=== PATIENT | female | born 1955 | race Hispanic/Latino ===

== ENCOUNTER 2017-01-22 15:49 | Observation (INO) | payer MEDICAID ==
[2017-01-22 17:43] LABS: BASO # 0.1 K/uL (0.0-0.2); BASO % 1.3 % (0.0-2.0); EOS # 0.1 K/uL (0.0-0.7); EOS % 1.3 % (0.0-4.0); HEMATOCRIT 35.2 % (34.0-47.0); MEAN CORPUSCULAR HEMOGLOBIN 28.7 pg (27.0-31.0); MEAN CORPUSCULAR HGB CONC 32.7 g/dL (33.0-37.0); MEAN PLATELET VOLUME 9.3 fL (7.2-11.7); MONO # 0.5 K/uL (0.0-0.8); MONO % 8.8 % (0.0-10.0); RED CELL DISTRIBUTION WIDTH 16.3 % (11.5-14.5)
[2017-01-22 17:44] LABS: WHITE BLOOD COUNT 5.2 K/uL (4.8-10.8)
[2017-01-22 17:46] LABS: CHLORIDE 97 mmol/L (98-107)
[2017-01-22 17:47] LABS: SODIUM 136 mmol/L (132-148)
[2017-01-22 17:48] LABS: POTASSIUM 4.7 mmol/L (3.6-5.2)
[2017-01-22 17:50] LABS: ALKALINE PHOSPHATASE 71 U/L (38-126); ALT/SGPT 22 U/L (9-52); AST/SGOT 33 U/L (14-36); BLOOD UREA NITROGEN 20 mg/dL (7-17); CALCIUM 8.9 mg/dl (8.6-10.4); CARBON DIOXIDE 24 mmol/L (22-30); GFR AFRICAN-AMERICAN > 60; GLUCOSE,RANDOM 85 mg/dL (65-105); TOTAL PROTEIN 8.1 g/dL (6.3-8.3)
[2017-01-22 17:51] LABS: ALB/GLOB RATIO 0.8 (1.0-2.1); INR 1.2
--- NOTE | 2017-01-22 18:39 | C.PDOC ---
History Of Present Illness 61-year-old female, PMHx includes Ascites receiving paracentesis once a month, presents to the emergency department with complaints of pain to left inguinal region and umbilical hernia pain for the past few days. Patient denies nausea/ vomiting, shortness of breath or any other associated symptoms. No other complaints at this time. Time Seen by Provider: 01/22/17 16:55 Chief Complaint (Nursing): Abdominal Pain History Per: Patient History/Exam Limitations: no limitations Onset/Duration Of Symptoms: Days Past Medical History Reviewed: Historical Data, Nursing Documentation, Vital Signs Vital Signs: Last Vital Signs Temp 97.6 F 01/22/17 16:16 Pulse 79 01/22/17 16:16 Resp 16 01/22/17 16:16 BP 148/80 01/22/17 16:16 Pulse Ox 99 01/22/17 18:39 - Medical History PMH: Anxiety, Asthma, Bronchitis, COPD, HTN Denies: Chronic Kidney Disease - [facility] Procedures DRAINAGE OF PERITONEAL CAVITY, PERCUTANEOUS APPROACH (11/28/16) INDIVIDUAL PSYCHOTHERAPY, COGNITIVE-BEHAVIORAL (11/28/16) INDIVIDUAL PSYCHOTHERAPY, SUPPORTIVE (11/28/16) Family History: States: Unknown Family Hx - Social History Hx Tobacco Use: No Hx Alcohol Use: Yes Hx Substance Use: Yes (marijuana) - Immunization History Hx Tetanus Toxoid Vaccination: No Hx Influenza Vaccination: No Hx Pneumococcal Vaccination: No Review Of Systems Except As Marked, All Systems Reviewed And Found Negative. Constitutional: Negative for: Fever, Chills Cardiovascular: Negative for: Chest Pain, Palpitations Respiratory: Negative for: Shortness of Breath Gastrointestinal: Positive for: Abdominal Pain. Negative for: Vomiting Musculoskeletal: Negative for: Back Pain Physical Exam - Physical Exam Appears: Non-toxic, No Acute Distress Skin: Warm, Dry, No Rash Head: Atraumatic, Normacephalic Eye(s): bilateral: Normal Inspection, PERRL Nose: Normal Oral Mucosa: Moist Lips: Normal Appearing Neck: Normal ROM Chest: Symmetrical Respiratory: No Accessory Muscle Use Gastrointestinal/Abdominal: Tenderness (diffusely), Hernia (umbilical) Extremity: Normal ROM Neurological/Psych: Oriented x3, Normal Speech ED Course And Treatment - Laboratory Results Result Diagrams: 01/22/17 17:32 01/22/17 17:32 O2 Sat by Pulse Oximetry: 99 Progress Note: Patient will be admitted to Dr Vitor Suazo Statement The provider has reviewed the documentation as recorded by the Gabriele Owens All medical record entries made by the Gabriele were at my direction and personally dictated by me. I have reviewed the chart and agree that the record accurately reflects my personal performance of the history, physical exam, medical decision making, and the department course for this patient. I have also personally directed, reviewed, and agree with the discharge instructions and disposition.
[2017-01-22] MEDS ORDERED: Morphine 4 MG/ML VIAL ONE (18:55)
[2017-01-22] MEDS ORDERED: Albuterol-Ipratrop 3 mg / 0.5 (3 ml) UD ONE (19:03)
[2017-01-22 19:15] VITALS: RESP 20
[2017-01-22] MEDS: oxyCODONE 10 mg Immediate Release Tab PO PRN (21:44)
[2017-01-22] MEDS ORDERED: Enoxaparin 40 mg Syringe SC SCH ×2 (22:00)
[2017-01-23] MEDS: Albuterol-Ipratrop 3 mg / 0.5 (3 ml) UD INH SCH ×4 (01:03→19:41)
[2017-01-23] MEDS: oxyCODONE 10 mg Immediate Release Tab PO PRN ×4 (05:15→23:43)
[2017-01-23] MEDS: Fluticasone-Salmeterol 100-50mcg Diskus INH SCH ×2 (07:50→19:44)
--- NOTE | 2017-01-23 08:14 | CP.PCM.PN ---
Objective - Vital Signs/Intake and Output Vital Signs (last 24 hours): Temp Pulse Resp BP Pulse Ox 98 F 80 20 111/60 97 01/23/17 00:00 01/23/17 01:20 01/23/17 00:00 01/23/17 00:00 01/23/17 00:00 Intake and Output: 01/23/17 01/23/17 06:59 18:59 Intake Total 700 Balance 700 - Medications Medications: Current Medications Albuterol/Ipratropium (Duoneb 3 Mg/0.5 Mg (3 Ml) Ud) 3 ml INH RQ6 [facility] Last Admin: 01/23/17 07:50 Dose: Not Given Alprazolam (Xanax) 0.5 mg PO TID PRN PRN Reason: Anxiety Last Admin: 01/23/17 05:15 Dose: 0.5 mg Enoxaparin Sodium (Lovenox) 40 mg SC DAILY [facility] Last Admin: 01/22/17 21:44 Dose: 40 mg Furosemide (Lasix) 40 mg IVP DAILY [facility] Last Admin: 01/22/17 22:41 Dose: Not Given Montelukast Sodium (Singulair) 10 mg PO HS [facility] Last Admin: 01/22/17 21:45 Dose: 10 mg Oxycodone HCl (Oxycodone Immediate Release Tab) 10 mg PO Q6 PRN PRN Reason: Pain, moderate (4-7) Last Admin: 01/23/17 05:15 Dose: 10 mg Pantoprazole Sodium (Protonix Inj) 40 mg IVP DAILY [facility] Last Admin: 01/23/17 00:08 Dose: 40 mg Fluticasone/Salmeterol (Advair Diskus 100/50) 1 puff INH RQ12 [facility] Last Admin: 01/23/17 07:50 Dose: Not Given Spironolactone (Aldactone) 200 mg PO DAILY [facility] Thiamine HCl (Vitamin B1 Tab) 100 mg PO DAILY [facility] - Labs Labs: PT 13.3 SECONDS (9.7-12.2) H 01/22/17 17:32 INR 1.2 01/22/17 17:32 APTT 45 SECONDS (21-34) H 01/22/17 17:32
--- NOTE | 2017-01-23 09:11 | CP.PCM.CON ---
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 Last discharged 12/2016 with large volume paracentesis and most recent follow up with established [facility]ing Box Tender, Dr. Mcdaniels in [place] on Friday for lab work and continued prescription of Lasix 80mg and Spironolactone 200mg Po daily. She notes compliance to diuretics except for when the prescription runs out with denial of noncompliance since discharge in the last three weeks. She does admit to taking all other home medications on as needed basis about two to three times a week so the prescription "can stretch" since she has not been able to get refills. She admits to shortness of breath with limited deep inspiration due to abdominal swelling, leg swelling, and umbilical hernia and left groin pain due to distension. Denies confusion, hematemesis, nausea, vomiting, diarrhea, constipation, melena, hematochezia, or weight loss. No prior EGD or colonoscopy. Family-Father- colon cancer in his 50s, [place], Mother-Diabetes Social-quit alcohol 06/2016, previous 4-5 glasses of wine daily for five years tobacco - previous 1/2 ppd x10 years, 4-5 cigarettes daily, previous marijuana use Surgery- none Review of Systems - Review of Systems Review of Systems: A 12-point review of systems negative except for as above Past Patient History - Infectious Disease Hx of Infectious Diseases: None - Past Medical History & Family History Past Medical History?: Yes - Past Social History Smoking Status: Light Smoker < 10 Cigarettes Daily - CARDIAC Hx Hypertension: Yes - PULMONARY Hx Asthma: Yes Hx Bronchitis: Yes Hx Chronic Obstructive Pulmonary Disease (COPD): Yes - NEUROLOGICAL Hx Neurological Disorder: No - HEENT Hx HEENT Problems: No - RENAL Hx Chronic Kidney Disease: No - ENDOCRINE/METABOLIC Hx Endocrine Disorders: No - HEMATOLOGICAL/ONCOLOGICAL Hx Blood Disorders: Yes Hx Hepatitis B: Yes Hx Hepatitis C: Yes - INTEGUMENTARY Hx Dermatological Problems: No - MUSCULOSKELETAL/RHEUMATOLOGICAL Hx Musculoskeletal Disorders: Yes Hx Falls: Yes (2 weeks ago due to leg pain) - GASTROINTESTINAL Hx Gastrointestinal Disorders: Yes Hx Liver Failure: Yes Other/Comment: Ascites,umbilical hernia - GENITOURINARY/GYNECOLOGICAL Hx Genitourinary Disorders: No - PSYCHIATRIC Hx Anxiety: Yes Hx Substance Use: Yes (marijuana) - SURGICAL HISTORY Hx Surgeries: No - ANESTHESIA Hx Anesthesia: No Hx Anesthesia Reactions: No Hx Malignant Hyperthermia: No Meds Allergies/Adverse Reactions: Allergies Allergy/AdvReac Type Severity Reaction Status Date / Time No Known Allergies Allergy Verified 01/01/17 13:51 - Medications Medications: Current Medications Albuterol/Ipratropium (Duoneb 3 Mg/0.5 Mg (3 Ml) Ud) 3 ml INH RQ6 [facility] Last Admin: 01/23/17 07:50 Dose: Not Given Alprazolam (Xanax) 0.5 mg PO TID PRN PRN Reason: Anxiety Last Admin: 01/23/17 05:15 Dose: 0.5 mg Enoxaparin Sodium (Lovenox) 40 mg SC DAILY [facility] Last Admin: 01/22/17 21:44 Dose: 40 mg Furosemide (Lasix) 40 mg IVP DAILY [facility] Last Admin: 01/22/17 22:41 Dose: Not Given Montelukast Sodium (Singulair) 10 mg PO HS [facility] Last Admin: 01/22/17 21:45 Dose: 10 mg Oxycodone HCl (Oxycodone Immediate Release Tab) 10 mg PO Q6 PRN PRN Reason: Pain, moderate (4-7) Last Admin: 01/23/17 05:15 Dose: 10 mg Pantoprazole Sodium (Protonix Inj) 40 mg IVP DAILY [facility] Last Admin: 01/23/17 00:08 Dose: 40 mg Fluticasone/Salmeterol (Advair Diskus 100/50) 1 puff INH RQ12 [facility] Last Admin: 01/23/17 07:50 Dose: Not Given Spironolactone (Aldactone) 200 mg PO DAILY [facility] Thiamine HCl (Vitamin B1 Tab) 100 mg PO DAILY [facility] Physical Exam - Constitutional Appears: Non-toxic, No Acute Distress - Head Exam Head Exam: ATRAUMATIC, NORMOCEPHALIC - Eye Exam Eye Exam: EOMI, PERRL Pupil Exam: PERRL. absent: Miosis, Mydriatic - ENT Exam ENT Exam: Mucous Membranes Moist, Normal Oropharynx - Neck Exam Neck exam: Positive for: Full Rom, Normal Inspection - Respiratory Exam Respiratory Exam: Clear to Auscultation Bilateral. absent: Rales, Rhonchi, Wheezes - Cardiovascular Exam Cardiovascular Exam: RRR, +S1, +S2. absent: Gallop, Rubs - GI/Abdominal Exam GI & Abdominal Exam: Distended, Firm, Hernia, Normal Bowel Sounds, Organomegaly , Tenderness. absent: Guarding, Mass, Rebound, Rigid Additional comments: hepatosplenomegaly, reducible umbilical hernia, left inguinal hernia - Extremities Exam Extremities exam: Positive for: full ROM Additional comments: 1-2+ B/L LE pitting edema - Neurological Exam Neurological exam: Alert, Oriented x3 - Psychiatric Exam Psychiatric exam: Normal Affect, Normal Mood - Skin Skin Exam: Dry, Intact, Normal Color, Warm Results - Vital Signs Recent Vital Signs: Last Vital Signs Temp 97.6 F 01/23/17 08:17 Pulse 76 01/23/17 08:17 Resp 20 01/23/17 08:17 BP 126/70 01/23/17 08:17 Pulse Ox 98 01/23/17 08:17 - Labs Result Diagrams: 01/22/17 17:32 01/22/17 17:32 Assessment & Plan - Assessment and Plan (Free Text) Assessment: 61 year old female with history of COPD, Hypertension, 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 Last discharged 12/2016 with large volume paracentesis. Most recent follow up with established [facility] Tender, Dr. Mcdaniels in [place] on Friday for lab work and continued prescription of Lasix 80mg and Spironolactone 200mg PO daily. No prior EGD or colonoscopy. Ascites Decompensated Alcohol/HCV cirrhosis Plan: >MELD 8 on admission, today pending >ordered diagnostic and therapeutic paracentesis with fluid analysis >will likely require albumin replacement for large volume paracentesis >Albumin 6-8g/dL per Liter removed >counselled on medication compliance >low salt diet >daily PT/INR, LFts >strict I&Os >counselled on liver transplant evaluation, patient refuses referral to tertiary care at this point >counselled on continued alcohol abstinence >counselled on need for elective EGD for variceal screening >counselled on need for colonoscopy for CRC screening with family history of colon cancer <Alejo Jones - Last Filed: 01/23/17 14:05> Meds - Medications Medications: Current Medications Albuterol/Ipratropium (Duoneb 3 Mg/0.5 Mg (3 Ml) Ud) 3 ml INH RQ6 [facility] Last Admin: 01/23/17 07:50 Dose: Not Given Alprazolam (Xanax) 0.5 mg PO TID PRN PRN Reason: Anxiety Last Admin: 01/23/17 11:09 Dose: 0.5 mg Enoxaparin Sodium (Lovenox) 40 mg SC DAILY [facility] Last Admin: 01/22/17 21:44 Dose: 40 mg Furosemide (Lasix) 40 mg IVP DAILY [facility] Last Admin: 01/23/17 11:14 Dose: Not Given Montelukast Sodium (Singulair) 10 mg PO HS [facility] Last Admin: 01/22/17 21:45 Dose: 10 mg Oxycodone HCl (Oxycodone Immediate Release Tab) 10 mg PO Q6 PRN PRN Reason: Pain, moderate (4-7) Last Admin: 01/23/17 11:08 Dose: 10 mg Pantoprazole Sodium (Protonix Inj) 40 mg IVP DAILY [facility] Last Admin: 01/23/17 11:12 Dose: 40 mg Fluticasone/Salmeterol (Advair Diskus 100/50) 1 puff INH RQ12 [facility] Last Admin: 01/23/17 07:50 Dose: Not Given Spironolactone (Aldactone) 200 mg PO DAILY [facility] Last Admin: 01/23/17 11:03 Dose: Not Given Thiamine HCl (Vitamin B1 Tab) 100 mg PO DAILY [facility] Last Admin: 01/23/17 11:09 Dose: 100 mg Results - Vital Signs Recent Vital Signs: Last Vital Signs Temp 97.6 F 01/23/17 08:17 Pulse 76 01/23/17 08:17 Resp 20 01/23/17 08:17 BP 126/70 01/23/17 08:17 Pulse Ox 98 01/23/17 08:17 - Labs Result Diagrams: 01/22/17 17:32 01/22/17 17:32 Labs: Laboratory Results - last 24 hr 01/23/17 13:32 Fluid Source Peritoneal/ascites Attending/Attestation - Attestation I have personally seen and examined this patient.: Yes I have fully participated in the care of the patient.: Yes I have reviewed all pertinent clinical information: Yes Notes (Text): 01/23/17 13:58 I have seen and examined patient with GI fellow. Agree with above documentation with the following additions. In brief, this is a 61 year old female with history of decompensated ETOH/HCV cirrhosis, depression/anxiety, HTN , COPD, who presents to hospital with complaint of increased abdominal girth. She follows up with Dr. Toure (hepatology) as outpatient and claims to be compliant with diuretic regimen and dietary intake. She last had large volume paracentesis performed at [facility] last month. She complains of groin pain and dyspnea on exertion but otherwise denies nausea, vomiting, fever/chills , weight loss, rectal bleeding, or change in bowel habits. She claims to have quit ETOH consumption in June 2016. No prior endoscopic evaluation. HCV/ETOH decompensated cirrhosis - awaiting INR to calculate admission MELD Ascites Abdominal US reviewed by me, showing large ascites, no presence of hepatic lesion - Continue with diuretic therapy, monitor electrolytes - Plan for therapeutic paracentesis today. Depending on volume removed, she will require albumin replacement therapy. - Low sodium diet as tolerated - Awaiting INR - Patient would benefit from tertiary care referral for transplant evaluation, particularly given long period of sobriety - Recommend age appropriate colon cancer screening as well as EGD for variceal screening which can be done electively with primary GI physician (Dr. Toure) as outpatient
--- NOTE | 2017-01-23 13:12 | US ---
HISTORY: Ascites, cirrhosis, evaluate portal system COMPARISON: Abdominal ultrasound performed 01/02/17 TECHNIQUE: Sonographic evaluation of the abdomen. FINDINGS: Examination limited by habitus. LIVER: Measures 13.8 cm in sagittal dimension. Heterogeneous and echogenic liver may be seen in setting of hepatic parenchymal disease or fatty infiltration. Nodular hepatic contour. No focal hepatic mass identified. The main portal vein appears patent with normal directional flow. No intrahepatic bile duct dilatation. Perihepatic ascites. GALLBLADDER: No gallstones. Gallbladder wall thickening measuring approximately 6 mm. Negative sonographic Szymanski's sign as assessed by the service delivery director. COMMON BILE DUCT: Measures 4 mm. PANCREAS: Not well visualized. RIGHT KIDNEY: Measures 11.4 x 4.3 x 5.0cm. Cortical thinning. No obstructing calculus or hydronephrosis identified. LEFT KIDNEY: Measures 10.4 x 3.7 x 3.7cm. Cortical thinning. No obstructing calculus or hydronephrosis identified. SPLEEN: Measures approximately 20.2 cm. AORTA: Limited visualization appears grossly unremarkable. IVC: Limited visualization appears grossly unremarkable. OTHER FINDINGS: None. IMPRESSION: Limited study. Abdominal ascites. Nodular hepatic contour consistent with cirrhosis. Heterogeneous and echogenic liver may be seen in setting of hepatic parenchymal disease or fatty infiltration. Splenomegaly. Bilateral renal cortical thinning.
[2017-01-23 13:34] LABS: BODY FLUID TYPE PERITONEAL/ASCITES
--- NOTE | 2017-01-23 14:38 | US ---
Date of Procedure: 01/23/2017 PROCEDURE: Ultrasound-guided paracentesis, CPT 39442 Medications: 1% Lidocaine HISTORY: Ascites, abdominal pain, cirrhosis TECHNIQUE: Following informed consent , the patient was placed supine on the stretcher and the site was marked. A limited abdominal ultrasound was performed that showed a large amount of intra-abdominal fluid. Procedural time out was called and the Pt's abdomen was marked and prepped and draped in the usual sterile fashion. Ultrasound-guided large volume paracentesis performed. A total of 8 liters of straw colored fluid was removed without complication. IMPRESSION: Ultrasound-guided large volume paracentesis.
--- NOTE | 2017-01-23 14:39 | PCM.SURG1 ---
Surgeon's Initial Post Op Note - Surgeon's Notes Surgeon: Michael Saavedra MD Blurb Writer: None Type of Anesthesia: Local Pre-Operative Diagnosis: Ascites, cirrhosis Operative Findings: US showed a large amount of ascites Post-Operative Diagnosis: Ascites, cirrhosis Operation Performed: US guided paracentesis. Specimen/Specimens Removed: 8 L of straw colored fluid Estimated Blood Loss: EBL {In ML}: 0 Blood Products Given: N/A Drains Used: No Drains Post-Op Condition: Fair Date of Surgery/Procedure: 01/23/17 Time of Surgery/Procedure: 12:55
[2017-01-23 14:42] LABS: BF GROSS APPEARANCE CLEAR (CLEAR)
[2017-01-23 14:43] LABS: BODY FLUID TOTAL COUNT 100 (0-0)
--- NOTE | 2017-01-23 15:51 | CP.PCM.CON ---
History of Present Illness - History of Present Illness History of Present Illness: PGY-1 consult note for General Surgery, Dr. Oivedo Reason for consult: Umbilical hernia CC: Painful umbilical hernia aggravated by ascites HPI: Patient is 61 year old female with PMHx of COPD, HTN, and recurrent ascites secondary to Hepatitis C/Alcoholic Cirrhosis, and no PSHx, who surgery is consulted to evaluate umbilical hernias. She reports first noticing the hernia "one year ago" when the ascites first began. She states the pain in the hernia is worsened as the ascites builds in her abdomen. She describes the pain as intermittent, "stabbing" and "12/10." She admits worsened pain with cough or straining to void. Patient reports on prior admission that she has been told she cannot have the hernia removed under anesthesia or "her liver will fail." She denies any warmth, redness, or drainage of blood or fluid from the hernia. She denies fever, chills, nausea, or vomiting at this time. PMHx: COPD, HTN, Alcoholic/Hepatitis C cirrhosis PSHx: denies major surgeries, but admits paracentesis every 4 weeks to drain ascites Allergies: NDKA Social: quit alcohol 06/2016, previous 4-5 glasses of wine daily for five years tobacco - previous 1/2 ppd x10 years, 4-5 cigarettes daily, previous marijuana use Review of Systems - Constitutional Constitutional: absent: Chills, Fever - EENT Eyes: absent: Change in Vision Ears: absent: Decreased Hearing - Cardiovascular Cardiovascular: Edema. absent: Chest Pain, Chest Pain with Activity - Respiratory Respiratory: Dyspnea (SOB with inspiration when abdomen swollen) Past Patient History - Infectious Disease Hx of Infectious Diseases: None - Past Medical History & Family History Past Medical History?: Yes - Past Social History Smoking Status: Light Smoker < 10 Cigarettes Daily - CARDIAC Hx Hypertension: Yes - PULMONARY Hx Asthma: Yes Hx Bronchitis: Yes Hx Chronic Obstructive Pulmonary Disease (COPD): Yes - NEUROLOGICAL Hx Neurological Disorder: No - HEENT Hx HEENT Problems: No - RENAL Hx Chronic Kidney Disease: No - ENDOCRINE/METABOLIC Hx Endocrine Disorders: No - HEMATOLOGICAL/ONCOLOGICAL Hx Blood Disorders: Yes Hx Hepatitis B: Yes Hx Hepatitis C: Yes - INTEGUMENTARY Hx Dermatological Problems: No - MUSCULOSKELETAL/RHEUMATOLOGICAL Hx Musculoskeletal Disorders: Yes Hx Falls: Yes (2 weeks ago due to leg pain) - GASTROINTESTINAL Hx Gastrointestinal Disorders: Yes Hx Liver Failure: Yes Other/Comment: Ascites,umbilical hernia - GENITOURINARY/GYNECOLOGICAL Hx Genitourinary Disorders: No - PSYCHIATRIC Hx Anxiety: Yes Hx Substance Use: Yes (marijuana) - SURGICAL HISTORY Hx Surgeries: No - ANESTHESIA Hx Anesthesia: No Hx Anesthesia Reactions: No Hx Malignant Hyperthermia: No Meds Allergies/Adverse Reactions: Allergies Allergy/AdvReac Type Severity Reaction Status Date / Time No Known Allergies Allergy Verified 01/01/17 13:51 - Medications Medications: Current Medications Albuterol/Ipratropium (Duoneb 3 Mg/0.5 Mg (3 Ml) Ud) 3 ml INH RQ6 [facility] Last Admin: 01/23/17 14:01 Dose: Not Given Alprazolam (Xanax) 0.5 mg PO QID PRN PRN Reason: Anxiety Enoxaparin Sodium (Lovenox) 40 mg SC DAILY [facility] Last Admin: 01/22/17 21:44 Dose: 40 mg Furosemide (Lasix) 40 mg IVP DAILY [facility] Last Admin: 01/23/17 11:14 Dose: Not Given Montelukast Sodium (Singulair) 10 mg PO HS [facility] Last Admin: 01/22/17 21:45 Dose: 10 mg Oxycodone HCl (Oxycodone Immediate Release Tab) 10 mg PO Q6 PRN PRN Reason: Pain, moderate (4-7) Last Admin: 01/23/17 11:08 Dose: 10 mg Pantoprazole Sodium (Protonix Inj) 40 mg IVP DAILY [facility] Last Admin: 01/23/17 11:12 Dose: 40 mg Fluticasone/Salmeterol (Advair Diskus 100/50) 1 puff INH RQ12 [facility] Last Admin: 01/23/17 07:50 Dose: Not Given Spironolactone (Aldactone) 200 mg PO DAILY [facility] Last Admin: 01/23/17 11:03 Dose: Not Given Thiamine HCl (Vitamin B1 Tab) 100 mg PO DAILY [facility] Last Admin: 01/23/17 11:09 Dose: 100 mg Physical Exam - Constitutional Appears: Non-toxic, No Acute Distress - Head Exam Head Exam: ATRAUMATIC, NORMOCEPHALIC - Eye Exam Eye Exam: EOMI Pupil Exam: PERRL - ENT Exam ENT Exam: Mucous Membranes Moist - Neck Exam Neck exam: Negative for: Tenderness - Respiratory Exam Respiratory Exam: Clear to Auscultation Bilateral, NORMAL BREATHING PATTERN - Cardiovascular Exam Cardiovascular Exam: REGULAR RHYTHM, +S1, +S2 - GI/Abdominal Exam GI & Abdominal Exam: Distended, Firm, Normal Bowel Sounds, Tenderness (diffuse, but worst in LLQ by site of inguinal hernia) Additional comments: reducible umbilical hernia, left inguinal hernia hepatosplenomegaly - Extremities Exam Additional comments: 1+ pitting edema b/l - Neurological Exam Neurological exam: Alert, Oriented x3 - Psychiatric Exam Psychiatric exam: Normal Affect - Skin Skin Exam: Normal Color, Warm Results - Vital Signs Recent Vital Signs: Last Vital Signs Temp 97.6 F 01/23/17 08:17 Pulse 76 01/23/17 14:26 Resp 20 01/23/17 08:17 BP 126/70 01/23/17 08:17 Pulse Ox 98 01/23/17 08:17 - Labs Result Diagrams: 01/23/17 17:16 01/23/17 17:16 Labs: Laboratory Results - last 24 hr 01/23/17 13:32 Fluid Source Peritoneal/ascites Fluid Appearance Clear Fluid WBC 233.0 Fluid RBC 936.0 H Fluid Tot Cell Count 100 H Fluid Neutrophils 10.0 H Fluid Lymphocytes 79.0 H Fld Monocyte/Macrophag 11 H Fluid Comment Assessment & Plan - Assessment and Plan (Free Text) Assessment: 61 yo F with umbilical and inguinal hernia Plan: No signs of strangulation or incarceration Pt is not candidate for surgical intervention d/w Dr Oviedo
--- NOTE | 2017-01-23 16:21 | CP.PCM.CON ---
Past Patient History - Infectious Disease Hx of Infectious Diseases: None - Past Medical History & Family History Past Medical History?: Yes - Past Social History Smoking Status: Light Smoker < 10 Cigarettes Daily - CARDIAC Hx Hypertension: Yes - PULMONARY Hx Asthma: Yes Hx Bronchitis: Yes Hx Chronic Obstructive Pulmonary Disease (COPD): Yes - NEUROLOGICAL Hx Neurological Disorder: No - HEENT Hx HEENT Problems: No - RENAL Hx Chronic Kidney Disease: No - ENDOCRINE/METABOLIC Hx Endocrine Disorders: No - HEMATOLOGICAL/ONCOLOGICAL Hx Blood Disorders: Yes Hx Hepatitis B: Yes Hx Hepatitis C: Yes - INTEGUMENTARY Hx Dermatological Problems: No - MUSCULOSKELETAL/RHEUMATOLOGICAL Hx Musculoskeletal Disorders: Yes Hx Falls: Yes (2 weeks ago due to leg pain) - GASTROINTESTINAL Hx Gastrointestinal Disorders: Yes Hx Liver Failure: Yes Other/Comment: Ascites,umbilical hernia - GENITOURINARY/GYNECOLOGICAL Hx Genitourinary Disorders: No - PSYCHIATRIC Hx Anxiety: Yes Hx Substance Use: Yes (marijuana) - SURGICAL HISTORY Hx Surgeries: No - ANESTHESIA Hx Anesthesia: No Hx Anesthesia Reactions: No Hx Malignant Hyperthermia: No Meds Allergies/Adverse Reactions: Allergies Allergy/AdvReac Type Severity Reaction Status Date / Time No Known Allergies Allergy Verified 01/01/17 13:51 - Medications Medications: Current Medications Albuterol/Ipratropium (Duoneb 3 Mg/0.5 Mg (3 Ml) Ud) 3 ml INH RQ6 [facility] Last Admin: 01/23/17 14:01 Dose: Not Given Alprazolam (Xanax) 0.5 mg PO QID PRN PRN Reason: Anxiety Enoxaparin Sodium (Lovenox) 40 mg SC DAILY [facility] Last Admin: 01/22/17 21:44 Dose: 40 mg Furosemide (Lasix) 40 mg IVP DAILY [facility] Last Admin: 01/23/17 11:14 Dose: Not Given Montelukast Sodium (Singulair) 10 mg PO HS [facility] Last Admin: 01/22/17 21:45 Dose: 10 mg Oxycodone HCl (Oxycodone Immediate Release Tab) 10 mg PO Q6 PRN PRN Reason: Pain, moderate (4-7) Last Admin: 01/23/17 11:08 Dose: 10 mg Pantoprazole Sodium (Protonix Inj) 40 mg IVP DAILY [facility] Last Admin: 01/23/17 11:12 Dose: 40 mg Fluticasone/Salmeterol (Advair Diskus 100/50) 1 puff INH RQ12 [facility] Last Admin: 01/23/17 07:50 Dose: Not Given Spironolactone (Aldactone) 200 mg PO DAILY [facility] Last Admin: 01/23/17 11:03 Dose: Not Given Thiamine HCl (Vitamin B1 Tab) 100 mg PO DAILY [facility] Last Admin: 01/23/17 11:09 Dose: 100 mg Physical Exam - Constitutional Appears: Well - Head Exam Head Exam: ATRAUMATIC, NORMAL INSPECTION, NORMOCEPHALIC - Eye Exam Eye Exam: EOMI, Normal appearance, PERRL Pupil Exam: NORMAL ACCOMODATION, PERRL - ENT Exam ENT Exam: Mucous Membranes Moist, Normal Exam - Neck Exam Neck exam: Positive for: Normal Inspection - Respiratory Exam Respiratory Exam: Decreased Breath Sounds - Cardiovascular Exam Cardiovascular Exam: REGULAR RHYTHM, +S1, +S2 - GI/Abdominal Exam GI & Abdominal Exam: Diminished Bowel Sounds, Soft - Rectal Exam Rectal Exam: Deferred Results - Vital Signs Recent Vital Signs: Last Vital Signs Temp 97.4 F L 01/23/17 15:59 Pulse 72 01/23/17 15:59 Resp 20 01/23/17 15:59 BP 114/58 L 01/23/17 15:59 Pulse Ox 98 01/23/17 15:59 - Labs Result Diagrams: 01/22/17 17:32 01/22/17 17:32 Labs: Laboratory Results - last 24 hr 01/23/17 13:32 Fluid Source Peritoneal/ascites Fluid Appearance Clear Fluid WBC 233.0 Fluid RBC 936.0 H Fluid Tot Cell Count 100 H Fluid Neutrophils 10.0 H Fluid Lymphocytes 79.0 H Fld Monocyte/Macrophag 11 H Fluid Comment
[2017-01-23 17:22] LABS: BASO # 0.1 K/uL (0.0-0.2); BASO % 1.8 % (0.0-2.0); EOS # 0.1 K/uL (0.0-0.7); EOS % 2.1 % (0.0-4.0); HEMATOCRIT 29.9 % (34.0-47.0); LYMPH # 0.7 K/uL (1.0-4.3); LYMPH % 19.8 % (20.0-40.0); MEAN CELL VOLUME 88.1 fL (81.0-99.0); MEAN CORPUSCULAR HGB CONC 32.9 g/dL (33.0-37.0); MEAN PLATELET VOLUME 9.6 fL (7.2-11.7); MONO # 0.5 K/uL (0.0-0.8); MONO % 14.9 % (0.0-10.0); RED CELL DISTRIBUTION WIDTH 15.6 % (11.5-14.5); WHITE BLOOD COUNT 3.6 K/uL (4.8-10.8)
[2017-01-23 17:27] LABS: INR 1.2
[2017-01-23 17:28] LABS: CHLORIDE 98 mmol/L (98-107)
[2017-01-23 17:29] LABS: POTASSIUM 4.3 mmol/L (3.6-5.2); SODIUM 136 mmol/L (132-148)
[2017-01-23 17:31] LABS: BILIRUBIN,TOTAL 0.7 mg/dL (0.2-1.3); CARBON DIOXIDE 26 mmol/L (22-30); GFR AFRICAN-AMERICAN > 60
[2017-01-23 17:32] LABS: ALB/GLOB RATIO 0.9 (1.0-2.1); ALKALINE PHOSPHATASE 50 U/L (38-126); ALT/SGPT 20 U/L (9-52); AST/SGOT 26 U/L (14-36); BLOOD UREA NITROGEN 18 mg/dL (7-17); CALCIUM 8.5 mg/dl (8.6-10.4); GLUCOSE,RANDOM 80 mg/dL (65-105); TOTAL PROTEIN 6.9 g/dL (6.3-8.3)
[2017-01-23] MEDS: Sucralfate 1 gm/10 ml Oral Susp UD PO SCH (19:52)
--- NOTE | 2017-01-23 20:18 | CP.PCM.PN ---
Subjective - Date & Time of Evaluation Date of Evaluation: 01/23/17 Time of Evaluation: 11:00 - Subjective Subjective: Dr. Marcano service: Patient evaluated in room. She is very uncomfortable and irritated at being asked questoins. She says she has come here every month for 7 months to get a paracenteisis. She sees a Hepatogist as an outpatient. She was diagnosed with liver failure about 7 months secondary to hepatits C. She is also complaining of a hernia is asking for surgery. She is also saying her pain is such that it is causing her to be bed bound unless she is taking oxycodne. Objective - Vital Signs/Intake and Output Vital Signs (last 24 hours): Temp Pulse Resp BP Pulse Ox 97.4 F L 72 20 114/58 L 98 01/23/17 15:59 01/23/17 15:59 01/23/17 15:59 01/23/17 15:59 01/23/17 15:59 Intake and Output: 01/23/17 01/24/17 18:59 06:59 Intake Total 500 Balance 500 - Medications Medications: Current Medications Albumin Human (Albumin Human 25% (12.5 Gm/50 Ml)) 12.5 gm IV Q30M [facility] Stop: 01/23/17 21:31 Albuterol/Ipratropium (Duoneb 3 Mg/0.5 Mg (3 Ml) Ud) 3 ml INH RQ6 [facility] Last Admin: 01/23/17 19:41 Dose: 3 ml Alprazolam (Xanax) 0.5 mg PO QID PRN PRN Reason: Anxiety Last Admin: 01/23/17 17:43 Dose: 0.5 mg Enoxaparin Sodium (Lovenox) 40 mg SC DAILY [facility] Last Admin: 01/22/17 21:44 Dose: 40 mg Furosemide (Lasix) 40 mg IVP DAILY [facility] Last Admin: 01/23/17 11:14 Dose: Not Given Montelukast Sodium (Singulair) 10 mg PO HS [facility] Last Admin: 01/22/17 21:45 Dose: 10 mg Oxycodone HCl (Oxycodone Immediate Release Tab) 10 mg PO Q6 PRN PRN Reason: Pain, moderate (4-7) Last Admin: 01/23/17 17:42 Dose: 10 mg Pantoprazole Sodium (Protonix Inj) 40 mg IVP DAILY [facility] Last Admin: 01/23/17 11:12 Dose: 40 mg Fluticasone/Salmeterol (Advair Diskus 100/50) 1 puff INH RQ12 [facility] Last Admin: 01/23/17 19:44 Dose: Not Given Spironolactone (Aldactone) 200 mg PO DAILY [facility] Last Admin: 01/23/17 11:03 Dose: Not Given Sucralfate (Carafate Oral Susp) 1 gm PO ACBD [facility] Last Admin: 01/23/17 19:52 Dose: 1 gm Thiamine HCl (Vitamin B1 Tab) 100 mg PO DAILY [facility] Last Admin: 01/23/17 11:09 Dose: 100 mg - Labs Labs: 01/23/17 17:16 01/23/17 17:16 PT 14.0 SECONDS (9.7-12.2) H 01/23/17 17:16 INR 1.2 01/23/17 17:16 APTT 45 SECONDS (21-34) H 01/22/17 17:32 - Constitutional Appears: Non-toxic, No Acute Distress - Head Exam Head Exam: NORMAL INSPECTION - Eye Exam Eye Exam: Normal appearance, PERRL Pupil Exam: NORMAL ACCOMODATION - Respiratory Exam Respiratory Exam: Clear to Ausculation Bilateral. absent: Rhonchi, Wheezes - Cardiovascular Exam Cardiovascular Exam: REGULAR RHYTHM, RRR, +S1, +S2. absent: Gallop, Rubs - GI/Abdominal Exam GI & Abdominal Exam: Distended, Guarding, Soft, Tenderness - Extremities Exam Extremities Exam: absent: Pedal Edema Assessment and Plan (1) Ascites Assessment & Plan: Patient had a pericenties performed today, removed 8 liters of fluid Aldactone 200mg daily and Lasix 40mg IVP. Vitamin B1 Status: Acute (2) Hernia of abdominal cavity Assessment & Plan: Dr. Sood consulted, help appreciated. Status: Acute (3) Liver failure Assessment & Plan: Dr. Jones consulted. Follow up Hepatits C antibody and viral load Status: Acute (4) COPD (chronic obstructive pulmonary disease) Assessment & Plan: continue singular and Advair Status: Chronic (5) Prophylactic measure Assessment & Plan: Patient on Protonix 40mg daily hold anticoagulation due to drop in Hbg and thrombocytopenia Patient Xanax and oxycodone prn for pain and anxiety carafate also given for GI distress Status: Acute
[2017-01-23] MEDS: Albumin Human 25% (12.5 gm/50 ml) IV SCH ×4 (21:15→22:55)
--- NOTE | 2017-01-23 21:29 | CP.PCM.CON ---
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 Last discharged 12/2016 with large volume paracentesis and most recent follow up with established Reduction Furnace Operator Helper, Dr. Mcdaniels in [place] on Friday for lab work and continued prescription of Lasix 80mg and Spironolactone 200mg Po daily. She notes compliance to diuretics except for when the prescription runs out with denial of noncompliance since discharge in the last three weeks. She does admit to taking all other home medications on as needed basis about two to three times a week so the prescription "can stretch" since she has not been able to get refills. She admits to shortness of breath with limited deep inspiration due to abdominal swelling, leg swelling, and umbilical hernia and left groin pain due to distension. Denies confusion, hematemesis, nausea, vomiting, diarrhea, constipation, melena, hematochezia, or weight loss. No prior EGD or colonoscopy. Family-Father- colon cancer in his 50s, [place], Mother-Diabetes Social-quit alcohol 06/2016, previous 4-5 glasses of wine daily for five years tobacco - previous 1/2 ppd x10 years, 4-5 cigarettes daily, previous marijuana use Surgery- none Review of Systems - Review of Systems Review of Systems: A 12-point review of systems negative except for as above Physical Exam - Constitutional Appears: Non-toxic, No Acute Distress - Head Exam Head Exam: ATRAUMATIC, NORMOCEPHALIC - Eye Exam Eye Exam: EOMI, PERRL Pupil Exam: PERRL. absent: Miosis, Mydriatic - ENT Exam ENT Exam: Mucous Membranes Moist, Normal Oropharynx - Neck Exam Neck exam: Positive for: Full Rom, Normal Inspection - Respiratory Exam Respiratory Exam: Clear to Auscultation Bilateral. absent: Rales, Rhonchi, Wheezes - Cardiovascular Exam Cardiovascular Exam: RRR, +S1, +S2. absent: Gallop, Rubs - GI/Abdominal Exam GI & Abdominal Exam: Distended, Firm, Hernia, Normal Bowel Sounds, Organomegaly , Tenderness. absent: Guarding, Mass, Rebound, Rigid Additional comments: hepatosplenomegaly, reducible umbilical hernia, left inguinal hernia - Extremities Exam Extremities exam: Positive for: full ROM Additional comments: 1-2+ B/L LE pitting edema - Neurological Exam Neurological exam: Alert, Oriented x3 - Psychiatric Exam Psychiatric exam: Normal Affect, Normal Mood - Skin Skin Exam: Dry, Intact, Normal Color, Warm Past Patient History - Infectious Disease Hx of Infectious Diseases: None - Past Medical History & Family History Past Medical History?: Yes - Past Social History Smoking Status: Light Smoker < 10 Cigarettes Daily - CARDIAC Hx Hypertension: Yes - PULMONARY Hx Asthma: Yes Hx Bronchitis: Yes Hx Chronic Obstructive Pulmonary Disease (COPD): Yes - NEUROLOGICAL Hx Neurological Disorder: No - HEENT Hx HEENT Problems: No - RENAL Hx Chronic Kidney Disease: No - ENDOCRINE/METABOLIC Hx Endocrine Disorders: No - HEMATOLOGICAL/ONCOLOGICAL Hx Blood Disorders: Yes Hx Hepatitis B: Yes Hx Hepatitis C: Yes - INTEGUMENTARY Hx Dermatological Problems: No - MUSCULOSKELETAL/RHEUMATOLOGICAL Hx Musculoskeletal Disorders: Yes Hx Falls: Yes (2 weeks ago due to leg pain) - GASTROINTESTINAL Hx Gastrointestinal Disorders: Yes Hx Liver Failure: Yes Other/Comment: Ascites,umbilical hernia - GENITOURINARY/GYNECOLOGICAL Hx Genitourinary Disorders: No - PSYCHIATRIC Hx Anxiety: Yes Hx Substance Use: Yes (marijuana) - SURGICAL HISTORY Hx Surgeries: No - ANESTHESIA Hx Anesthesia: No Hx Anesthesia Reactions: No Hx Malignant Hyperthermia: No Meds Allergies/Adverse Reactions: Allergies Allergy/AdvReac Type Severity Reaction Status Date / Time No Known Allergies Allergy Verified 01/01/17 13:51 - Medications Medications: Current Medications Albumin Human (Albumin Human 25% (12.5 Gm/50 Ml)) 12.5 gm IV Q30M [facility] Stop: 01/23/17 21:31 Last Admin: 01/23/17 21:15 Dose: 12.5 gm Albuterol/Ipratropium (Duoneb 3 Mg/0.5 Mg (3 Ml) Ud) 3 ml INH RQ6 [facility] Last Admin: 01/23/17 19:41 Dose: 3 ml Alprazolam (Xanax) 0.5 mg PO QID PRN PRN Reason: Anxiety Last Admin: 01/23/17 17:43 Dose: 0.5 mg Enoxaparin Sodium (Lovenox) 40 mg SC DAILY [facility] Last Admin: 01/22/17 21:44 Dose: 40 mg Furosemide (Lasix) 40 mg IVP DAILY [facility] Last Admin: 01/23/17 11:14 Dose: Not Given Montelukast Sodium (Singulair) 10 mg PO HS [facility] Last Admin: 01/22/17 21:45 Dose: 10 mg Oxycodone HCl (Oxycodone Immediate Release Tab) 10 mg PO Q6 PRN PRN Reason: Pain, moderate (4-7) Last Admin: 01/23/17 17:42 Dose: 10 mg Pantoprazole Sodium (Protonix Inj) 40 mg IVP DAILY [facility] Last Admin: 01/23/17 11:12 Dose: 40 mg Fluticasone/Salmeterol (Advair Diskus 100/50) 1 puff INH RQ12 [facility] Last Admin: 01/23/17 19:44 Dose: Not Given Spironolactone (Aldactone) 200 mg PO DAILY [facility] Last Admin: 01/23/17 11:03 Dose: Not Given Sucralfate (Carafate Oral Susp) 1 gm PO ACBD [facility] Last Admin: 01/23/17 19:52 Dose: 1 gm Thiamine HCl (Vitamin B1 Tab) 100 mg PO DAILY [facility] Last Admin: 01/23/17 11:09 Dose: 100 mg Results - Vital Signs Recent Vital Signs: Last Vital Signs Temp 97.4 F L 01/23/17 15:59 Pulse 72 01/23/17 15:59 Resp 20 01/23/17 15:59 BP 114/58 L 01/23/17 15:59 Pulse Ox 98 01/23/17 15:59 - Labs Result Diagrams: 01/23/17 17:16 01/23/17 17:16 Labs: Laboratory Results - last 24 hr 01/23/17 01/23/17 13:32 17:16 WBC 3.6 L RBC 3.40 L Hgb 9.8 L Hct 29.9 L MCV 88.1 MCH 29.0 MCHC 32.9 L RDW 15.6 H Plt Count 40 L MPV 9.6 Neut % (Auto) 61.4 Lymph % (Auto) 19.8 L Saline % (Auto) 14.9 H Eos % (Auto) 2.1 Baso % (Auto) 1.8 Neut # 2.2 Lymph # 0.7 L Saline # 0.5 Eos # 0.1 Baso # 0.1 PT 14.0 H INR 1.2 Sodium 136 Potassium 4.3 Chloride 98 Carbon Dioxide 26 Anion Gap 16 BUN 18 H Creatinine 0.9 Est GFR ( Amer) > 60 Est GFR (Non-Af Amer) > 60 Random Glucose 80 Calcium 8.5 L Total Bilirubin 0.7 AST 26 ALT 20 Alkaline Phosphatase 50 Total Protein 6.9 Albumin 3.2 L Globulin 3.7 Albumin/Globulin Ratio 0.9 L Fluid Source Peritoneal/ascites Fluid Appearance Clear Fluid WBC 233.0 Fluid RBC 936.0 H Fluid Tot Cell Count 100 H Fluid Neutrophils 10.0 H Fluid Lymphocytes 79.0 H Fld Monocyte/Macrophag 11 H Fluid Comment Assessment & Plan - Assessment and Plan (Free Text) Assessment: Assessment and Plan (1) Ascites Assessment & Plan: Patient had a pericenties performed today, removed 8 liters of fluid Aldactone 200mg daily and Lasix 40mg IVP. Vitamin B1 Status: Acute (2) Hernia of abdominal cavity Assessment & Plan: Dr. Sood consulted, help appreciated. Status: Acute (3) Liver failure Assessment & Plan: Dr. Jones consulted. Follow up Hepatits C antibody and viral load Status: Acute (4) COPD (chronic obstructive pulmonary disease) Assessment & Plan: continue singular and Advair Status: Chronic (5) Prophylactic measure Assessment & Plan: Patient on Protonix 40mg daily hold anticoagulation due to drop in Hbg and thrombocytopenia Patient Xanax and oxycodone prn for pain and anxiety carafate also given for GI distress Status: Acute
[2017-01-24] MEDS: Albuterol-Ipratrop 3 mg / 0.5 (3 ml) UD INH SCH ×3 (01:02→13:21)
[2017-01-24] MEDS: oxyCODONE 10 mg Immediate Release Tab PO PRN ×2 (05:43→12:34)
[2017-01-24] MEDS: Sucralfate 1 gm/10 ml Oral Susp UD PO SCH (07:18)
[2017-01-24] MEDS: Fluticasone-Salmeterol 100-50mcg Diskus INH SCH (07:45)
[2017-01-24 08:16] VITALS: BP 106/53; PULSE 75; TEMP 97.4; O2SAT 100
[2017-01-24 08:42] LABS: BASO % 0.9 % (0.0-2.0); EOS # 0.1 K/uL (0.0-0.7); EOS % 1.5 % (0.0-4.0); LYMPH # 0.7 K/uL (1.0-4.3); LYMPH % 20.4 % (20.0-40.0); MEAN CELL VOLUME 87.5 fL (81.0-99.0); MEAN CORPUSCULAR HEMOGLOBIN 28.6 pg (27.0-31.0); MEAN CORPUSCULAR HGB CONC 32.6 g/dL (33.0-37.0); MEAN PLATELET VOLUME 9.2 fL (7.2-11.7); MONO # 0.4 K/uL (0.0-0.8); MONO % 11.3 % (0.0-10.0); RED CELL DISTRIBUTION WIDTH 16.1 % (11.5-14.5); WHITE BLOOD COUNT 3.7 K/uL (4.8-10.8)
[2017-01-24 08:54] LABS: CHLORIDE 97 mmol/L (98-107); SODIUM 136 mmol/L (132-148)
[2017-01-24 08:57] LABS: ALKALINE PHOSPHATASE 54 U/L (38-126); ALT/SGPT 30 U/L (9-52); AST/SGOT 27 U/L (14-36); BILIRUBIN,TOTAL 0.7 mg/dL (0.2-1.3); BLOOD UREA NITROGEN 18 mg/dL (7-17); CARBON DIOXIDE 25 mmol/L (22-30); GFR AFRICAN-AMERICAN > 60; GLUCOSE,RANDOM 107 mg/dL (65-105); TOTAL PROTEIN 7.8 g/dL (6.3-8.3)
[2017-01-24 08:58] LABS: CALCIUM 8.8 mg/dl (8.6-10.4); MAGNESIUM 1.9 mg/dL (1.6-2.3)
--- NOTE | 2017-01-24 09:53 | CP.PCM.PN ---
<EliseoMarilynn - Last Filed: 01/24/17 09:50> Subjective - Date & Time of Evaluation Date of Evaluation: 01/24/17 Time of Evaluation: 09:50 - Subjective Subjective: Gastroenterology Fellow/PGY4 Progress Note Patient notes abdominal pain and umbilical hernia pain are improved this morning after paracentesis yesterday. Tolerating diet. Admits to adding salt to her meals at home as seen preparing to add salt to breakfast tray. Admits to no bowel movement in five days. A 12-point review negative except for as above. Objective - Vital Signs/Intake and Output Vital Signs (last 24 hours): Temp Pulse Resp BP Pulse Ox 97.4 F L 75 20 106/53 L 100 01/24/17 08:14 01/24/17 08:58 01/24/17 08:14 01/24/17 09:42 01/24/17 08:14 Intake and Output: 01/24/17 01/24/17 06:59 18:59 Intake Total 250 700 Balance 250 700 - Medications Medications: Current Medications Albuterol/Ipratropium (Duoneb 3 Mg/0.5 Mg (3 Ml) Ud) 3 ml INH RQ6 [facility] Last Admin: 01/24/17 07:45 Dose: 3 ml Alprazolam (Xanax) 0.5 mg PO QID PRN PRN Reason: Anxiety Last Admin: 01/24/17 05:44 Dose: 0.5 mg Enoxaparin Sodium (Lovenox) 40 mg SC DAILY [facility] Last Admin: 01/22/17 21:44 Dose: 40 mg Furosemide (Lasix) 40 mg IVP DAILY [facility] Last Admin: 01/24/17 09:42 Dose: 40 mg Montelukast Sodium (Singulair) 10 mg PO HS [facility] Last Admin: 01/23/17 22:04 Dose: 10 mg Oxycodone HCl (Oxycodone Immediate Release Tab) 10 mg PO Q6 PRN PRN Reason: Pain, moderate (4-7) Last Admin: 01/24/17 05:43 Dose: 10 mg Pantoprazole Sodium (Protonix Inj) 40 mg IVP DAILY [facility] Last Admin: 01/24/17 09:42 Dose: 40 mg Fluticasone/Salmeterol (Advair Diskus 100/50) 1 puff INH RQ12 [facility] Last Admin: 01/24/17 07:45 Dose: Not Given Spironolactone (Aldactone) 200 mg PO DAILY [facility] Last Admin: 01/24/17 09:43 Dose: 200 mg Sucralfate (Carafate Oral Susp) 1 gm PO ACBD [facility] Last Admin: 01/24/17 07:18 Dose: 1 gm Thiamine HCl (Vitamin B1 Tab) 100 mg PO DAILY [facility] Last Admin: 01/24/17 09:43 Dose: 100 mg - Labs Labs: 01/24/17 08:35 01/24/17 08:35 PT 14.0 SECONDS (9.7-12.2) H 01/23/17 17:16 INR 1.2 01/23/17 17:16 APTT 45 SECONDS (21-34) H 01/22/17 17:32 - Constitutional Appears: Non-toxic, No Acute Distress - Head Exam Head Exam: ATRAUMATIC, NORMOCEPHALIC - Eye Exam Eye Exam: EOMI, PERRL Pupil Exam: PERRL. absent: Miosis, Mydriatic - ENT Exam ENT Exam: Mucous Membranes Moist, Normal Oropharynx - Neck Exam Neck Exam: Full ROM, Normal Inspection - Respiratory Exam Respiratory Exam: Clear to Ausculation Bilateral. absent: Rales, Rhonchi, Wheezes - Cardiovascular Exam Cardiovascular Exam: RRR, +S1, +S2. absent: Gallop, Rubs - GI/Abdominal Exam GI & Abdominal Exam: Distended, Soft, Hernia, Normal Bowel Sounds. 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 Last discharged 12/2016 with large volume paracentesis. Most recent follow up with established Morgue Librarian, Dr. Toure in [place] on Friday. No prior EGD or colonoscopy. Ascites Decompensated Alcohol/HCV cirrhosis Plan: >MELD 8 on admission, 01/23- 8 >01/23 paracentesis with fluid analysis- no SBP, pending TP, albumin >received albumin 50g replacement for large volume paracentesis >counselled on medication compliance >low salt diet >daily PT/INR, LFts >strict I&Os >recommend transplant evaluation with endorsed alcohol abstinence >counselled elective EGD for variceal screening and colonoscopy for CRC screening <Rommel Alcaraz - Last Filed: 01/24/17 10:50> Objective - Vital Signs/Intake and Output Vital Signs (last 24 hours): Temp Pulse Resp BP Pulse Ox 97.4 F L 75 20 106/53 L 100 01/24/17 08:14 01/24/17 08:58 01/24/17 08:14 01/24/17 09:42 01/24/17 08:14 Intake and Output: 01/24/17 01/24/17 06:59 18:59 Intake Total 250 700 Balance 250 700 - Medications Medications: Current Medications Albuterol/Ipratropium (Duoneb 3 Mg/0.5 Mg (3 Ml) Ud) 3 ml INH RQ6 [facility] Last Admin: 01/24/17 07:45 Dose: 3 ml Alprazolam (Xanax) 0.5 mg PO QID PRN PRN Reason: Anxiety Last Admin: 01/24/17 05:44 Dose: 0.5 mg Enoxaparin Sodium (Lovenox) 40 mg SC DAILY [facility] Last Admin: 01/22/17 21:44 Dose: 40 mg Furosemide (Lasix) 40 mg IVP DAILY [facility] Last Admin: 01/24/17 09:42 Dose: 40 mg Montelukast Sodium (Singulair) 10 mg PO HS [facility] Last Admin: 01/23/17 22:04 Dose: 10 mg Oxycodone HCl (Oxycodone Immediate Release Tab) 10 mg PO Q6 PRN PRN Reason: Pain, moderate (4-7) Last Admin: 01/24/17 05:43 Dose: 10 mg Pantoprazole Sodium (Protonix Inj) 40 mg IVP DAILY [facility] Last Admin: 01/24/17 09:42 Dose: 40 mg Fluticasone/Salmeterol (Advair Diskus 100/50) 1 puff INH RQ12 [facility] Last Admin: 01/24/17 07:45 Dose: Not Given Spironolactone (Aldactone) 200 mg PO DAILY [facility] Last Admin: 01/24/17 09:43 Dose: 200 mg Sucralfate (Carafate Oral Susp) 1 gm PO ACBD [facility] Last Admin: 01/24/17 07:18 Dose: 1 gm Thiamine HCl (Vitamin B1 Tab) 100 mg PO DAILY [facility] Last Admin: 01/24/17 09:43 Dose: 100 mg - Labs Labs: 01/24/17 08:35 01/24/17 08:35 PT 14.0 SECONDS (9.7-12.2) H 01/23/17 17:16 INR 1.2 01/23/17 17:16 APTT 45 SECONDS (21-34) H 01/22/17 17:32 Attending/Attestation - Attestation I have personally seen and examined this patient.: Yes I have fully participated in the care of the patient.: Yes I have reviewed all pertinent clinical information, including history, physical exam and plan: Yes Notes (Text): Patient seen and examined with GI fellow. Agree with her note as documented above with the following additions/exceptions. This is a 61 year old female with history of ETOH/HCV cirrhosis, depression/anxiety, HTN, COPD, who presents to hospital with complaint of increased abdominal girth/ascites. She is s/p LVP with albumin replacement. She has no evidence of SBP. Her abdominal discomfort is overall improved. No nausea or vomiting. She is tolerating diet without incident. Recommend continued diuretics, monitor electrolytes. A lengthy discussion was had re: importance of adhering to low salt diet. Current MELD=8. Monitor LFTs, INR. She should ultimately follow up with her primary pantograph ii engraver upon discharge for EGD for variceal screening and screening colonoscopy. Please call with any further questions or concerns. 01/24/17 10:47
--- NOTE | 2017-01-24 14:58 | CP.PCM.PN ---
Subjective - Date & Time of Evaluation Date of Evaluation: 01/24/17 Time of Evaluation: 11:00 - Subjective Subjective: Patient seen and examined in room. Patient had no family members present. She is complaining of abdominal pain and distention. She denies shortness of breath , palpitations, dizziness, nausea, vomiting, or diarrhea. Objective - Vital Signs/Intake and Output Vital Signs (last 24 hours): Temp Pulse Resp BP Pulse Ox 97.4 F L 75 20 106/53 L 100 01/24/17 08:14 01/24/17 08:58 01/24/17 08:14 01/24/17 09:42 01/24/17 08:14 Intake and Output: 01/24/17 01/24/17 06:59 18:59 Intake Total 250 700 Balance 250 700 - Medications Medications: Current Medications Albuterol/Ipratropium (Duoneb 3 Mg/0.5 Mg (3 Ml) Ud) 3 ml INH RQ6 [facility] Last Admin: 01/24/17 13:21 Dose: Not Given Alprazolam (Xanax) 0.5 mg PO QID PRN PRN Reason: Anxiety Last Admin: 01/24/17 12:34 Dose: 0.5 mg Enoxaparin Sodium (Lovenox) 40 mg SC DAILY [facility] Last Admin: 01/22/17 21:44 Dose: 40 mg Furosemide (Lasix) 40 mg IVP DAILY [facility] Last Admin: 01/24/17 09:42 Dose: 40 mg Montelukast Sodium (Singulair) 10 mg PO HS [facility] Last Admin: 01/23/17 22:04 Dose: 10 mg Oxycodone HCl (Oxycodone Immediate Release Tab) 10 mg PO Q6 PRN PRN Reason: Pain, moderate (4-7) Last Admin: 01/24/17 12:34 Dose: 10 mg Pantoprazole Sodium (Protonix Inj) 40 mg IVP DAILY [facility] Last Admin: 01/24/17 09:42 Dose: 40 mg Fluticasone/Salmeterol (Advair Diskus 100/50) 1 puff INH RQ12 [facility] Last Admin: 01/24/17 07:45 Dose: Not Given Spironolactone (Aldactone) 200 mg PO DAILY [facility] Last Admin: 01/24/17 09:43 Dose: 200 mg Sucralfate (Carafate Oral Susp) 1 gm PO ACBD [facility] Last Admin: 01/24/17 07:18 Dose: 1 gm Thiamine HCl (Vitamin B1 Tab) 100 mg PO DAILY [facility] Last Admin: 01/24/17 09:43 Dose: 100 mg - Labs Labs: 01/24/17 08:35 01/24/17 08:35 PT 14.0 SECONDS (9.7-12.2) H 01/23/17 17:16 INR 1.2 01/23/17 17:16 APTT 45 SECONDS (21-34) H 01/22/17 17:32 - Constitutional Appears: Non-toxic, No Acute Distress - Respiratory Exam Respiratory Exam: Clear to Ausculation Bilateral. absent: Rhonchi, Wheezes - Cardiovascular Exam Cardiovascular Exam: REGULAR RHYTHM, RRR, +S1, +S2. absent: Gallop, Rubs - GI/Abdominal Exam GI & Abdominal Exam: Distended, Firm, Tenderness. absent: Soft - Psychiatric Exam Psychiatric exam: Anxious - Skin Skin Exam: Normal Color, Warm Assessment and Plan - Assessment and Plan (Free Text) Assessment: Assessment and Plan (1) Ascites Assessment & Plan: 01/24: Patient was discharged today with a script for Aldactone, lasix, 8 pills of Oxycodone 10mg, and Xanax 8 pills. She is to follow up with her PMD and her GI physician. Patient had a pericenties performed today, removed 8 liters of fluid Aldactone 200mg daily and Lasix 40mg IVP. Vitamin B1 Status: Acute (2) Hernia of abdominal cavity Assessment & Plan: Dr. Sood consulted, help appreciated. Status: Acute (3) Liver failure Assessment & Plan: Dr. Jones consulted. Follow up Hepatits C antibody and viral load Status: Acute (4) COPD (chronic obstructive pulmonary disease) Assessment & Plan: continue singular and Advair Status: Chronic (5) Prophylactic measure Assessment & Plan: Patient on Protonix 40mg daily hold anticoagulation due to drop in Hbg and thrombocytopenia Patient Xanax and oxycodone prn for pain and anxiety carafate also given for GI distress Status: Acute
[2017-01-25] MEDS ORDERED: Pantoprazole 40 mg EC Tab PO SCH (10:00)
[2017-01-26 01:02] LABS: TOTAL PROTEIN PERITONEAL FLUID <3.0 g/dL (())
[2017-01-27 16:41] LABS: HEPATITIS C VIRAL RNA QUAL Not detected (())
== END 2017-01-24 16:44 | disposition home or self-care (01) ==
LOC: C.ER 15:49 → C.9E 18:34 → C.3T 19:03
PROVIDERS: ADMIT Internal Medicine Nephrology; ATTEND Internal Medicine Nephrology
DX: R18.8 Other ascites (principal); I10 Essential (primary) hypertension; J44.9 Chronic obstructive pulmonary disease, unspecified; B19.20 Unspecified viral hepatitis C without hepatic coma; J45.909 Unspecified asthma, uncomplicated; Z74.01 Bed confinement status; Z87.891 Personal history of nicotine dependence; F41.9 Anxiety disorder, unspecified

== ENCOUNTER 2017-02-08 14:07 | Inpatient (IN) | payer MEDICAID ==
[2017-02-08 14:14] VITALS: BMI 24.7
[2017-02-08] MEDS ORDERED: Morphine 4 MG/ML VIAL ONE (14:43)
[2017-02-08 14:48] LABS: BASO % 0.4 % (0.0-2.0); EOS % 0.3 % (0.0-4.0); HEMATOCRIT 35.7 % (34.0-47.0); LYMPH # 0.7 K/uL (1.0-4.3); LYMPH % 13.8 % (20.0-40.0); MEAN CELL VOLUME 86.6 fL (81.0-99.0); MEAN CORPUSCULAR HEMOGLOBIN 28.3 pg (27.0-31.0); MEAN CORPUSCULAR HGB CONC 32.6 g/dL (33.0-37.0); MEAN PLATELET VOLUME 9.5 fL (7.2-11.7); MONO # 0.5 K/uL (0.0-0.8); MONO % 9.7 % (0.0-10.0); NRBC % 0.1 % (0.0-2.0); RED CELL DISTRIBUTION WIDTH 14.7 % (11.5-14.5); WHITE BLOOD COUNT 5.2 K/uL (4.8-10.8)
[2017-02-08 14:53] LABS: CHLORIDE 99 mmol/L (98-107)
[2017-02-08 14:54] LABS: POTASSIUM 3.9 mmol/L (3.6-5.2); SODIUM 136 mmol/L (132-148)
[2017-02-08] MEDS ORDERED: Iohexol 240 (50 ml) PO STA (14:55)
[2017-02-08 14:56] LABS: AST/SGOT 35 U/L (14-36); BILIRUBIN,TOTAL 1.5 mg/dL (0.2-1.3); CARBON DIOXIDE 23 mmol/L (22-30); GFR AFRICAN-AMERICAN > 60; TOTAL PROTEIN 8.7 g/dL (6.3-8.3)
[2017-02-08 14:57] LABS: ALKALINE PHOSPHATASE 64 U/L (38-126); ALT/SGPT 28 U/L (9-52); BLOOD UREA NITROGEN 25 mg/dL (7-17); CALCIUM 9.5 mg/dl (8.6-10.4); GLUCOSE,RANDOM 150 mg/dL (65-105)
[2017-02-08 15:03] LABS: ALB/GLOB RATIO 0.9 (1.0-2.1)
[2017-02-08] MEDS ORDERED: Sodium Chloride 0.9% 500 ML IV ONE (15:04)
[2017-02-08] MEDS ORDERED: Iohexol 240 (50 ml) ONE (15:06)
[2017-02-08 16:44] LABS: INR 1.3
[2017-02-08] MEDS ORDERED: Iodixanol 320 MG/ML 100 ML BOTTLE IV ONE (16:46)
[2017-02-08 17:46] LABS: RBC URINE < 1 /hpf (0-3); URINE BACTERIA OCC (<OCC); URINE BILIRUBIN NEGATIVE (NEGATIVE); URINE BLOOD NEGATIVE (NEGATIVE); URINE COLOR Yellow (YELLOW); URINE GLUCOSE (UA) NORMAL (Normal); URINE KETONE NEGATIVE (NEGATIVE); URINE LEUKOCYTE ESTERASE NEG Leu/uL (Negative); URINE PROTEIN NEGATIVE (NEGATIVE); URINE UROBILINOGEN NORMAL mg/dL (0.2-1.0); WBC URINE 1 /hpf (0-5)
--- NOTE | 2017-02-08 17:48 | CT ---
PROCEDURE: CT Abdomen and Pelvis with contrast HISTORY: abd pain, umbilical hernia COMPARISON: Comparison is made to the previous study dated 06/30/2016 TECHNIQUE: Axial and reformatted coronal and sagittal CT images of the abdomen and pelvis were obtained after IV and oral contrast administration. This CT exam was performed using one or more of the following dose reduction techniques: Automated exposure control, adjustment of the mA and/or kv according to patient size, and/or use of iterative reconstruction technique. Contrast dose: 100 mL Visipaque 320. Radiation dose: Total exam DLP = 417.29 mGy-cm. FINDINGS: LOWER THORAX: Unremarkable. LIVER: Advanced cirrhotic changes are again seen. The portal vein is patent. GALLBLADDER AND BILE DUCTS: Distended gallbladder is noted. Mild diffuse gallbladder wall thickening is also seen. PANCREAS: No evidence of acute pathology in the pancreas P SPLEEN: Sxrp-ku-uzyahuqr splenomegaly is noted likely due to portal hypertension. ADRENALS: Unremarkable. No mass. KIDNEYS AND URETERS: Unremarkable. No hydronephrosis. No solid mass. VASCULATURE: Unremarkable. No aortic aneurysm. BOWEL: The stomach is mildly to moderately distended. The proximal small bowel loops are slightly distended demonstrate diffuse mild wall thickening. There is umbilical hernia contains fluid and small bowel loops. There are mildly 2 moderately dilated small bowel loops at the mid and right upper abdomen. The distal large bowel is collapsed. Findings suspicious for low grade small bowel obstruction likely at the umbilical hernia. APPENDIX: No definite evidence of appendicitis. PERITONEUM: Small ascites in the abdomen and pelvis is seen. No evidence of free air. LYMPH NODES: Unremarkable. No enlarged lymph nodes. BLADDER: Then bladder is displaced inferiorly suggestive of vtwr-ru-hyaqhpbd cystocele. REPRODUCTIVE: The uterus is mildly to moderately enlarged contains low-attenuation lesions suggestive of tumor could be benign such as fibroids. BONES: No acute fracture. OTHER FINDINGS: Large collateral vessels seen at the upper abdomen consistent with portal systemic shunt due to portal hypertension. IMPRESSION: Umbilical hernia contains fluid and small bowel loop. Qjvtpg-fl-argmdmvuwo dilated small bowel loops at the mid and upper abdomen. The possibility of low-grade bowel obstruction should be considered. Re- demonstration of advanced cirrhosis and findings consistent with portal hypertension including splenomegaly ascites and collateral vessels/varices in the upper abdomen. Ckqovo-rp-gqbwambnxy enlarged uterus contains multiple lesions may represent fibroid. Cvdg-av-hzekbqai cystocele. If clinically warranted delayed images of the abdomen and pelvis male obtained to assess the herniated small bowel loop and to exclude high-grade bowel obstruction.
--- NOTE | 2017-02-08 18:09 | C.PDOC ---
Time Seen by Provider: 02/08/17 14:14 Chief Complaint (Nursing): Abdominal Pain History Per: Patient, Family Onset/Duration Of Symptoms: Hrs (today) Current Symptoms Are (Timing): Still Present Severity: Moderate Location Of Pain/Discomfort: RUQ, Epigastric, LUQ, Periumbilical Radiation Of Pain To:: None Quality Of Discomfort: "Pain" Associated Symptoms: Nausea, Constipation Alleviating Factors: None Additional History Per: Prior Records Past Medical History Reviewed: Historical Data, Nursing Documentation, Vital Signs Vital Signs: Last Vital Signs Temp 97.9 F 02/08/17 14:13 Pulse 92 H 02/08/17 14:13 Resp 20 02/08/17 14:13 BP 125/54 L 02/08/17 15:15 Pulse Ox 100 02/08/17 14:13 - Medical History PMH: Anxiety, Asthma, Bronchitis, COPD, HTN Other PMH: Liver cirrhosis. Hernia. Surgical History: No Surg Hx - [facility] Procedures DRAINAGE OF PERITONEAL CAVITY, PERCUTANEOUS APPROACH (11/28/16) INDIVIDUAL PSYCHOTHERAPY, COGNITIVE-BEHAVIORAL (11/28/16) INDIVIDUAL PSYCHOTHERAPY, SUPPORTIVE (11/28/16) Family History: States: Unknown Family Hx - Social History Hx Tobacco Use: No Hx Alcohol Use: Yes Hx Substance Use: Yes (marijuana) - Immunization History Hx Tetanus Toxoid Vaccination: No Hx Influenza Vaccination: No Hx Pneumococcal Vaccination: No Review Of Systems Except As Marked, All Systems Reviewed And Found Negative. Constitutional: Negative for: Fever Cardiovascular: Negative for: Chest Pain Respiratory: Negative for: Shortness of Breath Gastrointestinal: Positive for: Abdominal Pain. Negative for: Vomiting Genitourinary: Negative for: Dysuria Musculoskeletal: Negative for: Neck Pain, Back Pain Neurological: Negative for: Weakness, Numbness, Seizures, Altered Mental Status Physical Exam - Physical Exam Appears: Chronically Ill, Other (Uncomfortable) Skin: Warm, Dry Head: Atraumatic Eye(s): bilateral: PERRL, EOMI Neck: Normal ROM, Supple Cardiovascular: Rhythm Regular Respiratory: Normal Breath Sounds, No Accessory Muscle Use Gastrointestinal/Abdominal: Tenderness (upper abdomen.), No Guarding, No Rebound , Hernia (Umbilical. Tender. Unable to reduce. ), Ascites Back: No CVA Tenderness Extremity: Normal ROM Neurological/Psych: Oriented x3, Normal Motor, Normal Sensation ED Course And Treatment - Laboratory Results Result Diagrams: 02/08/17 14:41 02/08/17 14:41 Lab Interpretation: Abnormal Interpretation Of Abnormal: Thrombocytopenia. O2 Sat by Pulse Oximetry: 100 Pulse Ox Interpretation: Normal - CT Scan/US CT abdomen/pelvis Other Rad Studies (CT/US): Read By Radiologist, Radiology Report Reviewed CT/US Interpretation: IMPRESSION: Umbilical hernia contains fluid and small bowel loop. Eujvik-om-irtsfkbshb dilated small bowel loops at the mid and upper abdomen. The possibility of low-grade bowel obstruction should be considered. Re- demonstration of advanced cirrhosis and findings consistent with portal hypertension including splenomegaly ascites and collateral vessels/ varices in the upper abdomen. Aumlhs-uv-emdiqcqhcd enlarged uterus contains multiple lesions may represent fibroid. Otsd-vd-eeshidec cystocele. If clinically warranted delayed images of the abdomen and pelvis male obtained to assess the herniated small bowel loop and to exclude high-grade bowel obstruction. - Physician Consult Information Physician Contacted: Laura Jones (Surgery) Outcome Of Conversation: She will consult. Pt also d/w vice president of instruction Dr. Cody. Progress - Interventions Interventions:: Observation, Intravenous fluid - Medications Administered Intravenous: Antiemetic, Opiate - Data Reviewed Data Reviewed: Lab, Diagnostic imaging, Old records - Patient Status Patient status: Partially improved - Continuity of Care Discussed patient case with:: Patient, Family-HIPPA compliant, ED Nurse, Covering for PMD Discussed pt. case with merchandising consultant/specialty: General Surgery - Patient Plan Patient Plan: Admission Disposition Discussed With : Kayli Marcano Comment: He accepted pt on his service. Doctor Will See Patient In The: Hospital Counseled Patient/Family Regarding: Studies Performed, Diagnosis - Disposition Disposition: HOSPITALIZED Disposition Time: 18:16 Condition: SERIOUS - Clinical Impression Clinical Impression: Incarcerated umbilical hernia, Thrombocytopenia
--- NOTE | 2017-02-08 19:16 | CP.PCM.CON ---
History of Present Illness - History of Present Illness History of Present Illness: General Surgery, Dr. Jones 61F w/ PMHx of HTN,COPD and recurrent ascites 2/2 Hepatitis C, presented to the ED w/ complaints of abdominal pain 2/2 to umbilical & inguinal hernias. Pt reports abdominal pain began early this morning. She mentioned that the pain in the hernia is worsened by increase in ascites. Patient had a paracentesis on and 8L of straw colored fluid were drained. She describes the pain as stabbing/sharp pain. She admits worsened pain with cough . Complains of chronic constipation. She denies any seepage of fluid from the umbilical hernia site. She denies fever, chills, nausea, or vomiting, diarrhea at this time. Review of vitals is normal. PMHx: as stated above PSHx: denies Allergies: NKDA Social:tobacco - previous 1/2 ppd x20 years,6 cigarettes daily Review of Systems - Review of Systems Review of Systems: 12pt ROS carried out, unremarkable, except as stated in HPI Past Patient History - Infectious Disease Hx of Infectious Diseases: None - Past Medical History & Family History Past Medical History?: Yes - Past Social History Smoking Status: Former Smoker - CARDIAC Hx Hypertension: Yes - PULMONARY Hx Asthma: Yes Hx Bronchitis: Yes Hx Chronic Obstructive Pulmonary Disease (COPD): Yes - NEUROLOGICAL Hx Neurological Disorder: No - HEENT Hx HEENT Problems: No - RENAL Hx Chronic Kidney Disease: No - ENDOCRINE/METABOLIC Hx Endocrine Disorders: No - HEMATOLOGICAL/ONCOLOGICAL Hx Blood Disorders: Yes Hx Hepatitis B: Yes Hx Hepatitis C: Yes - INTEGUMENTARY Hx Dermatological Problems: No - MUSCULOSKELETAL/RHEUMATOLOGICAL Hx Musculoskeletal Disorders: Yes Hx Falls: Yes (2 weeks ago due to leg pain) - GASTROINTESTINAL Hx Gastrointestinal Disorders: Yes Hx Liver Failure: Yes Other/Comment: Ascites,umbilical hernia - GENITOURINARY/GYNECOLOGICAL Hx Genitourinary Disorders: No - PSYCHIATRIC Hx Anxiety: Yes Hx Substance Use: Yes (marijuana) - SURGICAL HISTORY Hx Surgeries: No - ANESTHESIA Hx Anesthesia: No Hx Anesthesia Reactions: No Hx Malignant Hyperthermia: No Meds Allergies/Adverse Reactions: Allergies Allergy/AdvReac Type Severity Reaction Status Date / Time No Known Allergies Allergy Verified 02/08/17 14:09 Physical Exam - Constitutional Appears: Non-toxic, No Acute Distress - Head Exam Head Exam: NORMOCEPHALIC - Eye Exam Eye Exam: EOMI - ENT Exam ENT Exam: Mucous Membranes Moist - Respiratory Exam Respiratory Exam: NORMAL BREATHING PATTERN - Cardiovascular Exam Cardiovascular Exam: +S1, +S2 - GI/Abdominal Exam GI & Abdominal Exam: Distended, Hernia, Tenderness. absent: Guarding Additional comments: umbilical hernia w/ blue discoloration of skin L inguinal hernia - Neurological Exam Neurological exam: Alert, Oriented x3 - Psychiatric Exam Psychiatric exam: Normal Mood - Skin Skin Exam: Dry, Intact Results - Vital Signs Recent Vital Signs: Last Vital Signs Temp 97.9 F 02/08/17 14:13 Pulse 92 H 02/08/17 14:13 Resp 20 02/08/17 14:13 BP 125/54 L 02/08/17 15:15 Pulse Ox 100 02/08/17 18:17 - Labs Result Diagrams: 02/08/17 14:41 02/08/17 14:41 Assessment & Plan - Assessment and Plan (Free Text) Assessment: 61F with umbilical (incarcerated hernia) and inguinal hernia, ascites, & thrombocytopenia -No acute surgical intervention at this present time -NPO past MN -IVF -Anti-emetics/Analgesic -Pt is poor surgical candidate -DVT/GI ppx -MELD score: 11 -Child Mcneill A d/w Dr Jones
[2017-02-08] MEDS ORDERED: Albuterol HFA 90 mcg/actuation (8 g) IH PRN (20:20)
[2017-02-08] MEDS: Dextrose 5%/0.45% NS 1,000 ML IV SCH (20:46)
[2017-02-08] MEDS: oxyCODONE 10 mg Immediate Release Tab PO SCH (20:49)
[2017-02-08] MEDS: HYDROmorphone 1 mg/ml ISec IVP PRN (21:57)
--- NOTE | 2017-02-08 22:16 | CP.PCM.HP ---
History of Present Illness - History of Present Illness History of Present Illness: 61F pmh og htn oa knee cirrhosis hepc an dcopd and sascites s/p parcentesis came wtih umbilical hernia which is been there for many years but was told that it was risky surg so pt didnot pursue now that hernia has become strangulated for which pt is een by dr. bar pt refusing to do surg an awre oc consequences pt has nausea no vomitting nofever pt cliams she si passing gas pt has mild cough pt is on multiple diff pain med pt refusing surg adn awre of consequecnes surg note appreciated Present on Admission - Present on Admission Any Indicators Present on Admission: No Review of Systems - Constitutional Constitutional: As Per HPI - EENT Eyes: As Per HPI Nose/Mouth/Throat: As Per HPI - Breasts Breasts: As Per HPI - Cardiovascular Cardiovascular: As Per HPI Past Patient History - Infectious Disease Hx of Infectious Diseases: None - Past Medical History & Family History Past Medical History?: Yes - Past Social History Smoking Status: Former Smoker - CARDIAC Hx Hypertension: Yes - PULMONARY Hx Asthma: Yes Hx Bronchitis: Yes Hx Chronic Obstructive Pulmonary Disease (COPD): Yes - NEUROLOGICAL Hx Neurological Disorder: No - HEENT Hx HEENT Problems: No - RENAL Hx Chronic Kidney Disease: No - ENDOCRINE/METABOLIC Hx Endocrine Disorders: No - HEMATOLOGICAL/ONCOLOGICAL Hx Blood Disorders: Yes Hx Hepatitis B: Yes Hx Hepatitis C: Yes - INTEGUMENTARY Hx Dermatological Problems: No - MUSCULOSKELETAL/RHEUMATOLOGICAL Hx Musculoskeletal Disorders: Yes Hx Falls: Yes (2 weeks ago due to leg pain) - GASTROINTESTINAL Hx Gastrointestinal Disorders: Yes Hx Liver Failure: Yes Other/Comment: Ascites,umbilical hernia - GENITOURINARY/GYNECOLOGICAL Hx Genitourinary Disorders: No - PSYCHIATRIC Hx Anxiety: Yes Hx Substance Use: Yes (marijuana) - SURGICAL HISTORY Hx Surgeries: No - ANESTHESIA Hx Anesthesia: No Hx Anesthesia Reactions: No Hx Malignant Hyperthermia: No Meds Allergies/Adverse Reactions: Allergies Allergy/AdvReac Type Severity Reaction Status Date / Time No Known Allergies Allergy Verified 02/08/17 14:09 Physical Exam - Eye Exam Eye Exam: EOMI, Normal appearance, PERRL Pupil Exam: NORMAL ACCOMODATION, PERRL - ENT Exam ENT Exam: Mucous Membranes Moist, Normal Exam - Neck Exam Neck exam: Positive for: Normal Inspection - Respiratory Exam Respiratory Exam: Decreased Breath Sounds, Clear to Auscultation Bilateral - Cardiovascular Exam Cardiovascular Exam: +S1, +S2 - GI/Abdominal Exam GI & Abdominal Exam: Diminished Bowel Sounds, Distended, Hypoactive Bowel Sounds , Tenderness - Rectal Exam Rectal Exam: Deferred - Neurological Exam Neurological exam: Oriented x3 Results - Vital Signs Recent Vital Signs: Last Vital Signs Temp 97.6 F 02/08/17 20:50 Pulse 81 02/08/17 20:50 Resp 20 02/08/17 20:50 BP 147/72 02/08/17 20:50 Pulse Ox 100 02/08/17 20:50 - Labs Result Diagrams: 02/12/17 07:08 02/12/17 07:08 Assessment & Plan (1) Small bowel obstruction Status: Acute - Assessment and Plan (Free Text) Plan: protonix dr. nilda fuchsdnet saw pt no surg intervention being pt is poor candidate on rocephin will hold lovenox aspt may need to go for surg if dr. bar wants to [place] as ordered ivf npo
[2017-02-08] MEDS: Albuterol HFA 90 mcg/actuation (8 g) IH PRN (22:31)
[2017-02-09] MEDS: HYDROmorphone 1 mg/ml ISec IVP PRN ×5 (02:06→20:17)
[2017-02-09] MEDS: oxyCODONE 10 mg Immediate Release Tab PO SCH ×4 (02:30→20:23)
[2017-02-09] MEDS: Albuterol HFA 90 mcg/actuation (8 g) IH PRN (07:52)
[2017-02-09] MEDS: Fluticasone-Salmeterol 100-50mcg Diskus IH SCH ×2 (07:52→20:07)
[2017-02-09] MEDS ORDERED: cefTRIAXone IV 1 gm in Dextros 1 GM in Dextrose 5% In Water 50 ML IVPB SCH (10:00)
[2017-02-09] MEDS: Dextrose 5%/0.45% NS 1,000 ML IV SCH ×2 (10:06→23:53)
[2017-02-09] MEDS: cefTRIAXone IV 1 gm in Dextros 50 ML IVPB SCH (10:18)
--- NOTE | 2017-02-09 12:03 | CP.PCM.PN ---
Subjective - Date & Time of Evaluation Date of Evaluation: 02/09/17 Time of Evaluation: 07:00 - Subjective Subjective: General Surgery Pt S&E, C/O pain throughout the night. wanted food. Dr. Jones discussed possible surgery tomorrow. Pt wants to discuss in with her liver doctor first. Objective - Vital Signs/Intake and Output Vital Signs (last 24 hours): Temp Pulse Resp BP Pulse Ox 98.5 F 76 20 112/67 97 02/09/17 07:28 02/09/17 08:50 02/09/17 07:28 02/09/17 07:28 02/09/17 07:28 Intake and Output: 02/09/17 02/09/17 06:59 18:59 Intake Total 600 Balance 600 - Medications Medications: Current Medications Albuterol (Ventolin Hfa 90 Mcg/Actuation (8 G)) 1 puff IH TID PRN PRN Reason: Shortness of Breath Last Admin: 02/09/17 07:52 Dose: 1 puff Alprazolam (Xanax) 0.5 mg PO TID PRN PRN Reason: Anxiety Last Admin: 02/09/17 08:40 Dose: 0.5 mg Hydromorphone HCl (Dilaudid) 1 mg IVP Q4H PRN PRN Reason: Pain, moderate (4-7) Last Admin: 02/09/17 10:04 Dose: 1 mg Dextrose/Sodium Chloride (Dextrose 5%/0.45% Ns 1000 Ml) 1,000 mls @ 75 mls/hr IV .[id number] [facility] Last Admin: 02/09/17 10:06 Dose: 75 mls/hr Ceftriaxone Sodium (Rocephin Iv 1 Gm Duplex) 50 mls @ 50 mls/30 min IVPB DAILY [facility] Last Admin: 02/09/17 10:18 Dose: 50 mls/30 min Montelukast Sodium (Singulair) 10 mg PO HS [facility] Oxycodone HCl (Oxycodone Immediate Release Tab) 10 mg PO Q6H [facility] Last Admin: 02/09/17 08:40 Dose: 10 mg Pantoprazole Sodium (Protonix Inj) 40 mg IVP DAILY [facility] Last Admin: 02/09/17 10:04 Dose: 40 mg Pneumococcal Polyvalent Vaccine (Pneumovax 23 Vaccine) 0.5 ml IM .ONCE ONE Stop: 02/11/17 10:01 Fluticasone/Salmeterol (Advair Diskus 100/50) 1 puff IH RQ12 [facility] Last Admin: 02/09/17 07:52 Dose: 1 puff - Labs Labs: PT 14.1 SECONDS (9.7-12.2) H 02/08/17 16:32 INR 1.3 02/08/17 16:32 APTT 23 SECONDS (21-34) 02/08/17 16:32 - Constitutional Appears: Non-toxic, Cachectic, Chronically Ill - Head Exam Head Exam: ATRAUMATIC, NORMOCEPHALIC - Respiratory Exam Respiratory Exam: NORMAL BREATHING PATTERN. absent: Respiratory Distress - GI/Abdominal Exam GI & Abdominal Exam: Distended, Guarding, Tenderness (diffuse, more over hernia) , Hernia (umbilical hernia w/ purple discoloration of skin, hard, TTP). absent : Rigid - Neurological Exam Neurological Exam: Alert, Awake - Skin Skin Exam: Dry, Warm Assessment and Plan - Assessment and Plan (Free Text) Assessment: 61F with umbilical (incarcerated hernia) and inguinal hernia, ascites, & thrombocytopenia Plan: Planning for OR tomorrow for Umbilical and L inguinal hernia repairs. Platelets in AM prior to surgery. NPO D/W Dr. Robert Cuenca PGY3
[2017-02-09] MEDS ORDERED: HYDROmorphone 0.5 mg/0.5 ml ISec IVP PRN (15:49)
[2017-02-09] MEDS ORDERED: Propofol 10 mg/ml Inj (20 ML) ONE (16:17)
--- NOTE | 2017-02-09 16:17 | CP.PCM.PN ---
Subjective - Date & Time of Evaluation Date of Evaluation: 02/09/17 Time of Evaluation: 13:00 - Subjective Subjective: pt clinically same s/p Dr Robert taveras Objective - Vital Signs/Intake and Output Vital Signs (last 24 hours): Temp Pulse Resp BP Pulse Ox 98.4 F 96 H 20 129/65 96 02/09/17 15:35 02/09/17 15:35 02/09/17 15:35 02/09/17 15:35 02/09/17 15:35 Intake and Output: 02/09/17 02/09/17 06:59 18:59 Intake Total 600 Balance 600 - Medications Medications: Current Medications Albuterol (Ventolin Hfa 90 Mcg/Actuation (8 G)) 1 puff IH TID PRN PRN Reason: Shortness of Breath Last Admin: 02/09/17 07:52 Dose: 1 puff Alprazolam (Xanax) 0.5 mg PO TID PRN PRN Reason: Anxiety Last Admin: 02/09/17 08:40 Dose: 0.5 mg Hydromorphone HCl (Dilaudid) 2 mg IVP Q4H PRN PRN Reason: Pain, moderate (4-7) Last Admin: 02/09/17 14:10 Dose: 2 mg Hydromorphone HCl (Dilaudid) 0.5 mg IVP Q15M PRN PRN Reason: Pain, severe (8-10) Stop: 02/09/17 17:49 Dextrose/Sodium Chloride (Dextrose 5%/0.45% Ns 1000 Ml) 1,000 mls @ 75 mls/hr IV .[id number] [facility] Last Admin: 02/09/17 10:06 Dose: 75 mls/hr Ceftriaxone Sodium (Rocephin Iv 1 Gm Duplex) 50 mls @ 50 mls/30 min IVPB DAILY [facility] Last Admin: 02/09/17 10:18 Dose: 50 mls/30 min Montelukast Sodium (Singulair) 10 mg PO HS [facility] Oxycodone HCl (Oxycodone Immediate Release Tab) 10 mg PO Q6H [facility] Last Admin: 02/09/17 14:05 Dose: Not Given Pantoprazole Sodium (Protonix Inj) 40 mg IVP DAILY [facility] Last Admin: 02/09/17 10:04 Dose: 40 mg Pneumococcal Polyvalent Vaccine (Pneumovax 23 Vaccine) 0.5 ml IM .ONCE ONE Stop: 02/11/17 10:01 Fluticasone/Salmeterol (Advair Diskus 100/50) 1 puff IH RQ12 [facility] Last Admin: 02/09/17 07:52 Dose: 1 puff - Labs Labs: PT 14.1 SECONDS (9.7-12.2) H 02/08/17 16:32 INR 1.3 02/08/17 16:32 APTT 23 SECONDS (21-34) 02/08/17 16:32 - Constitutional Appears: No Acute Distress - Head Exam Head Exam: ATRAUMATIC, NORMAL INSPECTION, NORMOCEPHALIC - Eye Exam Eye Exam: EOMI, Normal appearance, PERRL Pupil Exam: NORMAL ACCOMODATION, PERRL - ENT Exam ENT Exam: Mucous Membranes Moist - Neck Exam Neck Exam: Full ROM - Respiratory Exam Respiratory Exam: Decreased Breath Sounds - Cardiovascular Exam Cardiovascular Exam: REGULAR RHYTHM, +S1, +S2 - GI/Abdominal Exam GI & Abdominal Exam: Soft, Diminished Bowel Sounds - Rectal Exam Rectal Exam: Deferred - Neurological Exam Neurological Exam: Alert, Awake Assessment and Plan (1) Abdominal pain Status: Acute (2) Abdominal wall pain Status: Acute (3) Alcohol abuse Status: Acute (4) Anxiety Status: Acute (5) Ascites Status: Acute (6) Asthma Status: Acute (7) Cirrhosis Status: Acute (8) Dyspnea Status: Acute (9) HTN (hypertension) Status: Acute (10) Hernia of abdominal cavity Status: Acute (11) Hypokalemia Status: Acute (12) Incarcerated umbilical hernia Status: Acute (13) Increased ammonia level Status: Acute (14) Leg edema Status: Acute (15) Liver failure Status: Acute (16) Prophylactic measure Status: Acute (17) Small bowel obstruction Status: Acute (18) Thrombocytopenia Status: Acute (19) Umbilical hernia Status: Acute (20) COPD (chronic obstructive pulmonary disease) Status: Chronic - Assessment and Plan (Free Text) Plan: Dr Robert Ziegler on board possible OR tomorrow dilaudid diet as ordered [place] as ordered f/u labs
[2017-02-09] MEDS ORDERED: metroNIDAZOLE IV 500 mg/100 ml 100 ML ONE (16:49)
[2017-02-09] MEDS: HYDROmorphone 0.5 mg/0.5 ml ISec IVP PRN ×3 (18:40→19:10)
--- NOTE | 2017-02-09 20:27 | PCM.SURG1 ---
Surgeon's Initial Post Op Note - Surgeon's Notes Surgeon: Ana Jones Federal Mediation Commissioner: Evelyn Cuenca Type of Anesthesia: General Endo Anesthesia Administered By: Lanie Pre-Operative Diagnosis: Incarcerated umbilical hernia, left inguinal hernia, ascites Operative Findings: Strangulated small bowel in umbilical hernia Post-Operative Diagnosis: Strangulated umbilical hernia, left inguinal hernia Operation Performed: Small bowel resection, umbilical hernia repair with mesh, L inguinal hernia repair with mesh Specimen/Specimens Removed: 8" small bowel segment, umbilical hernia sac, round ligament Estimated Blood Loss: EBL {In ML}: 50 Blood Products Given: N/A Drains Used: Jose Post-Op Condition: Fair Date of Surgery/Procedure: 02/09/17 Time of Surgery/Procedure: 20:28
--- NOTE | 2017-02-09 21:52 | OP ---
PROCEDURE DATE: 02/09/2017 SURGEON: Dr. Jones. SHUTTLECOCK ASSEMBLER: Dr. Cuenca. ANESTHESIA: General, Dr. Dela Cruz. PREOPERATIVE DIAGNOSES: Incarcerated umbilical hernia, left inguinal hernia and ascites. POSTOPERATIVE DIAGNOSES: Strangulated umbilical hernia and left inguinal hernia. PROCEDURE: Small bowel resection, umbilical hernia repair with mesh and left inguinal hernia repair with mesh. DESCRIPTION OF OPERATION: With the patient in the supine position under adequate general anesthesia, the abdomen was prepped and draped in the usual sterile manner. A large firm umbilical hernia was e vident with some discoloration of the overlying skin and a longitudinal incision was made in the midl ine extending down toward the left side of the hernial mass and continuing in the midline slightly ab ove and below the hernia. The umbilical skin was freed from a well-developed hernia sac and the nahun ia sac was then opened revealing dark red loops. The defect itself was approximately [address] The defect was enlarged slightly superiorly and inferiorly in the midline to allow the bowel lo op to be reduced into the peritoneal cavity. A Charlie clamp was placed on an adjacent normal segmen t of small bowel and the incarcerated bowel was examined after several minutes after the hernia sac h ad been completely freed from the skin and surrounding subcutaneous tissue and cleared down to the fa scial defect. After serial examinations of the incarcerated loops, there appeared to be some normali zation of the color in areas; however, it could not be determined whether there were any gangrenous p atches and the decision was made to resect approximately 8 inches of small bowel. The small bowel wa s divided proximal and distal to the discolored areas using a SKY stapler. The mesentery was then st erilely clamped, divided, and ligated with 2-0 Vicryl ties and the incarcerated segment was removed. A [id number] anastomosis was then performed with a SKY stapler with the opening being closed with 3-0 Vicryl sutures. The mesenteric defect was also closed with Vicryl sutures. The small bowel was then returned to the peritoneal cavity and an additional quantity of acidic fluid was suctioned and t he defect was narrowed slightly with 2 interrupted [id number] sutures of 0 Novafil. A size larg e PHS hernia patch was then positioned within the defect with the round inner leaf being fully deploy ed circumferentially and the stalk of the mesh was then sutured circumferentially to the fascial edge with interrupted sutures of 0 Novafil. The outer leaf was trimmed to lay flat within the subcutaneo us tissue over the fascial defect. When this had been completed, the base of the umbilicus was sutur ed down to the area of repair with a single Vicryl suture. A 15-Tunisian Jose drain was placed in the subcutaneous layer and brought out through a stab incision and attached to a suction bulb and closur e was performed with arabella. Attention was then turned to the left groin where a transverse incisio n was made in the left upper groin crease, taken down through the subcutaneous tissue. The external oblique layer was identified and incised from the internal inguinal ring toward the pubic tubercle an d the round ligament was identified passing over the pubic tubercle. It was dissected and elevated o ff the inguinal floor. The round ligament was noted to be markedly dilated with a fat containing her jennifer sac being dissected back to the area of the internal inguinal ring. The round ligament was clamp ed, divided and suture ligated at the pubic tubercle and the residual portion was then clamped, divid ed and ligated at the internal inguinal ring. Because the preoperative CT scan had indicated possibl e bladder herniation, the hernia sac was inverted back into the peritoneal cavity and there was noted to be a well-formed defect at the internal inguinal ring. A size medium ProLoop plug was positioned beneath the transversalis fascia within the defect and sutured inferiorly to the shelving edge of th e inguinal ligament and superiorly to the transversalis fascia. The flat portion of the hernia syste m was then trimmed to cover the inguinal floor and it was also sutured medially to the area of the pu bic tubercle and continuing laterally it was sutured inferiorly to the inguinal ligament and superior ly to the transversalis fascia to reinforce the repair. The external oblique was then reapproximated over the mesh using running suture of 3-0 Vicryl. Subcutaneous tissues were approximated also with 3-0 Vicryl and the skin was closed with arabella. A dry sterile dressing was applied. The patient to lerated the procedure well and was transferred to the recovery room in stable condition. Estimated b lood loss for the procedure was 50 mL. Laura Jones MD cc: 58 TT: 02/09/2017 21:51:54 dn
[2017-02-10] MEDS: oxyCODONE 10 mg Immediate Release Tab PO SCH ×4 (02:30→21:10)
[2017-02-10 06:21] LABS: BASO # 0.1 K/uL (0.0-0.2); BASO % 0.5 % (0.0-2.0); EOS % 0.1 % (0.0-4.0); HEMATOCRIT 32.2 % (34.0-47.0); LYMPH # 0.8 K/uL (1.0-4.3); LYMPH % 5.3 % (20.0-40.0); MEAN CELL VOLUME 86.6 fL (81.0-99.0); MEAN CORPUSCULAR HEMOGLOBIN 28.5 pg (27.0-31.0); MEAN CORPUSCULAR HGB CONC 32.9 g/dL (33.0-37.0); MEAN PLATELET VOLUME 10.4 fL (7.2-11.7); MONO # 1.4 K/uL (0.0-0.8); MONO % 9.3 % (0.0-10.0); PLATELET COUNT 49 K/uL (130-400); RED CELL DISTRIBUTION WIDTH 14.8 % (11.5-14.5); WHITE BLOOD COUNT 14.7 K/uL (4.8-10.8)
[2017-02-10 07:18] LABS: POTASSIUM 4.9 mmol/L (3.6-5.2)
[2017-02-10 07:20] LABS: BILIRUBIN,TOTAL 1.4 mg/dL (0.2-1.3)
[2017-02-10 07:21] LABS: ALB/GLOB RATIO 0.9 (1.0-2.1); TOTAL PROTEIN 7.1 g/dL (6.3-8.3)
[2017-02-10 07:22] LABS: CALCIUM 8.7 mg/dl (8.6-10.4)
[2017-02-10] MEDS: Fluticasone-Salmeterol 100-50mcg Diskus IH SCH ×3 (08:02→19:46)
[2017-02-10] MEDS: Dextrose 5%/0.45% NS 1,000 ML IV SCH ×3 (08:38→22:00)
[2017-02-10] MEDS: Albuterol HFA 90 mcg/actuation (8 g) IH PRN (09:00)
--- NOTE | 2017-02-10 09:02 | CP.PCM.PN ---
Subjective - Date & Time of Evaluation Date of Evaluation: 02/10/17 Time of Evaluation: 06:45 - Subjective Subjective: General Surgery Dr. Jones Pt S&E @bedside. NAEO. c/o abd pain though improving. states that she's not urinating b/c she hasnt received her "water pill" since admission. pt very concerned about restarting her home medications. 100cc UOP overnight 300cc serous output via Meeta Objective - Vital Signs/Intake and Output Vital Signs (last 24 hours): Temp Pulse Resp BP Pulse Ox 98.4 F 110 H 18 109/57 L 94 L 02/10/17 07:30 02/10/17 07:30 02/10/17 07:30 02/10/17 07:30 02/10/17 07:30 Intake and Output: 02/10/17 02/10/17 06:59 18:59 Intake Total 825 Output Total 360 Balance 465 - Medications Medications: Current Medications Albuterol (Ventolin Hfa 90 Mcg/Actuation (8 G)) 1 puff IH TID PRN PRN Reason: Shortness of Breath Last Admin: 02/09/17 07:52 Dose: 1 puff Alprazolam (Xanax) 0.5 mg PO TID PRN PRN Reason: Anxiety Last Admin: 02/09/17 08:40 Dose: 0.5 mg Hydromorphone HCl (Dilaudid) 2 mg IVP Q3H PRN PRN Reason: Pain, moderate (4-7) Last Admin: 02/10/17 08:31 Dose: 2 mg Dextrose/Sodium Chloride (Dextrose 5%/0.45% Ns 1000 Ml) 1,000 mls @ 75 mls/hr IV .[id number] [facility] Last Admin: 02/10/17 08:38 Dose: 75 mls/hr Ceftriaxone Sodium (Rocephin Iv 1 Gm Duplex) 50 mls @ 50 mls/30 min IVPB DAILY [facility] Last Admin: 02/09/17 10:18 Dose: 50 mls/30 min Montelukast Sodium (Singulair) 10 mg PO HS [facility] Last Admin: 02/09/17 22:06 Dose: Not Given Ondansetron HCl (Zofran Inj) 4 mg IVP Q4 PRN PRN Reason: Nausea/Vomiting Oxycodone HCl (Oxycodone Immediate Release Tab) 10 mg PO Q6H [facility] Last Admin: 02/10/17 02:30 Dose: Not Given Pantoprazole Sodium (Protonix Inj) 40 mg IVP DAILY [facility] Last Admin: 02/09/17 10:04 Dose: 40 mg Pneumococcal Polyvalent Vaccine (Pneumovax 23 Vaccine) 0.5 ml IM .ONCE ONE Stop: 02/11/17 10:01 Fluticasone/Salmeterol (Advair Diskus 100/50) 1 puff IH RQ12 [facility] Last Admin: 02/09/17 20:07 Dose: Not Given - Labs Labs: 02/10/17 05:58 02/10/17 05:58 PT 14.1 SECONDS (9.7-12.2) H 02/08/17 16:32 INR 1.3 02/08/17 16:32 APTT 23 SECONDS (21-34) 02/08/17 16:32 - Constitutional Appears: Non-toxic, No Acute Distress - Head Exam Head Exam: NORMAL INSPECTION - Eye Exam Eye Exam: Normal appearance - ENT Exam ENT Exam: Mucous Membranes Moist - Respiratory Exam Respiratory Exam: NORMAL BREATHING PATTERN. absent: Accessory Muscle Use, Respiratory Distress - GI/Abdominal Exam GI & Abdominal Exam: Soft, Tenderness (dalia-incisional TTP). absent: Distended , Guarding, Hernia, Rebound Additional comments: dressings c/d/i meeta in place Assessment and Plan - Assessment and Plan (Free Text) Assessment: 61 y/o F POD #1 s/p umbilical hernia repair w/ mesh and small bowel resection and LIH repair w/ mesh - advance to CLD - hold Lasix till tomorrow - cont IVF, Abx - pain management - restart home meds per Primary - encourage OOB to chair/Amb/ IS use Pt discussed w/ Dr. Robert Gagnon DO PGY1
[2017-02-10 09:03] LABS: NEUTROPHIL 92 % (50-75); TOTAL CELLS COUNTED 100
[2017-02-10] MEDS: cefTRIAXone IV 1 gm in Dextros 50 ML IVPB SCH (09:21)
--- NOTE | 2017-02-10 10:09 | CP.PCM.PN ---
<DianeKinza H - Last Filed: 02/10/17 10:06> Subjective - Date & Time of Evaluation Date of Evaluation: 02/10/17 Time of Evaluation: 07:15 - Subjective Subjective: PGY2 Medicine Note - Dr. Ulysses Marcano's service: Patient seen and examined at bedside this AM. Patient reports abdominal pain. Patient is POD #1 s/p umbilical and inguinal hernia repair and small bowel resection. Patient has not had a bowel movement since 4 days before surgery. Patient has not eaten for the past 3 days. Patient denies fever, chills, chest pain, SOB, nausea, vomiting. Objective - Vital Signs/Intake and Output Vital Signs (last 24 hours): Temp Pulse Resp BP Pulse Ox 98.4 F 110 H 18 109/57 L 94 L 02/10/17 07:30 02/10/17 07:30 02/10/17 07:30 02/10/17 07:30 02/10/17 07:30 Intake and Output: 02/10/17 02/10/17 06:59 18:59 Intake Total 825 Output Total 360 Balance 465 - Medications Medications: Current Medications Albuterol (Ventolin Hfa 90 Mcg/Actuation (8 G)) 1 puff IH TID PRN PRN Reason: Shortness of Breath Last Admin: 02/10/17 09:00 Dose: 1 puff Alprazolam (Xanax) 0.5 mg PO TID PRN PRN Reason: Anxiety Last Admin: 02/10/17 09:21 Dose: 0.5 mg Hydromorphone HCl (Dilaudid) 2 mg IVP Q3H PRN PRN Reason: Pain, moderate (4-7) Last Admin: 02/10/17 08:31 Dose: 2 mg Dextrose/Sodium Chloride (Dextrose 5%/0.45% Ns 1000 Ml) 1,000 mls @ 75 mls/hr IV .[id number] [facility] Last Admin: 02/10/17 08:38 Dose: 75 mls/hr Ceftriaxone Sodium (Rocephin Iv 1 Gm Duplex) 50 mls @ 50 mls/30 min IVPB DAILY [facility] Last Admin: 02/10/17 09:21 Dose: 50 mls/30 min Montelukast Sodium (Singulair) 10 mg PO HS [facility] Last Admin: 02/09/17 22:06 Dose: Not Given Ondansetron HCl (Zofran Inj) 4 mg IVP Q4 PRN PRN Reason: Nausea/Vomiting Oxycodone HCl (Oxycodone Immediate Release Tab) 10 mg PO Q6H [facility] [place] Last Admin: 02/10/17 09:19 Dose: 10 mg Pantoprazole Sodium (Protonix Inj) 40 mg IVP DAILY [facility] Last Admin: 02/10/17 09:20 Dose: 40 mg Pneumococcal Polyvalent Vaccine (Pneumovax 23 Vaccine) 0.5 ml IM .ONCE ONE Stop: 02/11/17 10:01 Fluticasone/Salmeterol (Advair Diskus 100/50) 1 puff IH RQ12 [facility] [place] Last Admin: 02/10/17 09:00 Dose: 1 puff Thiamine HCl (Vitamin B1 Tab) 100 mg PO DAILY [facility] - Labs Labs: 02/10/17 05:58 02/10/17 05:58 PT 14.1 SECONDS (9.7-12.2) H 02/08/17 16:32 INR 1.3 02/08/17 16:32 APTT 23 SECONDS (21-34) 02/08/17 16:32 - Constitutional Appears: Non-toxic, No Acute Distress - Head Exam Head Exam: NORMAL INSPECTION - Eye Exam Eye Exam: EOMI - ENT Exam ENT Exam: Mucous Membranes Moist - Respiratory Exam Respiratory Exam: Clear to Ausculation Bilateral, NORMAL BREATHING PATTERN. absent: Rales, Rhonchi, Wheezes - Cardiovascular Exam Cardiovascular Exam: REGULAR RHYTHM, +S1, +S2. absent: Gallop, Rubs, Murmur - GI/Abdominal Exam GI & Abdominal Exam: Soft, Tenderness, Normal Bowel Sounds Additional comments: drain in place and draining serosanguinous fluid. dressing slightly pinkish - Extremities Exam Extremities Exam: Normal Capillary Refill. absent: Pedal Edema - Neurological Exam Neurological Exam: Alert, Oriented x3 - Psychiatric Exam Psychiatric exam: Normal Affect, Normal Mood - Skin Skin Exam: Normal Color, Warm Assessment and Plan - Assessment and Plan (Free Text) Assessment: Strangulated umbilical hernia Surgery consult - Dr. Jones - help appreciated POD #1 s/p umbilical hernia repair w/ mesh and small bowel resection and LIH repair w/ mesh CLD Will start lasix tomorrow D5-1/2NS @75cc/hr Rocephin 1gm IVPB daily Dilaudid 2mg IVP Q3H Oxycodone 10mg PO Q6 COPD Ventolin Hfa 1 puff TID PRN Singulair 10mg PO HS Advair 1 puff INH Q12 Anxiety Xanax 0.5mg PO TID PRN anxiety HTN controlled without medication Monitor Liver cirrhosis Will restart lasix tomorrow Prophylaxis SCDs Protonix 40mg PO daily <Kayli Marcano S - Last Filed: 02/10/17 23:49> Objective - Vital Signs/Intake and Output Vital Signs (last 24 hours): Temp Pulse Resp BP Pulse Ox 98.2 F 96 H 20 113/61 96 02/10/17 16:27 02/10/17 16:27 02/10/17 16:27 02/10/17 16:27 02/10/17 16:27 Intake and Output: 02/10/17 02/11/17 18:59 06:59 Intake Total 1400 Output Total 1225 Balance 175 - Medications Medications: Current Medications Albuterol (Ventolin Hfa 90 Mcg/Actuation (8 G)) 1 puff IH TID PRN PRN Reason: Shortness of Breath Last Admin: 02/10/17 09:00 Dose: 1 puff Alprazolam (Xanax) 0.5 mg PO TID PRN PRN Reason: Anxiety Last Admin: 02/10/17 21:11 Dose: 0.5 mg Hydromorphone HCl (Dilaudid) 2 mg IVP Q3H PRN PRN Reason: Pain, moderate (4-7) Last Admin: 02/10/17 16:16 Dose: 2 mg Dextrose/Sodium Chloride (Dextrose 5%/0.45% Ns 1000 Ml) 1,000 mls @ 75 mls/hr IV .[id number] [facility] [place] Last Admin: 02/10/17 22:00 Dose: 75 mls/hr Ceftriaxone Sodium (Rocephin Iv 1 Gm Duplex) 50 mls @ 50 mls/30 min IVPB DAILY [facility] [place] Last Admin: 02/10/17 09:21 Dose: 50 mls/30 min Montelukast Sodium (Singulair) 10 mg PO HS [facility] [place] Last Admin: 02/10/17 21:11 Dose: 10 mg Ondansetron HCl (Zofran Inj) 4 mg IVP Q4 PRN PRN Reason: Nausea/Vomiting Oxycodone HCl (Oxycodone Immediate Release Tab) 10 mg PO Q6H [facility] Last Admin: 02/10/17 21:10 Dose: 10 mg Pantoprazole Sodium (Protonix Inj) 40 mg IVP DAILY [facility] Last Admin: 02/10/17 09:20 Dose: 40 mg Pneumococcal Polyvalent Vaccine (Pneumovax 23 Vaccine) 0.5 ml IM .ONCE ONE Stop: 02/11/17 10:01 Fluticasone/Salmeterol (Advair Diskus 100/50) 1 puff IH RQ12 [facility] [place] Last Admin: 02/10/17 19:46 Dose: Not Given Thiamine HCl (Vitamin B1 Tab) 100 mg PO DAILY [facility] Last Admin: 02/10/17 11:00 Dose: 100 mg - Labs Labs: 02/10/17 05:58 02/10/17 05:58 PT 14.1 SECONDS (9.7-12.2) H 02/08/17 16:32 INR 1.3 02/08/17 16:32 APTT 23 SECONDS (21-34) 02/08/17 16:32 Attending/Attestation - Attestation I have personally seen and examined this patient.: Yes I have fully participated in the care of the patient.: Yes I have reviewed all pertinent clinical information, including history, physical exam and plan: Yes Notes (Text): 02/10/17 23:48 case seen and discussed with staff and resident management as agreed family bedside
--- NOTE | 2017-02-10 18:19 | CP.PCM.PN ---
Subjective - Date & Time of Evaluation Date of Evaluation: 02/10/17 Time of Evaluation: 12:00 - Subjective Subjective: clinically same pt s/p urgent OR yesterday with Dr Jones on iv abx Objective - Vital Signs/Intake and Output Vital Signs (last 24 hours): Temp Pulse Resp BP Pulse Ox 98.2 F 96 H 20 113/61 96 02/10/17 16:27 02/10/17 16:27 02/10/17 16:27 02/10/17 16:27 02/10/17 16:27 Intake and Output: 02/10/17 02/10/17 06:59 18:59 Intake Total 825 1400 Output Total 360 1225 Balance 465 175 - Medications Medications: Current Medications Albuterol (Ventolin Hfa 90 Mcg/Actuation (8 G)) 1 puff IH TID PRN PRN Reason: Shortness of Breath Last Admin: 02/10/17 09:00 Dose: 1 puff Alprazolam (Xanax) 0.5 mg PO TID PRN PRN Reason: Anxiety Last Admin: 02/10/17 17:05 Dose: 0.5 mg Hydromorphone HCl (Dilaudid) 2 mg IVP Q3H PRN PRN Reason: Pain, moderate (4-7) Last Admin: 02/10/17 16:16 Dose: 2 mg Dextrose/Sodium Chloride (Dextrose 5%/0.45% Ns 1000 Ml) 1,000 mls @ 75 mls/hr IV .[id number] [facility] Last Admin: 02/10/17 13:03 Dose: Not Given Ceftriaxone Sodium (Rocephin Iv 1 Gm Duplex) 50 mls @ 50 mls/30 min IVPB DAILY [facility] Last Admin: 02/10/17 09:21 Dose: 50 mls/30 min Montelukast Sodium (Singulair) 10 mg PO HS [facility] Last Admin: 02/09/17 22:06 Dose: Not Given Ondansetron HCl (Zofran Inj) 4 mg IVP Q4 PRN PRN Reason: Nausea/Vomiting Oxycodone HCl (Oxycodone Immediate Release Tab) 10 mg PO Q6H [facility] Last Admin: 02/10/17 15:36 Dose: 10 mg Pantoprazole Sodium (Protonix Inj) 40 mg IVP DAILY [facility] Last Admin: 02/10/17 09:20 Dose: 40 mg Pneumococcal Polyvalent Vaccine (Pneumovax 23 Vaccine) 0.5 ml IM .ONCE ONE Stop: 02/11/17 10:01 Fluticasone/Salmeterol (Advair Diskus 100/50) 1 puff IH RQ12 [facility] Last Admin: 02/10/17 09:00 Dose: 1 puff Thiamine HCl (Vitamin B1 Tab) 100 mg PO DAILY [facility] Last Admin: 02/10/17 11:00 Dose: 100 mg - Labs Labs: 02/10/17 05:58 02/10/17 05:58 PT 14.1 SECONDS (9.7-12.2) H 02/08/17 16:32 INR 1.3 02/08/17 16:32 APTT 23 SECONDS (21-34) 02/08/17 16:32 - Constitutional Appears: No Acute Distress - Head Exam Head Exam: ATRAUMATIC, NORMAL INSPECTION, NORMOCEPHALIC - Eye Exam Eye Exam: EOMI, Normal appearance, PERRL Pupil Exam: NORMAL ACCOMODATION, PERRL - ENT Exam ENT Exam: Mucous Membranes Moist - Neck Exam Neck Exam: Full ROM - Respiratory Exam Respiratory Exam: Decreased Breath Sounds - Cardiovascular Exam Cardiovascular Exam: REGULAR RHYTHM, +S1, +S2 - GI/Abdominal Exam GI & Abdominal Exam: Soft, Diminished Bowel Sounds - Rectal Exam Rectal Exam: Deferred - Neurological Exam Neurological Exam: Alert, Awake, Oriented x3 Assessment and Plan (1) Abdominal pain Status: Acute (2) Abdominal wall pain Status: Acute (3) Alcohol abuse Status: Acute (4) Anxiety Status: Acute (5) Ascites Status: Acute (6) Asthma Status: Acute (7) Cirrhosis Status: Acute (8) Dyspnea Status: Acute (9) HTN (hypertension) Status: Acute (10) Hernia of abdominal cavity Status: Acute (11) Hypokalemia Status: Acute (12) Incarcerated umbilical hernia Status: Acute (13) Increased ammonia level Status: Acute (14) Leg edema Status: Acute (15) Liver failure Status: Acute (16) Prophylactic measure Status: Acute (17) Small bowel obstruction Status: Acute (18) Thrombocytopenia Status: Acute (19) Umbilical hernia Status: Acute (20) COPD (chronic obstructive pulmonary disease) Status: Chronic - Assessment and Plan (Free Text) Plan: s/p OR yesterday with Dr Robert Ziegler umbilical and inguinal hernia repair and small bowel resection [place] iv abx dilaudid [place] other meds as ordered f/u labs case discussed with Dr Jones
[2017-02-11] MEDS: Dextrose 5%/0.45% NS 1,000 ML IV SCH (01:50)
[2017-02-11] MEDS: oxyCODONE 10 mg Immediate Release Tab PO SCH ×4 (03:13→21:12)
[2017-02-11 06:15] LABS: BASO # 0.1 K/uL (0.0-0.2); EOS # 0.2 K/uL (0.0-0.7); EOS % 2.1 % (0.0-4.0); HEMATOCRIT 28.2 % (34.0-47.0); LYMPH # 1.1 K/uL (1.0-4.3); MEAN CELL VOLUME 87.5 fL (81.0-99.0); MEAN CORPUSCULAR HEMOGLOBIN 28.9 pg (27.0-31.0); MEAN CORPUSCULAR HGB CONC 33.1 g/dL (33.0-37.0); MEAN PLATELET VOLUME 10.8 fL (7.2-11.7); MONO # 1.2 K/uL (0.0-0.8); MONO % 12.5 % (0.0-10.0); NRBC % 0.1 % (0.0-2.0); RED CELL DISTRIBUTION WIDTH 14.5 % (11.5-14.5); WHITE BLOOD COUNT 9.8 K/uL (4.8-10.8)
[2017-02-11 06:37] LABS: CHLORIDE 93 mmol/L (98-107); POTASSIUM 4.5 mmol/L (3.6-5.2); SODIUM 131 mmol/L (132-148)
[2017-02-11 06:39] LABS: ALB/GLOB RATIO 0.9 (1.0-2.1); AST/SGOT 38 U/L (14-36); BILIRUBIN,TOTAL 1.2 mg/dL (0.2-1.3); CARBON DIOXIDE 26 mmol/L (22-30); GFR AFRICAN-AMERICAN > 60; TOTAL PROTEIN 6.4 g/dL (6.3-8.3)
[2017-02-11 06:40] LABS: ALKALINE PHOSPHATASE 50 U/L (38-126); ALT/SGPT 24 U/L (9-52); BLOOD UREA NITROGEN 31 mg/dL (7-17); GLUCOSE,RANDOM 105 mg/dL (65-105); MAGNESIUM 1.6 mg/dL (1.6-2.3); PHOSPHOROUS 3.1 mg/dL (2.5-4.5)
--- NOTE | 2017-02-11 08:13 | CP.PCM.PN ---
Subjective - Date & Time of Evaluation Date of Evaluation: 02/11/17 Time of Evaluation: 08:07 - Subjective Subjective: PGY-1 note for General Surgery, Dr Jones Pt S&E. POD#2 s/p umbilical and inguinal hernia repair and small bowel resection. Pt complaining of abdominal pain which is improved since admission. Pt reports passing gas, but denies bowel movement. Meeta drain full with serous drainage. Dressings changed this AM. She denies f/c/n/v/d/c. Objective - Vital Signs/Intake and Output Vital Signs (last 24 hours): Temp Pulse Resp BP Pulse Ox 98.7 F 89 18 99/50 L 98 02/11/17 00:45 02/11/17 06:55 02/11/17 00:45 02/11/17 06:55 02/11/17 00:45 Intake and Output: 02/11/17 02/11/17 06:59 18:59 Intake Total 1900 Output Total 480 Balance 1420 - Medications Medications: Current Medications Albuterol (Ventolin Hfa 90 Mcg/Actuation (8 G)) 1 puff IH TID PRN PRN Reason: Shortness of Breath Last Admin: 02/10/17 09:00 Dose: 1 puff Alprazolam (Xanax) 0.5 mg PO TID PRN PRN Reason: Anxiety Last Admin: 02/10/17 21:11 Dose: 0.5 mg Hydromorphone HCl (Dilaudid) 2 mg IVP Q3H PRN PRN Reason: Pain, moderate (4-7) Last Admin: 02/11/17 05:46 Dose: 2 mg Dextrose/Sodium Chloride (Dextrose 5%/0.45% Ns 1000 Ml) 1,000 mls @ 75 mls/hr IV .[id number] [facility] Last Admin: 02/11/17 01:50 Dose: Not Given Ceftriaxone Sodium (Rocephin Iv 1 Gm Duplex) 50 mls @ 50 mls/30 min IVPB DAILY [facility] Last Admin: 02/10/17 09:21 Dose: 50 mls/30 min Montelukast Sodium (Singulair) 10 mg PO HS [facility] Last Admin: 02/10/17 21:11 Dose: 10 mg Ondansetron HCl (Zofran Inj) 4 mg IVP Q4 PRN PRN Reason: Nausea/Vomiting Oxycodone HCl (Oxycodone Immediate Release Tab) 10 mg PO Q6H [facility] Last Admin: 02/11/17 03:13 Dose: 10 mg Pantoprazole Sodium (Protonix Inj) 40 mg IVP DAILY [facility] Last Admin: 02/10/17 09:20 Dose: 40 mg Pneumococcal Polyvalent Vaccine (Pneumovax 23 Vaccine) 0.5 ml IM .ONCE ONE Stop: 02/11/17 10:01 Fluticasone/Salmeterol (Advair Diskus 100/50) 1 puff IH RQ12 [facility] Last Admin: 02/10/17 19:46 Dose: Not Given Thiamine HCl (Vitamin B1 Tab) 100 mg PO DAILY [facility] Last Admin: 02/10/17 11:00 Dose: 100 mg - Labs Labs: 02/11/17 06:04 02/11/17 06:04 PT 14.1 SECONDS (9.7-12.2) H 02/08/17 16:32 INR 1.3 02/08/17 16:32 APTT 23 SECONDS (21-34) 02/08/17 16:32 - Constitutional Appears: Non-toxic, No Acute Distress - Head Exam Head Exam: NORMAL INSPECTION - ENT Exam ENT Exam: Mucous Membranes Moist - Respiratory Exam Respiratory Exam: NORMAL BREATHING PATTERN - GI/Abdominal Exam GI & Abdominal Exam: Soft, Tenderness, Normal Bowel Sounds Additional comments: meeta drain with serosanguinous fluid. dressings changed. - Extremities Exam Extremities Exam: Normal Inspection - Neurological Exam Neurological Exam: Alert, Awake, Oriented x3 - Psychiatric Exam Psychiatric exam: Normal Affect, Normal Mood - Skin Skin Exam: Normal Color, Warm Assessment and Plan - Assessment and Plan (Free Text) Assessment: 61 y/o F POD #1 s/p umbilical hernia repair w/ mesh and small bowel resection and LIH repair w/ mesh Plan: Advance to thick liquids OK to restart home Lasix if vitals stable cont IVF, Abx Patient encourage OOB to chair and IS use PT ordered to ensure OOB Surgical team discussed w/ Dr. Robert Rincon PGY1
[2017-02-11] MEDS: Fluticasone-Salmeterol 100-50mcg Diskus IH SCH ×2 (08:24→19:52)
[2017-02-11] MEDS: cefTRIAXone IV 1 gm in Dextros 50 ML IVPB SCH (09:51)
[2017-02-11] MEDS ORDERED: Pneumococcal 23-Valent Vaccine IM ONE (10:00)
--- NOTE | 2017-02-11 11:36 | CP.PCM.PN ---
<Elsa Hernandez - Last Filed: 02/11/17 13:48> Subjective - Date & Time of Evaluation Date of Evaluation: 02/11/17 Time of Evaluation: 11:32 - Subjective Subjective: Medicine Note - Dr. Ulysses Marcano's service Patient seen and examined. Patient is POD #2 s/p umbilical and inguinal hernia repair and small bowel resection. Patient's dressing was changed this morning. Jose drain with serosangenous drainage. She has been advanced to full liquid diet per surgeon recommendation, however she states that she has not eaten yet because she does not have an appetite. Patient has flatus but has not had bowel movement. She states that she is in severe pain despite appearing comfortable and receiving all of her pain medications this morning. Objective - Vital Signs/Intake and Output Vital Signs (last 24 hours): Temp Pulse Resp BP Pulse Ox 98.2 F 88 20 114/66 98 02/11/17 07:40 02/11/17 07:40 02/11/17 07:40 02/11/17 09:51 02/11/17 07:40 Intake and Output: 02/11/17 02/11/17 06:59 18:59 Intake Total 1900 Output Total 480 Balance 1420 - Medications Medications: Current Medications Albuterol (Ventolin Hfa 90 Mcg/Actuation (8 G)) 1 puff IH TID PRN PRN Reason: Shortness of Breath Last Admin: 02/10/17 09:00 Dose: 1 puff Alprazolam (Xanax) 0.5 mg PO TID PRN PRN Reason: Anxiety Last Admin: 02/11/17 10:28 Dose: 0.5 mg Furosemide (Lasix) 40 mg PO DAILY [facility] Last Admin: 02/11/17 09:51 Dose: 40 mg Hydromorphone HCl (Dilaudid) 2 mg IVP Q3H PRN PRN Reason: Pain, moderate (4-7) Last Admin: 02/11/17 10:29 Dose: 2 mg Ceftriaxone Sodium (Rocephin Iv 1 Gm Duplex) 50 mls @ 50 mls/30 min IVPB DAILY [facility] Last Admin: 02/11/17 09:51 Dose: 50 mls/30 min Montelukast Sodium (Singulair) 10 mg PO HS [facility] Last Admin: 02/10/17 21:11 Dose: 10 mg Ondansetron HCl (Zofran Inj) 4 mg IVP Q4 PRN PRN Reason: Nausea/Vomiting Oxycodone HCl (Oxycodone Immediate Release Tab) 10 mg PO Q6H [facility] Last Admin: 02/11/17 08:16 Dose: 10 mg Pantoprazole Sodium (Protonix Inj) 40 mg IVP DAILY [facility] Last Admin: 02/11/17 09:51 Dose: 40 mg Fluticasone/Salmeterol (Advair Diskus 100/50) 1 puff IH RQ12 [facility] Last Admin: 02/11/17 08:24 Dose: 1 puff Thiamine HCl (Vitamin B1 Tab) 100 mg PO DAILY [facility] Last Admin: 02/11/17 10:27 Dose: 100 mg - Labs Labs: 02/11/17 06:04 02/11/17 06:04 PT 14.1 SECONDS (9.7-12.2) H 02/08/17 16:32 INR 1.3 02/08/17 16:32 APTT 23 SECONDS (21-34) 02/08/17 16:32 - Constitutional Appears: Non-toxic, No Acute Distress - Head Exam Head Exam: ATRAUMATIC, NORMOCEPHALIC - Eye Exam Eye Exam: EOMI, Normal appearance - ENT Exam ENT Exam: Mucous Membranes Moist - Respiratory Exam Respiratory Exam: Clear to Ausculation Bilateral, NORMAL BREATHING PATTERN. absent: Rhonchi, Wheezes, Respiratory Distress - Cardiovascular Exam Cardiovascular Exam: REGULAR RHYTHM, +S1, +S2 - GI/Abdominal Exam GI & Abdominal Exam: Soft, Tenderness, Normal Bowel Sounds - Extremities Exam Extremities Exam: Full ROM, Normal Inspection - Neurological Exam Neurological Exam: Alert, Awake, Oriented x3 - Psychiatric Exam Psychiatric exam: Agitated - Skin Skin Exam: Dry, Intact, Normal Color, Warm Assessment and Plan - Assessment and Plan (Free Text) Assessment: Strangulated umbilical hernia Surgery consult - Dr. Jones - help appreciated POD #2 s/p umbilical hernia repair w/ mesh and small bowel resection and LIH repair w/ mesh Rocephin 1gm IVPB daily Dilaudid 2mg IVP Q3H Oxycodone 10mg PO Q6 COPD Ventolin Hfa 1 puff TID PRN Singulair 10mg PO HS Advair 1 puff INH Q12 Anxiety Xanax 0.5mg PO TID PRN anxiety HTN Controlled without medication Monitor Liver cirrhosis Restart Lasix 40mg PO daily Prophylaxis SCDs Protonix 40mg PO daily All management and orders per Dr Vitor Marcano. Will discuss with attending. <Kayli Marcano - Last Filed: 02/11/17 19:10> Objective - Vital Signs/Intake and Output Vital Signs (last 24 hours): Temp Pulse Resp BP Pulse Ox 98 F 83 22 94/56 L 95 02/11/17 15:46 02/11/17 15:46 02/11/17 15:46 02/11/17 15:46 02/11/17 15:46 Intake and Output: 02/11/17 02/12/17 18:59 06:59 Intake Total 890 Output Total 440 Balance 450 - Medications Medications: Current Medications Albuterol (Ventolin Hfa 90 Mcg/Actuation (8 G)) 1 puff IH TID PRN PRN Reason: Shortness of Breath Last Admin: 02/10/17 09:00 Dose: 1 puff Alprazolam (Xanax) 0.5 mg PO TID PRN PRN Reason: Anxiety Last Admin: 02/11/17 18:52 Dose: 0.5 mg Furosemide (Lasix) 40 mg PO DAILY [facility] Last Admin: 02/11/17 09:51 Dose: 40 mg Hydromorphone HCl (Dilaudid) 2 mg IVP Q3H PRN PRN Reason: Pain, moderate (4-7) Last Admin: 02/11/17 18:52 Dose: 2 mg Ceftriaxone Sodium (Rocephin Iv 1 Gm Duplex) 50 mls @ 50 mls/30 min IVPB DAILY [facility] Last Admin: 02/11/17 09:51 Dose: 50 mls/30 min Montelukast Sodium (Singulair) 10 mg PO HS [facility] Last Admin: 02/10/17 21:11 Dose: 10 mg Ondansetron HCl (Zofran Inj) 4 mg IVP Q4 PRN PRN Reason: Nausea/Vomiting Oxycodone HCl (Oxycodone Immediate Release Tab) 10 mg PO Q6H [facility] Last Admin: 02/11/17 14:35 Dose: 10 mg Pantoprazole Sodium (Protonix Inj) 40 mg IVP DAILY [facility] Last Admin: 02/11/17 09:51 Dose: 40 mg Fluticasone/Salmeterol (Advair Diskus 100/50) 1 puff IH RQ12 [facility] Last Admin: 02/11/17 08:24 Dose: 1 puff Thiamine HCl (Vitamin B1 Tab) 100 mg PO DAILY [facility] Last Admin: 02/11/17 10:27 Dose: 100 mg - Labs Labs: 02/11/17 06:04 02/11/17 06:04 PT 14.1 SECONDS (9.7-12.2) H 02/08/17 16:32 INR 1.3 02/08/17 16:32 APTT 23 SECONDS (21-34) 02/08/17 16:32 Attending/Attestation - Attestation I have personally seen and examined this patient.: Yes I have fully participated in the care of the patient.: Yes I have reviewed all pertinent clinical information, including history, physical exam and plan: Yes Notes (Text): 02/11/17 19:10 case seen and discussed with staff and resident mx as agreed
--- NOTE | 2017-02-11 19:20 | CP.PCM.PN ---
Subjective - Date & Time of Evaluation Date of Evaluation: 02/11/17 Time of Evaluation: 10:15 - Subjective Subjective: case seen and discussed with staff pt clinically same Dr Jones following receiving iv abx Objective - Vital Signs/Intake and Output Vital Signs (last 24 hours): Temp Pulse Resp BP Pulse Ox 98 F 83 22 94/56 L 95 02/11/17 15:46 02/11/17 15:46 02/11/17 15:46 02/11/17 15:46 02/11/17 15:46 Intake and Output: 02/11/17 02/12/17 18:59 06:59 Intake Total 890 Output Total 440 Balance 450 - Medications Medications: Current Medications Albuterol (Ventolin Hfa 90 Mcg/Actuation (8 G)) 1 puff IH TID PRN PRN Reason: Shortness of Breath Last Admin: 02/10/17 09:00 Dose: 1 puff Alprazolam (Xanax) 0.5 mg PO TID PRN PRN Reason: Anxiety Last Admin: 02/11/17 18:52 Dose: 0.5 mg Furosemide (Lasix) 40 mg PO DAILY [facility] Last Admin: 02/11/17 09:51 Dose: 40 mg Hydromorphone HCl (Dilaudid) 2 mg IVP Q3H PRN PRN Reason: Pain, moderate (4-7) Last Admin: 02/11/17 18:52 Dose: 2 mg Ceftriaxone Sodium (Rocephin Iv 1 Gm Duplex) 50 mls @ 50 mls/30 min IVPB DAILY [facility] Last Admin: 02/11/17 09:51 Dose: 50 mls/30 min Montelukast Sodium (Singulair) 10 mg PO HS [facility] Last Admin: 02/10/17 21:11 Dose: 10 mg Ondansetron HCl (Zofran Inj) 4 mg IVP Q4 PRN PRN Reason: Nausea/Vomiting Oxycodone HCl (Oxycodone Immediate Release Tab) 10 mg PO Q6H [facility] Last Admin: 02/11/17 14:35 Dose: 10 mg Pantoprazole Sodium (Protonix Inj) 40 mg IVP DAILY [facility] Last Admin: 02/11/17 09:51 Dose: 40 mg Fluticasone/Salmeterol (Advair Diskus 100/50) 1 puff IH RQ12 [facility] Last Admin: 02/11/17 08:24 Dose: 1 puff Thiamine HCl (Vitamin B1 Tab) 100 mg PO DAILY [facility] Last Admin: 02/11/17 10:27 Dose: 100 mg - Labs Labs: 02/11/17 06:04 02/11/17 06:04 PT 14.1 SECONDS (9.7-12.2) H 02/08/17 16:32 INR 1.3 02/08/17 16:32 APTT 23 SECONDS (21-34) 02/08/17 16:32 - Constitutional Appears: Well - Head Exam Head Exam: ATRAUMATIC, NORMAL INSPECTION, NORMOCEPHALIC - Eye Exam Eye Exam: EOMI, Normal appearance, PERRL Pupil Exam: NORMAL ACCOMODATION, PERRL - ENT Exam ENT Exam: Mucous Membranes Moist, Normal Exam - Neck Exam Neck Exam: Full ROM, Normal Inspection. absent: Lymphadenopathy - Respiratory Exam Respiratory Exam: Decreased Breath Sounds - Cardiovascular Exam Cardiovascular Exam: REGULAR RHYTHM, +S1, +S2 - GI/Abdominal Exam GI & Abdominal Exam: Soft, Diminished Bowel Sounds - Rectal Exam Rectal Exam: Deferred - Neurological Exam Neurological Exam: Alert, Awake, Oriented x3 Assessment and Plan (1) Abdominal pain Status: Acute (2) Abdominal wall pain Status: Acute (3) Alcohol abuse Status: Acute (4) Anxiety Status: Acute (5) Ascites Status: Acute (6) Asthma Status: Acute (7) Cirrhosis Status: Acute (8) Dyspnea Status: Acute (9) HTN (hypertension) Status: Acute (10) Hernia of abdominal cavity Status: Acute (11) Hypokalemia Status: Acute (12) Incarcerated umbilical hernia Status: Acute (13) Increased ammonia level Status: Acute (14) Leg edema Status: Acute (15) Liver failure Status: Acute (16) Prophylactic measure Status: Acute (17) Small bowel obstruction Status: Acute (18) Thrombocytopenia Status: Acute (19) Umbilical hernia Status: Acute (20) COPD (chronic obstructive pulmonary disease) Status: Chronic - Assessment and Plan (Free Text) Plan: s/p umbilical and inguinal hernia repair and small bowel resection case discussed with Dr Jones and staff [place] iv abx dilaudid lasix protonix mx as ordered f/u labs
[2017-02-12] MEDS: oxyCODONE 10 mg Immediate Release Tab PO SCH ×3 (02:30→14:05)
[2017-02-12 07:13] LABS: HEMATOCRIT 33.4 % (34.0-47.0); MEAN CELL VOLUME 87.2 fL (81.0-99.0); MEAN CORPUSCULAR HEMOGLOBIN 28.3 pg (27.0-31.0); MEAN CORPUSCULAR HGB CONC 32.4 g/dL (33.0-37.0); MEAN PLATELET VOLUME 10.2 fL (7.2-11.7); RED CELL DISTRIBUTION WIDTH 14.6 % (11.5-14.5); WHITE BLOOD COUNT 10.7 K/uL (4.8-10.8)
[2017-02-12 07:34] LABS: CHLORIDE 92 mmol/L (98-107); POTASSIUM 4.4 mmol/L (3.6-5.2); SODIUM 130 mmol/L (132-148)
[2017-02-12 07:36] LABS: GFR AFRICAN-AMERICAN > 60
[2017-02-12 07:37] LABS: ALB/GLOB RATIO 0.9 (1.0-2.1); ALKALINE PHOSPHATASE 51 U/L (38-126); ALT/SGPT 21 U/L (9-52); AST/SGOT 37 U/L (14-36); BILIRUBIN,TOTAL 0.9 mg/dL (0.2-1.3); BLOOD UREA NITROGEN 31 mg/dL (7-17); CALCIUM 8.7 mg/dl (8.6-10.4); CARBON DIOXIDE 23 mmol/L (22-30); GLUCOSE,RANDOM 118 mg/dL (65-105); TOTAL PROTEIN 7.4 g/dL (6.3-8.3)
[2017-02-12] MEDS: Fluticasone-Salmeterol 100-50mcg Diskus IH SCH ×2 (08:23→19:17)
[2017-02-12] MEDS: Albuterol HFA 90 mcg/actuation (8 g) IH PRN (08:23)
[2017-02-12] MEDS: HYDROmorphone 1 mg/ml ISec IVP PRN ×3 (08:57→19:50)
--- NOTE | 2017-02-12 09:00 | CP.PCM.PN ---
Subjective - Date & Time of Evaluation Date of Evaluation: 02/12/17 Time of Evaluation: 06:45 - Subjective Subjective: General Surgery Dr. Jones Pt S&E @bedside. NAEO. abd pain much improved. denies N/V. admits to some flatus. no BM but states she normally only has 1BM per week. tolerating FLD and requesting more substantial food. Meeta ~700cc serous output x24hrs Objective - Vital Signs/Intake and Output Vital Signs (last 24 hours): Temp Pulse Resp BP Pulse Ox 97.3 F L 101 H 20 107/71 96 02/12/17 07:00 02/12/17 07:00 02/12/17 07:00 02/12/17 07:00 02/12/17 07:00 Intake and Output: 02/12/17 02/12/17 06:59 18:59 Intake Total 800 Output Total 200 Balance 600 - Medications Medications: Current Medications Albuterol (Ventolin Hfa 90 Mcg/Actuation (8 G)) 1 puff IH TID PRN PRN Reason: Shortness of Breath Last Admin: 02/12/17 08:23 Dose: 1 puff Alprazolam (Xanax) 0.5 mg PO TID PRN PRN Reason: Anxiety Last Admin: 02/12/17 05:39 Dose: 0.5 mg Furosemide (Lasix) 40 mg PO DAILY [facility] Last Admin: 02/11/17 09:51 Dose: 40 mg Hydromorphone HCl (Dilaudid) 1 mg IVP Q4 PRN PRN Reason: Pain, moderate (4-7) Last Admin: 02/12/17 08:57 Dose: 1 mg Ceftriaxone Sodium (Rocephin Iv 1 Gm Duplex) 50 mls @ 50 mls/30 min IVPB DAILY [facility] Last Admin: 02/11/17 09:51 Dose: 50 mls/30 min Montelukast Sodium (Singulair) 10 mg PO HS [facility] Last Admin: 02/11/17 22:24 Dose: 10 mg Ondansetron HCl (Zofran Inj) 4 mg IVP Q4 PRN PRN Reason: Nausea/Vomiting Oxycodone HCl (Oxycodone Immediate Release Tab) 10 mg PO Q6H [facility] Last Admin: 02/12/17 08:44 Dose: 10 mg Pantoprazole Sodium (Protonix Inj) 40 mg IVP DAILY [facility] Last Admin: 02/11/17 09:51 Dose: 40 mg Fluticasone/Salmeterol (Advair Diskus 100/50) 1 puff IH RQ12 [facility] Last Admin: 02/12/17 08:23 Dose: 1 puff Thiamine HCl (Vitamin B1 Tab) 100 mg PO DAILY [facility] Last Admin: 02/11/17 10:27 Dose: 100 mg - Labs Labs: 02/12/17 07:08 02/12/17 07:08 PT 14.1 SECONDS (9.7-12.2) H 02/08/17 16:32 INR 1.3 02/08/17 16:32 APTT 23 SECONDS (21-34) 02/08/17 16:32 - Constitutional Appears: Non-toxic, No Acute Distress - Head Exam Head Exam: NORMAL INSPECTION - Eye Exam Eye Exam: Normal appearance - ENT Exam ENT Exam: Mucous Membranes Moist - Respiratory Exam Respiratory Exam: NORMAL BREATHING PATTERN. absent: Accessory Muscle Use, Respiratory Distress - GI/Abdominal Exam GI & Abdominal Exam: Distended (minimal), Soft, Tenderness (dalia-incisional). absent: Guarding, Rigid Additional comments: dressings c/d/i meeta in place. serous fluid draining - Extremities Exam Extremities Exam: Normal Inspection. absent: Pedal Edema, Tenderness - Neurological Exam Neurological Exam: Alert, Awake - Skin Skin Exam: Dry, Intact, Normal Color, Warm Assessment and Plan - Assessment and Plan (Free Text) Assessment: 61 y/o F POD #3 s/p umbilical hernia repair w/ mesh and small bowel resection and LIH repair w/ mesh - Advance diet as tolerated w/ goal of Reg - restart home Lasix per primary - cont IVF, Abx - encourage OOB to chair/Amb/IS use - f/u PT recommendations Pt discussed w/ Dr. Robert Gagnon PGY1
[2017-02-12] MEDS: cefTRIAXone IV 1 gm in Dextros 50 ML IVPB SCH (09:03)
--- NOTE | 2017-02-12 10:36 | CP.PCM.PN ---
<Elsa Hernandez - Last Filed: 02/12/17 15:09> Subjective - Date & Time of Evaluation Date of Evaluation: 02/12/17 Time of Evaluation: 10:40 - Subjective Subjective: Medicine Note - Dr. Ulysses Marcano's service Patient seen and examined. Patient is POD #3 s/p umbilical and inguinal hernia repair and small bowel resection. Her diet has been advanced to regular per surgery as she is tolerating her liquids. Patient states that she feels better and that her pain is better controlled. She is ambulating and out of bed. Passing flatus but denies bm. Denies fever, chills, nausea, vomiting, chest pain, SOB, and palpitations. Objective - Vital Signs/Intake and Output Vital Signs (last 24 hours): Temp Pulse Resp BP Pulse Ox 97.3 F L 101 H 20 108/70 96 02/12/17 07:00 02/12/17 07:00 02/12/17 07:00 02/12/17 09:16 02/12/17 07:00 Intake and Output: 02/12/17 02/12/17 06:59 18:59 Intake Total 800 Output Total 200 Balance 600 - Medications Medications: Current Medications Albuterol (Ventolin Hfa 90 Mcg/Actuation (8 G)) 1 puff IH TID PRN PRN Reason: Shortness of Breath Last Admin: 02/12/17 08:23 Dose: 1 puff Alprazolam (Xanax) 0.5 mg PO TID PRN PRN Reason: Anxiety Last Admin: 02/12/17 05:39 Dose: 0.5 mg Furosemide (Lasix) 40 mg PO DAILY [facility] Last Admin: 02/12/17 09:16 Dose: 40 mg Hydromorphone HCl (Dilaudid) 1 mg IVP Q4 PRN PRN Reason: Pain, moderate (4-7) Last Admin: 02/12/17 08:57 Dose: 1 mg Ceftriaxone Sodium (Rocephin Iv 1 Gm Duplex) 50 mls @ 50 mls/30 min IVPB DAILY [facility] Last Admin: 02/12/17 09:03 Dose: 50 mls/30 min Montelukast Sodium (Singulair) 10 mg PO HS [facility] Last Admin: 02/11/17 22:24 Dose: 10 mg Ondansetron HCl (Zofran Inj) 4 mg IVP Q4 PRN PRN Reason: Nausea/Vomiting Oxycodone HCl (Oxycodone Immediate Release Tab) 10 mg PO Q6H [facility] Last Admin: 02/12/17 08:44 Dose: 10 mg Pantoprazole Sodium (Protonix Inj) 40 mg IVP DAILY [facility] Last Admin: 02/12/17 09:15 Dose: 40 mg Fluticasone/Salmeterol (Advair Diskus 100/50) 1 puff IH RQ12 [facility] Last Admin: 02/12/17 08:23 Dose: 1 puff Thiamine HCl (Vitamin B1 Tab) 100 mg PO DAILY [facility] Last Admin: 02/11/17 10:27 Dose: 100 mg - Labs Labs: 02/12/17 07:08 02/12/17 07:08 PT 14.1 SECONDS (9.7-12.2) H 02/08/17 16:32 INR 1.3 02/08/17 16:32 APTT 23 SECONDS (21-34) 02/08/17 16:32 - Constitutional Appears: Non-toxic, No Acute Distress - Head Exam Head Exam: ATRAUMATIC, NORMOCEPHALIC - Eye Exam Eye Exam: EOMI, Normal appearance - ENT Exam ENT Exam: Mucous Membranes Moist - Neck Exam Neck Exam: Normal Inspection - Respiratory Exam Respiratory Exam: Clear to Ausculation Bilateral, NORMAL BREATHING PATTERN - Cardiovascular Exam Cardiovascular Exam: REGULAR RHYTHM, +S1, +S2 - GI/Abdominal Exam GI & Abdominal Exam: Soft, Tenderness, Normal Bowel Sounds - Extremities Exam Extremities Exam: Full ROM, Normal Inspection. absent: Pedal Edema - Neurological Exam Neurological Exam: Alert, Awake, CN II-XII Intact, Oriented x3 - Psychiatric Exam Psychiatric exam: Normal Affect, Normal Mood - Skin Skin Exam: Dry, Normal Color, Warm Assessment and Plan - Assessment and Plan (Free Text) Assessment: Strangulated umbilical hernia Surgery consult - Dr. Jones - help appreciated POD #3 s/p umbilical hernia repair w/ mesh and small bowel resection and LIH repair w/ mesh Rocephin 1gm IVPB daily Dilaudid 2mg IVP Q3H Oxycodone 10mg PO Q6 Advanced to full diet Pending discharge to [facility] tomorrow if tolerating full diet COPD Ventolin Hfa 1 puff TID PRN Singulair 10mg PO HS Advair 1 puff INH Q12 Anxiety Xanax 0.5mg PO TID PRN anxiety HTN Controlled without medication Monitor Liver cirrhosis Lasix 40mg PO daily Prophylaxis SCDs Protonix 40mg PO daily All management and orders per Dr Vitor Marcano. Will discuss with attending. <Kayli Marcano - Last Filed: 02/12/17 22:56> Objective - Vital Signs/Intake and Output Vital Signs (last 24 hours): Temp Pulse Resp BP Pulse Ox 98.2 F 92 H 20 113/71 96 02/12/17 19:44 02/12/17 19:44 02/12/17 19:44 02/12/17 19:44 02/12/17 15:23 Intake and Output: 02/12/17 02/13/17 18:59 06:59 Intake Total 430 Output Total 200 200 Balance 230 -200 - Medications Medications: Current Medications Albuterol (Ventolin Hfa 90 Mcg/Actuation (8 G)) 1 puff IH TID PRN PRN Reason: Shortness of Breath Last Admin: 02/12/17 08:23 Dose: 1 puff Alprazolam (Xanax) 0.5 mg PO Q6 PRN PRN Reason: Anxiety Furosemide (Lasix) 40 mg PO DAILY [facility] Last Admin: 02/12/17 09:16 Dose: 40 mg Hydromorphone HCl (Dilaudid) 1 mg IVP Q4 PRN PRN Reason: breakthrough pain Last Admin: 02/12/17 19:50 Dose: 1 mg Ceftriaxone Sodium (Rocephin Iv 1 Gm Duplex) 50 mls @ 50 mls/30 min IVPB DAILY [facility] Last Admin: 02/12/17 09:03 Dose: 50 mls/30 min Montelukast Sodium (Singulair) 10 mg PO HS [facility] Last Admin: 02/12/17 21:15 Dose: 10 mg Ondansetron HCl (Zofran Inj) 4 mg IVP Q4 PRN PRN Reason: Nausea/Vomiting Oxycodone HCl (Oxycodone Immediate Release Tab) 10 mg PO Q6H [facility] Last Admin: 02/12/17 14:05 Dose: 10 mg Pantoprazole Sodium (Protonix Inj) 40 mg IVP DAILY [facility] Last Admin: 02/12/17 09:15 Dose: 40 mg Fluticasone/Salmeterol (Advair Diskus 100/50) 1 puff IH RQ12 [facility] Last Admin: 02/12/17 19:17 Dose: 1 puff Thiamine HCl (Vitamin B1 Tab) 100 mg PO DAILY [facility] Last Admin: 02/12/17 10:00 Dose: 100 mg - Labs Labs: 02/12/17 07:08 02/12/17 07:08 PT 14.1 SECONDS (9.7-12.2) H 02/08/17 16:32 INR 1.3 02/08/17 16:32 APTT 23 SECONDS (21-34) 02/08/17 16:32 Attending/Attestation - Attestation I have personally seen and examined this patient.: Yes I have fully participated in the care of the patient.: Yes I have reviewed all pertinent clinical information, including history, physical exam and plan: Yes Notes (Text): 02/12/17 22:56 case seen and discussed with staff and resident mx as agreed
--- NOTE | 2017-02-12 18:05 | CP.PCM.PN ---
Subjective - Date & Time of Evaluation Date of Evaluation: 02/12/17 Time of Evaluation: 11:20 - Subjective Subjective: clinically same tolerating liquid diet Objective - Vital Signs/Intake and Output Vital Signs (last 24 hours): Temp Pulse Resp BP Pulse Ox 97.3 F L 87 20 106/65 96 02/12/17 15:23 02/12/17 15:31 02/12/17 15:23 02/12/17 15:23 02/12/17 15:23 Intake and Output: 02/12/17 02/12/17 06:59 18:59 Intake Total 800 430 Output Total 200 200 Balance 600 230 - Medications Medications: Current Medications Albuterol (Ventolin Hfa 90 Mcg/Actuation (8 G)) 1 puff IH TID PRN PRN Reason: Shortness of Breath Last Admin: 02/12/17 08:23 Dose: 1 puff Alprazolam (Xanax) 0.5 mg PO TID PRN PRN Reason: Anxiety Last Admin: 02/12/17 05:39 Dose: 0.5 mg Furosemide (Lasix) 40 mg PO DAILY [facility] Last Admin: 02/12/17 09:16 Dose: 40 mg Hydromorphone HCl (Dilaudid) 1 mg IVP Q4 PRN PRN Reason: Pain, moderate (4-7) Last Admin: 02/12/17 14:54 Dose: 1 mg Ceftriaxone Sodium (Rocephin Iv 1 Gm Duplex) 50 mls @ 50 mls/30 min IVPB DAILY [facility] Last Admin: 02/12/17 09:03 Dose: 50 mls/30 min Montelukast Sodium (Singulair) 10 mg PO HS [facility] Last Admin: 02/11/17 22:24 Dose: 10 mg Ondansetron HCl (Zofran Inj) 4 mg IVP Q4 PRN PRN Reason: Nausea/Vomiting Oxycodone HCl (Oxycodone Immediate Release Tab) 10 mg PO Q6H [facility] Last Admin: 02/12/17 14:05 Dose: 10 mg Pantoprazole Sodium (Protonix Inj) 40 mg IVP DAILY [facility] Last Admin: 02/12/17 09:15 Dose: 40 mg Fluticasone/Salmeterol (Advair Diskus 100/50) 1 puff IH RQ12 [facility] Last Admin: 02/12/17 08:23 Dose: 1 puff Thiamine HCl (Vitamin B1 Tab) 100 mg PO DAILY [facility] Last Admin: 02/12/17 10:00 Dose: 100 mg - Labs Labs: 02/12/17 07:08 02/12/17 07:08 PT 14.1 SECONDS (9.7-12.2) H 02/08/17 16:32 INR 1.3 02/08/17 16:32 APTT 23 SECONDS (21-34) 02/08/17 16:32 - Constitutional Appears: Well - Head Exam Head Exam: ATRAUMATIC, NORMAL INSPECTION, NORMOCEPHALIC - Eye Exam Eye Exam: EOMI, Normal appearance, PERRL Pupil Exam: NORMAL ACCOMODATION, PERRL - ENT Exam ENT Exam: Mucous Membranes Moist, Normal Exam - Neck Exam Neck Exam: Full ROM, Normal Inspection. absent: Lymphadenopathy - Respiratory Exam Respiratory Exam: Decreased Breath Sounds - Cardiovascular Exam Cardiovascular Exam: REGULAR RHYTHM, +S1, +S2 - GI/Abdominal Exam GI & Abdominal Exam: Soft, Diminished Bowel Sounds - Rectal Exam Rectal Exam: Deferred - Neurological Exam Neurological Exam: Alert, Awake, Oriented x3 Assessment and Plan (1) Abdominal pain Status: Acute (2) Abdominal wall pain Status: Acute (3) Alcohol abuse Status: Acute (4) Anxiety Status: Acute (5) Ascites Status: Acute (6) Asthma Status: Acute (7) Cirrhosis Status: Acute (8) Dyspnea Status: Acute (9) HTN (hypertension) Status: Acute (10) Hernia of abdominal cavity Status: Acute (11) Hypokalemia Status: Acute (12) Incarcerated umbilical hernia Status: Acute (13) Increased ammonia level Status: Acute (14) Leg edema Status: Acute (15) Liver failure Status: Acute (16) Prophylactic measure Status: Acute (17) Small bowel obstruction Status: Acute (18) Thrombocytopenia Status: Acute (19) Umbilical hernia Status: Acute (20) COPD (chronic obstructive pulmonary disease) Status: Chronic - Assessment and Plan (Free Text) Plan: advanced to regular diet as per Dr Jones cont iv abx lasix dilaudid other meds as ordered f/u labs [place] same
[2017-02-13] MEDS: HYDROmorphone 1 mg/ml ISec IVP PRN ×4 (00:35→14:00)
[2017-02-13] MEDS: oxyCODONE 10 mg Immediate Release Tab PO SCH ×3 (02:11→14:05)
[2017-02-13 08:03] VITALS: O2SAT 97
[2017-02-13] MEDS: Fluticasone-Salmeterol 100-50mcg Diskus IH SCH (08:38)
[2017-02-13] MEDS: cefTRIAXone IV 1 gm in Dextros 50 ML IVPB SCH (10:12)
--- NOTE | 2017-02-13 11:00 | CP.PCM.PN ---
<Brandon Lim H - Last Filed: 02/13/17 10:59> Subjective - Date & Time of Evaluation Date of Evaluation: 02/13/17 Time of Evaluation: 09:00 Objective - Vital Signs/Intake and Output Vital Signs (last 24 hours): Temp Pulse Resp BP Pulse Ox 98.4 F 91 H 18 119/68 97 02/13/17 07:02 02/13/17 07:02 02/13/17 07:02 02/13/17 10:11 02/13/17 07:02 Intake and Output: 02/13/17 02/13/17 06:59 18:59 Output Total 200 Balance -200 - Medications Medications: Current Medications Albuterol (Ventolin Hfa 90 Mcg/Actuation (8 G)) 1 puff IH TID PRN PRN Reason: Shortness of Breath Last Admin: 02/12/17 08:23 Dose: 1 puff Alprazolam (Xanax) 0.5 mg PO Q6 PRN PRN Reason: Anxiety Last Admin: 02/13/17 06:56 Dose: 0.5 mg Furosemide (Lasix) 40 mg PO DAILY [facility] Last Admin: 02/13/17 10:11 Dose: 40 mg Hydromorphone HCl (Dilaudid) 1 mg IVP Q4 PRN PRN Reason: breakthrough pain Last Admin: 02/13/17 04:39 Dose: 1 mg Ceftriaxone Sodium (Rocephin Iv 1 Gm Duplex) 50 mls @ 50 mls/30 min IVPB DAILY [facility] Last Admin: 02/13/17 10:12 Dose: 50 mls/30 min Montelukast Sodium (Singulair) 10 mg PO HS [facility] Last Admin: 02/12/17 21:15 Dose: 10 mg Ondansetron HCl (Zofran Inj) 4 mg IVP Q4 PRN PRN Reason: Nausea/Vomiting Oxycodone HCl (Oxycodone Immediate Release Tab) 10 mg PO Q6H [facility] Last Admin: 02/13/17 09:20 Dose: 10 mg Pantoprazole Sodium (Protonix Inj) 40 mg IVP DAILY [facility] Last Admin: 02/13/17 10:11 Dose: 40 mg Fluticasone/Salmeterol (Advair Diskus 100/50) 1 puff IH RQ12 [facility] Last Admin: 02/13/17 08:38 Dose: 1 puff Thiamine HCl (Vitamin B1 Tab) 100 mg PO DAILY [facility] Last Admin: 02/12/17 10:00 Dose: 100 mg - Labs Labs: 02/12/17 07:08 02/12/17 07:08 PT 14.1 SECONDS (9.7-12.2) H 02/08/17 16:32 INR 1.3 02/08/17 16:32 APTT 23 SECONDS (21-34) 02/08/17 16:32 Assessment and Plan - Assessment and Plan (Free Text) Assessment: Strangulated umbilical hernia Surgery consult - Dr. Jones - help appreciated POD #3 s/p umbilical hernia repair w/ mesh and small bowel resection and LIH repair w/ mesh Rocephin 1gm IVPB daily Dilaudid 2mg IVP Q3H Oxycodone 10mg PO Q6 Advanced to full diet Pending discharge to [facility] tomorrow if tolerating full diet COPD Ventolin Hfa 1 puff TID PRN Singulair 10mg PO HS Advair 1 puff INH Q12 Anxiety Xanax 0.5mg PO TID PRN anxiety HTN Controlled without medication Monitor Liver cirrhosis Lasix 40mg PO daily Prophylaxis SCDs Protonix 40mg PO daily All management and orders per Dr Vitor Marcano. Will discuss with attending. <Kayli Marcano S - Last Filed: 02/13/17 14:46> Subjective - Date & Time of Evaluation Date of Evaluation: 02/13/17 Time of Evaluation: 09:00 - Subjective Subjective: as een wit staff Objective - Vital Signs/Intake and Output Vital Signs (last 24 hours): Temp Pulse Resp BP Pulse Ox 98.4 F 91 H 18 119/68 97 02/13/17 07:02 02/13/17 07:02 02/13/17 07:02 02/13/17 10:11 02/13/17 07:02 Intake and Output: 02/13/17 02/13/17 06:59 18:59 Output Total 200 Balance -200 - Medications Medications: Current Medications Albuterol (Ventolin Hfa 90 Mcg/Actuation (8 G)) 1 puff IH TID PRN PRN Reason: Shortness of Breath Last Admin: 02/12/17 08:23 Dose: 1 puff Alprazolam (Xanax) 0.5 mg PO Q6 PRN PRN Reason: Anxiety Last Admin: 02/13/17 06:56 Dose: 0.5 mg Furosemide (Lasix) 40 mg PO DAILY [facility] Last Admin: 02/13/17 10:11 Dose: 40 mg Hydromorphone HCl (Dilaudid) 1 mg IVP Q4 PRN PRN Reason: breakthrough pain Last Admin: 02/13/17 14:00 Dose: 1 mg Ceftriaxone Sodium (Rocephin Iv 1 Gm Duplex) 50 mls @ 50 mls/30 min IVPB DAILY [facility] Last Admin: 02/13/17 10:12 Dose: 50 mls/30 min Montelukast Sodium (Singulair) 10 mg PO HS [facility] Last Admin: 02/12/17 21:15 Dose: 10 mg Ondansetron HCl (Zofran Inj) 4 mg IVP Q4 PRN PRN Reason: Nausea/Vomiting Oxycodone HCl (Oxycodone Immediate Release Tab) 10 mg PO Q6H [facility] Last Admin: 02/13/17 14:05 Dose: Not Given Pantoprazole Sodium (Protonix Inj) 40 mg IVP DAILY [facility] Last Admin: 02/13/17 10:11 Dose: 40 mg Fluticasone/Salmeterol (Advair Diskus 100/50) 1 puff IH RQ12 [facility] Last Admin: 02/13/17 08:38 Dose: 1 puff Thiamine HCl (Vitamin B1 Tab) 100 mg PO DAILY [facility] Last Admin: 02/13/17 10:00 Dose: 100 mg - Labs Labs: 02/12/17 07:08 02/12/17 07:08 PT 14.1 SECONDS (9.7-12.2) H 02/08/17 16:32 INR 1.3 02/08/17 16:32 APTT 23 SECONDS (21-34) 02/08/17 16:32 Assessment and Plan (1) Small bowel obstruction Status: Acute Attending/Attestation - Attestation I have personally seen and examined this patient.: Yes I have fully participated in the care of the patient.: Yes I have reviewed all pertinent clinical information, including history, physical exam and plan: Yes Notes (Text): case seen and discussed with staff adn resident
--- NOTE | 2017-02-13 11:44 | CP.PCM.PN ---
Subjective - Date & Time of Evaluation Date of Evaluation: 02/13/17 Time of Evaluation: 11:40 - Subjective Subjective: Surgery: Dr. Jones Patient with some anxiety today. She does not like the food and reports not getting medications on time. She denies n/v and would like to shower. She is confused on whether she can be OOB. Pain is controlled when she gets the medicine. Objective - Vital Signs/Intake and Output Vital Signs (last 24 hours): Temp Pulse Resp BP Pulse Ox 98.4 F 91 H 18 119/68 97 02/13/17 07:02 02/13/17 07:02 02/13/17 07:02 02/13/17 10:11 02/13/17 07:02 Intake and Output: 02/13/17 02/13/17 06:59 18:59 Output Total 200 Balance -200 - Medications Medications: Current Medications Albuterol (Ventolin Hfa 90 Mcg/Actuation (8 G)) 1 puff IH TID PRN PRN Reason: Shortness of Breath Last Admin: 02/12/17 08:23 Dose: 1 puff Alprazolam (Xanax) 0.5 mg PO Q6 PRN PRN Reason: Anxiety Last Admin: 02/13/17 06:56 Dose: 0.5 mg Furosemide (Lasix) 40 mg PO DAILY [facility] Last Admin: 02/13/17 10:11 Dose: 40 mg Hydromorphone HCl (Dilaudid) 1 mg IVP Q4 PRN PRN Reason: breakthrough pain Last Admin: 02/13/17 04:39 Dose: 1 mg Ceftriaxone Sodium (Rocephin Iv 1 Gm Duplex) 50 mls @ 50 mls/30 min IVPB DAILY [facility] Last Admin: 02/13/17 10:12 Dose: 50 mls/30 min Montelukast Sodium (Singulair) 10 mg PO HS [facility] Last Admin: 02/12/17 21:15 Dose: 10 mg Ondansetron HCl (Zofran Inj) 4 mg IVP Q4 PRN PRN Reason: Nausea/Vomiting Oxycodone HCl (Oxycodone Immediate Release Tab) 10 mg PO Q6H [facility] Last Admin: 02/13/17 09:20 Dose: 10 mg Pantoprazole Sodium (Protonix Inj) 40 mg IVP DAILY [facility] Last Admin: 02/13/17 10:11 Dose: 40 mg Fluticasone/Salmeterol (Advair Diskus 100/50) 1 puff IH RQ12 [facility] Last Admin: 02/13/17 08:38 Dose: 1 puff Thiamine HCl (Vitamin B1 Tab) 100 mg PO DAILY [facility] Last Admin: 02/12/17 10:00 Dose: 100 mg - Labs Labs: 02/12/17 07:08 02/12/17 07:08 PT 14.1 SECONDS (9.7-12.2) H 02/08/17 16:32 INR 1.3 02/08/17 16:32 APTT 23 SECONDS (21-34) 02/08/17 16:32 - Constitutional Appears: Non-toxic, No Acute Distress, Chronically Ill - Head Exam Head Exam: ATRAUMATIC, NORMOCEPHALIC - ENT Exam ENT Exam: Mucous Membranes Moist - Respiratory Exam Respiratory Exam: NORMAL BREATHING PATTERN. absent: Respiratory Distress - Cardiovascular Exam Cardiovascular Exam: REGULAR RHYTHM. absent: Tachycardia - GI/Abdominal Exam GI & Abdominal Exam: Distended, Soft. absent: Guarding, Tenderness, Rebound Additional comments: incisions CDI w/ staple closure. Jose w/ 100cc/ serous output. - Psychiatric Exam Psychiatric exam: Anxious, Normal Affect - Skin Skin Exam: Dry, Warm Assessment and Plan - Assessment and Plan (Free Text) Assessment: 61 y/o F POD #4 s/p umbilical hernia repair and LIH repair w/ mesh, as well a resection of necrotic bowel Plan: -patient for possible RODO placement - cont Abx per primary - patient can be out of bed ambulating - patient can shower, replace dressing over incisions after - further recs per Dr. Robert Cruz PGY1
[2017-02-13 17:37] VITALS: BP 117/68; PULSE 94; RESP 20; TEMP 98.2
--- NOTE | 2017-02-13 17:47 | CP.PCM.PN ---
Subjective - Date & Time of Evaluation Date of Evaluation: 02/13/17 Time of Evaluation: 17:00 - Subjective Subjective: afebrile pt clinically same pain being managed discharge planning Objective - Vital Signs/Intake and Output Vital Signs (last 24 hours): Temp Pulse Resp BP Pulse Ox 98.2 F 94 H 20 117/68 97 02/13/17 16:00 02/13/17 16:00 02/13/17 16:00 02/13/17 16:00 02/13/17 16:00 Intake and Output: 02/13/17 02/13/17 06:59 18:59 Intake Total 600 Output Total 200 350 Balance -200 250 - Medications Medications: Current Medications Albuterol (Ventolin Hfa 90 Mcg/Actuation (8 G)) 1 puff IH TID PRN PRN Reason: Shortness of Breath Last Admin: 02/12/17 08:23 Dose: 1 puff Alprazolam (Xanax) 0.5 mg PO Q6 PRN PRN Reason: Anxiety Last Admin: 02/13/17 06:56 Dose: 0.5 mg Furosemide (Lasix) 40 mg PO DAILY [facility] Last Admin: 02/13/17 10:11 Dose: 40 mg Hydromorphone HCl (Dilaudid) 1 mg IVP Q4 PRN PRN Reason: breakthrough pain Last Admin: 02/13/17 14:00 Dose: 1 mg Ceftriaxone Sodium (Rocephin Iv 1 Gm Duplex) 50 mls @ 50 mls/30 min IVPB DAILY [facility] Last Admin: 02/13/17 10:12 Dose: 50 mls/30 min Montelukast Sodium (Singulair) 10 mg PO HS [facility] Last Admin: 02/12/17 21:15 Dose: 10 mg Ondansetron HCl (Zofran Inj) 4 mg IVP Q4 PRN PRN Reason: Nausea/Vomiting Oxycodone HCl (Oxycodone Immediate Release Tab) 10 mg PO Q6H [facility] Last Admin: 02/13/17 14:05 Dose: Not Given Pantoprazole Sodium (Protonix Inj) 40 mg IVP DAILY [facility] Last Admin: 02/13/17 10:11 Dose: 40 mg Fluticasone/Salmeterol (Advair Diskus 100/50) 1 puff IH RQ12 [facility] Last Admin: 02/13/17 08:38 Dose: 1 puff Thiamine HCl (Vitamin B1 Tab) 100 mg PO DAILY [facility] Last Admin: 02/13/17 10:00 Dose: 100 mg - Labs Labs: 02/12/17 07:08 02/12/17 07:08 PT 14.1 SECONDS (9.7-12.2) H 02/08/17 16:32 INR 1.3 02/08/17 16:32 APTT 23 SECONDS (21-34) 02/08/17 16:32 - Constitutional Appears: No Acute Distress - Head Exam Head Exam: ATRAUMATIC, NORMAL INSPECTION, NORMOCEPHALIC - Eye Exam Eye Exam: EOMI, Normal appearance, PERRL Pupil Exam: NORMAL ACCOMODATION, PERRL - ENT Exam ENT Exam: Mucous Membranes Moist - Neck Exam Neck Exam: Full ROM - Respiratory Exam Respiratory Exam: Decreased Breath Sounds - Cardiovascular Exam Cardiovascular Exam: REGULAR RHYTHM, +S1, +S2 - GI/Abdominal Exam GI & Abdominal Exam: Soft, Diminished Bowel Sounds - Rectal Exam Rectal Exam: Deferred - Neurological Exam Neurological Exam: Alert, Awake, Oriented x3 Assessment and Plan (1) Small bowel obstruction Status: Acute (2) Abdominal pain Status: Acute (3) Abdominal wall pain Status: Acute (4) Alcohol abuse Status: Acute (5) Anxiety Status: Acute (6) Ascites Status: Acute (7) Asthma Status: Acute (8) Cirrhosis Status: Acute (9) Dyspnea Status: Acute (10) HTN (hypertension) Status: Acute (11) Hernia of abdominal cavity Status: Acute (12) Hypokalemia Status: Acute (13) Incarcerated umbilical hernia Status: Acute (14) Increased ammonia level Status: Acute (15) Leg edema Status: Acute (16) Liver failure Status: Acute (17) Prophylactic measure Status: Acute (18) Thrombocytopenia Status: Acute (19) Umbilical hernia Status: Acute (20) COPD (chronic obstructive pulmonary disease) Status: Chronic - Assessment and Plan (Free Text) Plan: discharge planning case discussed with dr bar and staff mx as ordered f/u outpt as instructed
== END 2017-02-13 19:23 | DRG 148 ==
LOC: C.ER 14:07 → C.9E 18:17 → C.6T 19:54 → C.5T 02-13 11:46
PROVIDERS: ADMIT Internal Medicine Nephrology; ATTEND Internal Medicine Nephrology
PROC: 0YU60JZ Supplement Left Inguinal Region with Synthetic Substitute, Open Approach (ICD-10-PCS; 2017-02-09)
PROC: 0WUF0JZ Supplement Abdominal Wall with Synthetic Substitute, Open Approach (ICD-10-PCS; principal; 2017-02-09 15:26)
PROC: 0DT80ZZ Resection of Small Intestine, Open Approach (ICD-10-PCS; 2017-02-09 15:26)
DX: K42.0 Umbilical hernia with obstruction, without gangrene (principal); R18.8 Other ascites; D69.6 Thrombocytopenia, unspecified; K74.60 Unspecified cirrhosis of liver; J44.9 Chronic obstructive pulmonary disease, unspecified; F11.10 Opioid abuse, uncomplicated; B19.20 Unspecified viral hepatitis C without hepatic coma; K40.30 Unilateral inguinal hernia, with obstruction, without gangrene, not specified as recurrent; F41.9 Anxiety disorder, unspecified; I10 Essential (primary) hypertension; J45.909 Unspecified asthma, uncomplicated; Z87.891 Personal history of nicotine dependence; Z68.24 Body mass index [BMI] 24.0-24.9, adult

== ENCOUNTER 2017-03-25 16:22 | Inpatient (IN) | payer MEDICAID ==
[2017-03-25 16:22] VITALS: BMI 24.7
--- NOTE | 2017-03-25 17:11 | C.PDOC ---
History Of Present Illness 61-year-old female, presents to the emergency department with complaints of abdominal distention that is associated with diffuse pain. Patient has a Hx of cirrhosis and ascites. States she has fluid drained from her abdomen on a monthly basis. Patient reports that it has been a month since her last paracentesis; She feels like her abdomen needs to be drained again. Denies shortness of breath, nausea/vomiting, symptoms or change in bowel habits. Time Seen by Provider: 03/25/17 16:27 Chief Complaint (Nursing): Abdominal Pain History Per: Patient History/Exam Limitations: no limitations Onset/Duration Of Symptoms: Days Current Symptoms Are (Timing): Still Present Severity: Moderate Location Of Pain/Discomfort: Diffuse Past Medical History Reviewed: Historical Data, Nursing Documentation, Vital Signs Vital Signs: Last Vital Signs Temp 97.8 F 03/26/17 07:41 Pulse 83 03/26/17 07:41 Resp 20 03/26/17 07:41 BP 106/64 03/26/17 11:08 Pulse Ox 98 03/26/17 07:41 - Medical History PMH: Anxiety, Asthma, Bronchitis, COPD, HTN Denies: Chronic Kidney Disease - [facility] Procedures DRAINAGE OF PERITONEAL CAVITY, PERCUTANEOUS APPROACH (03/04/17) INDIVIDUAL PSYCHOTHERAPY, COGNITIVE-BEHAVIORAL (11/28/16) INDIVIDUAL PSYCHOTHERAPY, SUPPORTIVE (11/28/16) RESECTION OF SMALL INTESTINE, OPEN APPROACH (02/08/17) SUPPLEMENT ABDOMINAL WALL WITH SYNTH SUB, OPEN APPROACH (02/08/17) SUPPLEMENT L INGUINAL REGION WITH SYNTH SUB, OPEN APPROACH (02/08/17) Family History: States: Unknown Family Hx - Social History Hx Tobacco Use: No Hx Alcohol Use: No Hx Substance Use: Yes (marijuana) - Immunization History Hx Tetanus Toxoid Vaccination: No Hx Influenza Vaccination: No Hx Pneumococcal Vaccination: No Review Of Systems Except As Marked, All Systems Reviewed And Found Negative. Constitutional: Negative for: Fever, Chills Cardiovascular: Negative for: Chest Pain, Palpitations Respiratory: Negative for: Shortness of Breath Gastrointestinal: Positive for: Abdominal Pain. Negative for: Nausea, Vomiting , Diarrhea Genitourinary: Negative for: Vaginal Discharge, Vaginal Bleeding Musculoskeletal: Negative for: Back Pain Physical Exam - Physical Exam Appears: Non-toxic, No Acute Distress Skin: Warm, Dry Eye(s): bilateral: Normal Inspection, PERRL, EOMI Nose: Normal Oral Mucosa: Moist Neck: Normal ROM Cardiovascular: Rhythm Regular Respiratory: Normal Breath Sounds, No Accessory Muscle Use Gastrointestinal/Abdominal: Tenderness (diffuse), Distention, Ascites, Other ( healing midline scar from recent surgery) Neurological/Psych: Oriented x3 ED Course And Treatment - Laboratory Results Result Diagrams: 03/25/17 17:20 03/25/17 17:20 O2 Sat by Pulse Oximetry: 100 Disposition - Disposition Disposition: HOSPITALIZED Disposition Time: 18:20 Condition: STABLE - Clinical Impression Clinical Impression: Ascites - Scribe Statement The provider has reviewed the documentation as recorded by the Yiselibalejandra Owens All medical record entries made by the Yiselibalejandra were at my direction and personally dictated by me. I have reviewed the chart and agree that the record accurately reflects my personal performance of the history, physical exam, medical decision making, and the department course for this patient. I have also personally directed, reviewed, and agree with the discharge instructions and disposition.
[2017-03-25] MEDS ORDERED: Albuterol-Ipratrop 3 mg / 0.5 (3 ml) UD IH STA (17:13)
[2017-03-25] MEDS ORDERED: Morphine 4 MG/ML VIAL ONE (17:20)
[2017-03-25 17:23] LABS: BASO # 0.1 K/uL (0.0-0.2); EOS # 0.1 K/uL (0.0-0.7); EOS % 1.1 % (0.0-4.0); HEMATOCRIT 32.1 % (34.0-47.0); LYMPH # 0.9 K/uL (1.0-4.3); LYMPH % 15.3 % (20.0-40.0); MEAN CELL VOLUME 85.1 fL (81.0-99.0); MEAN CORPUSCULAR HEMOGLOBIN 27.5 pg (27.0-31.0); MEAN CORPUSCULAR HGB CONC 32.3 g/dL (33.0-37.0); MONO # 0.6 K/uL (0.0-0.8); MONO % 9.9 % (0.0-10.0); RED CELL DISTRIBUTION WIDTH 14.5 % (11.5-14.5)
[2017-03-25 17:33] LABS: CHLORIDE 98 mmol/L (98-107); SODIUM 132 mmol/L (132-148)
[2017-03-25 17:34] LABS: POTASSIUM 4.2 mmol/L (3.6-5.2)
[2017-03-25 17:35] LABS: GFR AFRICAN-AMERICAN > 60
[2017-03-25] MEDS ORDERED: Albuterol-Ipratrop 3 mg / 0.5 (3 ml) UD ONE (17:35)
[2017-03-25 17:36] LABS: ALB/GLOB RATIO 0.9 (1.0-2.1); ALKALINE PHOSPHATASE 54 U/L (38-126); ALT/SGPT 18 U/L (9-52); AST/SGOT 25 U/L (14-36); BILIRUBIN,TOTAL 0.9 mg/dL (0.2-1.3); BLOOD UREA NITROGEN 19 mg/dL (7-17); CALCIUM 8.6 mg/dl (8.6-10.4); CARBON DIOXIDE 25 mmol/L (22-30); GLUCOSE,RANDOM 88 mg/dL (65-105); TOTAL PROTEIN 7.8 g/dL (6.3-8.3)
[2017-03-25 17:41] LABS: WHITE BLOOD COUNT 5.7 K/uL (4.8-10.8)
[2017-03-25 17:44] LABS: RBC URINE < 1 /hpf (0-3); URINE BACTERIA RARE (<OCC); URINE BILIRUBIN NEGATIVE (NEGATIVE); URINE BLOOD NEGATIVE (NEGATIVE); URINE COLOR Yellow (YELLOW); URINE GLUCOSE (UA) NORMAL (Normal); URINE KETONE NEGATIVE (NEGATIVE); URINE LEUKOCYTE ESTERASE NEG Leu/uL (Negative); URINE PROTEIN NEGATIVE (NEGATIVE); URINE UROBILINOGEN NORMAL mg/dL (0.2-1.0); WBC URINE 1 /hpf (0-5)
--- NOTE | 2017-03-25 19:44 | CP.PCM.HP ---
History of Present Illness - History of Present Illness History of Present Illness: 61-year-old female patient with past medical history of anxiety, bronchitis, asthma, COPD, hypertension who presented to the ED with complaint of abdominal distention that is associated with diffuse pain. Patient states she has fluid draining from the abdomen on a monthly basis. Patient reports that it has been a month since her last paracentesis. Patient feels like her abdomen needs to be drained again. Denies shortness of breath, nausea, vomiting, symptoms or change in bowel habits. Present on Admission - Present on Admission Any Indicators Present on Admission: No Past Patient History - Infectious Disease Hx of Infectious Diseases: None - Past Medical History & Family History Past Medical History?: Yes - Past Social History Smoking Status: Light Smoker < 10 Cigarettes Daily - CARDIAC Hx Hypertension: Yes - PULMONARY Hx Asthma: Yes Hx Bronchitis: Yes Hx Chronic Obstructive Pulmonary Disease (COPD): Yes - NEUROLOGICAL Hx Neurological Disorder: No - HEENT Hx HEENT Problems: No - RENAL Hx Chronic Kidney Disease: No - ENDOCRINE/METABOLIC Hx Endocrine Disorders: No - HEMATOLOGICAL/ONCOLOGICAL Hx Blood Disorders: Yes Hx Hepatitis B: Yes Hx Hepatitis C: Yes - INTEGUMENTARY Hx Dermatological Problems: No - MUSCULOSKELETAL/RHEUMATOLOGICAL Hx Musculoskeletal Disorders: Yes Hx Falls: Yes (2 weeks ago due to leg pain) - GASTROINTESTINAL Hx Gastrointestinal Disorders: Yes Hx Liver Failure: Yes Other/Comment: Ascites,umbilical hernia - GENITOURINARY/GYNECOLOGICAL Hx Genitourinary Disorders: No - PSYCHIATRIC Hx Anxiety: Yes Hx Substance Use: Yes (marijuana) - SURGICAL HISTORY Hx Surgeries: No Other/Comment: Umbilical hernia repair and left groin hernia repair 2 weeks ago. - ANESTHESIA Hx Anesthesia: Yes Hx Anesthesia Reactions: No Hx Malignant Hyperthermia: No Meds Home Medications: Home Medication List Medication Instructions Recorded Confirmed Type Haloperidol [Haldol] 5 mg PO BID 14 Days 03/28/17 Rx LORazepam [Ativan] 0.5 mg PO Q6H #10 tab 03/28/17 Rx Allergies/Adverse Reactions: Allergies Allergy/AdvReac Type Severity Reaction Status Date / Time No Known Allergies Allergy Verified 05/28/17 18:02 Physical Exam - Constitutional Appears: Well - Head Exam Head Exam: ATRAUMATIC, NORMAL INSPECTION, NORMOCEPHALIC - Eye Exam Eye Exam: EOMI, Normal appearance, PERRL Pupil Exam: NORMAL ACCOMODATION, PERRL - ENT Exam ENT Exam: Mucous Membranes Moist, Normal Exam - Neck Exam Neck exam: Positive for: Normal Inspection - Respiratory Exam Respiratory Exam: Decreased Breath Sounds - Cardiovascular Exam Cardiovascular Exam: REGULAR RHYTHM, +S1, +S2 - GI/Abdominal Exam GI & Abdominal Exam: Diminished Bowel Sounds, Soft - Rectal Exam Rectal Exam: Deferred Results - Vital Signs Recent Vital Signs: Last Vital Signs Temp 98.2 F 03/25/17 16:29 Pulse 68 03/25/17 19:06 Resp 20 03/25/17 19:06 BP 131/68 03/25/17 19:06 Pulse Ox 98 03/25/17 19:06 - Labs Result Diagrams: 03/28/17 18:19 03/28/17 18:19 Assessment & Plan (1) Abdominal pain Status: Acute (2) Abdominal wall pain Status: Acute (3) Alcohol abuse Status: Acute (4) Ascites Status: Acute (5) Asthma Status: Acute (6) Coagulopathy Status: Acute (7) Dyspnea Status: Acute (8) HTN (hypertension) Status: Acute (9) Hepatic encephalopathy Status: Acute (10) Hernia of abdominal cavity Status: Acute (11) Hypokalemia Status: Acute (12) Incarcerated umbilical hernia Status: Acute (13) Increased ammonia level Status: Acute (14) Leg edema Status: Acute (15) Liver failure Status: Acute (16) Pancytopenia Status: Acute (17) Prophylactic measure Status: Acute (18) Small bowel obstruction Status: Acute (19) Thrombocytopenia Status: Acute (20) Thrombocytopenia Status: Acute (21) Umbilical hernia Status: Acute (22) Alcohol abuse Status: Chronic (23) Anxiety Status: Chronic (24) Asthma Status: Chronic (25) COPD (chronic obstructive pulmonary disease) Status: Chronic (26) Cirrhosis Status: Chronic (27) Toxic encephalopathy Status: Chronic - Assessment and Plan (Free Text) Plan: ascitc [facility] for aracentesis
[2017-03-25] MEDS: oxyCODONE 10 mg Immediate Release Tab PO PRN (21:39)
[2017-03-25] MEDS ORDERED: Fluticasone-Salmeterol 100-50mcg Diskus IH SCH (22:00)
[2017-03-26] MEDS: oxyCODONE 10 mg Immediate Release Tab PO PRN ×3 (04:10→17:54)
--- NOTE | 2017-03-26 09:59 | CP.PCM.PN ---
Subjective - Date & Time of Evaluation Date of Evaluation: 03/26/17 Time of Evaluation: 11:20 - Subjective Subjective: clinically same Objective - Vital Signs/Intake and Output Vital Signs (last 24 hours): Temp Pulse Resp BP Pulse Ox 97.8 F 83 20 106/64 98 03/26/17 07:41 03/26/17 07:41 03/26/17 07:41 03/26/17 07:41 03/26/17 07:41 Intake and Output: 03/26/17 03/26/17 06:59 18:59 Intake Total 200 Balance 200 - Medications Medications: Current Medications Enoxaparin Sodium (Lovenox) 40 mg SC DAILY [facility] Furosemide (Lasix) 80 mg PO QAM [facility] Lorazepam (Ativan) 0.5 mg PO Q8H [facility] Last Admin: 03/26/17 04:09 Dose: 0.5 mg Montelukast Sodium (Singulair) 10 mg PO DAILY [facility] Oxycodone HCl (Oxycodone Immediate Release Tab) 10 mg PO Q6H PRN PRN Reason: Pain, severe (8-10) Last Admin: 03/26/17 04:10 Dose: 10 mg Pantoprazole Sodium (Protonix Ec Tab) 40 mg PO DAILY [facility] Pneumococcal Polyvalent Vaccine (Pneumovax 23 Vaccine) 0.5 ml IM .ONCE ONE Stop: 03/27/17 10:01 Fluticasone/Salmeterol (Advair Diskus 100/50) 1 puff IH RQ12 [facility] Spironolactone (Aldactone) 50 mg PO BID [facility] Thiamine HCl (Vitamin B1 Tab) 100 mg PO DAILY [facility] - Constitutional Appears: Well - Head Exam Head Exam: ATRAUMATIC, NORMAL INSPECTION, NORMOCEPHALIC - Eye Exam Eye Exam: EOMI, Normal appearance, PERRL Pupil Exam: NORMAL ACCOMODATION, PERRL - ENT Exam ENT Exam: Mucous Membranes Moist, Normal Exam - Neck Exam Neck Exam: Full ROM, Normal Inspection. absent: Lymphadenopathy - Respiratory Exam Respiratory Exam: Decreased Breath Sounds - Cardiovascular Exam Cardiovascular Exam: REGULAR RHYTHM, +S1, +S2 - GI/Abdominal Exam GI & Abdominal Exam: Soft, Diminished Bowel Sounds - Rectal Exam Rectal Exam: Deferred Assessment and Plan (1) Abdominal pain Status: Acute (2) Abdominal wall pain Status: Acute (3) Alcohol abuse Status: Acute (4) Ascites Status: Acute (5) Asthma Status: Acute (6) Coagulopathy Status: Acute (7) Dyspnea Status: Acute (8) HTN (hypertension) Status: Acute (9) Hepatic encephalopathy Status: Acute (10) Hernia of abdominal cavity Status: Acute (11) Hypokalemia Status: Acute (12) Incarcerated umbilical hernia Status: Acute (13) Increased ammonia level Status: Acute (14) Leg edema Status: Acute (15) Liver failure Status: Acute (16) Pancytopenia Status: Acute (17) Prophylactic measure Status: Acute (18) Small bowel obstruction Status: Acute (19) Thrombocytopenia Status: Acute (20) Thrombocytopenia Status: Acute (21) Umbilical hernia Status: Acute (22) Alcohol abuse Status: Chronic (23) Anxiety Status: Chronic (24) Asthma Status: Chronic (25) COPD (chronic obstructive pulmonary disease) Status: Chronic (26) Cirrhosis Status: Chronic (27) Toxic encephalopathy Status: Chronic - Assessment and Plan (Free Text) Plan: Consult GI Lovenox Lasix Singulair Oxycodone Protonix Aldactone Thiamine
[2017-03-26] MEDS: Pantoprazole 40 mg EC Tab PO SCH (11:06)
[2017-03-26] MEDS: Enoxaparin 40 mg Syringe SC SCH (11:07)
--- NOTE | 2017-03-26 14:46 | US ---
Date of Procedure: 03/26/2017 PROCEDURE: Ultrasound-guided paracentesis, CPT 86485 Medications: 9cc 1% Lidocaine HISTORY: Ascites, abdominal pain, cirrhosis TECHNIQUE: Following informed consent , the patient was placed supine on the stretcher and the site was marked. A limited abdominal ultrasound was performed that showed a large amount of intra-abdominal fluid. Procedural time out was called and the Pt's abdomen was marked and prepped and draped in the usual sterile fashion. Ultrasound-guided large volume paracentesis performed. A total of 3.2 liters of straw colored fluid was removed without complication. IMPRESSION: Ultrasound-guided large volume paracentesis.
[2017-03-26] MEDS: oxyCODONE 10 mg Immediate Release Tab PO SCH (18:20)
[2017-03-26] MEDS: Bacitracin Ointment 30 GM TUBE TOP SCH (18:25)
[2017-03-27] MEDS ORDERED: Pneumococcal 23-Valent Vaccine IM ONE (10:00)
--- NOTE | 2017-03-27 22:31 | CP.PCM.PN ---
Subjective - Date & Time of Evaluation Date of Evaluation: 03/27/17 Time of Evaluation: 08:20 - Subjective Subjective: Clinically same Objective - Vital Signs/Intake and Output Vital Signs (last 24 hours): Temp Pulse Resp BP Pulse Ox 98 F 74 20 111/61 99 03/27/17 15:20 03/27/17 15:20 03/27/17 15:20 03/27/17 15:20 03/27/17 15:20 Intake and Output: 03/27/17 03/28/17 18:59 06:59 Intake Total 400 Balance 400 - Medications Medications: Current Medications Bacitracin (Bacitracin) 0 gm TOP TID [facility] Last Admin: 03/26/17 18:25 Dose: 1 applic Enoxaparin Sodium (Lovenox) 40 mg SC DAILY [facility] Last Admin: 03/26/17 11:07 Dose: 40 mg Furosemide (Lasix) 80 mg PO QAM [facility] Last Admin: 03/26/17 11:08 Dose: 80 mg Lorazepam (Ativan) 0.5 mg PO Q6H [facility] Last Admin: 03/26/17 18:18 Dose: 0.5 mg Montelukast Sodium (Singulair) 10 mg PO DAILY [facility] Last Admin: 03/26/17 11:06 Dose: 10 mg Oxycodone HCl (Oxycodone Immediate Release Tab) 10 mg PO Q6H [facility] Last Admin: 03/26/17 18:20 Dose: Not Given Pantoprazole Sodium (Protonix Ec Tab) 40 mg PO DAILY [facility] Last Admin: 03/26/17 11:06 Dose: 40 mg Fluticasone/Salmeterol (Advair Diskus 100/50) 1 puff IH RQ12 [facility] Spironolactone (Aldactone) 50 mg PO BID [facility] Last Admin: 03/26/17 17:52 Dose: 50 mg Thiamine HCl (Vitamin B1 Tab) 100 mg PO DAILY [facility] Last Admin: 03/26/17 11:07 Dose: 100 mg Assessment and Plan (1) Abdominal pain Status: Acute (2) Abdominal wall pain Status: Acute (3) Alcohol abuse Status: Acute (4) Ascites Status: Acute (5) Asthma Status: Acute (6) Coagulopathy Status: Acute (7) Dyspnea Status: Acute (8) HTN (hypertension) Status: Acute (9) Hepatic encephalopathy Status: Acute (10) Hernia of abdominal cavity Status: Acute (11) Hypokalemia Status: Acute (12) Incarcerated umbilical hernia Status: Acute (13) Increased ammonia level Status: Acute (14) Leg edema Status: Acute (15) Liver failure Status: Acute (16) Pancytopenia Status: Acute (17) Prophylactic measure Status: Acute (18) Small bowel obstruction Status: Acute (19) Thrombocytopenia Status: Acute (20) Thrombocytopenia Status: Acute (21) Umbilical hernia Status: Acute (22) Alcohol abuse Status: Chronic (23) Anxiety Status: Chronic (24) Asthma Status: Chronic (25) COPD (chronic obstructive pulmonary disease) Status: Chronic (26) Cirrhosis Status: Chronic (27) Toxic encephalopathy Status: Chronic - Assessment and Plan (Free Text) Plan: Follow-up GI Lovenox Lasix Singulair Oxycodone Protonix Aldactone Thiamine
[2017-03-28] MEDS: oxyCODONE 10 mg Immediate Release Tab PO SCH ×5 (00:32→18:35)
[2017-03-28] MEDS: Bacitracin Ointment 30 GM TUBE TOP SCH ×3 (10:55→18:31)
[2017-03-28] MEDS: Pantoprazole 40 mg EC Tab PO SCH (10:55)
[2017-03-28] MEDS: Enoxaparin 40 mg Syringe SC SCH (10:55)
--- NOTE | 2017-03-28 15:39 | PCM.PSYCH ---
Initial Psychiatric Evaluation - Initial Psychiatric Evaluation Type of Admission: Voluntary Legal Status: Capacity Chief Complaint (in patient's own words): I was anxious History of Present Illness and Precipitating Events: Patient is a 61 years old CF, who lives alone and currently unemployed, came to the hospital because of ascites. Today patient was consulted as yesterday patient became agitated, paranoid and as a result she was put on four point restraints. [employer] Developer is familiar with this patient. Patient has been admitted to the medical floor multiple times because of ascites. As per the patient she used to drink a lot in the past but her last drink was last year. Patient reports of a history of mood disorder. As per the staff yesterday patient became increasingly delusional and paranoid. She started talking to herself and became extremely combative. Patient does not have any recollection of yesterdays event. She mentioned that her nurses are saying that she was very paranoid yesterday, but she doesn't remember anything. Currently she denies any auditory or visual hallucinations or any persecutory delusions. She reports anxiety and irritability, poor sleep and appetite racing of thoughts but denies any suicidal ideation or homicidal ideation. She denies any recent drinking a substance abuse. Past medical history Current Medications: Active Medications Generic Name Dose Route Start Last Admin Trade Name Freq PRN Reason Stop Dose Admin Bacitracin 0 gm 03/26/17 18:00 03/28/17 14:42 Bacitracin TOP 1 applic TID [facility] Administration Enoxaparin Sodium 40 mg 03/26/17 10:00 03/28/17 10:55 Lovenox SC 40 mg DAILY [facility] Administration Furosemide 80 mg 03/26/17 10:00 03/28/17 11:13 Lasix PO 80 mg QAM [facility] Administration Lorazepam 0.5 mg 03/26/17 18:12 03/28/17 12:25 Ativan PO 0.5 mg Q6H [facility] Administration Montelukast Sodium 10 mg 03/26/17 10:00 03/28/17 10:55 Singulair PO 10 mg DAILY [facility] Administration Oxycodone HCl 10 mg 03/26/17 18:15 03/28/17 12:23 Oxycodone Immediate Release Tab PO 10 mg Q6H [facility] Administration Pantoprazole Sodium 40 mg 03/26/17 10:00 03/28/17 10:55 Protonix Ec Tab PO 40 mg DAILY [facility] Administration Fluticasone/Salmeterol 1 puff 03/25/17 22:00 Advair Diskus 100/50 IH RQ12 [facility] Spironolactone 50 mg 03/26/17 10:00 03/28/17 10:55 Aldactone PO 50 mg BID [facility] Administration Thiamine HCl 100 mg 03/26/17 10:00 03/28/17 11:14 Vitamin B1 Tab PO 100 mg DAILY [facility] Administration Past Psychiatric History - Past Psychiatric History Previous Treatment History: None Pertinent Medical Hx (Current Medical&Sleep Prob, Allergies): Allergies Allergy/AdvReac Type Severity Reaction Status Date / Time No Known Allergies Allergy Verified 03/04/17 13:23 Fluticasone/Salmeterol 100/50 [Advair Diskus 100/50] 1 puff IH Q12 #1 puff 01/03 Montelukast Sodium [Singulair] 10 mg PO DAILY #30 tablet 01/03/17 Thiamine [Vitamin B1 Tab] 100 mg PO DAILY #30 tab 01/24/17 Albuterol HFA [Ventolin HFA 90 mcg/actuation (8 g)] 90 puff IH TID PRN #1 inhaler 03/06/17 Furosemide [Lasix] 80 mg PO QAM #60 tab 03/06/17 LORazepam [Ativan] 1 mg PO Q8H #30 tab 03/06/17 Oxycodone HCl 10 mg PO Q6H PRN #20 tablet 03/06/17 Spironolactone [Aldactone] 1 mg PO BID #60 tab 03/06/17 Review of Systems - Review of Systems All systems: reviewed and no additional remarkable complaints except - Psychiatric Psychiatric: Anxiety, Irritability, Paranoia Mental Status Examination - Personal Presentation Personal Presentation: Looks stated age - Affect Affect: Constricted - Motor Activity Motor Activity: Calm - Reliability in Providing Information Reliability in Providing Information: Good - Speech Speech: Organized - Mood Mood: Anxious - Formal Thought Process Formal Thought Process: Paranoia - Obsessions/Compulsions Obsessions: No Compulsions: No - Cognitive Functions Orientation: Person, Place, Situation, Time Sensorium: Alert Attention/Concentration: Attentive Abstract Thinking: [place] Estimate of Intelligence: Below average Judgement: Imparied, as evidence by: Poor judgement, Intact, as evidence by: Insight regarding need for hospitalization - Risk Risk: Diminished functioning - Strength & Assets Inventory Strength & Assets Inventory: Cooperative DSM 5 DX - DSM 5 DSM 5 Diagnosis: Alcohol use disorder severe in remission Generalized anxiety disorder Rule out Bipolar disorder most recent episode mixed severe with psychotic features - Recommended/Plan of Treatment Treatment Recommendations and Plan of Treatment: Alcohol use disorder severe in remission Generalized anxiety disorder Rule out Bipolar disorder most recent episode mixed severe with psychotic features CBT Psychoeducation Supportive therapy, group therapy, individual therapy Haldol 5 mg PO BID Cogentin 1 mg PO BID Neurontin 100 mg by mouth 3 times a day - Smoking Cessation Smoking Cessation Initiated: No
[2017-03-28 17:13] VITALS: RESP 20
--- NOTE | 2017-03-28 17:38 | CP.PCM.PN ---
Subjective - Date & Time of Evaluation Date of Evaluation: 03/28/17 Time of Evaluation: 10:20 - Subjective Subjective: clinically same Objective - Vital Signs/Intake and Output Vital Signs (last 24 hours): Temp Pulse Resp BP Pulse Ox 97.9 F 80 20 125/61 98 03/28/17 07:10 03/28/17 07:10 03/28/17 07:10 03/28/17 11:13 03/28/17 07:10 Intake and Output: 03/28/17 03/28/17 06:59 18:59 Intake Total 500 Balance 500 - Medications Medications: Current Medications Bacitracin (Bacitracin) 0 gm TOP TID [facility] Last Admin: 03/28/17 14:42 Dose: 1 applic Benztropine Mesylate (Cogentin) 1 mg PO BID [facility] Diphenhydramine HCl (Benadryl) 25 mg PO Q6 PRN PRN Reason: Agitation Enoxaparin Sodium (Lovenox) 40 mg SC DAILY [facility] Last Admin: 03/28/17 10:55 Dose: 40 mg Furosemide (Lasix) 80 mg PO QAM [facility] Last Admin: 03/28/17 11:13 Dose: 80 mg Gabapentin (Neurontin) 100 mg PO TID [facility] Haloperidol (Haldol) 5 mg PO BID [facility] Haloperidol (Haldol) 5 mg PO Q6 PRN PRN Reason: Agitation Lorazepam (Ativan) 0.5 mg PO Q6H [facility] Last Admin: 03/28/17 12:25 Dose: 0.5 mg Montelukast Sodium (Singulair) 10 mg PO DAILY [facility] Last Admin: 03/28/17 10:55 Dose: 10 mg Oxycodone HCl (Oxycodone Immediate Release Tab) 10 mg PO Q6H [facility] Last Admin: 03/28/17 12:23 Dose: 10 mg Pantoprazole Sodium (Protonix Ec Tab) 40 mg PO DAILY [facility] Last Admin: 03/28/17 10:55 Dose: 40 mg Fluticasone/Salmeterol (Advair Diskus 100/50) 1 puff IH RQ12 [facility] Spironolactone (Aldactone) 50 mg PO BID [facility] Last Admin: 03/28/17 10:55 Dose: 50 mg Thiamine HCl (Vitamin B1 Tab) 100 mg PO DAILY [facility] Last Admin: 03/28/17 11:14 Dose: 100 mg - Constitutional Appears: Well - Head Exam Head Exam: ATRAUMATIC, NORMAL INSPECTION, NORMOCEPHALIC - Eye Exam Eye Exam: EOMI, Normal appearance, PERRL Pupil Exam: NORMAL ACCOMODATION, PERRL - ENT Exam ENT Exam: Mucous Membranes Moist, Normal Exam - Neck Exam Neck Exam: Full ROM, Normal Inspection. absent: Lymphadenopathy - Respiratory Exam Respiratory Exam: Decreased Breath Sounds - Cardiovascular Exam Cardiovascular Exam: REGULAR RHYTHM, +S1, +S2 - GI/Abdominal Exam GI & Abdominal Exam: Soft, Diminished Bowel Sounds - Rectal Exam Rectal Exam: Deferred Assessment and Plan - Assessment and Plan (Free Text) Plan: Patient can be discharged today Continue medicine as ordered Patient educated to follow with me and Dr. Gordon in the office
--- NOTE | 2017-03-28 18:12 | CP.PCM.PN ---
Subjective - Date & Time of Evaluation Date of Evaluation: 03/28/17 Time of Evaluation: 18:07 - Subjective Subjective: PT SEEN AND EXAMINED TODAY, 61 Y/O FEMALE WITH PMHX OF ALCOHOL ABUSE, GENERAL ANXIETY, ASCITES, PT SEEN/ EVALUATED BY DR GAINES, PT CLEARED FOR D/C BY DR HENRY AND DR LIANA GONZALEZ, RX FOR HALDOL 5 MG PO BID, COGENTIN 1 MG PO BID AND NEURONTIN 100 MG PO TID FOR 14 DAYS GIVEN PER DR GAINES, PT EDUCATED TO FOLLOW UP WITH DR HENRY AND DR GONZALEZ IN THE OFFICE, SUPPROTIVE THERAPY, GROUP THERAPY, CBT, RETURN TO ED IF ANY WORSENING SYMPTOMS, AGREE, VERBALIZE UNDERSTANDING. Objective - Vital Signs/Intake and Output Vital Signs (last 24 hours): Temp Pulse Resp BP Pulse Ox 97.9 F 80 20 125/61 98 03/28/17 07:10 03/28/17 07:10 03/28/17 07:10 03/28/17 11:13 03/28/17 07:10 Intake and Output: 03/28/17 03/28/17 06:59 18:59 Intake Total 500 Balance 500 - Medications Medications: Current Medications Bacitracin (Bacitracin) 0 gm TOP TID [facility] Last Admin: 03/28/17 14:42 Dose: 1 applic Benztropine Mesylate (Cogentin) 1 mg PO BID [facility] Diphenhydramine HCl (Benadryl) 25 mg PO Q6 PRN PRN Reason: Agitation Enoxaparin Sodium (Lovenox) 40 mg SC DAILY [facility] Last Admin: 03/28/17 10:55 Dose: 40 mg Furosemide (Lasix) 80 mg PO QAM [facility] Last Admin: 03/28/17 11:13 Dose: 80 mg Gabapentin (Neurontin) 100 mg PO TID [facility] Haloperidol (Haldol) 5 mg PO BID [facility] Haloperidol (Haldol) 5 mg PO Q6 PRN PRN Reason: Agitation Lorazepam (Ativan) 0.5 mg PO Q6H [facility] Last Admin: 03/28/17 12:25 Dose: 0.5 mg Montelukast Sodium (Singulair) 10 mg PO DAILY [facility] Last Admin: 03/28/17 10:55 Dose: 10 mg Oxycodone HCl (Oxycodone Immediate Release Tab) 10 mg PO Q6H [facility] Last Admin: 03/28/17 12:23 Dose: 10 mg Pantoprazole Sodium (Protonix Ec Tab) 40 mg PO DAILY [facility] Last Admin: 03/28/17 10:55 Dose: 40 mg Fluticasone/Salmeterol (Advair Diskus 100/50) 1 puff IH RQ12 [facility] Spironolactone (Aldactone) 50 mg PO BID [facility] Last Admin: 03/28/17 10:55 Dose: 50 mg Thiamine HCl (Vitamin B1 Tab) 100 mg PO DAILY [facility] Last Admin: 03/28/17 11:14 Dose: 100 mg
[2017-03-28 18:22] VITALS: BP 147/73; PULSE 95; TEMP 98; O2SAT 96
[2017-03-28 18:27] LABS: BASO % 0.8 % (0.0-2.0); EOS # 0.1 K/uL (0.0-0.7); EOS % 1.3 % (0.0-4.0); HEMATOCRIT 31.1 % (34.0-47.0); LYMPH % 17.9 % (20.0-40.0); MEAN CELL VOLUME 84.1 fL (81.0-99.0); MEAN CORPUSCULAR HEMOGLOBIN 27.8 pg (27.0-31.0); MEAN PLATELET VOLUME 9.2 fL (7.2-11.7); MONO # 0.6 K/uL (0.0-0.8); MONO % 11.5 % (0.0-10.0); RED CELL DISTRIBUTION WIDTH 14.7 % (11.5-14.5); WHITE BLOOD COUNT 5.5 K/uL (4.8-10.8)
[2017-03-28 18:45] LABS: CHLORIDE 99 mmol/L (98-107)
[2017-03-28 18:46] LABS: POTASSIUM 3.5 mmol/L (3.6-5.2); SODIUM 139 mmol/L (132-148)
[2017-03-28 18:48] LABS: GFR AFRICAN-AMERICAN > 60
[2017-03-28 18:49] LABS: ALB/GLOB RATIO 0.9 (1.0-2.1); ALKALINE PHOSPHATASE 59 U/L (38-126); ALT/SGPT 20 U/L (9-52); AST/SGOT 32 U/L (14-36); BLOOD UREA NITROGEN 20 mg/dL (7-17); CALCIUM 8.9 mg/dl (8.6-10.4); CARBON DIOXIDE 27 mmol/L (22-30); GLUCOSE,RANDOM 158 mg/dL (65-105); TOTAL PROTEIN 7.9 g/dL (6.3-8.3)
== END 2017-03-28 19:20 | disposition home or self-care (01) | DRG 463 ==
LOC: C.ER 16:22 → C.9E 18:20 → C.3T 18:53 → OBSVTOIN 03-28 12:07
PROVIDERS: ADMIT Internal Medicine Nephrology; ATTEND Internal Medicine Nephrology
PROC: 0W9G3ZZ Drainage of Peritoneal Cavity, Percutaneous Approach (ICD-10-PCS; principal; 2017-03-26)
DX: R18.8 Other ascites (principal); F31.64 Bipolar disorder, current episode mixed, severe, with psychotic features; K74.60 Unspecified cirrhosis of liver; F41.1 Generalized anxiety disorder; F10.21 Alcohol dependence, in remission; F17.210 Nicotine dependence, cigarettes, uncomplicated

== ENCOUNTER 2017-04-19 16:43 | Inpatient (IN) | payer MEDICAID ==
[2017-04-19 16:44] VITALS: BMI 24.7
--- NOTE | 2017-04-19 17:24 | C.PDOC ---
History Of Present Illness The patient, a 61 y/o female whose PMHx includes liver cirrhosis and hernia repair around 2 months ago, presents to the ED for abdominal pain and swelling. Patient has been receiving monthly paracentesis, and last received last month. Patient notes she ran out of her water pills around 5 days ago. Has not followed up with her PMD. She denies fever, chills, shortness of breath, nausea , vomiting, change in bowel movements. Time Seen by Provider: 04/19/17 16:54 Chief Complaint (Nursing): Abdominal Pain History Per: Patient History/Exam Limitations: no limitations Onset/Duration Of Symptoms: Persistent Current Symptoms Are (Timing): Still Present Location Of Pain/Discomfort: Diffuse Radiation Of Pain To:: None Quality Of Discomfort: "Pain" Associated Symptoms: denies: Fever, Chills, Nausea, Vomiting, Diarrhea, Constipation Exacerbating Factors: None Alleviating Factors: None Last Bowel Movement: Today Recent travel outside of the [place]: No Additional History Per: Patient Abnormal Vaginal Bleeding: No Past Medical History Reviewed: Historical Data, Nursing Documentation, Vital Signs Vital Signs: Last Vital Signs Temp 98.2 F 04/19/17 18:40 Pulse 78 04/19/17 18:40 Resp 20 04/19/17 18:40 BP 132/78 04/19/17 18:40 Pulse Ox 97 04/19/17 18:40 - Medical History PMH: Anxiety, Asthma, Bronchitis, COPD, HTN Denies: Chronic Kidney Disease Surgical History: No Surg Hx - [facility] Procedures DRAINAGE OF PERITONEAL CAVITY, PERCUTANEOUS APPROACH (03/28/17) INDIVIDUAL PSYCHOTHERAPY, COGNITIVE-BEHAVIORAL (11/28/16) INDIVIDUAL PSYCHOTHERAPY, SUPPORTIVE (11/28/16) RESECTION OF SMALL INTESTINE, OPEN APPROACH (02/08/17) SUPPLEMENT ABDOMINAL WALL WITH SYNTH SUB, OPEN APPROACH (02/08/17) SUPPLEMENT L INGUINAL REGION WITH SYNTH SUB, OPEN APPROACH (02/08/17) Family History: States: Unknown Family Hx - Social History Hx Tobacco Use: No Hx Alcohol Use: No Hx Substance Use: Yes (marijuana) - Immunization History Hx Tetanus Toxoid Vaccination: No Hx Influenza Vaccination: No Hx Pneumococcal Vaccination: No Review Of Systems Except As Marked, All Systems Reviewed And Found Negative. Constitutional: Negative for: Fever, Chills Respiratory: Negative for: Shortness of Breath Gastrointestinal: Positive for: Abdominal Pain (with swelling ). Negative for: Nausea, Vomiting, Diarrhea, Constipation Physical Exam - Physical Exam Appears: Non-toxic, No Acute Distress, Chronically Ill Skin: Normal Color, Warm, Dry Head: Atraumatic, Normacephalic Eye(s): bilateral: Normal Inspection, EOMI Oral Mucosa: Moist Neck: Normal ROM, Supple Chest: Symmetrical, No Deformity, No Tenderness Cardiovascular: Rhythm Regular, No Murmur Respiratory: Normal Breath Sounds, No Rales, No Rhonchi, No Wheezing Gastrointestinal/Abdominal: Soft, Tenderness (diffuse), Distention, No Guarding , No Rebound, Ascites, Other (+healed midline scar ) Back: Normal Inspection, No Vertebral Tenderness, No Paraspinal Tenderness Extremity: Normal ROM, Capillary Refill (less than 2 seconds ) Neurological/Psych: Oriented x3, Normal Speech, Normal Cognition Gait: Steady ED Course And Treatment - Laboratory Results Result Diagrams: 04/19/17 17:40 04/19/17 17:40 O2 Sat by Pulse Oximetry: 99 (on RA) Pulse Ox Interpretation: Normal Progress Note: labs ordered and reviewed. Pt received Dilaudid IV, Lasix IV, and Morphine IV. Case discussed with Dr. Marcano, who agrees upon admission. Disposition - Disposition Disposition: HOSPITALIZED Disposition Time: 17:23 Condition: STABLE - Clinical Impression Clinical Impression: Ascites, Cirrhosis - PA / PUBLIC HEALTH SANITARIAN / Resident Statement MD/DO has reviewed & agrees with the documentation as recorded. - Scribe Statement The provider has reviewed the documentation as recorded by the Scribe (Josselyn Marcano) All medical record entries made by the Scribe were at my direction and personally dictated by me. I have reviewed the chart and agree that the record accurately reflects my personal performance of the history, physical exam, medical decision making, and the department course for this patient. I have also personally directed, reviewed, and agree with the discharge instructions and disposition.
[2017-04-19] MEDS ORDERED: HYDROmorphone 1 mg/ml ISec IVP STA (17:35)
[2017-04-19] MEDS ORDERED: HYDROmorphone 1 mg/ml ISec ONE (17:38)
[2017-04-19 17:45] LABS: EOS % 1.2 % (0.0-4.0); HEMATOCRIT 27.9 % (34.0-47.0); LYMPH # 0.7 K/uL (1.0-4.3); LYMPH % 16.5 % (20.0-40.0); MEAN CELL VOLUME 84.9 fL (81.0-99.0); MEAN CORPUSCULAR HEMOGLOBIN 27.6 pg (27.0-31.0); MEAN CORPUSCULAR HGB CONC 32.6 g/dL (33.0-37.0); MEAN PLATELET VOLUME 9.2 fL (7.2-11.7); MONO # 0.4 K/uL (0.0-0.8); NRBC % 0.1 % (0.0-2.0); RED CELL DISTRIBUTION WIDTH 16.2 % (11.5-14.5); WHITE BLOOD COUNT 4.1 K/uL (4.8-10.8)
[2017-04-19 17:53] LABS: CHLORIDE 103 mmol/L (98-107); SODIUM 135 mmol/L (132-148)
[2017-04-19 17:54] LABS: URINE COLOR Yellow (YELLOW)
[2017-04-19 17:55] LABS: RBC URINE < 1 /hpf (0-3); URINE BILIRUBIN NEGATIVE (NEGATIVE); URINE BLOOD NEGATIVE (NEGATIVE); URINE GLUCOSE (UA) NORMAL (Normal); URINE KETONE NEGATIVE (NEGATIVE); URINE LEUKOCYTE ESTERASE TRACE Leu/uL (Negative); URINE PROTEIN NEGATIVE (NEGATIVE); URINE UROBILINOGEN NORMAL mg/dL (0.2-1.0); WBC URINE 3 /hpf (0-5)
[2017-04-19 17:55] LABS: BILIRUBIN,TOTAL 0.8 mg/dL (0.2-1.3); GFR AFRICAN-AMERICAN > 60
[2017-04-19 17:56] LABS: ALB/GLOB RATIO 0.9 (1.0-2.1); ALKALINE PHOSPHATASE 67 U/L (38-126); ALT/SGPT 24 U/L (9-52); AST/SGOT 26 U/L (14-36); BLOOD UREA NITROGEN 22 mg/dL (7-17); CALCIUM 8.8 mg/dl (8.6-10.4); CARBON DIOXIDE 22 mmol/L (22-30); GLUCOSE,RANDOM 86 mg/dL (65-105); TOTAL PROTEIN 7.5 g/dL (6.3-8.3)
--- NOTE | 2017-04-19 21:06 | CP.PCM.HP ---
Past Patient History - Infectious Disease Hx of Infectious Diseases: None - Past Medical History & Family History Past Medical History?: Yes - Past Social History Smoking Status: Smoker Currrent Status Unknown - CARDIAC Hx Hypertension: Yes - PULMONARY Hx Asthma: Yes Hx Bronchitis: Yes Hx Chronic Obstructive Pulmonary Disease (COPD): Yes - NEUROLOGICAL Hx Neurological Disorder: No - HEENT Hx HEENT Problems: No - RENAL Hx Chronic Kidney Disease: No - ENDOCRINE/METABOLIC Hx Endocrine Disorders: No - HEMATOLOGICAL/ONCOLOGICAL Hx Blood Disorders: Yes Hx Hepatitis B: Yes Hx Hepatitis C: Yes - INTEGUMENTARY Hx Dermatological Problems: No - MUSCULOSKELETAL/RHEUMATOLOGICAL Hx Falls: Yes - GASTROINTESTINAL Hx Gastrointestinal Disorders: Yes Hx Liver Failure: Yes Other/Comment: Ascites,umbilical hernia - GENITOURINARY/GYNECOLOGICAL Hx Genitourinary Disorders: No - PSYCHIATRIC Hx Anxiety: Yes Hx Substance Use: Yes (marijuana) - SURGICAL HISTORY Hx Surgeries: No Other/Comment: Umbilical hernia repair and left groin hernia repair 2 weeks ago. - ANESTHESIA Hx Anesthesia: Yes Hx Anesthesia Reactions: No Hx Malignant Hyperthermia: No Meds Allergies/Adverse Reactions: Allergies Allergy/AdvReac Type Severity Reaction Status Date / Time No Known Allergies Allergy Verified 04/19/17 16:50 Results - Vital Signs Recent Vital Signs: Last Vital Signs Temp 98.2 F 04/19/17 18:40 Pulse 78 04/19/17 18:40 Resp 20 04/19/17 18:40 BP 132/78 04/19/17 18:40 Pulse Ox 99 04/19/17 18:48 - Labs Result Diagrams: 04/19/17 17:40 04/19/17 17:40 Labs: Laboratory Results - last 24 hr 04/19/17 04/19/17 17:40 17:40 WBC 4.1 L RBC 3.29 L Hgb 9.1 L Hct 27.9 L MCV 84.9 MCH 27.6 MCHC 32.6 L RDW 16.2 H Plt Count 45 L MPV 9.2 Neut % (Auto) 71.3 Lymph % (Auto) 16.5 L Mathews % (Auto) 10.0 Eos % (Auto) 1.2 Baso % (Auto) 1.0 Neut # 2.9 Lymph # 0.7 L Mathews # 0.4 Eos # 0.0 Baso # 0.0 Sodium 135 Potassium 4.0 Chloride 103 Carbon Dioxide 22 Anion Gap 14 BUN 22 H Creatinine 0.8 Est GFR ( Amer) > 60 Est GFR (Non-Af Amer) > 60 Random Glucose 86 Calcium 8.8 Total Bilirubin 0.8 AST 26 ALT 24 Alkaline Phosphatase 67 Total Protein 7.5 Albumin 3.5 Globulin 4.0 H Albumin/Globulin Ratio 0.9 L Lipase 337 H
[2017-04-19] MEDS: oxyCODONE 10 mg Immediate Release Tab PO PRN (22:04)
[2017-04-20] MEDS: oxyCODONE 10 mg Immediate Release Tab PO PRN ×3 (04:10→16:51)
[2017-04-20] MEDS: Albuterol-Ipratrop 3 mg / 0.5 (3 ml) UD INH SCH ×4 (04:35→20:05)
[2017-04-20 07:29] LABS: CHLORIDE 105 mmol/L (98-107); SODIUM 139 mmol/L (132-148)
[2017-04-20 07:30] LABS: POTASSIUM 3.8 mmol/L (3.6-5.2)
[2017-04-20 07:31] LABS: BASO % 1.2 % (0.0-2.0); EOS # 0.1 K/uL (0.0-0.7); EOS % 2.8 % (0.0-4.0); HEMATOCRIT 27.5 % (34.0-47.0); LYMPH # 0.8 K/uL (1.0-4.3); LYMPH % 27.7 % (20.0-40.0); MEAN CELL VOLUME 85.3 fL (81.0-99.0); MEAN CORPUSCULAR HEMOGLOBIN 27.7 pg (27.0-31.0); MEAN CORPUSCULAR HGB CONC 32.5 g/dL (33.0-37.0); MEAN PLATELET VOLUME 9.4 fL (7.2-11.7); MONO # 0.4 K/uL (0.0-0.8); MONO % 15.7 % (0.0-10.0); RED CELL DISTRIBUTION WIDTH 16.2 % (11.5-14.5); WHITE BLOOD COUNT 2.8 K/uL (4.8-10.8)
[2017-04-20 07:32] LABS: ALB/GLOB RATIO 0.9 (1.0-2.1); ALKALINE PHOSPHATASE 55 U/L (38-126); ALT/SGPT 18 U/L (9-52); AST/SGOT 21 U/L (14-36); BILIRUBIN,TOTAL 0.7 mg/dL (0.2-1.3); BLOOD UREA NITROGEN 21 mg/dL (7-17); CARBON DIOXIDE 23 mmol/L (22-30); GFR AFRICAN-AMERICAN > 60; GLUCOSE,RANDOM 97 mg/dL (65-105)
[2017-04-20 07:33] LABS: CALCIUM 8.5 mg/dl (8.6-10.4)
--- NOTE | 2017-04-20 08:02 | CP.PCM.CON ---
<Marilynn Gomes - Last Filed: 04/20/17 09:43> History of Present Illness - History of Present Illness History of Present Illness: Gastroenterology Fellow/PGY4 Consult Note 61 year old female with history of COPD, Hypertension, recurrent decompensated Alcoholic/Hepatitis C cirrhosis secondary to ascites requiring large volume paracentesis, last March 26, 2017 presenting with shortness of breath and abdominal distension. Patient admits to running out of her medications for the last five days due to awaiting new PCP evaluation 04/27/17 and always having her meds refilled during hospital discharges. Last diuretic dosing of Lasix 80mg and Spironolactone 200mg. She continues to not take her meds as prescribeds in order to "make the prescription last longer". She as well no longer follows with [employer], Dr. Mcdaniels in [place]. Associated leg swelling, intermittent confusion, and constipation with bowel movements being twice a week. Denies hematemesis, nausea, vomiting, diarrhea, melena, hematochezia, or weight loss. Patient endorses continued sobriety since 06/2016. No prior EGD or colonoscopy. Family-Father- colon cancer in his 50s, [place], Mother-Diabetes Social-quit alcohol 06/2016, previous 4-5 glasses of wine daily for five years tobacco - previous 1/2 ppd x10 years, 4-5 cigarettes daily, previous marijuana use Surgery- 02/09/17 Small bowel resection, left inguinal hernia repair, umbilical hernia repair Review of Systems - Review of Systems Review of Systems: A 12-point review of systems negative except for as above Past Patient History - Infectious Disease Hx of Infectious Diseases: None - Past Medical History & Family History Past Medical History?: Yes - Past Social History Smoking Status: Never Smoked - CARDIAC Hx Hypertension: Yes - PULMONARY Hx Asthma: Yes Hx Bronchitis: Yes Hx Chronic Obstructive Pulmonary Disease (COPD): Yes - NEUROLOGICAL Hx Neurological Disorder: No - HEENT Hx HEENT Problems: No - RENAL Hx Chronic Kidney Disease: No - ENDOCRINE/METABOLIC Hx Endocrine Disorders: No - HEMATOLOGICAL/ONCOLOGICAL Hx Blood Disorders: Yes Hx Hepatitis B: Yes Hx Hepatitis C: Yes - INTEGUMENTARY Hx Dermatological Problems: No - MUSCULOSKELETAL/RHEUMATOLOGICAL Hx Falls: Yes - GASTROINTESTINAL Hx Gastrointestinal Disorders: Yes Other/Comment: Ascites,umbilical hernia - GENITOURINARY/GYNECOLOGICAL Hx Genitourinary Disorders: No - PSYCHIATRIC Hx Anxiety: Yes Hx Substance Use: Yes (marijuana) - SURGICAL HISTORY Other/Comment: Umbilical hernia repair and left groin hernia repair 2 months ago. - ANESTHESIA Hx Anesthesia: Yes Hx Anesthesia Reactions: No Hx Malignant Hyperthermia: No Meds Allergies/Adverse Reactions: Allergies Allergy/AdvReac Type Severity Reaction Status Date / Time No Known Allergies Allergy Verified 04/19/17 16:50 - Medications Medications: Current Medications Albuterol/Ipratropium (Duoneb 3 Mg/0.5 Mg (3 Ml) Ud) 3 ml INH RQ6 [facility] Last Admin: 04/20/17 04:35 Dose: 3 ml Benztropine Mesylate (Cogentin) 1 mg PO BID [facility] Furosemide (Lasix) 40 mg IVP DAILY [facility] Gabapentin (Neurontin) 100 mg PO TID [facility] Haloperidol (Haldol) 5 mg PO BID [facility] Lorazepam (Ativan) 0.5 mg PO Q6H PRN PRN Reason: Anxiety Last Admin: 04/20/17 04:12 Dose: 0.5 mg Montelukast Sodium (Singulair) 10 mg PO HS [facility] Last Admin: 04/19/17 22:05 Dose: 10 mg Oxycodone HCl (Oxycodone Immediate Release Tab) 10 mg PO Q6 PRN PRN Reason: Pain, moderate (4-7) Last Admin: 04/20/17 04:10 Dose: 10 mg Pantoprazole Sodium (Protonix Ec Tab) 40 mg PO DAILY [facility] Fluticasone/Salmeterol (Advair Diskus 100/50) 1 puff INH RQ12 [facility] Spironolactone (Aldactone) 25 mg PO DAILY [facility] Thiamine HCl (Vitamin B1 Tab) 100 mg PO DAILY [facility] Physical Exam - Constitutional Appears: Non-toxic, No Acute Distress - Head Exam Head Exam: ATRAUMATIC, NORMOCEPHALIC - Eye Exam Eye Exam: EOMI, PERRL Pupil Exam: PERRL. absent: Miosis, Mydriatic - ENT Exam ENT Exam: Mucous Membranes Moist, Normal Oropharynx - Neck Exam Neck exam: Positive for: Full Rom, Normal Inspection - Respiratory Exam Respiratory Exam: Clear to Auscultation Bilateral. absent: Rales, Rhonchi, Wheezes - Cardiovascular Exam Cardiovascular Exam: RRR, +S1, +S2. absent: Gallop, Rubs - GI/Abdominal Exam GI & Abdominal Exam: Distended, Normal Bowel Sounds, Soft. absent: Firm, Guarding, Organomegaly, Rebound, Rigid, Tenderness - Extremities Exam Extremities exam: Positive for: full ROM Additional comments: 1+ B/L LE pitting edema - Neurological Exam Neurological exam: Alert - Psychiatric Exam Psychiatric exam: Normal Affect, Normal Mood - Skin Skin Exam: Dry, Intact, Normal Color, Warm Results - Vital Signs Recent Vital Signs: Last Vital Signs Temp 98.2 F 04/20/17 00:00 Pulse 78 04/20/17 00:00 Resp 20 04/20/17 00:00 BP 110/62 04/20/17 00:00 Pulse Ox 98 04/20/17 00:00 - Labs Result Diagrams: 04/20/17 07:00 04/20/17 07:00 Labs: Laboratory Results - last 24 hr 04/19/17 04/19/17 04/20/17 17:40 17:40 07:00 WBC 4.1 L 2.8 L RBC 3.29 L 3.22 L Hgb 9.1 L 8.9 L Hct 27.9 L 27.5 L MCV 84.9 85.3 MCH 27.6 27.7 MCHC 32.6 L 32.5 L RDW 16.2 H 16.2 H Plt Count 45 L 39 L MPV 9.2 9.4 Neut % (Auto) 71.3 52.6 Lymph % (Auto) 16.5 L 27.7 Kendall % (Auto) 10.0 15.7 H Eos % (Auto) 1.2 2.8 Baso % (Auto) 1.0 1.2 Neut # 2.9 1.5 L Lymph # 0.7 L 0.8 L Kendall # 0.4 0.4 Eos # 0.0 0.1 Baso # 0.0 0.0 Sodium 135 Potassium 4.0 Chloride 103 Carbon Dioxide 22 Anion Gap 14 BUN 22 H Creatinine 0.8 Est GFR ( Amer) > 60 Est GFR (Non-Af Amer) > 60 Random Glucose 86 Calcium 8.8 Total Bilirubin 0.8 AST 26 ALT 24 Alkaline Phosphatase 67 Total Protein 7.5 Albumin 3.5 Globulin 4.0 H Albumin/Globulin Ratio 0.9 L Lipase 337 H 04/20/17 07:00 WBC RBC Hgb Hct MCV MCH MCHC RDW Plt Count MPV Neut % (Auto) Lymph % (Auto) Kendall % (Auto) Eos % (Auto) Baso % (Auto) Neut # Lymph # Kendall # Eos # Baso # Sodium 139 Potassium 3.8 Chloride 105 Carbon Dioxide 23 Anion Gap 14 BUN 21 H Creatinine 0.9 Est GFR ( Amer) > 60 Est GFR (Non-Af Amer) > 60 Random Glucose 97 Calcium 8.5 L Total Bilirubin 0.7 AST 21 ALT 18 Alkaline Phosphatase 55 Total Protein 7.0 Albumin 3.4 L Globulin 3.6 Albumin/Globulin Ratio 0.9 L Lipase Assessment & Plan - Assessment and Plan (Free Text) Assessment: 61 year old female with history of COPD, Hypertension, 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 No prior EGD or colonoscopy. Plan: >MELD pending, INR ordered >ordered diagnostic and therapeutic paracentesis with fluid analysis >increase Lasix to 80mg, spironolactone to 200mg daily >Lactulose 20mg BID , titrate to 2-3 BMs daily >counselled on medication compliance >low salt diet >daily PT/INR, LFts >strict I&Os >new PCP appointment 04/27/17 , [facility] >counselled on continued alcohol abstinence >counselled on need for elective EGD for variceal screening >counselled on need for colonoscopy for CRC screening with family history of colon cancer <Alejo Jones - Last Filed: 04/20/17 09:51> Meds - Medications Medications: Current Medications Albuterol/Ipratropium (Duoneb 3 Mg/0.5 Mg (3 Ml) Ud) 3 ml INH RQ6 [facility] Last Admin: 04/20/17 04:35 Dose: 3 ml Benztropine Mesylate (Cogentin) 1 mg PO BID [facility] Furosemide (Lasix) 40 mg IVP DAILY [facility] Gabapentin (Neurontin) 100 mg PO TID [facility] Haloperidol (Haldol) 5 mg PO BID [facility] Lorazepam (Ativan) 0.5 mg PO Q6H PRN PRN Reason: Anxiety Last Admin: 04/20/17 04:12 Dose: 0.5 mg Montelukast Sodium (Singulair) 10 mg PO HS [facility] Last Admin: 04/19/17 22:05 Dose: 10 mg Oxycodone HCl (Oxycodone Immediate Release Tab) 10 mg PO Q6 PRN PRN Reason: Pain, moderate (4-7) Last Admin: 04/20/17 04:10 Dose: 10 mg Pantoprazole Sodium (Protonix Ec Tab) 40 mg PO DAILY [facility] Fluticasone/Salmeterol (Advair Diskus 100/50) 1 puff INH RQ12 [facility] Spironolactone (Aldactone) 25 mg PO DAILY [facility] Thiamine HCl (Vitamin B1 Tab) 100 mg PO DAILY [facility] Results - Vital Signs Recent Vital Signs: Last Vital Signs Temp 97.8 F 04/20/17 08:12 Pulse 80 04/20/17 08:12 Resp 20 04/20/17 08:12 BP 132/70 04/20/17 08:12 Pulse Ox 100 04/20/17 08:12 - Labs Result Diagrams: 04/20/17 07:00 04/20/17 07:00 Labs: Laboratory Results - last 24 hr 04/19/17 04/19/17 04/20/17 17:40 17:40 07:00 WBC 4.1 L 2.8 L RBC 3.29 L 3.22 L Hgb 9.1 L 8.9 L Hct 27.9 L 27.5 L MCV 84.9 85.3 MCH 27.6 27.7 MCHC 32.6 L 32.5 L RDW 16.2 H 16.2 H Plt Count 45 L 39 L MPV 9.2 9.4 Neut % (Auto) 71.3 52.6 Lymph % (Auto) 16.5 L 27.7 Kendall % (Auto) 10.0 15.7 H Eos % (Auto) 1.2 2.8 Baso % (Auto) 1.0 1.2 Neut # 2.9 1.5 L Lymph # 0.7 L 0.8 L Kendall # 0.4 0.4 Eos # 0.0 0.1 Baso # 0.0 0.0 PT INR Sodium 135 Potassium 4.0 Chloride 103 Carbon Dioxide 22 Anion Gap 14 BUN 22 H Creatinine 0.8 Est GFR ( Amer) > 60 Est GFR (Non-Af Amer) > 60 Random Glucose 86 Calcium 8.8 Total Bilirubin 0.8 AST 26 ALT 24 Alkaline Phosphatase 67 Total Protein 7.5 Albumin 3.5 Globulin 4.0 H Albumin/Globulin Ratio 0.9 L Lipase 337 H 04/20/17 04/20/17 07:00 07:00 WBC RBC Hgb Hct MCV MCH MCHC RDW Plt Count MPV Neut % (Auto) Lymph % (Auto) Kendall % (Auto) Eos % (Auto) Baso % (Auto) Neut # Lymph # Kendall # Eos # Baso # PT 13.7 H INR 1.2 Sodium 139 Potassium 3.8 Chloride 105 Carbon Dioxide 23 Anion Gap 14 BUN 21 H Creatinine 0.9 Est GFR ( Amer) > 60 Est GFR (Non-Af Amer) > 60 Random Glucose 97 Calcium 8.5 L Total Bilirubin 0.7 AST 21 ALT 18 Alkaline Phosphatase 55 Total Protein 7.0 Albumin 3.4 L Globulin 3.6 Albumin/Globulin Ratio 0.9 L Lipase Attending/Attestation - Attestation I have personally seen and examined this patient.: Yes I have fully participated in the care of the patient.: Yes I have reviewed all pertinent clinical information: Yes Notes (Text): 04/20/17 09:45 I have seen and examined patient with GI fellow. Agree with above documentation with the following additions. In brief, this is a 61 year old female with history of decompensated ETOH/HCV cirrhosis, anxiety, COPD, HTN who presents to hospital with complaint of progressive abdominal distention and dyspnea. She has had numerous recurrent hospitalizations for similar complaints and has required multiple paracentesis. She follows with Dr. Toure ( hepatology) and admits to intermittent medication and dietary non-compliance. She complains of generalized abdominal discomfort but denies nausea, vomiting, diarrhea, fever/chills, weight loss, rectal bleeding, or change in bowel habits. She claims to be abstinent from ETOH for the past one year. No prior endoscopic evaluation. COPD HTN Decompensated ETOH/HCV cirrhosis, awaiting INR for accurate MELD calculation, though prior hospital admission scores were < 10 Ascites - Low sodium diet as tolerated - Optimize diuretic regimen, continue to monitor electrolytes - Patient scheduled for therapeutic paracentesis tomorrow, following procedure she can likely be discharged from hospital - She has an appointment scheduled with PCP on the 27 of April as per patient - Again, stressed importance of follow up at [facility] liver clinic for transplant evaluation and possible set up for routine outpatient paracentesis - She would benefit from elective outpatient EGD screening for varices and colonoscopy for cancer screening, particularly given family history of colon cancer in the 1st degree relative
[2017-04-20] MEDS: Fluticasone-Salmeterol 100-50mcg Diskus INH SCH ×2 (08:05→20:05)
[2017-04-20 09:11] LABS: INR 1.2
[2017-04-20] MEDS: Pantoprazole 40 mg EC Tab PO SCH (10:46)
--- NOTE | 2017-04-20 14:18 | CP.PCM.CON ---
History of Present Illness - History of Present Illness History of Present Illness: 61-year-old lady with prior history of cirrhosis of the liver thought to be secondary to hepatitis C and ethanol use. She was diagnosed and treated with multiple paracentesis due to massive ascites. She was placed on furosemide in addition to Aldactone and large doses in addition to fluid and sodium restriction. At this time due to problem with her primary care physician she ran out of medication for one week and she presented with shortness of breath to the emergency department found to have massive ascites seen by the GI service and planned for therapeutic and diagnostic paracentesis, in June 2016 , cardiac evaluation by an echocardiogram was performed at [facility] it was with normal left ventricular contractility and moderate pulmonary hypertension. At this time we will observe with the GI service after paracentesis. to re Evaluate shortness of breath Review of Systems - Review of Systems Systems not reviewed;Unavailable: Respiratory Distress - Constitutional Constitutional: Anorexia, Weight Loss, Weakness - EENT Eyes: absent: Discharge, Exophthalmos Ears: absent: Ear Discharge Nose/Mouth/Throat: absent: Nasal Congestion - Cardiovascular Cardiovascular: Dyspnea on Exertion, Edema. absent: Acrocyanosis, Chest Pain, Palpitations, Syncope - Respiratory Respiratory: Cough, Dyspnea. absent: Hemoptysis - Gastrointestinal Gastrointestinal: Abdominal Pain, Bloating, Constipation. absent: Hematochezia , Vomiting - Genitourinary Genitourinary: absent: Change in Urinary Stream Past Patient History - Infectious Disease Hx of Infectious Diseases: None - Past Medical History & Family History Past Medical History?: Yes - Past Social History Smoking Status: Never Smoked - CARDIAC Hx Hypertension: Yes - PULMONARY Hx Asthma: Yes Hx Bronchitis: Yes Hx Chronic Obstructive Pulmonary Disease (COPD): Yes - NEUROLOGICAL Hx Neurological Disorder: No - HEENT Hx HEENT Problems: No - RENAL Hx Chronic Kidney Disease: No - ENDOCRINE/METABOLIC Hx Endocrine Disorders: No - HEMATOLOGICAL/ONCOLOGICAL Hx Blood Disorders: Yes Hx Hepatitis B: Yes Hx Hepatitis C: Yes - INTEGUMENTARY Hx Dermatological Problems: No - MUSCULOSKELETAL/RHEUMATOLOGICAL Hx Falls: Yes - GASTROINTESTINAL Hx Gastrointestinal Disorders: Yes Other/Comment: Ascites,umbilical hernia - GENITOURINARY/GYNECOLOGICAL Hx Genitourinary Disorders: No - PSYCHIATRIC Hx Anxiety: Yes Hx Substance Use: Yes (marijuana) - SURGICAL HISTORY Other/Comment: Umbilical hernia repair and left groin hernia repair 2 months ago. - ANESTHESIA Hx Anesthesia: Yes Hx Anesthesia Reactions: No Hx Malignant Hyperthermia: No Meds Allergies/Adverse Reactions: Allergies Allergy/AdvReac Type Severity Reaction Status Date / Time No Known Allergies Allergy Verified 04/19/17 16:50 - Medications Medications: Current Medications Albuterol/Ipratropium (Duoneb 3 Mg/0.5 Mg (3 Ml) Ud) 3 ml INH RQ6 [facility] Last Admin: 04/20/17 04:35 Dose: 3 ml Benztropine Mesylate (Cogentin) 1 mg PO BID [facility] Last Admin: 04/20/17 10:49 Dose: 1 mg Furosemide (Lasix) 80 mg PO DAILY [facility] Last Admin: 04/20/17 11:01 Dose: 80 mg Gabapentin (Neurontin) 100 mg PO TID [facility] Last Admin: 04/20/17 13:39 Dose: 100 mg Haloperidol (Haldol) 5 mg PO BID [facility] Last Admin: 04/20/17 10:48 Dose: 5 mg Lorazepam (Ativan) 0.5 mg PO Q6H PRN PRN Reason: Anxiety Last Admin: 04/20/17 10:48 Dose: 0.5 mg Montelukast Sodium (Singulair) 10 mg PO HS [facility] Last Admin: 04/19/17 22:05 Dose: 10 mg Oxycodone HCl (Oxycodone Immediate Release Tab) 10 mg PO Q6 PRN PRN Reason: Pain, moderate (4-7) Last Admin: 04/20/17 10:47 Dose: 10 mg Pantoprazole Sodium (Protonix Ec Tab) 40 mg PO DAILY [facility] Last Admin: 04/20/17 10:46 Dose: 40 mg Fluticasone/Salmeterol (Advair Diskus 100/50) 1 puff INH RQ12 [facility] Spironolactone (Aldactone) 200 mg PO DAILY [facility] Last Admin: 04/20/17 11:01 Dose: 200 mg Thiamine HCl (Vitamin B1 Tab) 100 mg PO DAILY [facility] Last Admin: 04/20/17 10:47 Dose: 100 mg Physical Exam - Constitutional Appears: Toxic - Head Exam Head Exam: ATRAUMATIC - Eye Exam Eye Exam: EOMI - ENT Exam ENT Exam: Mucous Membranes Moist - Neck Exam Neck exam: Negative for: Lymphadenopathy, Thyromegaly - Respiratory Exam Respiratory Exam: Clear to Auscultation Bilateral, Rhonchi. absent: Rales - Cardiovascular Exam Cardiovascular Exam: Diastolic murmur, REGULAR RHYTHM, Systolic Murmur - GI/Abdominal Exam GI & Abdominal Exam: Diminished Bowel Sounds, Distended, Normal Bowel Sounds, Organomegaly - Rectal Exam Rectal Exam: Deferred - Extremities Exam Extremities exam: Positive for: normal capillary refill. Negative for: calf tenderness - Neurological Exam Neurological exam: Alert, Oriented x3 - Psychiatric Exam Psychiatric exam: Normal Mood - Skin Skin Exam: Dry Results - Vital Signs Recent Vital Signs: Last Vital Signs Temp 97.8 F 04/20/17 08:12 Pulse 80 04/20/17 08:12 Resp 20 04/20/17 08:12 BP 132/70 04/20/17 11:01 Pulse Ox 100 04/20/17 08:12 - Labs Result Diagrams: 04/20/17 07:00 04/20/17 07:00 Labs: Laboratory Results - last 24 hr 04/19/17 04/19/17 04/20/17 17:40 17:40 07:00 WBC 4.1 L 2.8 L RBC 3.29 L 3.22 L Hgb 9.1 L 8.9 L Hct 27.9 L 27.5 L MCV 84.9 85.3 MCH 27.6 27.7 MCHC 32.6 L 32.5 L RDW 16.2 H 16.2 H Plt Count 45 L 39 L MPV 9.2 9.4 Neut % (Auto) 71.3 52.6 Lymph % (Auto) 16.5 L 27.7 [place] % (Auto) 10.0 15.7 H Eos % (Auto) 1.2 2.8 Baso % (Auto) 1.0 1.2 Neut # 2.9 1.5 L Lymph # 0.7 L 0.8 L [place] # 0.4 0.4 Eos # 0.0 0.1 Baso # 0.0 0.0 PT INR Sodium 135 Potassium 4.0 Chloride 103 Carbon Dioxide 22 Anion Gap 14 BUN 22 H Creatinine 0.8 Est GFR ( Amer) > 60 Est GFR (Non-Af Amer) > 60 Random Glucose 86 Calcium 8.8 Total Bilirubin 0.8 AST 26 ALT 24 Alkaline Phosphatase 67 Total Protein 7.5 Albumin 3.5 Globulin 4.0 H Albumin/Globulin Ratio 0.9 L Lipase 337 H 04/20/17 04/20/17 07:00 07:00 WBC RBC Hgb Hct MCV MCH MCHC RDW Plt Count MPV Neut % (Auto) Lymph % (Auto) [place] % (Auto) Eos % (Auto) Baso % (Auto) Neut # Lymph # [place] # Eos # Baso # PT 13.7 H INR 1.2 Sodium 139 Potassium 3.8 Chloride 105 Carbon Dioxide 23 Anion Gap 14 BUN 21 H Creatinine 0.9 Est GFR ( Amer) > 60 Est GFR (Non-Af Amer) > 60 Random Glucose 97 Calcium 8.5 L Total Bilirubin 0.7 AST 21 ALT 18 Alkaline Phosphatase 55 Total Protein 7.0 Albumin 3.4 L Globulin 3.6 Albumin/Globulin Ratio 0.9 L Lipase Assessment & Plan (1) Ascites Status: Acute Comment: acute over chronic due to cirrhosis of the liver (2) Cirrhosis Status: Chronic (3) Dyspnea Status: Acute Comment: probably due to increased abdominal girth with ascites, prior normal left ventricular contractility observe (4) COPD (chronic obstructive pulmonary disease) Status: Chronic Comment: observe
--- NOTE | 2017-04-20 15:34 | CP.PCM.PN ---
Subjective - Date & Time of Evaluation Date of Evaluation: 04/20/17 Time of Evaluation: 13:05 - Subjective Subjective: clinically same Objective - Vital Signs/Intake and Output Vital Signs (last 24 hours): Temp Pulse Resp BP Pulse Ox 97.8 F 80 20 132/70 100 04/20/17 08:12 04/20/17 08:12 04/20/17 08:12 04/20/17 11:01 04/20/17 08:12 Intake and Output: 04/20/17 04/20/17 06:59 18:59 Intake Total 600 360 Balance 600 360 - Medications Medications: Current Medications Albuterol/Ipratropium (Duoneb 3 Mg/0.5 Mg (3 Ml) Ud) [address] [facility] Last Admin: 04/20/17 13:30 Dose: 3 ml Benztropine Mesylate (Cogentin) [address] [facility] Last Admin: 04/20/17 10:49 Dose: 1 mg Furosemide (Lasix) [address] [facility] Last Admin: 04/20/17 11:01 Dose: 80 mg Gabapentin (Neurontin) [address] [facility] Last Admin: 04/20/17 13:39 Dose: 100 mg Haloperidol (Haldol) [address] [facility] Last Admin: 04/20/17 10:48 Dose: 5 mg Lorazepam (Ativan) 0.5 mg PO Q6H PRN PRN Reason: Anxiety Last Admin: 04/20/17 10:48 Dose: 0.5 mg Montelukast Sodium (Singulair) [address] [facility] Last Admin: 04/19/17 22:05 Dose: 10 mg Oxycodone HCl (Oxycodone Immediate Release Tab) 10 mg PO Q6 PRN PRN Reason: Pain, moderate (4-7) Last Admin: 04/20/17 10:47 Dose: 10 mg Pantoprazole Sodium (Protonix Ec Tab) [address] [facility] Last Admin: 04/20/17 10:46 Dose: 40 mg Fluticasone/Salmeterol (Advair Diskus 100/50) [address] [facility] Last Admin: 04/20/17 08:05 Dose: 1 puff Spironolactone (Aldactone) [address] [facility] Last Admin: 04/20/17 11:01 Dose: 200 mg Thiamine HCl (Vitamin B1 Tab) 100 mg PO DAILY [facility] Last Admin: 04/20/17 10:47 Dose: 100 mg - Labs Labs: 04/20/17 07:00 04/20/17 07:00 PT 13.7 SECONDS (9.7-12.2) H 04/20/17 07:00 INR 1.2 04/20/17 07:00 Assessment and Plan - Assessment and Plan (Free Text) Plan: f/u [place]. Advair diskus aldactone duoneb lasix oxycodone
[2017-04-21] MEDS: Albuterol-Ipratrop 3 mg / 0.5 (3 ml) UD INH SCH ×4 (01:39→20:07)
[2017-04-21] MEDS: oxyCODONE 10 mg Immediate Release Tab PO PRN ×3 (07:48→20:33)
--- NOTE | 2017-04-21 08:02 | CP.PCM.PN ---
<Jc Joy - Last Filed: 04/21/17 09:08> Subjective - Date & Time of Evaluation Date of Evaluation: 04/21/17 Time of Evaluation: 07:59 - Subjective Subjective: PGY4 GI Fellow Progress Note Patient seen and examined bedside this morning. The patient admits to some persistent abdominal discomfort 2/2 ascites buildup. Denies any lower extremity edema or leg pain. No events overnight. 12 system ROS performed and negative except where stated. Objective - Vital Signs/Intake and Output Vital Signs (last 24 hours): Temp Pulse Resp BP Pulse Ox 98.1 F 95 H 20 125/68 98 04/21/17 00:00 04/21/17 00:00 04/21/17 00:00 04/21/17 00:00 04/21/17 00:00 Intake and Output: 04/21/17 04/21/17 06:59 18:59 Intake Total 470 Balance 470 - Medications Medications: Current Medications Albuterol/Ipratropium (Duoneb 3 Mg/0.5 Mg (3 Ml) Ud) 3 ml INH RQ6 [facility] Last Admin: 04/21/17 01:39 Dose: Not Given Benztropine Mesylate (Cogentin) 1 mg PO BID [facility] Last Admin: 04/20/17 18:33 Dose: 1 mg Furosemide (Lasix) 80 mg PO DAILY [facility] Last Admin: 04/20/17 11:01 Dose: 80 mg Gabapentin (Neurontin) 100 mg PO TID [facility] Last Admin: 04/20/17 18:33 Dose: 100 mg Haloperidol (Haldol) 5 mg PO BID [facility] Last Admin: 04/20/17 18:33 Dose: 5 mg Lorazepam (Ativan) 0.5 mg PO Q6H PRN PRN Reason: Anxiety Last Admin: 04/21/17 07:48 Dose: 0.5 mg Montelukast Sodium (Singulair) 10 mg PO HS [facility] Last Admin: 04/20/17 21:31 Dose: 10 mg Oxycodone HCl (Oxycodone Immediate Release Tab) 10 mg PO Q6 PRN PRN Reason: Pain, moderate (4-7) Last Admin: 04/21/17 07:48 Dose: 10 mg Pantoprazole Sodium (Protonix Ec Tab) 40 mg PO DAILY [facility] Last Admin: 04/20/17 10:46 Dose: 40 mg Fluticasone/Salmeterol (Advair Diskus 100/50) 1 puff INH RQ12 [facility] Last Admin: 04/20/17 20:05 Dose: Not Given Spironolactone (Aldactone) 200 mg PO DAILY [facility] Last Admin: 04/20/17 11:01 Dose: 200 mg Thiamine HCl (Vitamin B1 Tab) 100 mg PO DAILY [facility] Last Admin: 04/20/17 10:47 Dose: 100 mg - Labs Labs: 04/20/17 07:00 04/20/17 07:00 PT 13.7 SECONDS (9.7-12.2) H 04/20/17 07:00 INR 1.2 04/20/17 07:00 - Constitutional Appears: No Acute Distress, Chronically Ill - Eye Exam Eye Exam: EOMI, PERRL - ENT Exam ENT Exam: Mucous Membranes Moist - Respiratory Exam Respiratory Exam: Clear to Ausculation Bilateral. absent: Rales, Rhonchi, Wheezes - Cardiovascular Exam Cardiovascular Exam: RRR, +S1, +S2 - GI/Abdominal Exam GI & Abdominal Exam: Distended, Firm, Guarding, Tenderness, Normal Bowel Sounds. absent: Organomegaly - Extremities Exam Extremities Exam: Normal Inspection. absent: Pedal Edema - Neurological Exam Neurological Exam: Alert, Awake, Oriented x3 - Psychiatric Exam Psychiatric exam: Anxious - Skin Skin Exam: Dry, Warm Assessment and Plan - Assessment and Plan (Free Text) Assessment: Patient is a 61yo female with PMHx significant for COPD, HTN, anxiety who presented to the ED for complaint of abdominal pain and distention -Recurrent abdominal ascites 2/2 decompensated cirrhosis from prior EtOH abuse -Alcohol abuse in remission, sober since 06/2016 -Pancytopenia -Severe anxiety -COPD -HTN Plan: -For paracentesis today -Please send peritoneal fluid for analysis as ordered -Patient has never had an episode of SBP previously -Continue diuretic therapy as ordered: Lasix 80mg/Aldactone 200mg PO QD; encourage adherence to daily regimen -Would benefit from outpatient EGD and scheduled paracentesis to avoid hospitalization -Patient to follow up with new PCP on 04/27/17; has spine nurse in [place], Dr Mcdaniels -Patient has attempted follow up with [facility] for liver transplant evaluation *MELD-Na: 9 <Deejay Edwards MD - Last Filed: 04/21/17 10:08> Objective - Vital Signs/Intake and Output Vital Signs (last 24 hours): Temp Pulse Resp BP Pulse Ox 98.1 F 80 21 107/58 L 100 04/21/17 08:17 04/21/17 09:33 04/21/17 08:17 04/21/17 09:33 04/21/17 08:17 Intake and Output: 04/21/17 04/21/17 06:59 18:59 Intake Total 470 Balance 470 - Medications Medications: Current Medications Albuterol/Ipratropium (Duoneb 3 Mg/0.5 Mg (3 Ml) Ud) 3 ml INH RQ6 [facility] Last Admin: 04/21/17 08:05 Dose: 3 ml Benztropine Mesylate (Cogentin) 1 mg PO BID [facility] Last Admin: 04/20/17 18:33 Dose: 1 mg Furosemide (Lasix) 80 mg PO DAILY [facility] Last Admin: 04/20/17 11:01 Dose: 80 mg Gabapentin (Neurontin) 100 mg PO TID [facility] Last Admin: 04/21/17 09:31 Dose: 100 mg Haloperidol (Haldol) 5 mg PO BID [facility] Last Admin: 04/20/17 18:33 Dose: 5 mg Lactulose (Enulose) 20 gm PO DAILY [facility] Lorazepam (Ativan) 0.5 mg PO Q6H PRN PRN Reason: Anxiety Last Admin: 04/21/17 07:48 Dose: 0.5 mg Montelukast Sodium (Singulair) 10 mg PO HS [facility] Last Admin: 04/20/17 21:31 Dose: 10 mg Oxycodone HCl (Oxycodone Immediate Release Tab) 10 mg PO Q6 PRN PRN Reason: Pain, moderate (4-7) Last Admin: 04/21/17 07:48 Dose: 10 mg Pantoprazole Sodium (Protonix Ec Tab) 40 mg PO DAILY [facility] Last Admin: 04/21/17 09:31 Dose: 40 mg Fluticasone/Salmeterol (Advair Diskus 100/50) 1 puff INH RQ12 [facility] Last Admin: 04/20/17 20:05 Dose: Not Given Spironolactone (Aldactone) 200 mg PO DAILY [facility] Last Admin: 04/21/17 09:31 Dose: 200 mg Thiamine HCl (Vitamin B1 Tab) 100 mg PO DAILY [facility] Last Admin: 04/21/17 09:31 Dose: 100 mg - Labs Labs: 04/20/17 07:00 04/20/17 07:00 PT 13.7 SECONDS (9.7-12.2) H 04/20/17 07:00 INR 1.2 04/20/17 07:00 Attending/Attestation - Attestation I have personally seen and examined this patient.: Yes I have fully participated in the care of the patient.: Yes I have reviewed all pertinent clinical information, including history, physical exam and plan: Yes Notes (Text): 04/21/17 09:56 Patient seen and examined with GI fellow on rounds this am. 61 year old female with history of decompensated ETOH/HCV cirrhosis, anxiety, COPD, HTN who presented to the hospital with worsening ascites and SOB in setting of non compliance of diuretics. She is also on opioids at home with constipation and hence is in grade 2 of HE. She has had numerous recurrent hospitalizations for similar complaints and has required multiple paracentesis. She moves her bowels 2-3 per week and is not on lactulose at home. She has features of portal HTN i.e low platelets, ascites and HE. She will benefit form transplant evaluation even though she is underserved with her MELD score- 9. - Low sodium diet as tolerated - Optimize diuretic regimen, continue to monitor electrolytes - Patient scheduled for therapeutic paracentesis - as per IR will require FFP transfusion prior to paracentesis - Daily CBC, BMP, Coag to calculate MELD - Start lactulose today- titrate to 2 BM/day - Avoid sedatives, opioids - Needs to start transplant evaluation at [facility] - EGD/ colonoscopy as outpatient - Monitor mental status - Will follow
[2017-04-21] MEDS: Pantoprazole 40 mg EC Tab PO SCH (09:31)
--- NOTE | 2017-04-21 11:38 | CP.PCM.PN ---
Subjective - Date & Time of Evaluation Date of Evaluation: 04/21/17 Time of Evaluation: 14:00 - Subjective Subjective: Dr. Angel Marcano note: Patient seen and examined in room. She is complaining of pain and abdominal distention. She has a history of Hep C and Etoh abuse, liver cirrhosis. She has multiple admissions for needed theraputic paracentesis. She is also a history of anxiety and depression. Objective - Vital Signs/Intake and Output Vital Signs (last 24 hours): Temp Pulse Resp BP Pulse Ox 98.1 F 80 21 112/65 100 04/21/17 08:17 04/21/17 09:33 04/21/17 08:17 04/21/17 11:06 04/21/17 08:17 Intake and Output: 04/21/17 04/21/17 06:59 18:59 Intake Total 470 Balance 470 - Medications Medications: Current Medications Albuterol/Ipratropium (Duoneb 3 Mg/0.5 Mg (3 Ml) Ud) 3 ml INH RQ6 [facility] Last Admin: 04/21/17 08:05 Dose: 3 ml Benztropine Mesylate (Cogentin) 1 mg PO BID [facility] Last Admin: 04/21/17 10:13 Dose: 1 mg Furosemide (Lasix) 80 mg PO DAILY [facility] Last Admin: 04/21/17 11:06 Dose: 80 mg Gabapentin (Neurontin) 100 mg PO TID [facility] Last Admin: 04/21/17 09:31 Dose: 100 mg Haloperidol (Haldol) 5 mg PO BID [facility] Last Admin: 04/21/17 10:13 Dose: 5 mg Lactulose (Enulose) 20 gm PO DAILY [facility] Last Admin: 04/21/17 10:11 Dose: 20 gm Lorazepam (Ativan) 0.5 mg PO Q6H PRN PRN Reason: Anxiety Last Admin: 04/21/17 07:48 Dose: 0.5 mg Montelukast Sodium (Singulair) 10 mg PO HS [facility] Last Admin: 04/20/17 21:31 Dose: 10 mg Oxycodone HCl (Oxycodone Immediate Release Tab) 10 mg PO Q6 PRN PRN Reason: Pain, moderate (4-7) Last Admin: 04/21/17 07:48 Dose: 10 mg Pantoprazole Sodium (Protonix Ec Tab) 40 mg PO DAILY [facility] Last Admin: 04/21/17 09:31 Dose: 40 mg Fluticasone/Salmeterol (Advair Diskus 100/50) 1 puff INH RQ12 [facility] Last Admin: 04/20/17 20:05 Dose: Not Given Spironolactone (Aldactone) 200 mg PO DAILY [facility] Last Admin: 04/21/17 09:31 Dose: 200 mg Thiamine HCl (Vitamin B1 Tab) 100 mg PO DAILY [facility] Last Admin: 04/21/17 09:31 Dose: 100 mg - Labs Labs: 04/20/17 07:00 04/20/17 07:00 PT 13.7 SECONDS (9.7-12.2) H 04/20/17 07:00 INR 1.2 04/20/17 07:00 - Constitutional Appears: Non-toxic, No Acute Distress - Head Exam Head Exam: NORMAL INSPECTION - Eye Exam Eye Exam: Normal appearance, Scleral icterus - ENT Exam ENT Exam: Normal Exam - Respiratory Exam Respiratory Exam: Decreased Breath Sounds. absent: Rales, Rhonchi, Wheezes - Cardiovascular Exam Cardiovascular Exam: REGULAR RHYTHM, RRR, +S1, +S2. absent: Gallop, Rubs - GI/Abdominal Exam GI & Abdominal Exam: Distended, Firm - Extremities Exam Extremities Exam: Pedal Edema. absent: Normal Inspection Assessment and Plan (1) Ascites Assessment & Plan: Patient needs paracentesis, however IR wants her platlete count higher, so well will give her 1 unit of platlets before paracentesis. continue with her home aldactone and lasix. Percocet for pain control. Status: Acute (2) Thrombocytopenia Assessment & Plan: Transfuse platlets tomorrow. Status: Acute (3) Cirrhosis Assessment & Plan: GI consulted. continue her home medications, Laculose 20 gm Status: Chronic (4) Alcohol abuse Status: Chronic (5) Anxiety Assessment & Plan: continue her home medications. Status: Chronic (6) Asthma Assessment & Plan: Singular and Duonebs as needed. Status: Chronic (7) Prophylactic measure Assessment & Plan: Protonix 40mg, hold chemical venous thrombosis prophylaxis due to thrombocytopneia. Status: Acute
--- NOTE | 2017-04-21 13:12 | CP.PCM.PN ---
Subjective - Date & Time of Evaluation Date of Evaluation: 04/21/17 Time of Evaluation: 12:00 - Subjective Subjective: Still with shortness of breath, pancytopenia, for paracentesis today therapeutically. With follow Objective - Vital Signs/Intake and Output Vital Signs (last 24 hours): Temp Pulse Resp BP Pulse Ox 98.1 F 80 21 112/65 100 04/21/17 08:17 04/21/17 09:33 04/21/17 08:17 04/21/17 11:06 04/21/17 08:17 - Medications Medications: Current Medications Albuterol/Ipratropium (Duoneb 3 Mg/0.5 Mg (3 Ml) Ud) 3 ml INH RQ6 [facility] Last Admin: 04/21/17 08:05 Dose: 3 ml Benztropine Mesylate (Cogentin) 1 mg PO BID [facility] Last Admin: 04/21/17 10:13 Dose: 1 mg Furosemide (Lasix) 80 mg PO DAILY [facility] Last Admin: 04/21/17 11:06 Dose: 80 mg Gabapentin (Neurontin) 100 mg PO TID [facility] Last Admin: 04/21/17 09:31 Dose: 100 mg Haloperidol (Haldol) 5 mg PO BID [facility] Last Admin: 04/21/17 10:13 Dose: 5 mg Lactulose (Enulose) 20 gm PO DAILY [facility] Last Admin: 04/21/17 10:11 Dose: 20 gm Lorazepam (Ativan) 0.5 mg PO Q6H PRN PRN Reason: Anxiety Last Admin: 04/21/17 07:48 Dose: 0.5 mg Montelukast Sodium (Singulair) 10 mg PO HS [facility] Last Admin: 04/20/17 21:31 Dose: 10 mg Oxycodone HCl (Oxycodone Immediate Release Tab) 10 mg PO Q6 PRN PRN Reason: Pain, moderate (4-7) Last Admin: 04/21/17 07:48 Dose: 10 mg Pantoprazole Sodium (Protonix Ec Tab) 40 mg PO DAILY [facility] Last Admin: 04/21/17 09:31 Dose: 40 mg Fluticasone/Salmeterol (Advair Diskus 100/50) 1 puff INH RQ12 [facility] Last Admin: 04/20/17 20:05 Dose: Not Given Spironolactone (Aldactone) 200 mg PO DAILY [facility] Last Admin: 04/21/17 09:31 Dose: 200 mg Thiamine HCl (Vitamin B1 Tab) 100 mg PO DAILY [facility] Last Admin: 04/21/17 09:31 Dose: 100 mg - Labs Labs: PT 13.7 SECONDS (9.7-12.2) H 04/20/17 07:00 INR 1.2 04/20/17 07:00 - Constitutional Appears: Non-toxic - Head Exam Head Exam: ATRAUMATIC - Eye Exam Eye Exam: EOMI - ENT Exam ENT Exam: Mucous Membranes Moist - Neck Exam Neck Exam: absent: Lymphadenopathy, Thyromegaly - Respiratory Exam Respiratory Exam: Clear to Ausculation Bilateral. absent: Rales - Cardiovascular Exam Cardiovascular Exam: REGULAR RHYTHM, Murmur - GI/Abdominal Exam GI & Abdominal Exam: Normal Bowel Sounds. absent: Organomegaly - Rectal Exam Rectal Exam: Deferred - Extremities Exam Extremities Exam: Normal Capillary Refill, Pedal Edema. absent: Calf Tenderness - Neurological Exam Neurological Exam: Alert, Oriented x3 - Psychiatric Exam Psychiatric exam: Normal Mood - Skin Skin Exam: Dry Assessment and Plan (1) Ascites Status: Acute (2) Cirrhosis Status: Chronic (3) Dyspnea Status: Acute (4) COPD (chronic obstructive pulmonary disease) Status: Chronic
[2017-04-21] MEDS: Fluticasone-Salmeterol 100-50mcg Diskus INH SCH ×2 (13:37→20:08)
--- NOTE | 2017-04-21 17:15 | CP.PCM.PN ---
Subjective - Date & Time of Evaluation Date of Evaluation: 04/21/17 Time of Evaluation: 09:20 - Subjective Subjective: clinically same Objective - Vital Signs/Intake and Output Vital Signs (last 24 hours): Temp Pulse Resp BP Pulse Ox 98.1 F 97 H 20 109/63 99 04/21/17 16:00 04/21/17 16:00 04/21/17 16:00 04/21/17 16:00 04/21/17 16:00 - Medications Medications: Current Medications Albuterol/Ipratropium (Duoneb 3 Mg/0.5 Mg (3 Ml) Ud) 3 ml INH RQ6 [facility] Last Admin: 04/21/17 13:37 Dose: Not Given Benztropine Mesylate (Cogentin) 1 mg PO BID [facility] Last Admin: 04/21/17 10:13 Dose: 1 mg Furosemide (Lasix) 80 mg PO DAILY [facility] Last Admin: 04/21/17 11:06 Dose: 80 mg Gabapentin (Neurontin) 100 mg PO TID [facility] Last Admin: 04/21/17 14:24 Dose: 100 mg Haloperidol (Haldol) 5 mg PO BID [facility] Last Admin: 04/21/17 10:13 Dose: 5 mg Lactulose (Enulose) 20 gm PO DAILY [facility] Last Admin: 04/21/17 10:11 Dose: 20 gm Lorazepam (Ativan) 0.5 mg PO Q6H PRN PRN Reason: Anxiety Last Admin: 04/21/17 14:29 Dose: 0.5 mg Montelukast Sodium (Singulair) 10 mg PO HS [facility] Last Admin: 04/20/17 21:31 Dose: 10 mg Oxycodone HCl (Oxycodone Immediate Release Tab) 10 mg PO Q6 PRN PRN Reason: Pain, moderate (4-7) Last Admin: 04/21/17 14:29 Dose: 10 mg Pantoprazole Sodium (Protonix Ec Tab) 40 mg PO DAILY [facility] Last Admin: 04/21/17 09:31 Dose: 40 mg Fluticasone/Salmeterol (Advair Diskus 100/50) 1 puff INH RQ12 [facility] Last Admin: 04/21/17 13:37 Dose: Not Given Spironolactone (Aldactone) 200 mg PO DAILY [facility] Last Admin: 04/21/17 09:31 Dose: 200 mg Thiamine HCl (Vitamin B1 Tab) 100 mg PO DAILY [facility] Last Admin: 04/21/17 09:31 Dose: 100 mg - Labs Labs: PT 13.7 SECONDS (9.7-12.2) H 04/20/17 07:00 INR 1.2 04/20/17 07:00 - Constitutional Appears: Well - Head Exam Head Exam: ATRAUMATIC, NORMAL INSPECTION, NORMOCEPHALIC - Eye Exam Eye Exam: EOMI, Normal appearance, PERRL Pupil Exam: NORMAL ACCOMODATION, PERRL - ENT Exam ENT Exam: Mucous Membranes Moist, Normal Exam - Neck Exam Neck Exam: Full ROM, Normal Inspection. absent: Lymphadenopathy - Respiratory Exam Respiratory Exam: Decreased Breath Sounds - Cardiovascular Exam Cardiovascular Exam: REGULAR RHYTHM, +S1, +S2 - GI/Abdominal Exam GI & Abdominal Exam: Soft, Diminished Bowel Sounds - Rectal Exam Rectal Exam: Deferred
[2017-04-22] MEDS: Albuterol-Ipratrop 3 mg / 0.5 (3 ml) UD INH SCH ×4 (02:18→20:01)
[2017-04-22] MEDS: oxyCODONE 10 mg Immediate Release Tab PO PRN ×3 (05:42→21:31)
[2017-04-22 07:18] LABS: CHLORIDE 99 mmol/L (98-107)
[2017-04-22 07:19] LABS: POTASSIUM 4.2 mmol/L (3.6-5.2); SODIUM 132 mmol/L (132-148)
[2017-04-22 07:21] LABS: ALB/GLOB RATIO 0.9 (1.0-2.1); ALKALINE PHOSPHATASE 46 U/L (38-126); ALT/SGPT 19 U/L (9-52); AST/SGOT 29 U/L (14-36); BILIRUBIN,TOTAL 0.8 mg/dL (0.2-1.3); BLOOD UREA NITROGEN 27 mg/dL (7-17); CARBON DIOXIDE 24 mmol/L (22-30); GFR AFRICAN-AMERICAN > 60; GLUCOSE,RANDOM 133 mg/dL (65-105); TOTAL PROTEIN 6.7 g/dL (6.3-8.3)
[2017-04-22 07:22] LABS: CALCIUM 8.2 mg/dl (8.6-10.4); MAGNESIUM 1.9 mg/dL (1.6-2.3); PHOSPHOROUS 3.7 mg/dL (2.5-4.5)
[2017-04-22 07:23] LABS: BASO % 0.9 % (0.0-2.0); EOS # 0.1 K/uL (0.0-0.7); EOS % 1.7 % (0.0-4.0); HEMATOCRIT 24.3 % (34.0-47.0); LYMPH # 0.6 K/uL (1.0-4.3); LYMPH % 16.9 % (20.0-40.0); MEAN CELL VOLUME 85.5 fL (81.0-99.0); MEAN CORPUSCULAR HEMOGLOBIN 27.9 pg (27.0-31.0); MEAN CORPUSCULAR HGB CONC 32.6 g/dL (33.0-37.0); MONO # 0.5 K/uL (0.0-0.8); MONO % 15.4 % (0.0-10.0); NRBC % 0.1 % (0.0-2.0); RED CELL DISTRIBUTION WIDTH 16.4 % (11.5-14.5); WHITE BLOOD COUNT 3.3 K/uL (4.8-10.8)
--- NOTE | 2017-04-22 08:51 | CP.PCM.PN ---
Subjective - Date & Time of Evaluation Date of Evaluation: 04/22/17 Time of Evaluation: 08:46 - Subjective Subjective: Patient seen and examined. Resting in bed comfortably, no acute events overnight. Mental status appears to wax/wane, though she denies abdominal pain , nausea, vomiting, diarrhea, fever/chills. Tolerating PO diet without difficulty. Review of vitals from this morning shows hypotension. 12 point review of systems performed, negative aside from mentioned above. Objective - Vital Signs/Intake and Output Vital Signs (last 24 hours): Temp Pulse Resp BP Pulse Ox 98.3 F 82 20 97/63 L 96 04/22/17 08:00 04/22/17 08:00 04/22/17 08:00 04/22/17 08:00 04/22/17 08:00 Intake and Output: 04/22/17 04/22/17 06:59 18:59 Intake Total 270 Balance 270 - Medications Medications: Current Medications Albuterol/Ipratropium (Duoneb 3 Mg/0.5 Mg (3 Ml) Ud) 3 ml INH RQ6 [facility] Last Admin: 04/22/17 02:18 Dose: Not Given Benztropine Mesylate (Cogentin) 1 mg PO BID [facility] Last Admin: 04/21/17 17:33 Dose: 1 mg Furosemide (Lasix) 80 mg PO DAILY [facility] Last Admin: 04/21/17 11:06 Dose: 80 mg Gabapentin (Neurontin) 100 mg PO TID [facility] Last Admin: 04/21/17 17:32 Dose: 100 mg Haloperidol (Haldol) 5 mg PO BID [facility] Last Admin: 04/21/17 17:32 Dose: 5 mg Lactulose (Enulose) 20 gm PO DAILY [facility] Last Admin: 04/21/17 10:11 Dose: 20 gm Lorazepam (Ativan) 0.5 mg PO Q6H PRN PRN Reason: Anxiety Last Admin: 04/22/17 05:43 Dose: 0.5 mg Montelukast Sodium (Singulair) 10 mg PO HS [facility] Last Admin: 04/21/17 21:27 Dose: 10 mg Oxycodone HCl (Oxycodone Immediate Release Tab) 10 mg PO Q6 PRN PRN Reason: Pain, moderate (4-7) Last Admin: 04/22/17 05:42 Dose: 10 mg Pantoprazole Sodium (Protonix Ec Tab) 40 mg PO DAILY [facility] Last Admin: 04/21/17 09:31 Dose: 40 mg Fluticasone/Salmeterol (Advair Diskus 100/50) 1 puff INH RQ12 [facility] Last Admin: 04/21/17 20:08 Dose: Not Given Spironolactone (Aldactone) 200 mg PO DAILY [facility] Last Admin: 04/21/17 09:31 Dose: 200 mg Thiamine HCl (Vitamin B1 Tab) 100 mg PO DAILY [facility] Last Admin: 04/21/17 09:31 Dose: 100 mg - Labs Labs: 04/22/17 07:03 04/22/17 07:03 PT 13.7 SECONDS (9.7-12.2) H 04/20/17 07:00 INR 1.2 04/20/17 07:00 - Constitutional Appears: Non-toxic, No Acute Distress - Head Exam Head Exam: NORMAL INSPECTION - Eye Exam Eye Exam: EOMI, Normal appearance - Respiratory Exam Respiratory Exam: Clear to Ausculation Bilateral - Cardiovascular Exam Cardiovascular Exam: +S1, +S2 - GI/Abdominal Exam GI & Abdominal Exam: Soft, Normal Bowel Sounds Additional comments: non tender to palpation in four quadrants +ascites - Extremities Exam Extremities Exam: Normal Inspection - Skin Skin Exam: Dry, Intact, Normal Color, Warm Assessment and Plan - Assessment and Plan (Free Text) Assessment: ETOH/HCV decompensated cirrhosis Anxiety COPD Abdominal distention, ascites Plan: - Low sodium diet as tolerated - Patient awaiting platelet transfusion prior to undergoing therapeutic paracentesis - Continue with diuretic regimen, monitor electrolytes - Patient still without adequate bowel movements, would increase dose of lactulose and titrate so patient has 2-3 bowel movements daily - Caution with use of benzodiazepine and haldol in patient with underlying HE/ cirrhosis - Following hospital discharge she will follow up with primary GI physician Dr. Toure. Patient would benefit from outpatient elective EGD/colonoscopy for cancer and variceal screening.
[2017-04-22] MEDS: Pantoprazole 40 mg EC Tab PO SCH (09:15)
[2017-04-22] MEDS: Fluticasone-Salmeterol 100-50mcg Diskus INH SCH ×2 (09:20→20:01)
--- NOTE | 2017-04-22 12:45 | CP.PCM.PN ---
Subjective - Date & Time of Evaluation Date of Evaluation: 04/22/17 Time of Evaluation: 13:00 - Subjective Subjective: With ascites, awaiting platelet transfusion prior to paracentesis, seen by GI we will follow Objective - Vital Signs/Intake and Output Vital Signs (last 24 hours): Temp Pulse Resp BP Pulse Ox 98.3 F 82 20 97/63 L 96 04/22/17 08:00 04/22/17 08:00 04/22/17 08:00 04/22/17 09:13 04/22/17 08:00 Intake and Output: 04/22/17 04/22/17 06:59 18:59 Intake Total 270 Balance 270 - Medications Medications: Current Medications Albuterol/Ipratropium (Duoneb 3 Mg/0.5 Mg (3 Ml) Ud) 3 ml INH RQ6 [facility] Last Admin: 04/22/17 08:30 Dose: Not Given Benztropine Mesylate (Cogentin) 1 mg PO BID [facility] Last Admin: 04/22/17 09:13 Dose: 1 mg Furosemide (Lasix) 80 mg PO DAILY [facility] Last Admin: 04/22/17 09:13 Dose: Not Given Gabapentin (Neurontin) 100 mg PO TID [facility] Last Admin: 04/22/17 09:15 Dose: 100 mg Haloperidol (Haldol) 5 mg PO BID [facility] Last Admin: 04/22/17 09:15 Dose: 5 mg Lactulose (Enulose) 30 gm PO TID [facility] Last Admin: 04/22/17 09:16 Dose: 30 gm Lorazepam (Ativan) 0.5 mg PO Q6H PRN PRN Reason: Anxiety Last Admin: 04/22/17 05:43 Dose: 0.5 mg Montelukast Sodium (Singulair) 10 mg PO HS [facility] Last Admin: 04/21/17 21:27 Dose: 10 mg Oxycodone HCl (Oxycodone Immediate Release Tab) 10 mg PO Q6 PRN PRN Reason: Pain, moderate (4-7) Last Admin: 04/22/17 05:42 Dose: 10 mg Pantoprazole Sodium (Protonix Ec Tab) 40 mg PO DAILY [facility] Last Admin: 04/22/17 09:15 Dose: 40 mg Fluticasone/Salmeterol (Advair Diskus 100/50) 1 puff INH RQ12 [facility] Last Admin: 04/22/17 09:20 Dose: Not Given Spironolactone (Aldactone) 200 mg PO DAILY [facility] Last Admin: 04/22/17 09:19 Dose: Not Given Thiamine HCl (Vitamin B1 Tab) 100 mg PO DAILY [facility] Last Admin: 04/22/17 09:15 Dose: 100 mg - Labs Labs: 04/22/17 07:03 04/22/17 07:03 PT 13.7 SECONDS (9.7-12.2) H 04/20/17 07:00 INR 1.2 04/20/17 07:00 - Constitutional Appears: Non-toxic - Head Exam Head Exam: ATRAUMATIC - Eye Exam Eye Exam: EOMI - ENT Exam ENT Exam: Mucous Membranes Moist - Neck Exam Neck Exam: absent: Lymphadenopathy, Thyromegaly - Respiratory Exam Respiratory Exam: Clear to Ausculation Bilateral. absent: Rales - Cardiovascular Exam Cardiovascular Exam: REGULAR RHYTHM, Murmur - GI/Abdominal Exam GI & Abdominal Exam: Normal Bowel Sounds. absent: Organomegaly - Rectal Exam Rectal Exam: Deferred - Extremities Exam Extremities Exam: Normal Capillary Refill. absent: Calf Tenderness - Neurological Exam Neurological Exam: Alert, Oriented x3 - Psychiatric Exam Psychiatric exam: Normal Mood - Skin Skin Exam: Dry Assessment and Plan (1) Ascites Status: Acute (2) Cirrhosis Status: Chronic (3) Dyspnea Status: Acute (4) COPD (chronic obstructive pulmonary disease) Status: Chronic
--- NOTE | 2017-04-22 13:34 | CP.PCM.PN ---
Subjective - Date & Time of Evaluation Date of Evaluation: 04/22/17 Time of Evaluation: 09:00 - Subjective Subjective: clinically same Objective - Vital Signs/Intake and Output Vital Signs (last 24 hours): Temp Pulse Resp BP Pulse Ox 98.3 F 82 20 97/63 L 96 04/22/17 08:00 04/22/17 08:00 04/22/17 08:00 04/22/17 09:13 04/22/17 08:00 Intake and Output: 04/22/17 04/22/17 06:59 18:59 Intake Total 270 Balance 270 - Medications Medications: Current Medications Albuterol/Ipratropium (Duoneb 3 Mg/0.5 Mg (3 Ml) Ud) 3 ml INH RQ6 [facility] Last Admin: 04/22/17 13:24 Dose: Not Given Benztropine Mesylate (Cogentin) 1 mg PO BID [facility] Last Admin: 04/22/17 09:13 Dose: 1 mg Furosemide (Lasix) 80 mg PO DAILY [facility] Last Admin: 04/22/17 09:13 Dose: Not Given Gabapentin (Neurontin) 100 mg PO TID [facility] Last Admin: 04/22/17 09:15 Dose: 100 mg Haloperidol (Haldol) 5 mg PO BID [facility] Last Admin: 04/22/17 09:15 Dose: 5 mg Lactulose (Enulose) 30 gm PO TID [facility] Last Admin: 04/22/17 09:16 Dose: 30 gm Lorazepam (Ativan) 0.5 mg PO Q6H PRN PRN Reason: Anxiety Last Admin: 04/22/17 05:43 Dose: 0.5 mg Montelukast Sodium (Singulair) 10 mg PO HS [facility] Last Admin: 04/21/17 21:27 Dose: 10 mg Oxycodone HCl (Oxycodone Immediate Release Tab) 10 mg PO Q6 PRN PRN Reason: Pain, moderate (4-7) Last Admin: 04/22/17 05:42 Dose: 10 mg Pantoprazole Sodium (Protonix Ec Tab) 40 mg PO DAILY [facility] Last Admin: 04/22/17 09:15 Dose: 40 mg Fluticasone/Salmeterol (Advair Diskus 100/50) 1 puff INH RQ12 [facility] Last Admin: 04/22/17 09:20 Dose: Not Given Spironolactone (Aldactone) 200 mg PO DAILY [facility] Last Admin: 04/22/17 09:19 Dose: Not Given Thiamine HCl (Vitamin B1 Tab) 100 mg PO DAILY [facility] Last Admin: 04/22/17 09:15 Dose: 100 mg - Labs Labs: 04/22/17 07:03 04/22/17 07:03 PT 13.7 SECONDS (9.7-12.2) H 04/20/17 07:00 INR 1.2 04/20/17 07:00 - Constitutional Appears: Well - Head Exam Head Exam: ATRAUMATIC, NORMAL INSPECTION, NORMOCEPHALIC - Eye Exam Eye Exam: EOMI, Normal appearance, PERRL Pupil Exam: NORMAL ACCOMODATION, PERRL - ENT Exam ENT Exam: Mucous Membranes Moist, Normal Exam - Neck Exam Neck Exam: Full ROM, Normal Inspection. absent: Lymphadenopathy - Respiratory Exam Respiratory Exam: Decreased Breath Sounds - Cardiovascular Exam Cardiovascular Exam: REGULAR RHYTHM, +S1, +S2 - GI/Abdominal Exam GI & Abdominal Exam: Soft, Diminished Bowel Sounds - Rectal Exam Rectal Exam: Deferred Assessment and Plan - Assessment and Plan (Free Text) Plan: Heme on consult. Platelets before acetic stepping Patient is always demanding Percocets and the morphine before goes home Patient been told multiple times needs pain management next Patient advised to see department primary care Patient says Virgil Klein was spoke to him yesterday
--- NOTE | 2017-04-22 19:25 | CP.PCM.PN ---
Subjective - Date & Time of Evaluation Date of Evaluation: 04/22/17 Time of Evaluation: 11:00 - Subjective Subjective: Dr. Marcano service: Patient seen and examined in room. She is complaining of pain, abodminal distention, but no fevers, chills, nausea or vomiting. Her paracentesis had to be rescheduled because by the time the platlets were ready to transfuse Dr. Saavedra had to reschedule. Will try agian tomorrow morning. Objective - Vital Signs/Intake and Output Vital Signs (last 24 hours): Temp Pulse Resp BP Pulse Ox 98.0 F 79 20 120/71 98 04/22/17 16:00 04/22/17 16:00 04/22/17 16:00 04/22/17 16:00 04/22/17 16:00 Intake and Output: 04/22/17 04/23/17 18:59 06:59 Intake Total 200 Balance 200 - Medications Medications: Current Medications Albuterol/Ipratropium (Duoneb 3 Mg/0.5 Mg (3 Ml) Ud) 3 ml INH RQ6 [facility] Last Admin: 04/22/17 13:24 Dose: Not Given Benztropine Mesylate (Cogentin) 1 mg PO BID [facility] Last Admin: 04/22/17 18:17 Dose: 1 mg Furosemide (Lasix) 80 mg PO DAILY [facility] Last Admin: 04/22/17 09:13 Dose: Not Given Gabapentin (Neurontin) 100 mg PO TID [facility] Last Admin: 04/22/17 18:16 Dose: 100 mg Haloperidol (Haldol) 5 mg PO BID [facility] Last Admin: 04/22/17 18:16 Dose: 5 mg Lactulose (Enulose) 30 gm PO TID [facility] Last Admin: 04/22/17 18:17 Dose: 30 gm Lorazepam (Ativan) 0.5 mg PO Q6H PRN PRN Reason: Anxiety Last Admin: 04/22/17 14:31 Dose: 0.5 mg Montelukast Sodium (Singulair) 10 mg PO HS [facility] Last Admin: 04/21/17 21:27 Dose: 10 mg Oxycodone HCl (Oxycodone Immediate Release Tab) 10 mg PO Q6 PRN PRN Reason: Pain, moderate (4-7) Last Admin: 04/22/17 14:31 Dose: 10 mg Pantoprazole Sodium (Protonix Ec Tab) 40 mg PO DAILY [facility] Last Admin: 04/22/17 09:15 Dose: 40 mg Fluticasone/Salmeterol (Advair Diskus 100/50) 1 puff INH RQ12 [facility] Last Admin: 04/22/17 09:20 Dose: Not Given Spironolactone (Aldactone) 200 mg PO DAILY [facility] Last Admin: 04/22/17 09:19 Dose: Not Given Thiamine HCl (Vitamin B1 Tab) 100 mg PO DAILY [facility] Last Admin: 04/22/17 09:15 Dose: 100 mg - Labs Labs: 04/22/17 07:03 04/22/17 07:03 PT 13.7 SECONDS (9.7-12.2) H 04/20/17 07:00 INR 1.2 04/20/17 07:00 - Constitutional Appears: Chronically Ill - Head Exam Head Exam: NORMAL INSPECTION - Eye Exam Eye Exam: Normal appearance, PERRL, Scleral icterus Pupil Exam: NORMAL ACCOMODATION - Respiratory Exam Respiratory Exam: Decreased Breath Sounds, Clear to Ausculation Bilateral. absent: Rales, Rhonchi, Wheezes - Cardiovascular Exam Cardiovascular Exam: REGULAR RHYTHM, RRR, +S1, +S2. absent: Gallop, Rubs - GI/Abdominal Exam GI & Abdominal Exam: Soft, Normal Bowel Sounds. absent: Tenderness - Extremities Exam Extremities Exam: Normal Inspection. absent: Pedal Edema - Back Exam Back Exam: NORMAL INSPECTION - Psychiatric Exam Psychiatric exam: Normal Affect, Normal Mood - Skin Skin Exam: Normal Color Assessment and Plan (1) Ascites Assessment & Plan: Paracentsis with IR tomorrow. pain control with percocet. continue aldactone, lasix, lactulose Status: Acute (2) Thrombocytopenia Assessment & Plan: Will transfuse platlets tomorrow morning 1 hour before paracentisis. Status: Acute (3) Cirrhosis Status: Chronic (4) Alcohol abuse Assessment & Plan: thiamine and folic acid. Status: Chronic (5) Anxiety Assessment & Plan: Ativan and Haldol Status: Chronic (6) Asthma Assessment & Plan: Duonebs prn Status: Chronic (7) Prophylactic measure Assessment & Plan: continue protonix, hold VTE due to low platlet count SCDs Status: Acute
[2017-04-23 00:22] VITALS: O2SAT 99
[2017-04-23] MEDS: Albuterol-Ipratrop 3 mg / 0.5 (3 ml) UD INH SCH ×3 (01:08→14:04)
--- NOTE | 2017-04-23 07:33 | CP.PCM.PN ---
<Jc Joy - Last Filed: 04/23/17 07:31> Subjective - Date & Time of Evaluation Date of Evaluation: 04/23/17 Time of Evaluation: 07:31 - Subjective Subjective: PGY4 GI Fellow Progress Note Patient seen and examined bedside this morning. The patient admits to a large yesterday evening following use of lactulose. Still with abdominal distention , discomfort. No new complaints. 12 system ROS performed and negative except where stated. Objective - Vital Signs/Intake and Output Vital Signs (last 24 hours): Temp Pulse Resp BP Pulse Ox 98.8 F 69 16 110/70 99 04/23/17 00:20 04/23/17 00:20 04/23/17 00:20 04/23/17 00:20 04/23/17 00:20 Intake and Output: 04/23/17 04/23/17 06:59 18:59 Intake Total 200 Balance 200 - Medications Medications: Current Medications Albuterol/Ipratropium (Duoneb 3 Mg/0.5 Mg (3 Ml) Ud) 3 ml INH RQ6 [facility] Last Admin: 04/23/17 01:08 Dose: Not Given Benztropine Mesylate (Cogentin) 1 mg PO BID [facility] Last Admin: 04/22/17 18:17 Dose: 1 mg Furosemide (Lasix) 80 mg PO DAILY [facility] Last Admin: 04/22/17 09:13 Dose: Not Given Gabapentin (Neurontin) 100 mg PO TID [facility] Last Admin: 04/22/17 18:16 Dose: 100 mg Haloperidol (Haldol) 5 mg PO BID [facility] Last Admin: 04/22/17 18:16 Dose: 5 mg Lactulose (Enulose) 30 gm PO TID [facility] Last Admin: 04/22/17 18:17 Dose: 30 gm Lorazepam (Ativan) 0.5 mg PO Q6H PRN PRN Reason: Anxiety Last Admin: 04/22/17 21:30 Dose: 0.5 mg Montelukast Sodium (Singulair) 10 mg PO HS [facility] Last Admin: 04/22/17 21:31 Dose: 10 mg Oxycodone HCl (Oxycodone Immediate Release Tab) 10 mg PO Q6 PRN PRN Reason: Pain, moderate (4-7) Last Admin: 04/22/17 21:31 Dose: 10 mg Pantoprazole Sodium (Protonix Ec Tab) 40 mg PO DAILY [facility] Last Admin: 04/22/17 09:15 Dose: 40 mg Fluticasone/Salmeterol (Advair Diskus 100/50) 1 puff INH RQ12 [facility] Last Admin: 04/22/17 20:01 Dose: Not Given Spironolactone (Aldactone) 200 mg PO DAILY [facility] Last Admin: 04/22/17 09:19 Dose: Not Given Thiamine HCl (Vitamin B1 Tab) 100 mg PO DAILY [facility] Last Admin: 04/22/17 09:15 Dose: 100 mg - Labs Labs: 04/22/17 07:03 04/22/17 07:03 PT 13.7 SECONDS (9.7-12.2) H 04/20/17 07:00 INR 1.2 04/20/17 07:00 - Constitutional Appears: No Acute Distress, Chronically Ill - Eye Exam Eye Exam: EOMI, PERRL - ENT Exam ENT Exam: Mucous Membranes Dry - Respiratory Exam Respiratory Exam: Decreased Breath Sounds, Rales. absent: Clear to Ausculation Bilateral, Rhonchi, Wheezes - Cardiovascular Exam Cardiovascular Exam: RRR, +S1, +S2 - GI/Abdominal Exam GI & Abdominal Exam: Distended, Firm, Tenderness, Normal Bowel Sounds. absent: Guarding, Rigid, Soft, Organomegaly - Extremities Exam Extremities Exam: Normal Inspection. absent: Pedal Edema - Neurological Exam Neurological Exam: Alert, Awake, Oriented x3 - Psychiatric Exam Psychiatric exam: Anxious, Depressed - Skin Skin Exam: Dry, Warm Assessment and Plan - Assessment and Plan (Free Text) Assessment: Patient is a 61yo female with PMHx significant for COPD, HTN, anxiety who presented to the ED for complaint of abdominal pain and distention -Recurrent abdominal ascites 2/2 decompensated cirrhosis from prior EtOH abuse -Alcohol abuse in remission, sober since 06/2016 -Pancytopenia -Severe anxiety -COPD -HTN Plan: -Patient to have platelet transfusion today followed by diagnostic/therapeutic paracentesis -Please send peritoneal fluid for analysis as ordered -If more than 5L removed, will need to give 6g/L removed albumin replacement -Patient has never had an episode of SBP previously -Continue diuretic therapy as ordered: Lasix 80mg/Aldactone 200mg PO QD - not administered yesterday given hypotension -Would benefit from outpatient EGD and scheduled paracentesis to avoid hospitalizations -Patient to follow up with new PCP on 04/27/17; 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[place], Dr Mcdaniels -Patient has attempted follow up with [facility] for liver transplant evaluation *MELD-Na: 9 <Rommel Alcaraz - Last Filed: 04/23/17 11:19> Objective - Vital Signs/Intake and Output Vital Signs (last 24 hours): Temp Pulse Resp BP Pulse Ox 98.3 F 95 H 20 113/68 99 04/23/17 08:20 04/23/17 08:20 04/23/17 08:20 04/23/17 09:12 04/23/17 08:20 Intake and Output: 04/23/17 04/23/17 06:59 18:59 Intake Total 200 Balance 200 - Medications Medications: Current Medications Albuterol/Ipratropium (Duoneb 3 Mg/0.5 Mg (3 Ml) Ud) 3 ml INH RQ6 [facility] Last Admin: 04/23/17 07:57 Dose: Not Given Benztropine Mesylate (Cogentin) 1 mg PO BID [facility] Last Admin: 04/23/17 09:11 Dose: 1 mg Furosemide (Lasix) 80 mg PO DAILY [facility] Last Admin: 04/23/17 09:12 Dose: 80 mg Gabapentin (Neurontin) 100 mg PO TID [facility] Last Admin: 04/23/17 09:13 Dose: 100 mg Haloperidol (Haldol) 5 mg PO BID [facility] Last Admin: 04/23/17 09:12 Dose: 5 mg Lactulose (Enulose) 30 gm PO TID [facility] Last Admin: 04/23/17 09:11 Dose: 30 gm Lorazepam (Ativan) 0.5 mg PO Q6H PRN PRN Reason: Anxiety Last Admin: 04/23/17 08:06 Dose: 0.5 mg Montelukast Sodium (Singulair) 10 mg PO HS [facility] Last Admin: 04/22/17 21:31 Dose: 10 mg Oxycodone HCl (Oxycodone Immediate Release Tab) 10 mg PO Q6 PRN PRN Reason: Pain, moderate (4-7) Last Admin: 04/23/17 08:06 Dose: 10 mg Pantoprazole Sodium (Protonix Ec Tab) 40 mg PO DAILY [facility] Last Admin: 04/23/17 09:13 Dose: 40 mg Fluticasone/Salmeterol (Advair Diskus 100/50) 1 puff INH RQ12 [facility] Last Admin: 04/23/17 07:57 Dose: Not Given Spironolactone (Aldactone) 200 mg PO DAILY [facility] Last Admin: 04/23/17 09:11 Dose: 200 mg Thiamine HCl (Vitamin B1 Tab) 100 mg PO DAILY [facility] Last Admin: 04/23/17 09:13 Dose: 100 mg - Labs Labs: 04/23/17 10:48 04/22/17 07:03 PT 13.7 SECONDS (9.7-12.2) H 04/20/17 07:00 INR 1.2 04/20/17 07:00 Attending/Attestation - Attestation I have personally seen and examined this patient.: Yes I have fully participated in the care of the patient.: Yes I have reviewed all pertinent clinical information, including history, physical exam and plan: Yes Notes (Text): Patient seen and examined with GI fellow. Agree with his note as documented above with the following additions/exceptions. This is a 61 yo female with PMHx significant for COPD, HTN, anxiety, ETOH cirrhosis complicated by recurrent ascites who presents for abdominal distension secondary to ascites. She is planned for diagnostic/large volume paracentesis today with IR after platelet transfusion. Send for cell count/culture. Continue lactulose, titrate to 2-3 BM/day. Monitor LFTs. Needs outpatient EGD. Recommend scheduled outpatient paracenteses with IR to avoid repeat hospitalizations and [facility] transplant evaluation. 04/23/17 11:18
[2017-04-23] MEDS: Fluticasone-Salmeterol 100-50mcg Diskus INH SCH (07:57)
[2017-04-23] MEDS: oxyCODONE 10 mg Immediate Release Tab PO PRN (08:06)
[2017-04-23 08:21] VITALS: RESP 20
--- NOTE | 2017-04-23 09:11 | CP.PCM.PN ---
Subjective - Date & Time of Evaluation Date of Evaluation: 04/23/17 Time of Evaluation: 10:00 - Subjective Subjective: Dr. Angel Marcano service: Patient seen in room with present. She is complaining of pain and abdominal distention. She curently denies fever, chills, nausea, vomiting, diarrhea, chest pain, palpitations, or shortness of breath. Patient went for her paracentesis later on that day. Afterwards she felt much better, less pain pain. Objective - Vital Signs/Intake and Output Vital Signs (last 24 hours): Temp Pulse Resp BP Pulse Ox 98.3 F 95 H 20 113/69 99 04/23/17 08:20 04/23/17 08:20 04/23/17 08:20 04/23/17 08:20 04/23/17 08:20 Intake and Output: 04/23/17 04/23/17 06:59 18:59 Intake Total 200 Balance 200 - Medications Medications: Current Medications Albuterol/Ipratropium (Duoneb 3 Mg/0.5 Mg (3 Ml) Ud) 3 ml INH RQ6 [facility] Last Admin: 04/23/17 07:57 Dose: Not Given Benztropine Mesylate (Cogentin) 1 mg PO BID [facility] Last Admin: 04/22/17 18:17 Dose: 1 mg Furosemide (Lasix) 80 mg PO DAILY [facility] Last Admin: 04/22/17 09:13 Dose: Not Given Gabapentin (Neurontin) 100 mg PO TID [facility] Last Admin: 04/22/17 18:16 Dose: 100 mg Haloperidol (Haldol) 5 mg PO BID [facility] Last Admin: 04/22/17 18:16 Dose: 5 mg Lactulose (Enulose) 30 gm PO TID [facility] Last Admin: 04/22/17 18:17 Dose: 30 gm Lorazepam (Ativan) 0.5 mg PO Q6H PRN PRN Reason: Anxiety Last Admin: 04/23/17 08:06 Dose: 0.5 mg Montelukast Sodium (Singulair) 10 mg PO HS [facility] Last Admin: 04/22/17 21:31 Dose: 10 mg Oxycodone HCl (Oxycodone Immediate Release Tab) 10 mg PO Q6 PRN PRN Reason: Pain, moderate (4-7) Last Admin: 04/23/17 08:06 Dose: 10 mg Pantoprazole Sodium (Protonix Ec Tab) 40 mg PO DAILY [facility] Last Admin: 04/22/17 09:15 Dose: 40 mg Fluticasone/Salmeterol (Advair Diskus 100/50) 1 puff INH RQ12 [facility] Last Admin: 04/23/17 07:57 Dose: Not Given Spironolactone (Aldactone) 200 mg PO DAILY [facility] Last Admin: 04/22/17 09:19 Dose: Not Given Thiamine HCl (Vitamin B1 Tab) 100 mg PO DAILY [facility] Last Admin: 04/22/17 09:15 Dose: 100 mg - Labs Labs: 04/22/17 07:03 04/22/17 07:03 PT 13.7 SECONDS (9.7-12.2) H 04/20/17 07:00 INR 1.2 04/20/17 07:00 - Constitutional Appears: Non-toxic, No Acute Distress - Head Exam Head Exam: NORMAL INSPECTION - Eye Exam Eye Exam: Normal appearance, Scleral icterus - Neck Exam Neck Exam: Normal Inspection - Respiratory Exam Respiratory Exam: Clear to Ausculation Bilateral. absent: Rales, Rhonchi, Wheezes - Cardiovascular Exam Cardiovascular Exam: REGULAR RHYTHM, RRR, +S1, +S2. absent: Gallop, Rubs - GI/Abdominal Exam GI & Abdominal Exam: Distended, Rigid - Extremities Exam Extremities Exam: Normal Inspection - Back Exam Back Exam: NORMAL INSPECTION - Psychiatric Exam Psychiatric exam: Normal Affect, Normal Mood - Skin Skin Exam: Dry Assessment and Plan (1) Ascites Assessment & Plan: Paracentsis, discharged patient home today. Status: Acute (2) Thrombocytopenia Status: Acute (3) Cirrhosis Status: Chronic (4) Alcohol abuse Status: Chronic (5) Anxiety Status: Chronic (6) Asthma Status: Chronic (7) Prophylactic measure Status: Acute
[2017-04-23] MEDS: Pantoprazole 40 mg EC Tab PO SCH (09:13)
[2017-04-23 11:14] LABS: MEAN CELL VOLUME 85.7 fL (81.0-99.0); MEAN CORPUSCULAR HEMOGLOBIN 27.6 pg (27.0-31.0); MEAN CORPUSCULAR HGB CONC 32.2 g/dL (33.0-37.0); RED CELL DISTRIBUTION WIDTH 16.6 % (11.5-14.5); WHITE BLOOD COUNT 4.8 K/uL (4.8-10.8)
--- NOTE | 2017-04-23 11:15 | CP.PCM.PN ---
Subjective - Date & Time of Evaluation Date of Evaluation: 04/23/17 Time of Evaluation: 09:00 - Subjective Subjective: clinically same Objective - Vital Signs/Intake and Output Vital Signs (last 24 hours): Temp Pulse Resp BP Pulse Ox 98.3 F 95 H 20 113/68 99 04/23/17 08:20 04/23/17 08:20 04/23/17 08:20 04/23/17 09:12 04/23/17 08:20 Intake and Output: 04/23/17 04/23/17 06:59 18:59 Intake Total 200 Balance 200 - Medications Medications: Current Medications Albuterol/Ipratropium (Duoneb 3 Mg/0.5 Mg (3 Ml) Ud) 3 ml INH RQ6 [facility] Last Admin: 04/23/17 07:57 Dose: Not Given Benztropine Mesylate (Cogentin) 1 mg PO BID [facility] Last Admin: 04/23/17 09:11 Dose: 1 mg Furosemide (Lasix) 80 mg PO DAILY [facility] Last Admin: 04/23/17 09:12 Dose: 80 mg Gabapentin (Neurontin) 100 mg PO TID [facility] Last Admin: 04/23/17 09:13 Dose: 100 mg Haloperidol (Haldol) 5 mg PO BID [facility] Last Admin: 04/23/17 09:12 Dose: 5 mg Lactulose (Enulose) 30 gm PO TID [facility] Last Admin: 04/23/17 09:11 Dose: 30 gm Lorazepam (Ativan) 0.5 mg PO Q6H PRN PRN Reason: Anxiety Last Admin: 04/23/17 08:06 Dose: 0.5 mg Montelukast Sodium (Singulair) 10 mg PO HS [facility] Last Admin: 04/22/17 21:31 Dose: 10 mg Oxycodone HCl (Oxycodone Immediate Release Tab) 10 mg PO Q6 PRN PRN Reason: Pain, moderate (4-7) Last Admin: 04/23/17 08:06 Dose: 10 mg Pantoprazole Sodium (Protonix Ec Tab) 40 mg PO DAILY [facility] Last Admin: 04/23/17 09:13 Dose: 40 mg Fluticasone/Salmeterol (Advair Diskus 100/50) 1 puff INH RQ12 [facility] Last Admin: 04/23/17 07:57 Dose: Not Given Spironolactone (Aldactone) 200 mg PO DAILY [facility] Last Admin: 04/23/17 09:11 Dose: 200 mg Thiamine HCl (Vitamin B1 Tab) 100 mg PO DAILY [facility] Last Admin: 04/23/17 09:13 Dose: 100 mg - Labs Labs: 04/22/17 07:03 04/22/17 07:03 PT 13.7 SECONDS (9.7-12.2) H 04/20/17 07:00 INR 1.2 04/20/17 07:00 - Constitutional Appears: Well - Head Exam Head Exam: ATRAUMATIC, NORMAL INSPECTION, NORMOCEPHALIC - Eye Exam Eye Exam: EOMI, Normal appearance, PERRL Pupil Exam: NORMAL ACCOMODATION, PERRL - ENT Exam ENT Exam: Mucous Membranes Moist, Normal Exam - Neck Exam Neck Exam: Full ROM, Normal Inspection. absent: Lymphadenopathy - Respiratory Exam Respiratory Exam: Decreased Breath Sounds - Cardiovascular Exam Cardiovascular Exam: REGULAR RHYTHM, +S1, +S2 - GI/Abdominal Exam GI & Abdominal Exam: Soft, Diminished Bowel Sounds - Rectal Exam Rectal Exam: Deferred
[2017-04-23 11:29] VITALS: PULSE 80
[2017-04-23 11:54] VITALS: BP 109/65; TEMP 98.1
[2017-04-23 12:02] LABS: INR 1.2
--- NOTE | 2017-04-23 14:13 | US ---
Date of Procedure: 04/23/2017 PROCEDURE: Ultrasound-guided paracentesis, CPT 57308 Medications: 8 cc 1% Lidocaine HISTORY: Ascites, abdominal pain, cirrhosis TECHNIQUE: Following informed consent , the patient was placed supine on the stretcher and the site was marked. A limited abdominal ultrasound was performed that showed a large amount of intra-abdominal fluid. Procedural time out was called and the Pt's abdomen was marked and prepped and draped in the usual sterile fashion. Ultrasound-guided large volume paracentesis performed. A total of 2.5 liters of straw colored fluid was removed without complication. IMPRESSION: Ultrasound-guided large volume paracentesis.
== END 2017-04-23 16:00 | disposition home or self-care (01) | DRG 202 ==
LOC: C.ER 16:43 → C.9E 17:22 → C.3T 18:16 → OBSVTOIN 04-21 12:05 → C.3T 04-22 18:09
PROVIDERS: ADMIT Internal Medicine Nephrology; ATTEND Internal Medicine Nephrology
PROC: 0W9G3ZZ Drainage of Peritoneal Cavity, Percutaneous Approach (ICD-10-PCS; principal; 2017-04-23)
PROC: 30233R1 Transfusion of Nonautologous Platelets into Peripheral Vein, Percutaneous Approach (ICD-10-PCS; 2017-04-23)
DX: K70.31 Alcoholic cirrhosis of liver with ascites (principal); D61.818 Other pancytopenia; K76.6 Portal hypertension; J44.9 Chronic obstructive pulmonary disease, unspecified; B19.20 Unspecified viral hepatitis C without hepatic coma; I10 Essential (primary) hypertension; F10.10 Alcohol abuse, uncomplicated; F41.9 Anxiety disorder, unspecified; Z80.0 Family history of malignant neoplasm of digestive organs; K59.00 Constipation, unspecified; Z91.11 Patient's noncompliance with dietary regimen; Z91.14 Patient's other noncompliance with medication regimen; Z91.19 Patient's noncompliance with other medical treatment and regimen

== ENCOUNTER 2017-05-05 22:08 | Inpatient (IN) | payer MEDICAID, OTHER ==
[2017-05-05 22:08] VITALS: BMI 24.7
--- NOTE | 2017-05-05 23:52 | C.PDOC ---
Time Seen by Provider: 05/05/17 23:52 Chief Complaint (Nursing): Lower Extremity Problem/Injury Past Medical History Vital Signs: Last Vital Signs Temp 98.1 F 05/05/17 22:36 Pulse 86 05/05/17 22:36 Resp 16 05/05/17 22:36 BP 120/71 05/05/17 22:36 Pulse Ox 100 05/05/17 22:36 - Medical History PMH: Anxiety, Asthma, Bronchitis, COPD, HTN Denies: Chronic Kidney Disease - [facility] Procedures DRAINAGE OF PERITONEAL CAVITY, PERCUTANEOUS APPROACH (04/21/17) INDIVIDUAL PSYCHOTHERAPY, COGNITIVE-BEHAVIORAL (11/28/16) INDIVIDUAL PSYCHOTHERAPY, SUPPORTIVE (11/28/16) RESECTION OF SMALL INTESTINE, OPEN APPROACH (02/08/17) SUPPLEMENT ABDOMINAL WALL WITH SYNTH SUB, OPEN APPROACH (02/08/17) SUPPLEMENT L INGUINAL REGION WITH SYNTH SUB, OPEN APPROACH (02/08/17) TRANSFUSE NONAUT PLATELETS IN PERIPH VEIN, PERC (04/21/17) Family History: States: Unknown Family Hx - Social History Hx Tobacco Use: No Hx Alcohol Use: No Hx Substance Use: Yes (marijuana) - Immunization History Hx Tetanus Toxoid Vaccination: No Hx Influenza Vaccination: No Hx Pneumococcal Vaccination: No ED Course And Treatment O2 Sat by Pulse Oximetry: 100 Disposition Counseled Patient/Family Regarding: Studies Performed, Diagnosis - Disposition Disposition Time: 23:52
[2017-05-06] MEDS ORDERED: Morphine 4 MG/ML VIAL IV ONE (00:02)
[2017-05-06] MEDS ORDERED: Morphine 4 MG/ML VIAL ONE (00:34)
[2017-05-06 00:42] LABS: BASO % 1.3 % (0.0-2.0); EOS # 0.1 K/uL (0.0-0.7); EOS % 2.1 % (0.0-4.0); HEMOGLOBIN 8.2 g/dL (11.0-16.0); LYMPH # 0.7 K/uL (1.0-4.3); LYMPH % 21.5 % (20.0-40.0); MEAN CELL VOLUME 84.5 fL (81.0-99.0); MEAN CORPUSCULAR HEMOGLOBIN 27.8 pg (27.0-31.0); MEAN CORPUSCULAR HGB CONC 32.8 g/dL (33.0-37.0); MEAN PLATELET VOLUME 9.3 fL (7.2-11.7); MONO # 0.5 K/uL (0.0-0.8); MONO % 13.6 % (0.0-10.0); NEUT # 2.1 K/uL (1.8-7.0); NEUT % 61.5 % (50.0-75.0); RBC 2.96 Mil/uL (3.80-5.20); RED CELL DISTRIBUTION WIDTH 16.7 % (11.5-14.5); WHITE BLOOD COUNT 3.5 K/uL (4.8-10.8)
--- NOTE | 2017-05-06 00:42 | C.PDOC ---
History Of Present Illness Pt with history of liver cirrhosis, ascitis, presents with abdominal distention and discomfort. Pt used to get monthly paracentisis, but she missed her last one as well as running out of her lasix. No chest pain, palpitations, fever, chills. Speaking complete sentences, requesting pain medication Time Seen by Provider: 05/05/17 23:52 Chief Complaint (Nursing): Lower Extremity Problem/Injury History Per: Patient History/Exam Limitations: no limitations Onset/Duration Of Symptoms: Days Current Symptoms Are (Timing): Still Present Context: Other Severity: Moderate Pain Scale Rating Of: 4 Location Of Pain/Discomfort: Diffuse Radiation Of Pain To:: None Quality Of Discomfort: Dull, Cramping Associated Symptoms: denies: Fever, Chills, Nausea Exacerbating Factors: None Alleviating Factors: None Recent travel outside of the [place]: No Additional History Per: Patient Abnormal Vaginal Bleeding: No Past Medical History Reviewed: Historical Data, Nursing Documentation, Vital Signs Vital Signs: Last Vital Signs Temp 98.1 F 05/05/17 22:36 Pulse 86 05/05/17 22:36 Resp 16 05/05/17 22:36 BP 120/71 05/05/17 22:36 Pulse Ox 100 05/06/17 01:59 - Medical History PMH: Anxiety, Asthma, Bronchitis, COPD, HTN Denies: Chronic Kidney Disease - [facility] Procedures DRAINAGE OF PERITONEAL CAVITY, PERCUTANEOUS APPROACH (04/21/17) INDIVIDUAL PSYCHOTHERAPY, COGNITIVE-BEHAVIORAL (11/28/16) INDIVIDUAL PSYCHOTHERAPY, SUPPORTIVE (11/28/16) RESECTION OF SMALL INTESTINE, OPEN APPROACH (02/08/17) SUPPLEMENT ABDOMINAL WALL WITH SYNTH SUB, OPEN APPROACH (02/08/17) SUPPLEMENT L INGUINAL REGION WITH SYNTH SUB, OPEN APPROACH (02/08/17) TRANSFUSE NONAUT PLATELETS IN PERIPH VEIN, PERC (04/21/17) Family History: States: No Known Family Hx - Social History Hx Tobacco Use: No Hx Alcohol Use: No Hx Substance Use: Yes (marijuana) - Immunization History Hx Tetanus Toxoid Vaccination: No Hx Influenza Vaccination: No Hx Pneumococcal Vaccination: No Review Of Systems Constitutional: Negative for: Fever, Chills Eyes: Negative for: Redness ENT: Negative for: Throat Pain Cardiovascular: Negative for: Chest Pain, Palpitations Respiratory: Positive for: Shortness of Breath Gastrointestinal: Positive for: Abdominal Pain. Negative for: Nausea, Vomiting Genitourinary: Negative for: Dysuria Musculoskeletal: Negative for: Back Pain Skin: Negative for: Rash, Lesions Neurological: Negative for: Weakness Psych: Negative for: Anxiety Physical Exam - Physical Exam Appears: Non-toxic Skin: Warm, Dry Head: Normacephalic Eye(s): bilateral: Normal Inspection Oral Mucosa: Moist Neck: Trachea Midline, Supple Chest: Symmetrical Cardiovascular: Rhythm Regular Respiratory: No Rales, No Rhonchi, No Wheezing Gastrointestinal/Abdominal: Soft, Tenderness (mild), Distention, Ascites ( positive fluid wave), Other (well healed surgical scar) Back: No CVA Tenderness Extremity: Pedal Edema (trace), No Calf Tenderness Extremity: Bilateral: Atraumatic Pulses: Left Dorsalis Pedis: Normal, Right Dorsalis Pedis: Normal Neurological/Psych: Oriented x3, Normal Speech, Normal Cognition Gait: Steady ED Course And Treatment - Laboratory Results Result Diagrams: 05/06/17 00:38 05/06/17 00:38 O2 Sat by Pulse Oximetry: 100 Pulse Ox Interpretation: Normal - Radiology CXR: Interpreted by Me, Viewed By Me CXR Interpretation: Yes: Other (unchanged from 11/26). No: Infiltrates, Fracture , Pnemothorax Disposition Discussed With Dr.: Kayli Marcano Comment: accepted the pt [facility] is service and took over the care Counseled Patient/Family Regarding: Studies Performed, Diagnosis - Disposition Disposition: HOSPITALIZED Disposition Time: 00:38 Condition: FAIR - Clinical Impression Clinical Impression: Ascites, Increased ammonia level, Dyspnea, Thrombocytopenia Decision To Admit - Pt Status Changed To: Hospital Disposition Of: Inpatient - Admit Certification Admit to Inpatient:: After my assessment, the patient will require hospitalization for at least two midnights. This is because of the severity of symptoms shown, intensity of services needed, and/or the medical risk in this patient being treated as an outpatient. - InPatient: Physician Admission Certification:: After my assessment, the patient will require hospitalization for at least two midnights. This is because of the severity of symptoms shown, intensity of services needed, and/or the medical risk in this patient being treated as an outpatient. - . Bed Request Type: Regular Admitting Physician: Kayli Marcano Patient Diagnosis: Ascites, Increased ammonia level, Dyspnea, Thrombocytopenia
[2017-05-06 00:48] LABS: INR 1.3; PROTHROMBIN TIME 14.2 SECONDS (9.7-12.2)
[2017-05-06 01:06] LABS: ALBUMIN 3.1 g/dL (3.5-5.0)
[2017-05-06 01:09] LABS: ALB/GLOB RATIO 0.8 (1.0-2.1); ALT/SGPT 21 U/L (9-52); AST/SGOT 24 U/L (14-36); BLOOD UREA NITROGEN 33 mg/dL (7-17); GFR AFRICAN-AMERICAN > 60; GFR NON-AFRICAN AMERICAN 56
[2017-05-06 01:10] LABS: CALCIUM 7.4 mg/dl (8.6-10.4); LIPASE 412 U/L (23-300)
[2017-05-06 01:10] LABS: GRANULAR CAST 4 /lpf (0-1); SQUAMOUS EPITHIAL 16 /hpf (0-5); URINE BILIRUBIN NEGATIVE (NEGATIVE); URINE BLOOD NEGATIVE (NEGATIVE); URINE CLARITY Hazy (Clear); URINE COLOR Yellow (YELLOW); URINE GLUCOSE (UA) NORMAL (Normal); URINE LEUKOCYTE ESTERASE TRACE Leu/uL (Negative); URINE NITRATE NEGATIVE (NEGATIVE); URINE PROTEIN NEGATIVE (NEGATIVE)
[2017-05-06] MEDS ORDERED: HYDROmorphone 1 mg/ml ISec IVP STA (02:01)
[2017-05-06] MEDS ORDERED: HYDROmorphone 1 mg/ml ISec ONE (02:06)
[2017-05-06] MEDS ORDERED: Albuterol HFA 90 mcg/actuation (8 g) IH PRN (06:49)
[2017-05-06] MEDS: oxyCODONE 10 mg Immediate Release Tab PO PRN ×3 (08:16→21:57)
[2017-05-06] MEDS: Fluticasone-Salmeterol 100-50mcg Diskus IH SCH (08:31)
--- NOTE | 2017-05-06 08:32 | CP.PCM.CON ---
<Jc Joy - Last Filed: 05/06/17 09:52> History of Present Illness - History of Present Illness History of Present Illness: PGY4 GI Fellow Consult Note Patient is a 61yo female with PMHx significant for decompensated EtOH cirrhosis requiring frequent large volume paracentesis, medical nonadherence, COPD, HTN, anxiety who presented to the ED for complaint of abdominal pain and distention. The patient is well known to our service and was admitted just two weeks ago for similar complaints, undergoing a 2.5L paracentesis on 04/23/17. At that time she admitted to medical noncompliance, not taking Lactulose or diuretics at home as directed in order to "make her medications last longer" as she was changing PCPs. As of last visit, she was no longer planning to see her Icer Machine Operator, Dr Dimple Toure. Currently, she admits that she ran out of her diuretic medications following last admission and has been unable to visit her new PCP for refills. Has also not been using Lactulose at home, admits to 2-4BM/ week. Over the past 2 weeks she has noted worsening of her abdominal distention to where is has become tense in the last few days with increased SOB. PMHx: See HPI, cirrhosis 2/2 EtOH, HCV (cleared infection) PSHx: Left inguinal and umbilical hernia repair, small bowel resection FHx: Mother - DM; Father - MD, colon cancer in his 50s Social: Former EtOH use up until June 2016 with 4-5 glasses of wine daily for 5 years, +tobacco use, +recent marijuana use Endo: No prior endoscopy/colonoscopy Review of Systems - Constitutional Constitutional: Weakness. absent: Anorexia, Chills - EENT Eyes: absent: Change in Vision Nose/Mouth/Throat: absent: Sore Throat - Cardiovascular Cardiovascular: Dyspnea. absent: Chest Pain, Edema - Respiratory Respiratory: Dyspnea. absent: Cough, Excessive Mucous Production - Gastrointestinal Gastrointestinal: Abdominal Pain, Bloating. absent: Constipation, Cramping, Diarrhea, Dyspepsia, Dysphagia, Hematemesis, Hematochezia, Melena, Nausea, Vomiting - Genitourinary Genitourinary: absent: Dysuria, Urinary Frequency, Urinary Urgency - Musculoskeletal Musculoskeletal: absent: Back Pain, Neck Pain - Integumentary Integumentary: absent: New Lesions, Rash - Neurological Neurological: absent: Dizziness, Numbness, Focal Weakness - Psychiatric Psychiatric: Anxiety, Depression - Endocrine Endocrine: absent: Polydipsia, Polyphagia, Polyuria - Hematologic/Lymphatic Hematologic: absent: Easy Bleeding, Easy Bruising, Lymphadenopathy Past Patient History - Infectious Disease Hx of Infectious Diseases: None - Past Medical History & Family History Past Medical History?: Yes - Past Social History Smoking Status: Light Smoker < 10 Cigarettes Daily - CARDIAC Hx Hypertension: Yes - PULMONARY Hx Asthma: Yes Hx Bronchitis: Yes Hx Chronic Obstructive Pulmonary Disease (COPD): Yes - NEUROLOGICAL Hx Neurological Disorder: No - HEENT Hx HEENT Problems: No - RENAL Hx Chronic Kidney Disease: No - ENDOCRINE/METABOLIC Hx Endocrine Disorders: No - HEMATOLOGICAL/ONCOLOGICAL Hx Blood Disorders: Yes Hx Hepatitis B: Yes Hx Hepatitis C: Yes - INTEGUMENTARY Hx Dermatological Problems: No - MUSCULOSKELETAL/RHEUMATOLOGICAL Hx Musculoskeletal Disorders: Yes Hx Falls: Yes - GASTROINTESTINAL Hx Gastrointestinal Disorders: Yes Hx Liver Failure: Yes Other/Comment: Ascites,umbilical hernia - GENITOURINARY/GYNECOLOGICAL Hx Genitourinary Disorders: No - PSYCHIATRIC Hx Anxiety: Yes Hx Substance Use: Yes (marijuana) - SURGICAL HISTORY Hx Surgeries: No - ANESTHESIA Hx Anesthesia: Yes Hx Anesthesia Reactions: No Hx Malignant Hyperthermia: No Meds Allergies/Adverse Reactions: Allergies Allergy/AdvReac Type Severity Reaction Status Date / Time No Known Allergies Allergy Verified 04/19/17 16:50 - Medications Medications: Current Medications Albuterol (Ventolin Hfa 90 Mcg/Actuation (8 G)) 90 puff IH RTID PRN PRN Reason: Shortness of Breath Benztropine Mesylate (Cogentin) 1 mg PO BID [facility] Furosemide (Lasix) 80 mg PO DAILY [facility] Gabapentin (Neurontin) 100 mg PO TID [facility] Haloperidol (Haldol) 5 mg PO BID [facility] Lactulose (Enulose) 30 gm PO BID [facility] Lorazepam (Ativan) 0.5 mg PO Q6H [facility] Montelukast Sodium (Singulair) 10 mg PO HS [facility] Oxycodone HCl (Oxycodone Immediate Release Tab) 10 mg PO Q6H PRN PRN Reason: Pain, severe (8-10) Last Admin: 05/06/17 08:16 Dose: 10 mg Fluticasone/Salmeterol (Advair Diskus 100/50) 1 puff IH RQ12 [facility] Spironolactone (Aldactone) 200 mg PO DAILY [facility] Thiamine HCl (Vitamin B1 Tab) 100 mg PO DAILY [facility] Physical Exam - Constitutional Appears: No Acute Distress, Chronically Ill - Eye Exam Eye Exam: EOMI, PERRL - ENT Exam ENT Exam: Mucous Membranes Moist - Respiratory Exam Respiratory Exam: Clear to Auscultation Bilateral. absent: Rales, Rhonchi, Wheezes - Cardiovascular Exam Cardiovascular Exam: RRR, +S1, +S2 - GI/Abdominal Exam GI & Abdominal Exam: Distended, Firm, Normal Bowel Sounds, Tenderness. absent: Guarding, Rigid, Soft - Extremities Exam Extremities exam: Negative for: pedal edema Additional comments: multiple ecchymosis - Neurological Exam Neurological exam: Alert, Oriented x3 - Psychiatric Exam Psychiatric exam: Anxious, Depressed - Skin Skin Exam: Dry, Warm Results - Vital Signs Recent Vital Signs: Last Vital Signs Temp 97.6 F 05/06/17 08:02 Pulse 76 05/06/17 08:02 Resp 19 05/06/17 08:02 BP 113/68 05/06/17 08:02 Pulse Ox 99 05/06/17 08:02 - Labs Result Diagrams: 05/06/17 00:38 05/06/17 00:38 Assessment & Plan - Assessment and Plan (Free Text) Assessment: Patient is a 61yo female with PMHx significant for decompensated EtOH cirrhosis requiring frequent large volume paracentesis, medical nonadherence, COPD, HTN, anxiety who presented to the ED for complaint of abdominal pain and distention. -Decompensated EtOH cirrhosis with recurrent ascites -Medical nonadherence -COPD -HTN -Severe anxiety Plan: -Recommend IR guided paracentesis - they would like PLT count to be >50K; transfuse 1 unit platelets when available -If >5L removed during paracentesis; replace albumin at 6-8g/L removed -Restart diuretic therapy with Lasix 80mg PO QD, Aldactone 200mg PO QD -SAAG has consistently been >1.1, suggesting portal HTN -Monitor BMP -Lactulose 30g PO BID; titrate to 2-3 BM/day -Low salt diet -Patient needs outpatient follow up with PCP, [facility] hepatology -Outpatient EGD/Colonoscopy *MELD-Na: 12 - Date & Time Date: 05/06/17 Time: 08:41 <Keven Manjarrez - Last Filed: 05/07/17 17:57> Meds - Medications Medications: Current Medications Albuterol (Ventolin Hfa 90 Mcg/Actuation (8 G)) 1 puff IH RTID PRN PRN Reason: Shortness of Breath Last Admin: 05/07/17 08:14 Dose: 1 puff Benztropine Mesylate (Cogentin) 1 mg PO BID [facility] Last Admin: 05/07/17 17:33 Dose: 1 mg Furosemide (Lasix) 80 mg PO DAILY [facility] Last Admin: 05/07/17 10:28 Dose: 80 mg Gabapentin (Neurontin) 100 mg PO TID [facility] Last Admin: 05/07/17 17:33 Dose: 100 mg Haloperidol (Haldol) 5 mg PO BID [facility] Last Admin: 05/07/17 17:33 Dose: 5 mg Lactulose (Enulose) 30 gm PO DAILY [facility] Last Admin: 05/07/17 10:27 Dose: 30 gm Lorazepam (Ativan) 0.5 mg PO Q6H [facility] Last Admin: 05/07/17 17:32 Dose: 0.5 mg Montelukast Sodium (Singulair) 10 mg PO HS [facility] Last Admin: 05/06/17 21:58 Dose: 10 mg Oxycodone HCl (Oxycodone Immediate Release Tab) 10 mg PO Q6H PRN PRN Reason: Pain, severe (8-10) Last Admin: 05/07/17 11:54 Dose: 10 mg Fluticasone/Salmeterol (Advair Diskus 100/50) 1 puff IH RQ12 [facility] Last Admin: 05/07/17 08:13 Dose: Not Given Spironolactone (Aldactone) 200 mg PO DAILY [facility] Last Admin: 05/07/17 10:28 Dose: 200 mg Thiamine HCl (Vitamin B1 Tab) 100 mg PO DAILY [facility] Last Admin: 05/07/17 10:28 Dose: 100 mg Results - Vital Signs Recent Vital Signs: Last Vital Signs Temp 97.6 F 05/07/17 15:45 Pulse 77 05/07/17 15:45 Resp 20 05/07/17 15:45 BP 129/69 05/07/17 15:45 Pulse Ox 97 05/07/17 15:45 - Labs Result Diagrams: 05/07/17 06:07 05/07/17 06:07 Labs: Laboratory Results - last 24 hr 05/06/17 05/07/17 05/07/17 18:11 06:07 06:07 WBC 3.4 L RBC 2.73 L Hgb 7.6 L Hct 23.3 L MCV 85.3 MCH 27.7 MCHC 32.5 L RDW 16.3 H Plt Count 49 L MPV 8.6 Neut % (Auto) 62.2 Lymph % (Auto) 18.0 L [place] % (Auto) 16.8 H Eos % (Auto) 1.9 Baso % (Auto) 1.1 Neut # 2.1 Lymph # 0.6 L [place] # 0.6 Eos # 0.1 Baso # 0.0 Sodium 132 Potassium 4.2 Chloride 100 Carbon Dioxide 25 Anion Gap 12 BUN 28 H Creatinine 1.0 Est GFR ( Amer) > 60 Est GFR (Non-Af Amer) 56 Random Glucose 128 H Calcium 8.1 L Total Bilirubin 0.5 AST 24 ALT 18 Alkaline Phosphatase 55 Ammonia Total Protein 6.3 Albumin 2.9 L Globulin 3.4 Albumin/Globulin Ratio 0.9 L Blood Type O NEGATIVE Antibody Screen Negative 05/07/17 06:07 WBC RBC Hgb Hct MCV MCH MCHC RDW Plt Count MPV Neut % (Auto) Lymph % (Auto) [place] % (Auto) Eos % (Auto) Baso % (Auto) Neut # Lymph # [place] # Eos # Baso # Sodium Potassium Chloride Carbon Dioxide Anion Gap BUN Creatinine Est GFR ( Amer) Est GFR (Non-Af Amer) Random Glucose Calcium Total Bilirubin AST ALT Alkaline Phosphatase Ammonia 129 H D Total Protein Albumin Globulin Albumin/Globulin Ratio Blood Type Antibody Screen Attending/Attestation - Attestation I have personally seen and examined this patient.: Yes I have fully participated in the care of the patient.: Yes I have reviewed all pertinent clinical information: Yes Notes (Text): 05/07/17 17:53 61 year old female with h/o EtOH cirrhosis c/b ascites, COPD, HTN, anxiety who presented to the ED for complaint of abdominal pain and distention, with recurrent ascites. 1. Alcoholic cirrhosis 2. Ascites Plan: -patient with tense ascites, recommend LVP, replace albumin as detailed above, send fluid for cell count/diff to r/o SBP, send for TP/albumin and culture -restart diuretic therapy prior to discharge -recommend low sodium diet -continue lactulose -will sign off, please call with questions
[2017-05-06] MEDS ORDERED: Pantoprazole 40 mg EC Tab PO SCH (10:00)
[2017-05-06] MEDS: Albuterol HFA 90 mcg/actuation (8 g) IH PRN ×2 (10:28→13:27)
--- NOTE | 2017-05-06 11:33 | RAD ---
PROCEDURE: CHEST RADIOGRAPH, 1 VIEW HISTORY: Shortness of breath COMPARISON: None available. FINDINGS: LUNGS: Mild venous congestion. Bilateral hilar prominence. PLEURA: No pneumothorax or pleural fluid seen. CARDIOVASCULAR: Calcification at the aortic knob. OSSEOUS STRUCTURES: No significant abnormalities. VISUALIZED UPPER ABDOMEN: Normal. OTHER FINDINGS: None. IMPRESSION: Mild venous congestion. Bilateral hilar prominence.
--- NOTE | 2017-05-06 14:30 | CP.PCM.HP ---
Past Patient History - Infectious Disease Hx of Infectious Diseases: None - Past Medical History & Family History Past Medical History?: Yes - Past Social History Smoking Status: Light Smoker < 10 Cigarettes Daily - CARDIAC Hx Hypertension: Yes - PULMONARY Hx Asthma: Yes Hx Bronchitis: Yes Hx Chronic Obstructive Pulmonary Disease (COPD): Yes - NEUROLOGICAL Hx Neurological Disorder: No - HEENT Hx HEENT Problems: No - RENAL Hx Chronic Kidney Disease: No - ENDOCRINE/METABOLIC Hx Endocrine Disorders: No - HEMATOLOGICAL/ONCOLOGICAL Hx Blood Disorders: Yes Hx Hepatitis B: Yes Hx Hepatitis C: Yes - INTEGUMENTARY Hx Dermatological Problems: No - MUSCULOSKELETAL/RHEUMATOLOGICAL Hx Musculoskeletal Disorders: Yes Hx Falls: Yes - GASTROINTESTINAL Hx Gastrointestinal Disorders: Yes Hx Liver Failure: Yes Other/Comment: Ascites,umbilical hernia - GENITOURINARY/GYNECOLOGICAL Hx Genitourinary Disorders: No - PSYCHIATRIC Hx Anxiety: Yes Hx Substance Use: Yes (marijuana) - SURGICAL HISTORY Hx Surgeries: No - ANESTHESIA Hx Anesthesia: Yes Hx Anesthesia Reactions: No Hx Malignant Hyperthermia: No Meds Allergies/Adverse Reactions: Allergies Allergy/AdvReac Type Severity Reaction Status Date / Time No Known Allergies Allergy Verified 04/19/17 16:50 Physical Exam - Constitutional Appears: Well - Head Exam Head Exam: ATRAUMATIC, NORMAL INSPECTION, NORMOCEPHALIC - Eye Exam Eye Exam: EOMI, Normal appearance, PERRL Pupil Exam: NORMAL ACCOMODATION, PERRL - ENT Exam ENT Exam: Mucous Membranes Moist, Normal Exam - Neck Exam Neck exam: Positive for: Normal Inspection - Respiratory Exam Respiratory Exam: Decreased Breath Sounds - Cardiovascular Exam Cardiovascular Exam: REGULAR RHYTHM, +S1, +S2 - GI/Abdominal Exam GI & Abdominal Exam: Diminished Bowel Sounds, Soft - Rectal Exam Rectal Exam: Deferred Results - Vital Signs Recent Vital Signs: Last Vital Signs Temp 97.6 F 05/06/17 08:02 Pulse 76 05/06/17 08:02 Resp 19 05/06/17 08:02 BP 130/65 05/06/17 10:42 Pulse Ox 99 05/06/17 08:02 - Labs Result Diagrams: 05/06/17 00:38 05/06/17 00:38
--- NOTE | 2017-05-06 17:52 | CP.PCM.PN ---
Subjective - Date & Time of Evaluation Date of Evaluation: 05/06/17 Time of Evaluation: 17:48 - Subjective Subjective: 61 y/o female seen and examined today. Patient with PMHX Hep C, Ascites, Abdominal Pain, Patient seen by Dr Joy (GI), Platelets 43 today, Patient will require 1 unit Platelet transfusion prior Paracetesis, Platelet transfusion ordered as per GI, Blood transfusion consent obtained by me, witnessed by RN, Patient agree with POC and verbalize understanding. Objective - Vital Signs/Intake and Output Vital Signs (last 24 hours): Temp Pulse Resp BP Pulse Ox 98 F 88 20 122/68 97 05/06/17 15:24 05/06/17 15:24 05/06/17 15:24 05/06/17 15:24 05/06/17 15:24 Intake and Output: 05/06/17 05/06/17 06:59 18:59 Intake Total 620 Balance 620 - Medications Medications: Current Medications Albuterol (Ventolin Hfa 90 Mcg/Actuation (8 G)) 1 puff IH RTID PRN PRN Reason: Shortness of Breath Last Admin: 05/06/17 13:27 Dose: 1 puff Benztropine Mesylate (Cogentin) 1 mg PO BID [facility] Last Admin: 05/06/17 11:02 Dose: 1 mg Furosemide (Lasix) 80 mg PO DAILY [facility] Last Admin: 05/06/17 10:42 Dose: 80 mg Gabapentin (Neurontin) 100 mg PO TID [facility] Last Admin: 05/06/17 14:35 Dose: Not Given Haloperidol (Haldol) 5 mg PO BID [facility] Last Admin: 05/06/17 11:03 Dose: 5 mg Lactulose (Enulose) 30 gm PO BID [facility] Last Admin: 05/06/17 10:38 Dose: 30 gm Lorazepam (Ativan) 0.5 mg PO Q6H [facility] Last Admin: 05/06/17 17:05 Dose: 0.5 mg Montelukast Sodium (Singulair) 10 mg PO [facility] Oxycodone HCl (Oxycodone Immediate Release Tab) 10 mg PO Q6H PRN PRN Reason: Pain, severe (8-10) Last Admin: 05/06/17 15:00 Dose: 10 mg Fluticasone/Salmeterol (Advair Diskus 100/50) 1 puff IH RQ12 [facility] Last Admin: 05/06/17 08:31 Dose: Not Given Spironolactone (Aldactone) 200 mg PO DAILY [facility] Last Admin: 05/06/17 10:39 Dose: 200 mg Thiamine HCl (Vitamin B1 Tab) 100 mg PO DAILY [facility] Last Admin: 05/06/17 10:38 Dose: 100 mg - Labs Labs: PT 14.2 SECONDS (9.7-12.2) H 05/06/17 00:38 INR 1.3 05/06/17 00:38 APTT 32 SECONDS (21-34) 05/06/17 00:38
[2017-05-07] MEDS: oxyCODONE 10 mg Immediate Release Tab PO PRN ×2 (05:26→11:54)
[2017-05-07 06:13] LABS: BASO % 1.1 % (0.0-2.0); EOS # 0.1 K/uL (0.0-0.7); EOS % 1.9 % (0.0-4.0); HEMOGLOBIN 7.6 g/dL (11.0-16.0); LYMPH # 0.6 K/uL (1.0-4.3); MEAN CELL VOLUME 85.3 fL (81.0-99.0); MEAN CORPUSCULAR HEMOGLOBIN 27.7 pg (27.0-31.0); MEAN CORPUSCULAR HGB CONC 32.5 g/dL (33.0-37.0); MEAN PLATELET VOLUME 8.6 fL (7.2-11.7); MONO # 0.6 K/uL (0.0-0.8); MONO % 16.8 % (0.0-10.0); NEUT # 2.1 K/uL (1.8-7.0); NEUT % 62.2 % (50.0-75.0); NRBC % 0.1 % (0.0-2.0); RBC 2.73 Mil/uL (3.80-5.20); RED CELL DISTRIBUTION WIDTH 16.3 % (11.5-14.5); WHITE BLOOD COUNT 3.4 K/uL (4.8-10.8)
[2017-05-07 06:41] LABS: ALBUMIN 2.9 g/dL (3.5-5.0)
[2017-05-07 06:43] LABS: GFR AFRICAN-AMERICAN > 60; GFR NON-AFRICAN AMERICAN 56
[2017-05-07 06:44] LABS: ALT/SGPT 18 U/L (9-52); AST/SGOT 24 U/L (14-36); BLOOD UREA NITROGEN 28 mg/dL (7-17)
[2017-05-07 06:45] LABS: CALCIUM 8.1 mg/dl (8.6-10.4)
[2017-05-07 06:54] LABS: ALB/GLOB RATIO 0.9 (1.0-2.1)
[2017-05-07] MEDS: Fluticasone-Salmeterol 100-50mcg Diskus IH SCH ×2 (08:13→21:07)
[2017-05-07] MEDS: Albuterol HFA 90 mcg/actuation (8 g) IH PRN (08:14)
--- NOTE | 2017-05-07 08:41 | CP.PCM.PN ---
Subjective - Date & Time of Evaluation Date of Evaluation: 05/07/17 Time of Evaluation: 07:40 - Subjective Subjective: PGY4 GI Fellow Progress Note Patient seen and examined bedside this morning. She continues to complain of abdominal distention, discomfort. Had platelet transfusion overnight. Multiple bowel movements noted with BID lactulose therapy yesterday. 12 system ROS performed and negative except where stated. Objective - Vital Signs/Intake and Output Vital Signs (last 24 hours): Temp Pulse Resp BP Pulse Ox 98.1 F 92 H 20 112/71 96 05/07/17 07:50 05/07/17 07:50 05/07/17 07:50 05/07/17 07:50 05/07/17 07:50 Intake and Output: 05/07/17 05/07/17 06:59 18:59 Intake Total 368 Balance 368 - Medications Medications: Current Medications Albuterol (Ventolin Hfa 90 Mcg/Actuation (8 G)) 1 puff IH RTID PRN PRN Reason: Shortness of Breath Last Admin: 05/07/17 08:14 Dose: 1 puff Benztropine Mesylate (Cogentin) 1 mg PO BID [facility] Last Admin: 05/06/17 11:02 Dose: 1 mg Furosemide (Lasix) 80 mg PO DAILY [facility] Last Admin: 05/06/17 10:42 Dose: 80 mg Gabapentin (Neurontin) 100 mg PO TID [facility] Last Admin: 05/06/17 19:40 Dose: 100 mg Haloperidol (Haldol) 5 mg PO BID [facility] Last Admin: 05/06/17 17:59 Dose: 5 mg Lactulose (Enulose) 30 gm PO DAILY [facility] Lorazepam (Ativan) 0.5 mg PO Q6H [facility] Last Admin: 05/07/17 05:26 Dose: 0.5 mg Montelukast Sodium (Singulair) 10 mg PO HS [facility] Last Admin: 05/06/17 21:58 Dose: 10 mg Oxycodone HCl (Oxycodone Immediate Release Tab) 10 mg PO Q6H PRN PRN Reason: Pain, severe (8-10) Last Admin: 05/07/17 05:26 Dose: 10 mg Fluticasone/Salmeterol (Advair Diskus 100/50) 1 puff IH RQ12 [facility] Last Admin: 05/07/17 08:13 Dose: Not Given Spironolactone (Aldactone) 200 mg PO DAILY [facility] Last Admin: 05/06/17 10:39 Dose: 200 mg Thiamine HCl (Vitamin B1 Tab) 100 mg PO DAILY [facility] Last Admin: 05/06/17 10:38 Dose: 100 mg - Labs Labs: 05/07/17 06:07 05/07/17 06:07 PT 14.2 SECONDS (9.7-12.2) H 05/06/17 00:38 INR 1.3 05/06/17 00:38 APTT 32 SECONDS (21-34) 05/06/17 00:38 - Constitutional Appears: No Acute Distress, Chronically Ill - Eye Exam Eye Exam: EOMI, PERRL - ENT Exam ENT Exam: Mucous Membranes Moist - Respiratory Exam Respiratory Exam: Clear to Ausculation Bilateral. absent: Rales, Rhonchi, Wheezes - Cardiovascular Exam Cardiovascular Exam: RRR, +S1, +S2 - GI/Abdominal Exam GI & Abdominal Exam: Distended, Firm, Tenderness, Normal Bowel Sounds. absent: Guarding, Rigid, Soft, Organomegaly - Extremities Exam Extremities Exam: Normal Inspection. absent: Pedal Edema - Neurological Exam Neurological Exam: Alert, Awake, Oriented x3 - Psychiatric Exam Psychiatric exam: Anxious, Depressed - Skin Skin Exam: Dry, Warm Assessment and Plan - Assessment and Plan (Free Text) Assessment: Patient is a 61yo female with PMHx significant for decompensated EtOH cirrhosis requiring frequent large volume paracentesis, medical nonadherence, COPD, HTN, anxiety who presented to the ED for complaint of abdominal pain and distention. -Decompensated EtOH cirrhosis with recurrent ascites -Medical nonadherence -COPD -HTN -Severe anxiety Plan: -S/P platelet transfusion; awaiting IR guided paracentesis -Transfuse as needed for paracentesis -If >5L removed during paracentesis; replace albumin at 6-8g/L removed -Continue diuretic therapy with Lasix 80mg PO QD, Aldactone 200mg PO QD -Monitor BMP -Decrease Lactulose to 30g PO QD; titrate to 2-3 BM/day -Low salt diet -Patient needs outpatient follow up with PCP, [facility] hepatology -Outpatient EGD/Colonoscopy -No further recommendations at this time. Will sign off. Thank you for allowing us to participate in the care of your patient
--- NOTE | 2017-05-07 18:04 | CP.PCM.PN ---
Subjective - Date & Time of Evaluation Date of Evaluation: 05/07/17 Time of Evaluation: 09:40 - Subjective Subjective: clinically same Objective - Vital Signs/Intake and Output Vital Signs (last 24 hours): Temp Pulse Resp BP Pulse Ox 97.6 F 77 20 129/69 97 05/07/17 15:45 05/07/17 15:45 05/07/17 15:45 05/07/17 15:45 05/07/17 15:45 Intake and Output: 05/07/17 05/07/17 06:59 18:59 Intake Total 368 360 Balance 368 360 - Medications Medications: Current Medications Albuterol (Ventolin Hfa 90 Mcg/Actuation (8 G)) 1 puff IH RTID PRN PRN Reason: Shortness of Breath Last Admin: 05/07/17 08:14 Dose: 1 puff Benztropine Mesylate (Cogentin) 1 mg PO BID [facility] Last Admin: 05/07/17 17:33 Dose: 1 mg Furosemide (Lasix) 80 mg PO DAILY [facility] Last Admin: 05/07/17 10:28 Dose: 80 mg Gabapentin (Neurontin) 100 mg PO TID [facility] Last Admin: 05/07/17 17:33 Dose: 100 mg Haloperidol (Haldol) 5 mg PO BID [facility] Last Admin: 05/07/17 17:33 Dose: 5 mg Lactulose (Enulose) 30 gm PO DAILY [facility] Last Admin: 05/07/17 10:27 Dose: 30 gm Lorazepam (Ativan) 0.5 mg PO Q6H [facility] Last Admin: 05/07/17 17:32 Dose: 0.5 mg Montelukast Sodium (Singulair) 10 mg PO HS [facility] Last Admin: 05/06/17 21:58 Dose: 10 mg Oxycodone HCl (Oxycodone Immediate Release Tab) 10 mg PO Q6H PRN PRN Reason: Pain, severe (8-10) Last Admin: 05/07/17 11:54 Dose: 10 mg Fluticasone/Salmeterol (Advair Diskus 100/50) 1 puff IH RQ12 [facility] Last Admin: 05/07/17 08:13 Dose: Not Given Spironolactone (Aldactone) 200 mg PO DAILY [facility] Last Admin: 05/07/17 10:28 Dose: 200 mg Thiamine HCl (Vitamin B1 Tab) 100 mg PO DAILY [facility] Last Admin: 05/07/17 10:28 Dose: 100 mg - Labs Labs: 05/07/17 06:07 05/07/17 06:07 PT 14.2 SECONDS (9.7-12.2) H 05/06/17 00:38 INR 1.3 05/06/17 00:38 APTT 32 SECONDS (21-34) 05/06/17 00:38 - Constitutional Appears: Well - Head Exam Head Exam: ATRAUMATIC, NORMAL INSPECTION, NORMOCEPHALIC - Eye Exam Eye Exam: EOMI, Normal appearance, PERRL Pupil Exam: NORMAL ACCOMODATION, PERRL - ENT Exam ENT Exam: Mucous Membranes Moist, Normal Exam - Neck Exam Neck Exam: Full ROM, Normal Inspection. absent: Lymphadenopathy - Respiratory Exam Respiratory Exam: Decreased Breath Sounds - Cardiovascular Exam Cardiovascular Exam: REGULAR RHYTHM, +S1, +S2 - GI/Abdominal Exam GI & Abdominal Exam: Soft, Diminished Bowel Sounds - Rectal Exam Rectal Exam: Deferred
--- NOTE | 2017-05-07 22:28 | CP.PCM.CON ---
History of Present Illness - History of Present Illness History of Present Illness: 61 year old female with a history of alcoholic liver cirrhosis, COPD, admitted with tense ascites. The patient reports to recurrent paracentesis every 4-6 weeks. She was noted to be more thrombocytopenic from her baseline and her paracentesis has been postponed. She denies abnormal bleeding and bruising. She has no fevers and chills. Past medical history: Liver cirrhosis, COPD Past surgical history: Umbilical hernia Family history: Father had colon cancer Social history: Former alcohol abuse Allergies: NKA Review of systems: All remaining review of systems including HEENT, cardiovascular, respiratory, gastrointestinal, genitourinary, musculoskeletal, dermatologic, neurologic, and psychiatric are negative unless mentioned in the HPI. Past Patient History - Infectious Disease Hx of Infectious Diseases: None - Past Medical History & Family History Past Medical History?: Yes - Past Social History Smoking Status: Light Smoker < 10 Cigarettes Daily - CARDIAC Hx Hypertension: Yes - PULMONARY Hx Asthma: Yes Hx Bronchitis: Yes Hx Chronic Obstructive Pulmonary Disease (COPD): Yes - NEUROLOGICAL Hx Neurological Disorder: No - HEENT Hx HEENT Problems: No - RENAL Hx Chronic Kidney Disease: No - ENDOCRINE/METABOLIC Hx Endocrine Disorders: No - HEMATOLOGICAL/ONCOLOGICAL Hx Blood Disorders: Yes Hx Hepatitis B: Yes Hx Hepatitis C: Yes - INTEGUMENTARY Hx Dermatological Problems: No - MUSCULOSKELETAL/RHEUMATOLOGICAL Hx Musculoskeletal Disorders: Yes Hx Falls: Yes - GASTROINTESTINAL Hx Gastrointestinal Disorders: Yes Hx Liver Failure: Yes Other/Comment: Ascites,umbilical hernia - GENITOURINARY/GYNECOLOGICAL Hx Genitourinary Disorders: No - PSYCHIATRIC Hx Anxiety: Yes Hx Substance Use: Yes (marijuana) - SURGICAL HISTORY Hx Surgeries: No - ANESTHESIA Hx Anesthesia: Yes Hx Anesthesia Reactions: No Hx Malignant Hyperthermia: No Meds Allergies/Adverse Reactions: Allergies Allergy/AdvReac Type Severity Reaction Status Date / Time No Known Allergies Allergy Verified 04/19/17 16:50 - Medications Medications: Current Medications Albuterol (Ventolin Hfa 90 Mcg/Actuation (8 G)) 1 puff IH RTID PRN PRN Reason: Shortness of Breath Last Admin: 05/07/17 08:14 Dose: 1 puff Benztropine Mesylate (Cogentin) 1 mg PO BID [facility] Last Admin: 05/07/17 17:33 Dose: 1 mg Furosemide (Lasix) 80 mg PO DAILY [facility] Last Admin: 05/07/17 10:28 Dose: 80 mg Gabapentin (Neurontin) 100 mg PO TID [facility] Last Admin: 05/07/17 17:33 Dose: 100 mg Haloperidol (Haldol) 5 mg PO BID [facility] Last Admin: 05/07/17 17:33 Dose: 5 mg Lactulose (Enulose) 30 gm PO DAILY [facility] Last Admin: 05/07/17 10:27 Dose: 30 gm Lorazepam (Ativan) 0.5 mg PO Q6H [facility] Last Admin: 05/07/17 17:32 Dose: 0.5 mg Montelukast Sodium (Singulair) 10 mg PO HS [facility] Last Admin: 05/07/17 21:50 Dose: 10 mg Oxycodone HCl (Oxycodone Immediate Release Tab) 10 mg PO Q6H PRN PRN Reason: Pain, severe (8-10) Last Admin: 05/07/17 11:54 Dose: 10 mg Fluticasone/Salmeterol (Advair Diskus 100/50) 1 puff IH RQ12 [facility] Last Admin: 05/07/17 21:07 Dose: Not Given Spironolactone (Aldactone) 200 mg PO DAILY [facility] Last Admin: 05/07/17 10:28 Dose: 200 mg Thiamine HCl (Vitamin B1 Tab) 100 mg PO DAILY [facility] Last Admin: 05/07/17 10:28 Dose: 100 mg Physical Exam - Head Exam Head Exam: ATRAUMATIC - Eye Exam Eye Exam: Normal appearance - ENT Exam ENT Exam: Mucous Membranes Dry - Respiratory Exam Respiratory Exam: NORMAL BREATHING PATTERN - Cardiovascular Exam Cardiovascular Exam: +S1, +S2 - GI/Abdominal Exam GI & Abdominal Exam: Normal Bowel Sounds - Extremities Exam Extremities exam: Positive for: pedal edema - Psychiatric Exam Psychiatric exam: Normal Affect, Normal Mood - Skin Skin Exam: Warm Results - Vital Signs Recent Vital Signs: Last Vital Signs Temp 98 F 05/07/17 21:14 Pulse 91 H 05/07/17 21:14 Resp 16 05/07/17 21:14 BP 130/71 05/07/17 21:14 Pulse Ox 97 05/07/17 15:45 - Labs Result Diagrams: 05/07/17 06:07 05/07/17 06:07 Labs: Laboratory Results - last 24 hr 05/06/17 05/07/17 05/07/17 18:11 06:07 06:07 WBC 3.4 L RBC 2.73 L Hgb 7.6 L Hct 23.3 L MCV 85.3 MCH 27.7 MCHC 32.5 L RDW 16.3 H Plt Count 49 L MPV 8.6 Neut % (Auto) 62.2 Lymph % (Auto) 18.0 L [place] % (Auto) 16.8 H Eos % (Auto) 1.9 Baso % (Auto) 1.1 Neut # 2.1 Lymph # 0.6 L [place] # 0.6 Eos # 0.1 Baso # 0.0 Sodium 132 Potassium 4.2 Chloride 100 Carbon Dioxide 25 Anion Gap 12 BUN 28 H Creatinine 1.0 Est GFR ( Amer) > 60 Est GFR (Non-Af Amer) 56 Random Glucose 128 H Calcium 8.1 L Total Bilirubin 0.5 AST 24 ALT 18 Alkaline Phosphatase 55 Ammonia Total Protein 6.3 Albumin 2.9 L Globulin 3.4 Albumin/Globulin Ratio 0.9 L Blood Type O NEGATIVE Antibody Screen Negative 05/07/17 06:07 WBC RBC Hgb Hct MCV MCH MCHC RDW Plt Count MPV Neut % (Auto) Lymph % (Auto) [place] % (Auto) Eos % (Auto) Baso % (Auto) Neut # Lymph # [place] # Eos # Baso # Sodium Potassium Chloride Carbon Dioxide Anion Gap BUN Creatinine Est GFR ( Amer) Est GFR (Non-Af Amer) Random Glucose Calcium Total Bilirubin AST ALT Alkaline Phosphatase Ammonia 129 H D Total Protein Albumin Globulin Albumin/Globulin Ratio Blood Type Antibody Screen Assessment & Plan (1) Pancytopenia Assessment and Plan: liver disease, splenic sequestration will check iron, b12, folate stores transfuse 1U PRBC and 1 bag platelets prior to paracentesis Status: Acute (2) Coagulopathy Assessment and Plan: liver disease Thank you for this interesting consult. Status: Acute
[2017-05-08 08:27] LABS: BASO % 0.7 % (0.0-2.0); EOS % 0.3 % (0.0-4.0); HEMOGLOBIN 9.4 g/dL (11.0-16.0); LYMPH # 0.7 K/uL (1.0-4.3); LYMPH % 10.2 % (20.0-40.0); MEAN CELL VOLUME 84.7 fL (81.0-99.0); MEAN CORPUSCULAR HGB CONC 33.1 g/dL (33.0-37.0); MEAN PLATELET VOLUME 9.5 fL (7.2-11.7); MONO # 0.6 K/uL (0.0-0.8); MONO % 8.6 % (0.0-10.0); NEUT # 5.6 K/uL (1.8-7.0); NEUT % 80.2 % (50.0-75.0); RBC 3.34 Mil/uL (3.80-5.20); RED CELL DISTRIBUTION WIDTH 16.9 % (11.5-14.5)
[2017-05-08 08:31] LABS: WHITE BLOOD COUNT 6.9 K/uL (4.8-10.8)
[2017-05-08 08:35] LABS: ALBUMIN 3.6 g/dL (3.5-5.0)
[2017-05-08 08:38] LABS: ALB/GLOB RATIO 0.8 (1.0-2.1); ALT/SGPT 26 U/L (9-52); AST/SGOT 31 U/L (14-36); BLOOD UREA NITROGEN 28 mg/dL (7-17); GFR AFRICAN-AMERICAN > 60; GFR NON-AFRICAN AMERICAN 56
[2017-05-08 08:39] LABS: CALCIUM 9.3 mg/dl (8.6-10.4); MAGNESIUM 2.1 mg/dL (1.6-2.3)
[2017-05-08 08:41] LABS: BENZODIAZEPINES, UR NEGATIVE (NEGATIVE)
[2017-05-08 08:42] LABS: BARBITURATES, UR NEGATIVE (NEGATIVE)
[2017-05-08 08:45] LABS: OPIATES, UR NEGATIVE (NEGATIVE); PHENCYCLIDINE, UR NEGATIVE (NEGATIVE)
--- NOTE | 2017-05-08 08:49 | PCM.RRTMUL ---
<Endy Palomino Manny - Last Filed: 05/08/17 08:46> BAND TIER Nurses Assessment - Situation BAND TIER Responder Arrival Time:: 07:55 Location:: Patients Room Room Number:: 556B BAND TIER Reason for Call: Change in Mental Status BAND TIER Called By: RN - Respiratory Oxygen Delivery Method:: Nasal Cannula - Medication Medications Administered During BAND TIER :: Lactulose 30gm. Ativan 1mg - Diagnostic Test Ordered EKG:: Yes (nsr) Chest X-Ray:: Yes (to confirm ng tube placement) CT Scan:: Yes (head CT) - Stat Labs Ordered BAND TIER Stat Labs Ordered:: CBC, BMP, PT/PTT, BLOOD C&S X2 CPR started during BAND TIER?: No - Vital Signs Blood Pressure:: 150/74 Pulse Rate:: 120 Respiratory Rate:: 22 Temperature:: 98.4 F - Isaak Coma Scale Coma Scale Eye Opening:: Spontaneous Coma Scale Verbal:: Confused/able to answer - Time BAND TIER Ended Time BAND TIER Ended:: 08:20 - Recommendations 5) BAND TIER Level of Care Recommendations: Remain in current setting 6) Notifications: Attending Physician I.Reason for BAND TIER - A) Acute Change in Patient: (Select all that apply): Acute change in mental status Subjective: Patient was noticed to have AMS by nurse who called the BAND TIER. Nurse also noticed that patient had dilated pupils. BAND TIER began at 7:55am. Her vitals at the start of the BAND TIER were Temp 98.6, MD 120, BP 150/74, RR 22. An EKG was ordered stat. She was given 1mg of ativan IV and Lactulose 30gm. An NG tube was placed to administer the lactulose. The patient was fighting the NG tube placement. A chest xray was done to verify the placement of the NG tube. The following medications were held: cogentin, haldol, gabapentin, oxycodone. A urine drug screen, cmp, cbc, mag, phos, INR, urince cx, blood cx, prolactin were ordered stat. At the completion of the BAND TIER at 8:25am she was taken to radiology to get a head CT. Per Dr. Golden, it's possible her change in mental status was due to a combination of high ammonia levels and seizure. - A) Initial Vital Signs: Blood Pressure: 150/74 Pulse Rate: 120 Respiratory Rate: 22 Temperature: 98.4 F - B) Neurological Status (Select all that apply): Disoriented, Confused, Aggressive - C) Respiratory Oxygen Delivery Method: Nasal Cannula @L/min - Constitutional Appears: In Acute Distress, Combative, Agitated - Head Head Exam: NORMAL INSPECTION - Eyes Additional Comments: dilated - Respiratory Exam Respiratory Exam: NORMAL BREATHING PATTERN - Cardiovascular Exam Cardiovascular Exam: REGULAR RHYTHM - Neurological Exam Neurological Exam: Altered - Extremities Exam Additional comments: ecchymosis on forearms b/l due to thrombocytopenia Procedures Attestation:: I certify that I have explained the specified Operation(s) or Procedure(s), risks, benefits and reasonable alternatives to the Patient and/or other person responsible. The opportunity was given to ask questions and all questions answered - Feeding Tube Replacement Type of Tube: nasogastric Insertion Site Prior to Procedure: clean Verification of Placement: other <Yusuf Golden - Last Filed: 05/08/17 09:21> Attending/Attestation - Attestation I have personally seen and examined this patient.: Yes I have fully participated in the care of the patient.: Yes I have reviewed all pertinent clinical information, including history, physical exam and plan: Yes Notes (Text): 05/08/17 09:18 Came to the BAND TIER, patient was having AMS and also shaking and jerking movments. She was able to talk a few words however not following commands. Was not incontintent and did not have lost of bowel movments. Per review of notes and discussion with the staff patient has a high ammonia level secondary to history of hepatic enceholpathy. She is also an active drinker or alcohol as well. From what the RNs explain the patient has been refusing some PO medications as well - including lactulose. Ativan 1mg IV was given. Mac started, also NGT placed. Stat head CT was done. thank you Yusuf Golden
[2017-05-08 09:06] LABS: PROLACTIN 53.9 ng/mL (3.0-18.9)
--- NOTE | 2017-05-08 09:06 | CT ---
PROCEDURE: CT HEAD WITHOUT CONTRAST. HISTORY: Altered mental status COMPARISON: None available. TECHNIQUE: Axial computed tomography images were obtained through the head/brain without intravenous contrast. Radiation dose: Total exam DLP = one thousand one hundred one mGy-cm. This CT exam was performed using one or more of the following dose reduction techniques: Automated exposure control, adjustment of the mA and/or kV according to patient size, and/or use of iterative reconstruction technique. FINDINGS: HEMORRHAGE: No intracranial hemorrhage. Curvilinear bilateral symmetric hyperdensities seen within the posterior lateral ventricles, likely chronic calcifications. Calcifications of the choroid plexus and pineal glands. BRAIN: No mass effect or edema. Scattered focal lucencies in the subcortical and periventricular white matter suggestive for chronic microvascular ischemic change. Small focal hypodensity in the right basal ganglia seen on series 4, image 29 suggestive for a lacunar infarct versus prominent perivascular space. VENTRICLES: As above. CALVARIUM: Unremarkable. PARANASAL SINUSES: Unremarkable as visualized. No significant inflammatory changes. MASTOID AIR CELLS: Unremarkable as visualized. No inflammatory changes. OTHER FINDINGS: None. IMPRESSION: Scattered focal lucencies in the subcortical and periventricular white matter suggestive for chronic microvascular ischemic change. Small focal hypodensity in the right basal ganglia seen on series 4, image 29 suggestive for a lacunar infarct versus prominent perivascular space. Curvilinear bilateral symmetric hyperdensities seen within the posterior lateral ventricles, likely chronic calcifications. Calcifications of the choroid plexus and pineal glands. Further evaluation with MRI may be helpful if clinically indicated.
[2017-05-08] MEDS: Fluticasone-Salmeterol 100-50mcg Diskus IH SCH ×2 (09:13→20:29)
--- NOTE | 2017-05-08 10:45 | CP.PCM.PN ---
Subjective - Date & Time of Evaluation Date of Evaluation: 05/08/17 Time of Evaluation: 09:40 - Subjective Subjective: clinically same Objective - Vital Signs/Intake and Output Vital Signs (last 24 hours): Temp Pulse Resp BP Pulse Ox 98.4 F 120 H 22 150/74 96 05/08/17 09:03 05/08/17 09:03 05/08/17 09:03 05/08/17 09:03 05/08/17 07:54 Intake and Output: 05/08/17 05/08/17 06:59 18:59 Intake Total 100 Balance 100 - Medications Medications: Current Medications Albuterol (Ventolin Hfa 90 Mcg/Actuation (8 G)) 1 puff IH RTID PRN PRN Reason: Shortness of Breath Last Admin: 05/07/17 08:14 Dose: 1 puff Benztropine Mesylate (Cogentin) 1 mg PO BID [facility] Last Admin: 05/07/17 17:33 Dose: 1 mg Furosemide (Lasix) 80 mg PO DAILY [facility] Last Admin: 05/07/17 10:28 Dose: 80 mg Gabapentin (Neurontin) 100 mg PO TID [facility] Last Admin: 05/07/17 17:33 Dose: 100 mg Haloperidol (Haldol) 5 mg PO BID [facility] Last Admin: 05/07/17 17:33 Dose: 5 mg Lactulose (Enulose) 30 gm PO DAILY [facility] Last Admin: 05/07/17 10:27 Dose: 30 gm Lorazepam (Ativan) 0.5 mg PO Q6H [facility] Last Admin: 05/08/17 04:51 Dose: Not Given Montelukast Sodium (Singulair) 10 mg PO HS [facility] Last Admin: 05/07/17 21:50 Dose: 10 mg Oxycodone HCl (Oxycodone Immediate Release Tab) 10 mg PO Q6H PRN PRN Reason: Pain, severe (8-10) Last Admin: 05/07/17 11:54 Dose: 10 mg Fluticasone/Salmeterol (Advair Diskus 100/50) 1 puff IH RQ12 [facility] Last Admin: 05/08/17 09:13 Dose: Not Given Spironolactone (Aldactone) 200 mg PO DAILY [facility] Last Admin: 05/07/17 10:28 Dose: 200 mg Thiamine HCl (Vitamin B1 Tab) 100 mg PO DAILY [facility] Last Admin: 05/07/17 10:28 Dose: 100 mg - Labs Labs: 05/08/17 08:21 05/08/17 08:21 PT 14.2 SECONDS (9.7-12.2) H 05/06/17 00:38 INR 1.3 05/06/17 00:38 APTT 32 SECONDS (21-34) 05/06/17 00:38 - Constitutional Appears: Well - Head Exam Head Exam: ATRAUMATIC, NORMAL INSPECTION, NORMOCEPHALIC - Eye Exam Eye Exam: EOMI, Normal appearance, PERRL Pupil Exam: NORMAL ACCOMODATION, PERRL - ENT Exam ENT Exam: Mucous Membranes Moist, Normal Exam - Neck Exam Neck Exam: Full ROM, Normal Inspection. absent: Lymphadenopathy - Respiratory Exam Respiratory Exam: Decreased Breath Sounds - Cardiovascular Exam Cardiovascular Exam: REGULAR RHYTHM, +S1, +S2 - GI/Abdominal Exam GI & Abdominal Exam: Soft, Diminished Bowel Sounds - Rectal Exam Rectal Exam: Deferred
--- NOTE | 2017-05-08 10:48 | RAD ---
Chest x-ray single frontal view History: NG tube placement. Comparison: None available. Findings: NG tube extending into the stomach. Lung apices excluded from this study. Moderate venous congestion with right hilar prominence. Calcification at the aortic knob. Mild cardiomegaly. Degenerative changes in the spine and shoulders. Impression: NG tube extending into the stomach.
[2017-05-08 11:23] VITALS: RESP 20
--- NOTE | 2017-05-08 12:11 | CP.PCM.PN ---
<Jc Joy - Last Filed: 05/08/17 12:07> Subjective - Date & Time of Evaluation Date of Evaluation: 05/08/17 Time of Evaluation: 11:30 - Subjective Subjective: PGY4 GI Fellow Progress Note Patient seen and examined bedside this morning. The patient was very confused, combative this morning and APPLICATION INTEGRATION ARCHITECT was called. She has now been moved to a bed near the nursing station and has a monitoring system in her room. She is lethargic, mumbling and unable to converse or even stay awake for full evaluation. In the past 24H she has been refusing lactulose, which she has also done previously. NGT placed during APPLICATION INTEGRATION ARCHITECT and patient has protective mittens on given confusion/ agitation. 12 system ROS performed and negative except where stated. Objective - Vital Signs/Intake and Output Vital Signs (last 24 hours): Temp Pulse Resp BP Pulse Ox 98.8 F 90 20 130/64 95 05/08/17 11:22 05/08/17 11:22 05/08/17 11:22 05/08/17 11:41 05/08/17 11:22 Intake and Output: 05/08/17 05/08/17 06:59 18:59 Intake Total 100 Balance 100 - Medications Medications: Current Medications Albuterol (Ventolin Hfa 90 Mcg/Actuation (8 G)) 1 puff IH RTID PRN PRN Reason: Shortness of Breath Last Admin: 05/07/17 08:14 Dose: 1 puff Benztropine Mesylate (Cogentin) 1 mg PO BID [facility] Last Admin: 05/07/17 17:33 Dose: 1 mg Furosemide (Lasix) 80 mg PO DAILY [facility] Last Admin: 05/08/17 11:41 Dose: 80 mg Gabapentin (Neurontin) 100 mg PO TID [facility] Last Admin: 05/07/17 17:33 Dose: 100 mg Haloperidol (Haldol) 5 mg PO BID [facility] Last Admin: 05/07/17 17:33 Dose: 5 mg Lactulose (Enulose) 30 gm PO Q1 [facility] Stop: 05/08/17 22:01 Lorazepam (Ativan) 0.5 mg PO Q6H [facility] Last Admin: 05/08/17 04:51 Dose: Not Given Montelukast Sodium (Singulair) 10 mg PO HS [facility] Last Admin: 05/07/17 21:50 Dose: 10 mg Oxycodone HCl (Oxycodone Immediate Release Tab) 10 mg PO Q6H PRN PRN Reason: Pain, severe (8-10) Last Admin: 05/07/17 11:54 Dose: 10 mg Rifaximin (Xifaxan) 550 mg PO BID [facility] Fluticasone/Salmeterol (Advair Diskus 100/50) 1 puff IH RQ12 [facility] Last Admin: 05/08/17 09:13 Dose: Not Given Spironolactone (Aldactone) 200 mg PO DAILY [facility] Last Admin: 05/08/17 11:41 Dose: 200 mg Thiamine HCl (Vitamin B1 Tab) 100 mg PO DAILY [facility] Last Admin: 05/08/17 11:42 Dose: 100 mg - Labs Labs: 05/08/17 08:21 05/08/17 08:21 PT 14.2 SECONDS (9.7-12.2) H 05/06/17 00:38 INR 1.3 05/06/17 00:38 APTT 32 SECONDS (21-34) 05/06/17 00:38 - Constitutional Appears: Agitated, Confused, Chronically Ill - Eye Exam Eye Exam: PERRL - ENT Exam ENT Exam: Mucous Membranes Dry - Respiratory Exam Respiratory Exam: Clear to Ausculation Bilateral. absent: Rales, Rhonchi, Wheezes - Cardiovascular Exam Cardiovascular Exam: RRR, +S1, +S2 - GI/Abdominal Exam GI & Abdominal Exam: Distended, Firm, Normal Bowel Sounds. absent: Guarding, Rigid, Soft, Tenderness, Organomegaly - Extremities Exam Additional comments: right arm with ecchymosis; no LE edema - Neurological Exam Neurological Exam: Altered - Skin Skin Exam: Dry, Warm Assessment and Plan - Assessment and Plan (Free Text) Assessment: Patient is a 61yo female with PMHx significant for decompensated EtOH cirrhosis requiring frequent large volume paracentesis, medical nonadherence, COPD, HTN, anxiety who presented to the ED for complaint of abdominal pain and distention. -Acute hepatic encephalopathy -Decompensated EtOH cirrhosis with recurrent ascites -Medical nonadherence -COPD -HTN -Severe anxiety Plan: -S/P APPLICATION INTEGRATION ARCHITECT for agitation, confusion -Start Lactulose via NGT 30g PO Q1H until patient has 3-4 BM then revert to TID dosing -Add Xifaxin 550mg PO BID -Would discontinue any sedating agents; pt currently receiving Ativan, Haldol, Cogentin, Neurontin, Oxycodone - would D/C all -Recommend paracentesis, R/O SBP - cell count and culture requested -If >5L removed during paracentesis; replace albumin at 6-8g/L removed -Continue diuretic therapy with Lasix 80mg PO QD, Aldactone 200mg PO QD -Monitor BMP -Low salt diet -Patient needs outpatient follow up with PCP, [facility] hepatology -Outpatient EGD/Colonoscopy -Consider hospice/palliative care consultation <Alejo Jones - Last Filed: 05/08/17 15:34> Objective - Vital Signs/Intake and Output Vital Signs (last 24 hours): Temp Pulse Resp BP Pulse Ox 98.8 F 90 20 130/64 95 05/08/17 11:22 05/08/17 11:22 05/08/17 11:22 05/08/17 11:41 05/08/17 11:22 Intake and Output: 05/08/17 05/08/17 06:59 18:59 Intake Total 100 Output Total 1920 Balance 100 -1920 - Medications Medications: Current Medications Albuterol (Ventolin Hfa 90 Mcg/Actuation (8 G)) 1 puff IH RTID PRN PRN Reason: Shortness of Breath Last Admin: 05/07/17 08:14 Dose: 1 puff Benztropine Mesylate (Cogentin) 1 mg PO BID [facility] Last Admin: 05/07/17 17:33 Dose: 1 mg Furosemide (Lasix) 80 mg PO DAILY [facility] Last Admin: 05/08/17 11:41 Dose: 80 mg Haloperidol (Haldol) 5 mg PO BID [facility] Last Admin: 05/07/17 17:33 Dose: 5 mg Lactulose (Enulose) 30 gm PO Q1 [facility] Stop: 05/08/17 22:01 Last Admin: 05/08/17 15:07 Dose: 30 gm Lorazepam (Ativan) 0.5 mg PO Q6H [facility] Last Admin: 05/08/17 12:07 Dose: Not Given Montelukast Sodium (Singulair) 10 mg PO HS [facility] Last Admin: 05/07/17 21:50 Dose: 10 mg Rifaximin (Xifaxan) 550 mg PO BID [facility] Fluticasone/Salmeterol (Advair Diskus 100/50) 1 puff IH RQ12 [facility] Last Admin: 05/08/17 09:13 Dose: Not Given Spironolactone (Aldactone) 200 mg PO DAILY [facility] Last Admin: 05/08/17 11:41 Dose: 200 mg Thiamine HCl (Vitamin B1 Tab) 100 mg PO DAILY [facility] Last Admin: 05/08/17 11:42 Dose: 100 mg - Labs Labs: 05/08/17 08:21 05/08/17 08:21 PT 14.2 SECONDS (9.7-12.2) H 05/08/17 11:55 INR 1.3 05/08/17 11:55 APTT 32 SECONDS (21-34) 05/06/17 00:38 Attending/Attestation - Attestation I have personally seen and examined this patient.: Yes I have fully participated in the care of the patient.: Yes I have reviewed all pertinent clinical information, including history, physical exam and plan: Yes Notes (Text): 05/08/17 15:30 I have seen and examined patient with GI fellow. Acute events overnight with altered mental status noted. On examination today, she remains disoriented and not able to participate in meaningful conversation. There is no reported abdominal pain, nausea, vomiting, fever/chills. s/p large volume paracentesis today with 2.4 liters fluid removed. Review of vitals from today are normal. Decompensated ETOH/HCV cirrhosis Altered mental status - hepatic encephalopathy Ascites s/p paracentesis today - Follow up ascitic fluid analysis, r/o SBP - Patient has been refusing lactulose recently resulting in altered mentation, would administer lactulose via NGT and titrate so patient has minimum 3-4 bowel movements per day - Continue with Xifaxan - Continue with diuretic therapy, monitor electrolytes - NPO for time being - Would avoid all sedative medications which may worsen underlying mental status - Overall prognosis for patient is poor, she requires follow up at tertiary care liver transplant facility
[2017-05-08 12:12] LABS: INR 1.3; PROTHROMBIN TIME 14.2 SECONDS (9.7-12.2)
--- NOTE | 2017-05-08 13:53 | PCM.SURG1 ---
Surgeon's Initial Post Op Note - Surgeon's Notes Surgeon: Michael Saavedra md Earth Boring Machine Operator: None Type of Anesthesia: Local Pre-Operative Diagnosis: Ascites Operative Findings: US showed moderate ascites Post-Operative Diagnosis: Ascites Operation Performed: US guided paracentesis. Specimen/Specimens Removed: 2400 cc of clear yellow fluid Estimated Blood Loss: EBL {In ML}: 0 Blood Products Given: N/A Drains Used: No Drains Post-Op Condition: Fair Date of Surgery/Procedure: 05/08/17 Time of Surgery/Procedure: 13:50
--- NOTE | 2017-05-08 14:01 | US ---
Date of Procedure: 05/08/2017 PROCEDURE: Ultrasound-guided paracentesis, CPT 81620 Medications: 8 cc 1% Lidocaine HISTORY: Ascites, abdominal pain, cirrhosis TECHNIQUE: Following informed consent , the patient was placed supine on the stretcher and the site was marked. A limited abdominal ultrasound was performed that showed a moderate amount of intra-abdominal fluid. Procedural time out was called and the Pt's abdomen was marked and prepped and draped in the usual sterile fashion. Ultrasound-guided large volume paracentesis performed. A total of 2.4 liters of straw colored fluid was removed without complication. Fluid specimen was sent for culture, sensitivity, and chemistries. IMPRESSION: Ultrasound-guided paracentesis.
[2017-05-08 14:12] LABS: BODY FLUID TYPE PERITONEAL/ASCITES
[2017-05-08 15:02] LABS: BF GROSS APPEARANCE CLEAR (CLEAR); BODY FLUID TOTAL COUNT 100 (0-0)
[2017-05-08 15:03] LABS: BODY FLUID MONO/MACROPHAGE 6 % (0-0)
--- NOTE | 2017-05-08 19:20 | CP.PCM.PN ---
Subjective - Date & Time of Evaluation Date of Evaluation: 05/08/17 Time of Evaluation: 16:00 - Subjective Subjective: Agitated, confused Objective - Vital Signs/Intake and Output Vital Signs (last 24 hours): Temp Pulse Resp BP Pulse Ox 98.4 F 94 H 20 137/72 95 05/08/17 16:20 05/08/17 16:20 05/08/17 16:20 05/08/17 16:20 05/08/17 16:20 Intake and Output: 05/08/17 05/09/17 18:59 06:59 Output Total 1920 Balance -1920 - Medications Medications: Current Medications Albuterol (Ventolin Hfa 90 Mcg/Actuation (8 G)) 1 puff IH RTID PRN PRN Reason: Shortness of Breath Last Admin: 05/07/17 08:14 Dose: 1 puff Benztropine Mesylate (Cogentin) 1 mg PO BID [facility] Last Admin: 05/07/17 17:33 Dose: 1 mg Furosemide (Lasix) 80 mg PO DAILY [facility] Last Admin: 05/08/17 11:41 Dose: 80 mg Haloperidol (Haldol) 5 mg PO BID [facility] Last Admin: 05/07/17 17:33 Dose: 5 mg Lactulose (Enulose) 30 gm PO Q1 [facility] Stop: 05/08/17 22:01 Last Admin: 05/08/17 18:59 Dose: 30 gm Lorazepam (Ativan) 0.5 mg PO Q6H [facility] Last Admin: 05/08/17 18:53 Dose: Not Given Montelukast Sodium (Singulair) 10 mg PO HS [facility] Last Admin: 05/07/17 21:50 Dose: 10 mg Rifaximin (Xifaxan) 550 mg PO BID [facility] Last Admin: 05/08/17 19:00 Dose: 550 mg Fluticasone/Salmeterol (Advair Diskus 100/50) 1 puff IH RQ12 [facility] Last Admin: 05/08/17 09:13 Dose: Not Given Spironolactone (Aldactone) 200 mg PO DAILY [facility] Last Admin: 05/08/17 11:41 Dose: 200 mg Thiamine HCl (Vitamin B1 Tab) 100 mg PO DAILY [facility] Last Admin: 05/08/17 11:42 Dose: 100 mg - Labs Labs: 05/08/17 08:21 05/08/17 08:21 PT 14.2 SECONDS (9.7-12.2) H 05/08/17 11:55 INR 1.3 05/08/17 11:55 APTT 32 SECONDS (21-34) 05/06/17 00:38 - Head Exam Head Exam: ATRAUMATIC - Eye Exam Eye Exam: Normal appearance - ENT Exam ENT Exam: Mucous Membranes Dry - Respiratory Exam Respiratory Exam: NORMAL BREATHING PATTERN - Cardiovascular Exam Cardiovascular Exam: +S1, +S2 - GI/Abdominal Exam GI & Abdominal Exam: Normal Bowel Sounds - Extremities Exam Extremities Exam: Normal Inspection Assessment and Plan (1) Pancytopenia Assessment & Plan: liver disease, splenic sequestration s/p PRBC and plt transfusion Status: Acute (2) Coagulopathy Assessment & Plan: liver disease Status: Acute
[2017-05-08] MEDS ORDERED: DiphenhydrAMINE 12.5 mg/5 ml LIQ UD (5 ml) NG STA (20:41)
[2017-05-09] MEDS: Fluticasone-Salmeterol 100-50mcg Diskus IH SCH ×2 (07:46→20:40)
--- NOTE | 2017-05-09 09:40 | PCM.PSYCH ---
Initial Psychiatric Evaluation - Initial Psychiatric Evaluation Type of Admission: Voluntary Legal Status: Capacity Chief Complaint (in patient's own words): I had a nervous breakdown History of Present Illness and Precipitating Events: This is a 61 years old CF, who lives alone, came to the ED for complaint of abdominal pain and distention. Yesterday patient became very irritable, agitated and disorganized. So patient was consulted today because of agitated behavior. Patient has been admitted to medical floor multiple times for, worsening of ascites, abdominal distention, high ammonia level and delirium. Automotive Engineering Teacher is familiar with this patient. As per staff, patient was admitted for abdominal distention and pain, however yesterday patient became increasingly delirious, and became increasingly delusional and paranoid. She became combative and tried to get out of the bed and tried to pull out all the IV lines and NG tube. Eventually patient was put on one-to-one. Patient was seen and evaluated, chart reviewed and discussed with the staff today. Patient appeared more coherent and less disorganized than yesterday. Patient reports that she had a panic attack yesterday. Patient does not have any recollections of yesterday's events. She reports anxiety and irritability but denies any racing of thoughts and flight of ideas. She denies any auditory or visual hallucinations and denies any persecutory delusions. She denies any recent drinking or any substance abuse. Past medical history Chronic liver disease, ascites, HTN Current Medications: Active Medications Generic Name Dose Route Start Last Admin Trade Name Freq PRN Reason Stop Dose Admin Albuterol 1 puff 05/06/17 06:49 05/07/17 08:14 Ventolin Hfa 90 Mcg/Actuation (8 G) IH 1 puff RTID PRN Administration Shortness of Breath Benztropine Mesylate 1 mg 05/06/17 10:00 05/07/17 17:33 Cogentin PO 1 mg BID [facility] Administration Furosemide 80 mg 05/06/17 10:00 05/08/17 11:41 Lasix PO 80 mg DAILY [facility] Administration Haloperidol 5 mg 05/06/17 10:00 05/07/17 17:33 Haldol PO 5 mg BID [facility] Administration Lorazepam 0.5 mg 05/06/17 17:00 05/09/17 05:41 Ativan PO 0.5 mg Q6H [facility] Administration Montelukast Sodium 10 mg 05/06/17 22:00 05/08/17 22:14 Singulair PO 10 mg HS [facility] Administration Rifaximin 550 mg 05/08/17 18:00 05/08/17 19:00 Xifaxan PO 550 mg BID [facility] Administration Fluticasone/Salmeterol 1 puff 05/06/17 08:00 05/09/17 07:46 Advair Diskus 100/50 IH 1 puff RQ12 [facility] Administration Spironolactone 200 mg 05/06/17 10:00 05/08/17 11:41 Aldactone PO 200 mg DAILY [facility] Administration Thiamine HCl 100 mg 05/06/17 10:00 05/08/17 11:42 Vitamin B1 Tab PO 100 mg DAILY [facility] Administration Past Psychiatric History - Past Psychiatric History Previous Treatment History: None Pertinent Medical Hx (Current Medical&Sleep Prob, Allergies): Allergies Allergy/AdvReac Type Severity Reaction Status Date / Time No Known Allergies Allergy Verified 04/19/17 16:50 Fluticasone/Salmeterol 100/50 [Advair Diskus 100/50] 1 puff IH Q12 #1 puff 01/03 Montelukast Sodium [Singulair] 10 mg PO DAILY #30 tablet 01/03/17 Thiamine [Vitamin B1 Tab] 100 mg PO DAILY #30 tab 01/24/17 Albuterol HFA [Ventolin HFA 90 mcg/actuation (8 g)] 90 puff IH TID PRN #1 inhaler 03/06/17 Spironolactone [Aldactone] 1 mg PO BID #60 tab 03/06/17 Benztropine [Cogentin] 1 mg PO BID 14 Days 03/28/17 Gabapentin [Neurontin] 100 mg PO TID 14 Days 03/28/17 Haloperidol [Haldol] 5 mg PO BID 14 Days 03/28/17 LORazepam [Ativan] 0.5 mg PO Q6H #10 tab 03/28/17 Oxycodone HCl 10 mg PO Q6H PRN #10 tablet 03/28/17 Review of Systems - Review of Systems All systems: reviewed and no additional remarkable complaints except - Psychiatric Psychiatric: Anxiety, Irritability Mental Status Examination - Personal Presentation Personal Presentation: Looks older than stated age - Affect Affect: Constricted - Reliability in Providing Information Reliability in Providing Information: Fair - Speech Speech: Organized - Mood Mood: Depressed, Anxious - Formal Thought Process Formal Thought Process: No Impairment - Obsessions/Compulsions Obsessions: No Compulsions: No - Cognitive Functions Orientation: Person, Place, Situation, Time Sensorium: Alert Attention/Concentration: Attentive Abstract Thinking: Chandler Estimate of Intelligence: Below average Judgement: Imparied, as evidence by: Poor judgement, Imparied, as evidence by: Lack of insight into illness - Risk Risk: Diminished functioning - Strength & Assets Inventory Strength & Assets Inventory: Cooperative DSM 5 DX - DSM 5 DSM 5 Diagnosis: Delirium due to general medical condition Alcohol use disorder severe in remission Bipolar disorder mixed moderate - Recommended/Plan of Treatment Treatment Recommendations and Plan of Treatment: Delirium due to general medical condition CBT Psychoeducation Supportive therapy, group therapy, individual therapy Haldol 5 mg by mouth twice a day Haldol 5 mg by mouth every 6 hours when necessary Benadryl 25 mg by mouth every 6 hours when necessary Alcohol use disorder severe in remission CBT Psychoeducation Use WI for abstinence Bipolar disorder mixed moderate CBT Psychoeducation Supportive therapy, group therapy, individual therapy Haldol 5 mg by mouth every 6 hours when necessary Trazodone 50 mg by mouth daily at bedtime - Smoking Cessation Smoking Cessation Initiated: No
--- NOTE | 2017-05-09 09:48 | CP.PCM.PN ---
Subjective - Date & Time of Evaluation Date of Evaluation: 05/09/17 Time of Evaluation: 07:50 - Subjective Subjective: Medicine Progress Note- Dr. Vitor Marcano's service: Patient seen and examined at bedside this AM. Patient is awake and alert. She is oriented to place, self and time. Patient wants to go home. She denies pain of any sort. She feels very anxious and is asking for Ativan. She has mittens on and NGT in place. Objective - Vital Signs/Intake and Output Vital Signs (last 24 hours): Temp Pulse Resp BP Pulse Ox 98 F 94 H 20 143/78 100 05/09/17 08:00 05/09/17 08:00 05/09/17 08:00 05/09/17 08:00 05/09/17 08:00 Intake and Output: 05/09/17 05/09/17 06:59 18:59 Output Total 500 Balance -500 - Medications Medications: Current Medications Albuterol (Ventolin Hfa 90 Mcg/Actuation (8 G)) 1 puff IH RTID PRN PRN Reason: Shortness of Breath Last Admin: 05/07/17 08:14 Dose: 1 puff Benztropine Mesylate (Cogentin) 1 mg PO BID [facility] Last Admin: 05/07/17 17:33 Dose: 1 mg Furosemide (Lasix) 80 mg PO DAILY [facility] Last Admin: 05/08/17 11:41 Dose: 80 mg Haloperidol (Haldol) 5 mg PO BID [facility] Last Admin: 05/07/17 17:33 Dose: 5 mg Lorazepam (Ativan) 0.5 mg PO Q6H [facility] Last Admin: 05/09/17 05:41 Dose: 0.5 mg Montelukast Sodium (Singulair) 10 mg PO HS [facility] Last Admin: 05/08/17 22:14 Dose: 10 mg Rifaximin (Xifaxan) 550 mg PO BID [facility] Last Admin: 05/08/17 19:00 Dose: 550 mg Fluticasone/Salmeterol (Advair Diskus 100/50) 1 puff IH RQ12 [facility] Last Admin: 05/09/17 07:46 Dose: 1 puff Spironolactone (Aldactone) 200 mg PO DAILY [facility] Last Admin: 05/08/17 11:41 Dose: 200 mg Thiamine HCl (Vitamin B1 Tab) 100 mg PO DAILY [facility] Last Admin: 05/08/17 11:42 Dose: 100 mg - Labs Labs: 05/08/17 08:21 05/08/17 08:21 PT 14.2 SECONDS (9.7-12.2) H 05/08/17 11:55 INR 1.3 05/08/17 11:55 APTT 32 SECONDS (21-34) 05/06/17 00:38 - Constitutional Appears: No Acute Distress - Head Exam Head Exam: NORMAL INSPECTION, NORMOCEPHALIC - Eye Exam Eye Exam: EOMI, Normal appearance - ENT Exam ENT Exam: Mucous Membranes Dry Additional comments: Poor oral hygiene - Cardiovascular Exam Cardiovascular Exam: REGULAR RHYTHM, +S1, +S2 - GI/Abdominal Exam GI & Abdominal Exam: Soft. absent: Distended, Tenderness - Extremities Exam Extremities Exam: Normal Inspection. absent: Pedal Edema, Tenderness - Neurological Exam Neurological Exam: Alert, Awake, Oriented x3 - Psychiatric Exam Psychiatric exam: Anxious - Skin Skin Exam: Dry, Normal Color, Pallor Assessment and Plan (1) Hepatic encephalopathy Assessment & Plan: - NGT in place. 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 GI following- Dr. Jones- help appreciated. As per GI: -Patient on Lactulose via NGT 30g PO Q1H until patient has 3-4 BM then revert to TID dosing -Xifaxin 550mg PO BID -Continue diuretic therapy with Lasix 80mg PO QD, Aldactone 200mg PO QD Status: Acute (2) Ascites Assessment & Plan: - S/P paracentesis 05/09 with IR 2400 clear yellow fluid removed. Status: Acute (3) Pancytopenia Assessment & Plan: Heme/Onc consult placed- Dr. Mcdowell- help appreciated liver disease, splenic sequestration s/p PRBC and platelet transfusion Dr. Mcdowell following. Status: Acute (4) Coagulopathy Assessment & Plan: 2/[address] Mcdowell following. Status: Acute (5) Anxiety Assessment & Plan: Psych following- Dr. Curiel help appreciated. Status: Chronic (6) Alcohol abuse Assessment & Plan: Continue thiamine and folic acid. Psych following- Dr. Curiel help appreciated. Status: Acute (7) Asthma Status: Acute (8) Prophylactic measure Assessment & Plan: Pepcid daily hold VTE due to low platelet count SCDs All management as per Dr. Vitor Marcano. Status: Acute
--- NOTE | 2017-05-09 09:56 | CP.PCM.PN ---
<DianasonyaJc delacruz - Last Filed: 05/09/17 09:53> Subjective - Date & Time of Evaluation Date of Evaluation: 05/09/17 Time of Evaluation: 06:55 - Subjective Subjective: PGY4 GI Fellow Progress Note Patient seen and examined bedside this morning. The patient is more alert today but per nursing was very agitated overnight requiring Haldol administration. She currently is saying she wants her medications and to go home. She denies any complaints at this time other than feeling "claustrophobic". Denies any abdominal pain, nausea, vomiting. Multiple bowel movements with Lactulose administration. Discussed case with the patient's at length. He is aware of her current condition and that the only definitive cure for her disease is a liver transplant. I reminded him that she has been positive for marijuana and has been nonadherent both in and out of the hospital with medications which might preclude her getting a transplant. 12 system ROS performed and negative except where stated. Objective - Vital Signs/Intake and Output Vital Signs (last 24 hours): Temp Pulse Resp BP Pulse Ox 98 F 94 H 20 148/78 100 05/09/17 08:00 05/09/17 08:00 05/09/17 08:00 05/09/17 09:51 05/09/17 08:00 Intake and Output: 05/09/17 05/09/17 06:59 18:59 Output Total 500 Balance -500 - Medications Medications: Current Medications Albuterol (Ventolin Hfa 90 Mcg/Actuation (8 G)) 1 puff IH RTID PRN PRN Reason: Shortness of Breath Last Admin: 05/07/17 08:14 Dose: 1 puff Benztropine Mesylate (Cogentin) 1 mg PO BID [facility] Last Admin: 05/07/17 17:33 Dose: 1 mg Diphenhydramine HCl (Benadryl) 25 mg PO Q6 PRN PRN Reason: Agitation Furosemide (Lasix) 80 mg PO DAILY [facility] Last Admin: 05/09/17 09:51 Dose: 80 mg Haloperidol (Haldol) 5 mg PO BID [facility] Last Admin: 05/07/17 17:33 Dose: 5 mg Haloperidol (Haldol) 5 mg PO Q6 PRN PRN Reason: Agitation Lorazepam (Ativan) 0.5 mg PO Q6H [facility] Last Admin: 05/09/17 05:41 Dose: 0.5 mg Montelukast Sodium (Singulair) 10 mg PO HS [facility] Last Admin: 05/08/17 22:14 Dose: 10 mg Rifaximin (Xifaxan) 550 mg PO BID [facility] Last Admin: 05/09/17 09:47 Dose: 550 mg Fluticasone/Salmeterol (Advair Diskus 100/50) 1 puff IH RQ12 [facility] Last Admin: 05/09/17 07:46 Dose: 1 puff Spironolactone (Aldactone) 200 mg PO DAILY [facility] Last Admin: 05/09/17 09:47 Dose: 200 mg Thiamine HCl (Vitamin B1 Tab) 100 mg PO DAILY [facility] Last Admin: 05/09/17 09:47 Dose: 100 mg - Labs Labs: 05/08/17 08:21 05/08/17 08:21 PT 14.2 SECONDS (9.7-12.2) H 05/08/17 11:55 INR 1.3 05/08/17 11:55 APTT 32 SECONDS (21-34) 05/06/17 00:38 - Constitutional Appears: Agitated, Chronically Ill - Eye Exam Eye Exam: EOMI, PERRL - ENT Exam ENT Exam: Mucous Membranes Dry - Respiratory Exam Respiratory Exam: Clear to Ausculation Bilateral. absent: Rales, Rhonchi, Wheezes - Cardiovascular Exam Cardiovascular Exam: RRR, +S1, +S2 - GI/Abdominal Exam GI & Abdominal Exam: Soft, Normal Bowel Sounds. absent: Firm, Guarding, Rigid, Tenderness, Organomegaly - Extremities Exam Extremities Exam: absent: Pedal Edema Additional comments: RUE ecchymosis - Neurological Exam Neurological Exam: Alert, Awake, Oriented x3 - Psychiatric Exam Psychiatric exam: Agitated, Anxious - Skin Skin Exam: Dry, Warm Assessment and Plan - Assessment and Plan (Free Text) Assessment: Patient is a 61yo female with PMHx significant for decompensated EtOH cirrhosis requiring frequent large volume paracentesis, medical nonadherence, COPD, HTN, anxiety who presented to the ED for complaint of abdominal pain and distention. -Acute hepatic encephalopathy, improving -Decompensated EtOH cirrhosis with recurrent ascites, HE -Medical nonadherence -COPD -HTN -Severe anxiety Plan: -Agitation overnight requiring Haldol administration -Psychiatry has been consulted to assist with ongoing care; urge decreasing sedating medications or discontinuing altogether -Continue Lactulose at 30g PO BID; titrate to 3-4BM per day -Continue Xifaxin 550mg PO BID -S/P paracentesis with 2400cc off, no evidence of SBP -Diuretic therapy with Lasix 80mg PO QD, Aldactone 200mg PO QD -Pt would benefit from adequate oral hygiene/care; consider biotin solution -Monitor BMP -Low salt diet -Patient needs outpatient follow up with PCP, [facility] hepatology -Outpatient EGD/Colonoscopy -Consider hospice/palliative care consultation if patient so inclined <Keven Manjarrez - Last Filed: 05/09/17 10:10> Objective - Vital Signs/Intake and Output Vital Signs (last 24 hours): Temp Pulse Resp BP Pulse Ox 98 F 94 H 20 148/78 100 05/09/17 08:00 05/09/17 08:00 05/09/17 08:00 05/09/17 09:51 05/09/17 08:00 Intake and Output: 05/09/17 05/09/17 06:59 18:59 Output Total 500 Balance -500 - Medications Medications: Current Medications Albuterol (Ventolin Hfa 90 Mcg/Actuation (8 G)) 1 puff IH RTID PRN PRN Reason: Shortness of Breath Last Admin: 05/07/17 08:14 Dose: 1 puff Benztropine Mesylate (Cogentin) 1 mg PO BID [facility] Last Admin: 05/07/17 17:33 Dose: 1 mg Diphenhydramine HCl (Benadryl) 25 mg PO Q6 PRN PRN Reason: Agitation Famotidine (Pepcid) 20 mg PO DAILY [facility] Furosemide (Lasix) 80 mg PO DAILY [facility] Last Admin: 05/09/17 09:51 Dose: 80 mg Haloperidol (Haldol) 5 mg PO BID [facility] Last Admin: 05/07/17 17:33 Dose: 5 mg Haloperidol (Haldol) 5 mg PO Q6 PRN PRN Reason: Agitation Lorazepam (Ativan) 0.5 mg PO Q6H [facility] Last Admin: 05/09/17 10:04 Dose: 0.5 mg Montelukast Sodium (Singulair) 10 mg PO HS [facility] Last Admin: 05/08/17 22:14 Dose: 10 mg Rifaximin (Xifaxan) 550 mg PO BID [facility] Last Admin: 05/09/17 09:47 Dose: 550 mg Fluticasone/Salmeterol (Advair Diskus 100/50) 1 puff IH RQ12 [facility] Last Admin: 05/09/17 07:46 Dose: 1 puff Spironolactone (Aldactone) 200 mg PO DAILY [facility] Last Admin: 05/09/17 09:47 Dose: 200 mg Thiamine HCl (Vitamin B1 Tab) 100 mg PO DAILY [facility] Last Admin: 05/09/17 09:47 Dose: 100 mg - Labs Labs: 05/08/17 08:21 05/08/17 08:21 PT 14.2 SECONDS (9.7-12.2) H 05/08/17 11:55 INR 1.3 05/08/17 11:55 APTT 32 SECONDS (21-34) 05/06/17 00:38 Attending/Attestation - Attestation I have personally seen and examined this patient.: Yes I have fully participated in the care of the patient.: Yes I have reviewed all pertinent clinical information, including history, physical exam and plan: Yes Notes (Text): 05/09/17 10:08 61 year old female with h/o EtOH cirrhosis c/b ascites, COPD, HTN, anxiety who presented to the ED for complaint of abdominal pain and distention, with recurrent ascites. 1. Alcoholic cirrhosis 2. Ascites 3. Hepatic encephalopathy Plan: -s/p paracentesis, no SBP -continue lasix and aldactone -recommend low sodium diet -continue lactulose and rifaxamin 550 mg bid for HE -no evidence of hcc -no signs of bleeding -supportive care -patient intermittently agitated requiring sitter/restraints -she is oriented to place, not quite time, but encephalopathy is improving
--- NOTE | 2017-05-09 11:24 | CP.PCM.PN ---
Subjective - Date & Time of Evaluation Date of Evaluation: 05/09/17 Time of Evaluation: 09:40 - Subjective Subjective: clinically same Objective - Vital Signs/Intake and Output Vital Signs (last 24 hours): Temp Pulse Resp BP Pulse Ox 98 F 94 H 20 148/78 100 05/09/17 08:00 05/09/17 08:00 05/09/17 08:00 05/09/17 09:51 05/09/17 08:00 Intake and Output: 05/09/17 05/09/17 06:59 18:59 Output Total 500 Balance -500 - Medications Medications: Current Medications Albuterol (Ventolin Hfa 90 Mcg/Actuation (8 G)) 1 puff IH RTID PRN PRN Reason: Shortness of Breath Last Admin: 05/07/17 08:14 Dose: 1 puff Benztropine Mesylate (Cogentin) 1 mg PO BID [facility] Last Admin: 05/07/17 17:33 Dose: 1 mg Diphenhydramine HCl (Benadryl) 25 mg PO Q6 PRN PRN Reason: MODERATE Agitation Famotidine (Pepcid) 20 mg PO DAILY [facility] Furosemide (Lasix) 80 mg PO DAILY [facility] Last Admin: 05/09/17 09:51 Dose: 80 mg Haloperidol (Haldol) 5 mg PO BID [facility] Last Admin: 05/07/17 17:33 Dose: 5 mg Haloperidol (Haldol) 5 mg PO Q6 PRN PRN Reason: SEVERE Agitation Lorazepam (Ativan) 0.5 mg PO Q6H [facility] Last Admin: 05/09/17 10:04 Dose: 0.5 mg Montelukast Sodium (Singulair) 10 mg PO HS [facility] Last Admin: 05/08/17 22:14 Dose: 10 mg Rifaximin (Xifaxan) 550 mg PO BID [facility] Last Admin: 05/09/17 09:47 Dose: 550 mg Fluticasone/Salmeterol (Advair Diskus 100/50) 1 puff IH RQ12 [facility] Last Admin: 05/09/17 07:46 Dose: 1 puff Spironolactone (Aldactone) 200 mg PO DAILY [facility] Last Admin: 05/09/17 09:47 Dose: 200 mg Thiamine HCl (Vitamin B1 Tab) 100 mg PO DAILY [facility] Last Admin: 05/09/17 09:47 Dose: 100 mg - Labs Labs: 05/08/17 08:21 05/08/17 08:21 PT 14.2 SECONDS (9.7-12.2) H 05/08/17 11:55 INR 1.3 05/08/17 11:55 APTT 32 SECONDS (21-34) 05/06/17 00:38 - Constitutional Appears: Well - Head Exam Head Exam: ATRAUMATIC, NORMAL INSPECTION, NORMOCEPHALIC - Eye Exam Eye Exam: EOMI, Normal appearance, PERRL Pupil Exam: NORMAL ACCOMODATION, PERRL - ENT Exam ENT Exam: Mucous Membranes Moist, Normal Exam - Neck Exam Neck Exam: Full ROM, Normal Inspection. absent: Lymphadenopathy - Respiratory Exam Respiratory Exam: Decreased Breath Sounds - Cardiovascular Exam Cardiovascular Exam: REGULAR RHYTHM, +S1, +S2 - GI/Abdominal Exam GI & Abdominal Exam: Soft, Diminished Bowel Sounds - Rectal Exam Rectal Exam: Deferred
--- NOTE | 2017-05-09 20:36 | CP.PCM.PN ---
Subjective - Date & Time of Evaluation Date of Evaluation: 05/09/17 Time of Evaluation: 18:45 - Subjective Subjective: Mental status improved Objective - Vital Signs/Intake and Output Vital Signs (last 24 hours): Temp Pulse Resp BP Pulse Ox 98 F 94 H 20 148/78 100 05/09/17 08:00 05/09/17 08:00 05/09/17 08:00 05/09/17 09:51 05/09/17 08:00 Intake and Output: 05/09/17 05/10/17 18:59 06:59 Intake Total 240 Output Total 1400 Balance -1160 - Medications Medications: Current Medications Albuterol (Ventolin Hfa 90 Mcg/Actuation (8 G)) 1 puff IH RTID PRN PRN Reason: Shortness of Breath Last Admin: 05/07/17 08:14 Dose: 1 puff Benztropine Mesylate (Cogentin) 1 mg PO BID [facility] Last Admin: 05/07/17 17:33 Dose: 1 mg Diphenhydramine HCl (Benadryl) 25 mg PO Q6 PRN PRN Reason: MODERATE Agitation Famotidine (Pepcid) 20 mg PO DAILY [facility] Furosemide (Lasix) 80 mg PO DAILY [facility] Last Admin: 05/09/17 09:51 Dose: 80 mg Haloperidol (Haldol) 5 mg PO BID [facility] Last Admin: 05/07/17 17:33 Dose: 5 mg Haloperidol (Haldol) 5 mg PO Q6 PRN PRN Reason: SEVERE Agitation Lactulose (Enulose) 30 gm PO BID [facility] Last Admin: 05/09/17 17:17 Dose: 30 gm Lorazepam (Ativan) 0.5 mg PO Q6H [facility] Last Admin: 05/09/17 17:16 Dose: 0.5 mg Montelukast Sodium (Singulair) 10 mg PO HS [facility] Last Admin: 05/08/17 22:14 Dose: 10 mg Rifaximin (Xifaxan) 550 mg PO BID [facility] Last Admin: 05/09/17 17:16 Dose: 550 mg Fluticasone/Salmeterol (Advair Diskus 100/50) 1 puff IH RQ12 [facility] Last Admin: 05/09/17 07:46 Dose: 1 puff Spironolactone (Aldactone) 200 mg PO DAILY [facility] Last Admin: 05/09/17 09:47 Dose: 200 mg Thiamine HCl (Vitamin B1 Tab) 100 mg PO DAILY [facility] Last Admin: 05/09/17 09:47 Dose: 100 mg - Labs Labs: 05/08/17 08:21 05/08/17 08:21 PT 14.2 SECONDS (9.7-12.2) H 05/08/17 11:55 INR 1.3 05/08/17 11:55 APTT 32 SECONDS (21-34) 05/06/17 00:38 - Head Exam Head Exam: ATRAUMATIC - Eye Exam Eye Exam: Normal appearance - ENT Exam ENT Exam: Mucous Membranes Dry - Respiratory Exam Respiratory Exam: NORMAL BREATHING PATTERN - Cardiovascular Exam Cardiovascular Exam: +S1, +S2 - GI/Abdominal Exam GI & Abdominal Exam: Normal Bowel Sounds Assessment and Plan (1) Pancytopenia Assessment & Plan: liver disease, splenic sequestration s/p PRBC and plt transfusion for paracentesis Status: Acute (2) Coagulopathy Assessment & Plan: liver disease Status: Acute
--- NOTE | 2017-05-09 21:37 | CP.PCM.CON ---
History of Present Illness - History of Present Illness History of Present Illness: CHANGE IN MENTAL STATUS Hx ETOH ABUSE Review of Systems - Review of Systems Systems not reviewed;Unavailable: Altered Mental Status - Constitutional Constitutional: Anorexia - Gastrointestinal Gastrointestinal: Abdominal Pain Additional comments: ASCITIS Past Patient History - Infectious Disease Hx of Infectious Diseases: None - Past Medical History & Family History Past Medical History?: Yes - Past Social History Smoking Status: Light Smoker < 10 Cigarettes Daily - CARDIAC Hx Hypertension: Yes - PULMONARY Hx Asthma: Yes Hx Bronchitis: Yes Hx Chronic Obstructive Pulmonary Disease (COPD): Yes - NEUROLOGICAL Hx Neurological Disorder: No - HEENT Hx HEENT Problems: No - RENAL Hx Chronic Kidney Disease: No - ENDOCRINE/METABOLIC Hx Endocrine Disorders: No - HEMATOLOGICAL/ONCOLOGICAL Hx Blood Disorders: Yes Hx Hepatitis B: Yes Hx Hepatitis C: Yes - INTEGUMENTARY Hx Dermatological Problems: No - MUSCULOSKELETAL/RHEUMATOLOGICAL Hx Musculoskeletal Disorders: Yes Hx Falls: Yes - GASTROINTESTINAL Hx Gastrointestinal Disorders: Yes Hx Liver Failure: Yes Other/Comment: Ascites,umbilical hernia - GENITOURINARY/GYNECOLOGICAL Hx Genitourinary Disorders: No - PSYCHIATRIC Hx Anxiety: Yes Hx Substance Use: Yes (marijuana) - SURGICAL HISTORY Hx Surgeries: No - ANESTHESIA Hx Anesthesia: Yes Hx Anesthesia Reactions: No Hx Malignant Hyperthermia: No Meds Allergies/Adverse Reactions: Allergies Allergy/AdvReac Type Severity Reaction Status Date / Time No Known Allergies Allergy Verified 04/19/17 16:50 - Medications Medications: Current Medications Albuterol (Ventolin Hfa 90 Mcg/Actuation (8 G)) 1 puff IH RTID PRN PRN Reason: Shortness of Breath Last Admin: 05/07/17 08:14 Dose: 1 puff Benztropine Mesylate (Cogentin) 1 mg PO BID [facility] Last Admin: 05/07/17 17:33 Dose: 1 mg Diphenhydramine HCl (Benadryl) 25 mg PO Q6 PRN PRN Reason: MODERATE Agitation Famotidine (Pepcid) 20 mg PO DAILY [facility] Furosemide (Lasix) 80 mg PO DAILY [facility] Last Admin: 05/09/17 09:51 Dose: 80 mg Haloperidol (Haldol) 5 mg PO BID [facility] Last Admin: 05/07/17 17:33 Dose: 5 mg Haloperidol (Haldol) 5 mg PO Q6 PRN PRN Reason: SEVERE Agitation Lactulose (Enulose) 30 gm PO BID [facility] Last Admin: 05/09/17 17:17 Dose: 30 gm Lorazepam (Ativan) 0.5 mg PO Q6H [facility] Last Admin: 05/09/17 17:16 Dose: 0.5 mg Montelukast Sodium (Singulair) 10 mg PO HS [facility] Last Admin: 05/08/17 22:14 Dose: 10 mg Rifaximin (Xifaxan) 550 mg PO BID [facility] Last Admin: 05/09/17 17:16 Dose: 550 mg Fluticasone/Salmeterol (Advair Diskus 100/50) 1 puff IH RQ12 [facility] Last Admin: 05/09/17 20:40 Dose: 1 puff Spironolactone (Aldactone) 200 mg PO DAILY [facility] Last Admin: 05/09/17 09:47 Dose: 200 mg Thiamine HCl (Vitamin B1 Tab) 100 mg PO DAILY [facility] Last Admin: 05/09/17 09:47 Dose: 100 mg Physical Exam - Constitutional Appears: Older Than Stated Age - Head Exam Head Exam: ATRAUMATIC - Neck Exam Neck exam: Positive for: Normal Inspection - Cardiovascular Exam Cardiovascular Exam: Tachycardia - GI/Abdominal Exam GI & Abdominal Exam: Distended - Neurological Exam Neurological exam: Alert, CN II-XII Intact, Oriented x3 Additional comments: No retro or antigrade amnesia No confabulation speech inctact no depression or sucidal motor distal muscle atropy absent DTRs plantars are mute coordination is normal no asterixis tremor in hands sensory motor neuropathy Results - Vital Signs Recent Vital Signs: Last Vital Signs Temp 98 F 05/09/17 08:00 Pulse 94 H 05/09/17 08:00 Resp 20 05/09/17 08:00 BP 148/78 05/09/17 09:51 Pulse Ox 100 05/09/17 08:00 - Labs Result Diagrams: 05/08/17 08:21 05/08/17 08:21 Assessment & Plan (1) Toxic encephalopathy Status: Chronic - Assessment and Plan (Free Text) Plan: HYDRATION MVT WITH B1 SEIZURE PRECAUTION MRI BRAIN REVIEWED -NO ACUTE PATHOLOGY I WILL CHECK EEG CONTINUE PRESENT MANAGEMENT GI TO FOLLOW - Date & Time Date: 05/09/17 Time: 07:20
[2017-05-10 07:16] LABS: BASO % 0.9 % (0.0-2.0); EOS # 0.1 K/uL (0.0-0.7); EOS % 2.4 % (0.0-4.0); HEMOGLOBIN 8.7 g/dL (11.0-16.0); LYMPH # 0.7 K/uL (1.0-4.3); LYMPH % 13.2 % (20.0-40.0); MEAN CELL VOLUME 85.4 fL (81.0-99.0); MEAN CORPUSCULAR HEMOGLOBIN 27.6 pg (27.0-31.0); MEAN CORPUSCULAR HGB CONC 32.3 g/dL (33.0-37.0); MEAN PLATELET VOLUME 9.4 fL (7.2-11.7); MONO # 0.6 K/uL (0.0-0.8); MONO % 11.4 % (0.0-10.0); NEUT # 3.7 K/uL (1.8-7.0); NEUT % 72.1 % (50.0-75.0); NRBC % 0.1 % (0.0-2.0); RBC 3.16 Mil/uL (3.80-5.20); RED CELL DISTRIBUTION WIDTH 16.3 % (11.5-14.5); WHITE BLOOD COUNT 5.1 K/uL (4.8-10.8)
[2017-05-10 07:58] LABS: ALBUMIN 3.3 g/dL (3.5-5.0)
[2017-05-10 08:01] LABS: ALB/GLOB RATIO 0.8 (1.0-2.1); ALT/SGPT 23 U/L (9-52); AST/SGOT 31 U/L (14-36); BLOOD UREA NITROGEN 20 mg/dL (7-17); CALCIUM 8.7 mg/dl (8.6-10.4); GFR AFRICAN-AMERICAN > 60; GFR NON-AFRICAN AMERICAN > 60
[2017-05-10 08:02] LABS: MAGNESIUM 1.6 mg/dL (1.6-2.3)
--- NOTE | 2017-05-10 08:58 | CP.PCM.PN ---
<WileynubiaJc - Last Filed: 05/10/17 08:54> Subjective - Date & Time of Evaluation Date of Evaluation: 05/10/17 Time of Evaluation: 07:15 - Subjective Subjective: PGY4 GI Fellow Progress Note Patient seen and examined bedside this morning. The patient states that she is feeling better and wishes to go home. Admits to continued BM daily. Denies any abdominal pain, nausea, vomiting. Tolerating diet. 12 system ROS performed and negative except where stated. Objective - Vital Signs/Intake and Output Vital Signs (last 24 hours): Temp Pulse Resp BP Pulse Ox 98.6 F 96 H 20 136/69 96 05/09/17 23:28 05/09/17 23:28 05/09/17 23:28 05/09/17 23:28 05/09/17 23:28 Intake and Output: 05/10/17 05/10/17 06:59 18:59 Intake Total 300 Output Total 200 Balance 100 - Medications Medications: Current Medications Albuterol (Ventolin Hfa 90 Mcg/Actuation (8 G)) 1 puff IH RTID PRN PRN Reason: Shortness of Breath Last Admin: 05/07/17 08:14 Dose: 1 puff Benztropine Mesylate (Cogentin) 1 mg PO BID [facility] Last Admin: 05/07/17 17:33 Dose: 1 mg Diphenhydramine HCl (Benadryl) 25 mg PO Q6 PRN PRN Reason: MODERATE Agitation Famotidine (Pepcid) 20 mg PO DAILY [facility] Furosemide (Lasix) 80 mg PO DAILY [facility] Last Admin: 05/09/17 09:51 Dose: 80 mg Haloperidol (Haldol) 5 mg PO BID [facility] Last Admin: 05/07/17 17:33 Dose: 5 mg Haloperidol (Haldol) 5 mg PO Q6 PRN PRN Reason: SEVERE Agitation Lactulose (Enulose) 30 gm PO BID [facility] Last Admin: 05/09/17 17:17 Dose: 30 gm Lorazepam (Ativan) 0.5 mg PO Q6H [facility] Last Admin: 05/10/17 05:06 Dose: 0.5 mg Montelukast Sodium (Singulair) 10 mg PO HS [facility] Last Admin: 05/09/17 23:17 Dose: 10 mg Rifaximin (Xifaxan) 550 mg PO BID [facility] Last Admin: 05/09/17 17:16 Dose: 550 mg Fluticasone/Salmeterol (Advair Diskus 100/50) 1 puff IH RQ12 [facility] Last Admin: 05/09/17 20:40 Dose: 1 puff Spironolactone (Aldactone) 200 mg PO DAILY [facility] Last Admin: 05/09/17 09:47 Dose: 200 mg Thiamine HCl (Vitamin B1 Tab) 100 mg PO DAILY [facility] Last Admin: 05/09/17 09:47 Dose: 100 mg - Labs Labs: 05/10/17 07:01 05/10/17 07:01 PT 14.2 SECONDS (9.7-12.2) H 05/08/17 11:55 INR 1.3 05/08/17 11:55 APTT 32 SECONDS (21-34) 05/06/17 00:38 - Constitutional Appears: No Acute Distress, Chronically Ill - Eye Exam Eye Exam: EOMI, PERRL - ENT Exam ENT Exam: Mucous Membranes Dry - Respiratory Exam Respiratory Exam: Clear to Ausculation Bilateral. absent: Rales, Rhonchi, Wheezes - Cardiovascular Exam Cardiovascular Exam: RRR, +S1, +S2 - GI/Abdominal Exam GI & Abdominal Exam: Distended, Soft, Normal Bowel Sounds. absent: Firm, Guarding, Rigid, Tenderness, Organomegaly - Extremities Exam Extremities Exam: absent: Pedal Edema Additional comments: ecchymosis on right arm; no asterixis noted - Neurological Exam Neurological Exam: Alert, Awake, Oriented x3 - Psychiatric Exam Psychiatric exam: Normal Affect, Normal Mood - Skin Skin Exam: Dry, Warm Assessment and Plan - Assessment and Plan (Free Text) Assessment: Patient is a 61yo female with PMHx significant for decompensated EtOH cirrhosis requiring frequent large volume paracentesis, medical nonadherence, COPD, HTN, anxiety who presented to the ED for complaint of abdominal pain and distention. -Acute hepatic encephalopathy, resolved -Decompensated EtOH cirrhosis with recurrent ascites, HE -Medical nonadherence -COPD -HTN -Severe anxiety Plan: -Mental status improved; currently AAOx3 -Reinforced the importance of using Lactulose and diuretic therapy, outpatient follow up with PCP and registered dietician -Will provide patient with 1 month supply of Lactulose, Rifaximin, Lasix, Aldactone on D/C -Titrate Lactulose to 3-4 BM/day -Monitor BMP - BUN/Cr stable, unchanged -Low salt diet -Patient needs outpatient follow up with PCP, [facility] hepatology -Outpatient EGD/Colonoscopy <Keven Manjarrez - Last Filed: 05/10/17 09:45> Objective - Vital Signs/Intake and Output Vital Signs (last 24 hours): Temp Pulse Resp BP Pulse Ox 98.6 F 96 H 20 136/69 96 05/09/17 23:28 05/09/17 23:28 05/09/17 23:28 05/09/17 23:28 05/09/17 23:28 Intake and Output: 05/10/17 05/10/17 06:59 18:59 Intake Total 300 Output Total 200 Balance 100 - Medications Medications: Current Medications Albuterol (Ventolin Hfa 90 Mcg/Actuation (8 G)) 1 puff IH RTID PRN PRN Reason: Shortness of Breath Last Admin: 05/07/17 08:14 Dose: 1 puff Benztropine Mesylate (Cogentin) 1 mg PO BID [facility] Last Admin: 05/07/17 17:33 Dose: 1 mg Diphenhydramine HCl (Benadryl) 25 mg PO Q6 PRN PRN Reason: MODERATE Agitation Famotidine (Pepcid) 20 mg PO DAILY [facility] Furosemide (Lasix) 80 mg PO DAILY [facility] Last Admin: 05/09/17 09:51 Dose: 80 mg Haloperidol (Haldol) 5 mg PO BID [facility] Last Admin: 05/07/17 17:33 Dose: 5 mg Haloperidol (Haldol) 5 mg PO Q6 PRN PRN Reason: SEVERE Agitation Lactulose (Enulose) 30 gm PO BID [facility] Last Admin: 05/09/17 17:17 Dose: 30 gm Lorazepam (Ativan) 0.5 mg PO Q6H [facility] Last Admin: 05/10/17 05:06 Dose: 0.5 mg Montelukast Sodium (Singulair) 10 mg PO HS [facility] Last Admin: 05/09/17 23:17 Dose: 10 mg Rifaximin (Xifaxan) 550 mg PO BID [facility] Last Admin: 05/09/17 17:16 Dose: 550 mg Fluticasone/Salmeterol (Advair Diskus 100/50) 1 puff IH RQ12 [facility] Last Admin: 05/09/17 20:40 Dose: 1 puff Spironolactone (Aldactone) 200 mg PO DAILY [facility] Last Admin: 05/09/17 09:47 Dose: 200 mg Thiamine HCl (Vitamin B1 Tab) 100 mg PO DAILY [facility] Last Admin: 05/09/17 09:47 Dose: 100 mg - Labs Labs: 05/10/17 07:01 05/10/17 07:01 PT 14.2 SECONDS (9.7-12.2) H 05/08/17 11:55 INR 1.3 05/08/17 11:55 APTT 32 SECONDS (21-34) 05/06/17 00:38 Attending/Attestation - Attestation I have personally seen and examined this patient.: Yes I have fully participated in the care of the patient.: Yes I have reviewed all pertinent clinical information, including history, physical exam and plan: Yes Notes (Text): 05/10/17 09:44 61 year old female with h/o EtOH cirrhosis c/b ascites, COPD, HTN, anxiety who presented to the ED for complaint of abdominal pain and distention, with recurrent ascites. 1. Alcoholic cirrhosis 2. Ascites 3. Hepatic encephalopathy Plan: -s/p paracentesis, no SBP -continue lasix and aldactone -recommend low sodium diet -continue lactulose and rifaxamin 550 mg bid for HE -no evidence of hcc -no signs of bleeding -supportive care -mental status appears improved to baseline, no asterixis -continue medical therapy -will sign off -ok to discharge from GI standpoint, emphasized the improtance ot medical compliance to preventing recurrent admissions
[2017-05-10] MEDS ORDERED: Potassium Chloride 20 mEq ER Tab PO STA (10:00)
[2017-05-10] MEDS ORDERED: Vancomycin 1 gm/NS 200 ml 1 GM/200 ML BAG IVPB STA (10:06)
--- NOTE | 2017-05-10 11:05 | C.PDOC ---
History Of Present Illness EEG report: BILATERAL DIFFUSE SLOW WITH SHARP AND PHASE REVERSAL AT RIGHT SIDE PARIETAL AREA P4 REGION CORRELATE CLINICALLY. Time Seen by Provider: 05/05/17 23:52 Chief Complaint (Nursing): Lower Extremity Problem/Injury Past Medical History Vital Signs: Last Vital Signs Temp 98.2 F 05/10/17 15:25 Pulse 95 H 05/10/17 15:25 Resp 20 05/10/17 15:25 BP 115/73 05/10/17 15:25 Pulse Ox 98 05/14/17 21:02 - Medical History PMH: Anxiety, Asthma, Bronchitis, COPD, HTN Denies: Chronic Kidney Disease - [facility] Procedures DRAINAGE OF PERITONEAL CAVITY, PERCUTANEOUS APPROACH (05/06/17) INDIVIDUAL PSYCHOTHERAPY, COGNITIVE-BEHAVIORAL (11/28/16) INDIVIDUAL PSYCHOTHERAPY, SUPPORTIVE (11/28/16) RESECTION OF SMALL INTESTINE, OPEN APPROACH (02/08/17) SUPPLEMENT ABDOMINAL WALL WITH SYNTH SUB, OPEN APPROACH (02/08/17) SUPPLEMENT L INGUINAL REGION WITH SYNTH SUB, OPEN APPROACH (02/08/17) TRANSFUSE NONAUT PLATELETS IN PERIPH VEIN, PERC (05/06/17) Family History: States: No Known Family Hx - Social History Hx Tobacco Use: No Hx Alcohol Use: Yes (Social) Hx Substance Use: Yes (marijuana) - Immunization History Hx Tetanus Toxoid Vaccination: No Hx Influenza Vaccination: No Hx Pneumococcal Vaccination: No ED Course And Treatment - Laboratory Results Result Diagrams: 05/10/17 07:01 05/10/17 07:01 O2 Sat by Pulse Oximetry: 98 Disposition - Disposition Disposition: HOSPITALIZED Disposition Time: 21:03 Condition: FAIR - Clinical Impression Clinical Impression: Ascites, Increased ammonia level, Dyspnea, Thrombocytopenia
[2017-05-10] MEDS ORDERED: ceFAZolin 1 GM in Sodium Chloride 0.9% 100 ML IVPB SCH (12:00)
[2017-05-10 20:47] VITALS: BP 115/73; PULSE 95; TEMP 98.2
--- NOTE | 2017-05-10 21:00 | CP.PCM.PN ---
Subjective - Date & Time of Evaluation Date of Evaluation: 05/10/17 Objective - Vital Signs/Intake and Output Vital Signs (last 24 hours): Temp Pulse Resp BP Pulse Ox 98.2 F 95 H 20 115/73 100 05/10/17 15:25 05/10/17 15:25 05/10/17 15:25 05/10/17 15:25 05/10/17 15:25 - Medications Medications: Current Medications Albuterol (Ventolin Hfa 90 Mcg/Actuation (8 G)) 1 puff IH RTID PRN PRN Reason: Shortness of Breath Last Admin: 05/07/17 08:14 Dose: 1 puff Benztropine Mesylate (Cogentin) 1 mg PO BID [facility] Last Admin: 05/07/17 17:33 Dose: 1 mg Diphenhydramine HCl (Benadryl) 25 mg PO Q6 PRN PRN Reason: MODERATE Agitation Famotidine (Pepcid) 20 mg PO DAILY [facility] Last Admin: 05/10/17 10:17 Dose: 20 mg Furosemide (Lasix) 80 mg PO DAILY [facility] Last Admin: 05/10/17 10:26 Dose: 80 mg Haloperidol (Haldol) 5 mg PO BID [facility] Last Admin: 05/07/17 17:33 Dose: 5 mg Haloperidol (Haldol) 5 mg PO Q6 PRN PRN Reason: SEVERE Agitation Cefazolin Sodium 1 gm/ Sodium (Chloride) 100 mls @ 100 mls/hr IVPB Q8H [facility] Last Admin: 05/10/17 13:18 Dose: 100 mls/hr Lactulose (Enulose) 30 gm PO BID [facility] Last Admin: 05/10/17 10:16 Dose: 30 gm Lorazepam (Ativan) 0.5 mg PO Q6H [facility] Last Admin: 05/10/17 13:24 Dose: Not Given Montelukast Sodium (Singulair) 10 mg PO HS [facility] Last Admin: 05/09/17 23:17 Dose: 10 mg Rifaximin (Xifaxan) 550 mg PO BID [facility] Last Admin: 05/10/17 10:17 Dose: 550 mg Fluticasone/Salmeterol (Advair Diskus 100/50) 1 puff IH RQ12 [facility] Last Admin: 05/09/17 20:40 Dose: 1 puff Spironolactone (Aldactone) 200 mg PO DAILY [facility] Last Admin: 05/10/17 10:16 Dose: 200 mg Thiamine HCl (Vitamin B1 Tab) 100 mg PO DAILY [facility] Last Admin: 05/10/17 10:17 Dose: 100 mg - Labs Labs: 05/10/17 07:01 05/10/17 07:01 PT 14.2 SECONDS (9.7-12.2) H 05/08/17 11:55 INR 1.3 05/08/17 11:55 APTT 32 SECONDS (21-34) 05/06/17 00:38 Assessment and Plan - Assessment and Plan (Free Text) Plan: pt signed out ama earlier as pt doesnto want to wait till she gets her vanco as she needed to rubio as per ??? mr. harry
[2017-05-14 06:18] VITALS: O2SAT 98
== END 2017-05-10 16:30 | disposition left against medical advice (07) | DRG 202 ==
LOC: C.ER 22:08 → C.3T 05-06 01:14 → C.9E 05-06 02:43 → C.5T 05-06 02:45
PROVIDERS: ADMIT Internal Medicine Nephrology; ATTEND Internal Medicine Nephrology
PROC: 30233R1 Transfusion of Nonautologous Platelets into Peripheral Vein, Percutaneous Approach (ICD-10-PCS; 2017-05-07)
PROC: 0W9G3ZZ Drainage of Peritoneal Cavity, Percutaneous Approach (ICD-10-PCS; principal; 2017-05-08)
DX: K70.31 Alcoholic cirrhosis of liver with ascites (principal); K70.40 Alcoholic hepatic failure without coma; D61.818 Other pancytopenia; D68.9 Coagulation defect, unspecified; F05 Delirium due to known physiological condition; B19.10 Unspecified viral hepatitis B without hepatic coma; J44.9 Chronic obstructive pulmonary disease, unspecified; B19.20 Unspecified viral hepatitis C without hepatic coma; F10.21 Alcohol dependence, in remission; F17.210 Nicotine dependence, cigarettes, uncomplicated; F31.62 Bipolar disorder, current episode mixed, moderate; F12.90 Cannabis use, unspecified, uncomplicated; I10 Essential (primary) hypertension; Z91.19 Patient's noncompliance with other medical treatment and regimen

== ENCOUNTER 2017-05-28 17:45 | Observation (INO) | payer MEDICAID ==
[2017-05-28 17:57] VITALS: BMI 29.2
--- NOTE | 2017-05-28 19:55 | C.PDOC ---
History Of Present Illness Patient is a 61 y/o female, with PMHx of anxiety, asthma, and hepatitis, that presents to the ED for evaluation of generalized abdominal pain associated with recurrent ascites fluid retention, and bilateral leg pain. She had trouble walking yesterday and fell contusing her right arm. Patient reports being seen here 3 weeks ago to remove fluids from her abdomen. Otherwise, denies any n/v/d , urinary symptoms, or back pain. Time Seen by Provider: 05/28/17 19:08 Chief Complaint (Nursing): Abdominal Pain History Per: Patient History/Exam Limitations: no limitations Onset/Duration Of Symptoms: Days Current Symptoms Are (Timing): Still Present Location Of Pain/Discomfort: Diffuse Radiation Of Pain To:: None Quality Of Discomfort: "Pain" Associated Symptoms: denies: Fever, Chills, Nausea, Vomiting, Diarrhea, Loss Of Appetite, Back Pain, Chest Pain, Constipation, Urinary Symptoms Exacerbating Factors: None Alleviating Factors: None Recent travel outside of the [place]: No Additional History Per: Patient Abnormal Vaginal Bleeding: No Past Medical History Reviewed: Historical Data, Nursing Documentation, Vital Signs Vital Signs: Last Vital Signs Temp 98 F 05/28/17 19:54 Pulse 76 05/28/17 19:54 Resp 16 05/28/17 19:54 BP 116/78 05/28/17 19:54 Pulse Ox 100 05/28/17 19:54 - Medical History PMH: Anxiety, Asthma, Bronchitis, COPD, HTN Denies: Chronic Kidney Disease - [facility] Procedures DRAINAGE OF PERITONEAL CAVITY, PERCUTANEOUS APPROACH (05/06/17) INDIVIDUAL PSYCHOTHERAPY, COGNITIVE-BEHAVIORAL (11/28/16) INDIVIDUAL PSYCHOTHERAPY, SUPPORTIVE (11/28/16) RESECTION OF SMALL INTESTINE, OPEN APPROACH (02/08/17) SUPPLEMENT ABDOMINAL WALL WITH SYNTH SUB, OPEN APPROACH (02/08/17) SUPPLEMENT L INGUINAL REGION WITH SYNTH SUB, OPEN APPROACH (02/08/17) TRANSFUSE NONAUT PLATELETS IN PERIPH VEIN, PERC (05/06/17) Family History: States: Unknown Family Hx - Social History Hx Tobacco Use: No Hx Alcohol Use: No (Social) Hx Substance Use: No (marijuana) - Immunization History Hx Tetanus Toxoid Vaccination: No Hx Influenza Vaccination: No Hx Pneumococcal Vaccination: No Review Of Systems Except As Marked, All Systems Reviewed And Found Negative. Constitutional: Negative for: Fever, Chills Cardiovascular: Negative for: Chest Pain, Palpitations Gastrointestinal: Positive for: Abdominal Pain. Negative for: Nausea, Vomiting , Diarrhea Genitourinary: Negative for: Dysuria, Frequency, Hematuria Musculoskeletal: Positive for: Leg Pain. Negative for: Back Pain Skin: Negative for: Rash, Bruising Neurological: Negative for: Weakness, Numbness Physical Exam - Physical Exam Appears: Non-toxic, No Acute Distress Skin: Normal Color, Warm, Dry Head: Atraumatic, Normacephalic Eye(s): bilateral: Normal Inspection Neck: Normal ROM, Supple Chest: Symmetrical Cardiovascular: Rhythm Regular, No Murmur Respiratory: Normal Breath Sounds, No Rales, No Rhonchi, No Wheezing Gastrointestinal/Abdominal: Soft, Tenderness (diffuse), Distention, No Guarding , No Rebound, Other ((+) fluid wave) Extremity: Normal ROM, Tenderness (BL lower legs), Capillary Refill (< 2 sec.), No Deformity, Swelling (BL lower legs) Extremity: Bilateral: Atraumatic Pulses: Left Dorsalis Pedis: Normal, Right Dorsalis Pedis: Normal Neurological/Psych: Oriented x3, Normal Speech, Normal Cognition ED Course And Treatment - Laboratory Results Result Diagrams: 05/28/17 20:22 05/28/17 20:22 Lab Interpretation: Abnormal (WBC 4.1, plt 43, Hgb 9.7, BUN 46, Cr 1.5 ammonia 34.) Progress Note: Blood work, urinalysis ordered and reviewed. Reevaluation Time: 22:03 Reassessment Condition: Unchanged (Patient treated with IV Morphine 2mg but continues to c/o stating that "they always give me 6mg".) - Physician Consult Information Time Consulting Physician Contacted: 22:04 Physician Contacted: Kayli Marcano Outcome Of Conversation: Patient tp be admitted for repeat paracentesis. Disposition - Disposition Disposition: HOSPITALIZED Disposition Time: 22:05 Condition: STABLE - Clinical Impression Clinical Impression: Abdominal pain, Ascites - Scribe Statement The provider has reviewed the documentation as recorded by the Gabriele Marcano All medical record entries made by the Gabriele were at my direction and personally dictated by me. I have reviewed the chart and agree that the record accurately reflects my personal performance of the history, physical exam, medical decision making, and the department course for this patient. I have also personally directed, reviewed, and agree with the discharge instructions and disposition.
[2017-05-28 20:27] LABS: SQUAMOUS EPITHIAL 10 /hpf (0-5); URINE BACTERIA OCC (<OCC); URINE BILIRUBIN NEGATIVE (NEGATIVE); URINE BLOOD NEGATIVE (NEGATIVE); URINE CLARITY Hazy (Clear); URINE COLOR Yellow (YELLOW); URINE GLUCOSE (UA) NORMAL (Normal); URINE LEUKOCYTE ESTERASE TRACE Leu/uL (Negative); URINE NITRATE NEGATIVE (NEGATIVE); URINE PROTEIN NEGATIVE (NEGATIVE); URINE UROBILINOGEN NORMAL mg/dL (0.2-1.0)
[2017-05-28 20:39] LABS: BASO % 0.9 % (0.0-2.0); EOS # 0.1 K/uL (0.0-0.7); EOS % 1.4 % (0.0-4.0); HEMOGLOBIN 9.7 g/dL (11.0-16.0); LYMPH # 0.8 K/uL (1.0-4.3); LYMPH % 18.9 % (20.0-40.0); MEAN CELL VOLUME 83.2 fL (81.0-99.0); MEAN CORPUSCULAR HEMOGLOBIN 27.2 pg (27.0-31.0); MEAN CORPUSCULAR HGB CONC 32.6 g/dL (33.0-37.0); MEAN PLATELET VOLUME 9.8 fL (7.2-11.7); MONO # 0.4 K/uL (0.0-0.8); MONO % 10.3 % (0.0-10.0); NEUT # 2.8 K/uL (1.8-7.0); NEUT % 68.5 % (50.0-75.0); RBC 3.58 Mil/uL (3.80-5.20); RED CELL DISTRIBUTION WIDTH 15.6 % (11.5-14.5); WHITE BLOOD COUNT 4.1 K/uL (4.8-10.8)
[2017-05-28 20:49] LABS: INR 1.2; PROTHROMBIN TIME 12.9 SECONDS (9.7-12.2)
[2017-05-28 21:03] LABS: ALBUMIN 3.5 g/dL (3.5-5.0)
[2017-05-28 21:07] LABS: ALB/GLOB RATIO 0.9 (1.0-2.1); CALCIUM 9.1 mg/dl (8.6-10.4)
[2017-05-28] MEDS ORDERED: HYDROmorphone 1 mg/ml ISec IVP PRN (22:52)
[2017-05-28] MEDS ORDERED: Albuterol HFA 90 mcg/actuation (8 g) IH PRN (22:54)
[2017-05-28] MEDS ORDERED: HYDROmorphone 1 mg/ml ISec IVP ONE (22:57)
[2017-05-28] MEDS ORDERED: HYDROmorphone 1 mg/ml ISec ONE (23:03)
--- NOTE | 2017-05-28 23:51 | CP.PCM.HP ---
Past Patient History - Infectious Disease Hx of Infectious Diseases: None - Past Medical History & Family History Past Medical History?: Yes - Past Social History Smoking Status: Light Smoker < 10 Cigarettes Daily - CARDIAC Hx Hypertension: Yes - PULMONARY Hx Asthma: Yes Hx Bronchitis: Yes Hx Chronic Obstructive Pulmonary Disease (COPD): Yes - NEUROLOGICAL Hx Neurological Disorder: No - HEENT Hx HEENT Problems: No - RENAL Hx Chronic Kidney Disease: No - ENDOCRINE/METABOLIC Hx Endocrine Disorders: No - HEMATOLOGICAL/ONCOLOGICAL Hx Blood Disorders: Yes Hx Hepatitis B: Yes Hx Hepatitis C: Yes - INTEGUMENTARY Hx Dermatological Problems: No - MUSCULOSKELETAL/RHEUMATOLOGICAL Hx Falls: Yes - GASTROINTESTINAL Hx Gastrointestinal Disorders: Yes Hx Liver Failure: Yes Other/Comment: Ascites,umbilical hernia - GENITOURINARY/GYNECOLOGICAL Hx Genitourinary Disorders: No - PSYCHIATRIC Hx Anxiety: Yes Hx Substance Use: No (marijuana) - SURGICAL HISTORY Hx Herniorrhaphy: Yes Other/Comment: Umbilical hernia repair and left groin hernia repair 2 months ago. - ANESTHESIA Hx Anesthesia: Yes Hx Anesthesia Reactions: No Hx Malignant Hyperthermia: No Meds Allergies/Adverse Reactions: Allergies Allergy/AdvReac Type Severity Reaction Status Date / Time No Known Allergies Allergy Verified 05/28/17 18:02 Results - Vital Signs Recent Vital Signs: Last Vital Signs Temp 98.3 F 05/28/17 22:51 Pulse 80 05/28/17 22:51 Resp 18 05/28/17 22:51 BP 117/62 05/28/17 22:51 Pulse Ox 99 05/28/17 22:51 - Labs Result Diagrams: 05/28/17 20:22 05/28/17 20:22
--- NOTE | 2017-05-29 08:23 | CP.PCM.CON ---
<Yesenia Ferreira - Last Filed: 05/29/17 08:38> History of Present Illness - History of Present Illness History of Present Illness: GI Fellow PGY4 Consult Note This is a 61yF with pmhx of HTN, anxiety, COPD, decompensated cirrhosis from Etoh and HCV requiring multiple large volume paracentesis every 3-4 weeks, hepatic encephalopathy, and hx of medication noncompliance with diuretics and lactulose. Pt presenting after a fall and sustaining arm contusion, pt denies any confusion and reports fall was from leg pain. Pt also complaining of abdominal discomfort and distention, denies F/C, N/V. Pt was recently discharged from [facility] for hepatic encephalopathy due to medication non compliance and was started on rifaximin with lactulose. Pt reports she has not taken her lactulose in 2 weeks and has had only 2BM this week, last BM was yesterday. Pt reports taking her diuretic therapy. Pt had a paracentesis 05/08: 2.4 L removed and on 04/23: 2.5L removed, she has had 13 paracentesis done since last June with no SBP to date. Pt has a hx of alcohol abuse and last drink was in June 2016 and HCV viral load was undetectable in January 2017. Pt does not have a GI physician currently that she follows up with but does have an appointment scheduled for [facility] in 1 month. Pt has no prior EGD or Colonoscopy. CT A/P from February 2017 was negative for any hepatic lesions. ROS: A 12pt ROS was obtained and was negative except as above. PMHx: See HPI, cirrhosis 2/2 EtOH, HCV (cleared infection) PSHx: Left inguinal and umbilical hernia repair, small bowel resection FHx: Mother - [place]; Father - [place], colon cancer in his 50s Social: Former EtOH use up until June 2016 with 4-5 glasses of wine daily for 5 years, +tobacco use Past Patient History - Infectious Disease Hx of Infectious Diseases: None - Past Medical History & Family History Past Medical History?: Yes - Past Social History Smoking Status: 2-3 a day - CARDIAC Hx Hypertension: Yes - PULMONARY Hx Asthma: Yes Hx Bronchitis: Yes Hx Chronic Obstructive Pulmonary Disease (COPD): Yes - NEUROLOGICAL Hx Neurological Disorder: No - HEENT Hx HEENT Problems: No - RENAL Hx Chronic Kidney Disease: No - ENDOCRINE/METABOLIC Hx Endocrine Disorders: No - HEMATOLOGICAL/ONCOLOGICAL Hx Blood Disorders: Yes Hx Hepatitis B: Yes Hx Hepatitis C: Yes - INTEGUMENTARY Hx Dermatological Problems: No - MUSCULOSKELETAL/RHEUMATOLOGICAL Hx Falls: Yes - GASTROINTESTINAL Hx Gastrointestinal Disorders: Yes Hx Liver Failure: Yes Other/Comment: Ascites,umbilical hernia - GENITOURINARY/GYNECOLOGICAL Hx Genitourinary Disorders: No - PSYCHIATRIC Hx Anxiety: Yes Hx Substance Use: No (marijuana) - SURGICAL HISTORY Hx Herniorrhaphy: Yes Other/Comment: Umbilical hernia repair and left groin hernia repair 2 months ago. - ANESTHESIA Hx Anesthesia: Yes Hx Anesthesia Reactions: No Hx Malignant Hyperthermia: No Meds Allergies/Adverse Reactions: Allergies Allergy/AdvReac Type Severity Reaction Status Date / Time No Known Allergies Allergy Verified 05/28/17 18:02 - Medications Medications: Current Medications Albuterol (Ventolin Hfa 90 Mcg/Actuation (8 G)) 90 puff IH TID PRN PRN Reason: Shortness of Breath Furosemide (Lasix) 80 mg PO DAILY [facility] Haloperidol (Haldol) 5 mg PO BID [facility] Hydromorphone HCl (Dilaudid) 1 mg IVP Q6H PRN PRN Reason: Pain, severe (8-10) Last Admin: 05/29/17 05:52 Dose: 1 mg Lactulose (Enulose) 20 gm PO BID [facility] Lorazepam (Ativan) 0.5 mg PO Q6H [facility] Last Admin: 05/29/17 05:29 Dose: 0.5 mg Montelukast Sodium (Singulair) 10 mg PO DAILY [facility] Fluticasone/Salmeterol (Advair Diskus 100/50) 1 puff IH Q12 [facility] Spironolactone (Aldactone) 200 mg PO DAILY [facility] Thiamine HCl (Vitamin B1 Tab) 100 mg PO DAILY [facility] Physical Exam - Constitutional Appears: Non-toxic, No Acute Distress, Older Than Stated Age - Head Exam Head Exam: ATRAUMATIC, NORMAL INSPECTION, NORMOCEPHALIC - Eye Exam Eye Exam: EOMI, Normal appearance, PERRL Pupil Exam: PERRL - ENT Exam ENT Exam: Mucous Membranes Moist, Normal Exam - Neck Exam Neck exam: Positive for: Normal Inspection - Respiratory Exam Respiratory Exam: Clear to Auscultation Bilateral, NORMAL BREATHING PATTERN - Cardiovascular Exam Cardiovascular Exam: RRR, +S1, +S2 - GI/Abdominal Exam GI & Abdominal Exam: Distended, Normal Bowel Sounds, Tenderness Additional comments: Ascites - Rectal Exam Rectal Exam: Deferred - Extremities Exam Extremities exam: Positive for: normal inspection. Negative for: pedal edema - Back Exam Back exam: NORMAL INSPECTION - Neurological Exam Neurological exam: Alert Additional comments: Alert Awake and Oriented x23 but slow mentation, responds slowly to questions - Psychiatric Exam Psychiatric exam: Normal Affect, Normal Mood Additional comments: Poor insight to medical condition - Skin Skin Exam: Dry, Intact, Normal Color, Warm Additional comments: arm contusion/abrasion Results - Vital Signs Recent Vital Signs: Last Vital Signs Temp 97.9 F 05/29/17 00:04 Pulse 86 05/29/17 00:04 Resp 18 05/29/17 00:05 BP 151/66 H 05/29/17 00:04 Pulse Ox 99 05/28/17 22:51 - Labs Result Diagrams: 05/28/17 20:22 05/28/17 20:22 Assessment & Plan - Assessment and Plan (Free Text) Assessment: This is a 61yF with hx of Cirrhoiss, HE, and recurrent ascites with multiple paracentesis presenting s/p fall and abdominal distention and discomfort. 1. Decompensated Cirrhosis MELD 12 from ETOH and HCV 2. Ascites 3. Hepatic Encephalopathy 4. Anxiety 5. HTN 6. COPD Plan: -Acites-scheduled for US guided paracentesis today with peritoneal fluid cell county/cytology. Will replete with albumin based on how much fluid removed -Will restart lasix 80mg and spironolactone 200mg after procedure -Mild HE at this time, will add rifaximin and start lactulose bid to titrate for 2-3 BM daily -CT A/P in February with no liver lesions so no further imaging at this time -No Hx of EGD, will need one outpt for variceal screening -No Hx of colonoscopy, will need cancer screening and also pt has family hx with first degree relative -HCV infection undetected in January 2017 and last drink was last year -Decompensated Cirrhosis-discussed with pt importance of following up at transplant center, has appt next month at [facility] <Alejo Jones - Last Filed: 05/29/17 10:30> Meds - Medications Medications: Current Medications Albuterol (Ventolin Hfa 90 Mcg/Actuation (8 G)) 90 puff IH TID PRN PRN Reason: Shortness of Breath Furosemide (Lasix) 80 mg PO DAILY [facility] Haloperidol (Haldol) 5 mg PO BID [facility] Hydromorphone HCl (Dilaudid) 1 mg IVP Q6H PRN PRN Reason: Pain, severe (8-10) Last Admin: 05/29/17 05:52 Dose: 1 mg Lactulose (Enulose) 20 gm PO BID [facility] Lorazepam (Ativan) 0.5 mg PO Q6H [facility] Last Admin: 05/29/17 05:29 Dose: 0.5 mg Montelukast Sodium (Singulair) 10 mg PO DAILY [facility] Rifaximin (Xifaxan) 550 mg PO BID [facility] Fluticasone/Salmeterol (Advair Diskus 100/50) 1 puff IH Q12 [facility] Spironolactone (Aldactone) 200 mg PO DAILY [facility] Thiamine HCl (Vitamin B1 Tab) 100 mg PO DAILY [facility] Results - Vital Signs Recent Vital Signs: Last Vital Signs Temp 97.9 F 05/29/17 08:49 Pulse 76 05/29/17 08:49 Resp 19 05/29/17 08:49 BP 105/61 05/29/17 08:49 Pulse Ox 99 05/29/17 08:49 - Labs Result Diagrams: 05/28/17 20:22 05/28/17 20:22 Attending/Attestation - Attestation I have personally seen and examined this patient.: Yes I have fully participated in the care of the patient.: Yes I have reviewed all pertinent clinical information: Yes Notes (Text): 05/29/17 10:24 I have seen and examined patient with GI fellow. Agree with above documentation with the following additions. In brief, this is a 61 year old female with history of HCV/ETOH decompensated cirrhosis, HTN, anxiety, COPD who presents to hospital with complaint of progressive abdominal distention over the past one week. She admits to medication non-compliance with diuretic and lactulose regimen. She recently fell at home after complaining of lower extremity discomfort while walking to bathroom. She denies abdominal pain, nausea, vomiting, fever/chills, weight loss, rectal bleeding, or change in bowel habits. No prior endoscopic evaluation. HCV/ETOH decompensated cirrhosis, admission MELD 12 - last ETOH drink was apparently June 2016 HTN Anxiety COPD Progressive abdominal girth - ascites Acute renal insufficiency - Low sodium diet as tolerated - Creatinine elevated, will need to monitor closely in setting of decompensated cirrhosis - hold diuretic regimen for time being - Continue to monitor LFTs - Patient scheduled for large volume diagnostic/therapeutic paracentesis today, follow up cell count - She will likely require albumin replacement therapy following paracentesis - Continue with lactulose/xifaxan regimen for prevention of HE - Importance of medication compliance stressed with patient, she has an appointment at [facility] liver clinic in the week of June for transplant evaluation - She would benefit from elective outpatient EGD/colonoscopy examination
[2017-05-29] MEDS ORDERED: Fluticasone-Salmeterol 100-50mcg Diskus IH SCH ×2 (10:00→20:00)
[2017-05-29 12:13] LABS: BODY FLUID TYPE PERITONEAL/ASCITES
[2017-05-29 12:57] LABS: BF GROSS APPEARANCE SL CLOUDY (CLEAR)
[2017-05-29 12:58] LABS: BODY FLUID MONO/MACROPHAGE 6 % (0-0); BODY FLUID TOTAL COUNT 100 (0-0)
--- NOTE | 2017-05-29 13:43 | PCM.SURG1 ---
Surgeon's Initial Post Op Note - Surgeon's Notes Surgeon: Michael Saavedra MD Fluid Designer: None Type of Anesthesia: Local Pre-Operative Diagnosis: Cirrhosis, ascites Operative Findings: US showed a large amount of ascites Post-Operative Diagnosis: Cirrhosis, ascites Operation Performed: US guided paracentesis. Specimen/Specimens Removed: 4100 cc of clear fluid Estimated Blood Loss: EBL {In ML}: 0 Blood Products Given: N/A Drains Used: No Drains Post-Op Condition: Fair Date of Surgery/Procedure: 05/29/17 Time of Surgery/Procedure: 12:00
--- NOTE | 2017-05-29 13:57 | US ---
Date of Procedure: 05/29/2017 PROCEDURE: Ultrasound-guided paracentesis, CPT 81123 Medications: 7 cc 1% Lidocaine HISTORY: Ascites, abdominal pain, cirrhosis TECHNIQUE: Following informed consent , the patient was placed supine on the stretcher and the site was marked. A limited abdominal ultrasound was performed that showed a large amount of intra-abdominal fluid. Procedural time out was called and the Pt's abdomen was marked and prepped and draped in the usual sterile fashion. Ultrasound-guided large volume paracentesis performed. A total of 4100 liters of straw colored fluid was removed without complication. IMPRESSION: Ultrasound-guided large volume paracentesis.
[2017-05-29] MEDS ORDERED: Albumin Human 25% (12.5 gm/50 ml) IV SCH ×2 (14:00→16:00)
[2017-05-29] MEDS ORDERED: Albuterol HFA 90 mcg/actuation (8 g) IH PRN (15:30)
--- NOTE | 2017-05-29 20:21 | CP.PCM.PN ---
Subjective - Date & Time of Evaluation Date of Evaluation: 05/29/17 Objective - Vital Signs/Intake and Output Vital Signs (last 24 hours): Temp Pulse Resp BP Pulse Ox 97.9 F 74 20 102/62 99 05/29/17 16:16 05/29/17 16:16 05/29/17 16:16 05/29/17 16:16 05/29/17 16:16 - Medications Medications: Current Medications Albuterol (Ventolin Hfa 90 Mcg/Actuation (8 G)) 90 puff IH RTID PRN PRN Reason: Shortness of Breath Furosemide (Lasix) 80 mg PO DAILY [facility] Haloperidol (Haldol) 5 mg PO BID [facility] Last Admin: 05/29/17 18:55 Dose: 5 mg Hydromorphone HCl (Dilaudid) 1 mg IVP Q6H PRN PRN Reason: Pain, severe (8-10) Last Admin: 05/29/17 18:56 Dose: 1 mg Albumin Human (Albumin Human 25% (12.5 Gm/50 Ml)) 50 mls @ 100 mls/hr IV Q2 [facility] Stop: 05/29/17 22:29 Last Admin: 05/29/17 20:00 Dose: 100 mls/hr Albumin Human (Albumin Human 25% (12.5 Gm/50 Ml)) 50 mls @ 100 mls/hr IV Q2 [facility] Stop: 05/29/17 22:29 Last Admin: 05/29/17 20:00 Dose: 100 mls/hr Lactulose (Enulose) 20 gm PO BID [facility] Last Admin: 05/29/17 18:55 Dose: 20 gm Lorazepam (Ativan) 0.5 mg PO Q6H [facility] Last Admin: 05/29/17 16:33 Dose: 0.5 mg Montelukast Sodium (Singulair) 10 mg PO DAILY [facility] Last Admin: 05/29/17 10:32 Dose: 10 mg Rifaximin (Xifaxan) 550 mg PO BID [facility] Last Admin: 05/29/17 18:55 Dose: 550 mg Fluticasone/Salmeterol (Advair Diskus 100/50) 1 puff IH RQ12 [facility] Spironolactone (Aldactone) 200 mg PO DAILY [facility] Thiamine HCl (Vitamin B1 Tab) 100 mg PO DAILY [facility] Last Admin: 05/29/17 10:32 Dose: 100 mg - Labs Labs: PT 12.9 SECONDS (9.7-12.2) H 05/28/17 20:22 INR 1.2 05/28/17 20:22 APTT 32 SECONDS (21-34) 05/28/17 20:22
[2017-05-30 00:54] VITALS: O2SAT 95
--- NOTE | 2017-05-30 06:51 | CP.PCM.PN ---
<Yesenia Ferreira - Last Filed: 05/30/17 07:45> Subjective - Date & Time of Evaluation Date of Evaluation: 05/15/17 Time of Evaluation: 06:20 - Subjective Subjective: GI Fellow PGY4 Progress Note Pt seen and evaluated at beside, says abdominal pain is much better than it was prior to paracentesis. She reports tolerating a diet with no nausea, vomiting or diarrhea. Pt took lactulose only one time yesterday and had one BM and is refusing to take more lactulose here and says will take at home because does not want to have increased BM in the hospital since they don't have diapers. The importance of lactulose was discussed with pt in detail and if her mentation does not improve she may not be a safe discharge home. The importance lactulose administration to pt was discussed with nursing as well. ROS: A 12pt ROS was obtained and was negative except as above. Objective - Vital Signs/Intake and Output Vital Signs (last 24 hours): Temp Pulse Resp BP Pulse Ox 97.9 F 80 20 100/60 95 05/30/17 00:00 05/30/17 00:00 05/30/17 00:00 05/30/17 00:00 05/30/17 00:00 Intake and Output: 05/29/17 05/30/17 18:59 06:59 Intake Total 840 Balance 840 - Medications Medications: Current Medications Albuterol (Ventolin Hfa 90 Mcg/Actuation (8 G)) 90 puff IH RTID PRN PRN Reason: Shortness of Breath Furosemide (Lasix) 80 mg PO DAILY [facility] Haloperidol (Haldol) 5 mg PO BID [facility] Last Admin: 05/29/17 18:55 Dose: 5 mg Hydromorphone HCl (Dilaudid) 1 mg IVP Q6H PRN PRN Reason: Pain, severe (8-10) Last Admin: 05/30/17 06:40 Dose: 1 mg Lactulose (Enulose) 20 gm PO BID [facility] Last Admin: 05/29/17 18:00 Dose: Not Given Lorazepam (Ativan) 0.5 mg PO Q6H [facility] Last Admin: 05/30/17 04:57 Dose: 0.5 mg Montelukast Sodium (Singulair) 10 mg PO DAILY [facility] Last Admin: 05/29/17 10:32 Dose: 10 mg Rifaximin (Xifaxan) 550 mg PO BID [facility] Last Admin: 05/29/17 18:55 Dose: 550 mg Fluticasone/Salmeterol (Advair Diskus 100/50) 1 puff IH RQ12 [facility] Spironolactone (Aldactone) 200 mg PO DAILY [facility] Thiamine HCl (Vitamin B1 Tab) 100 mg PO DAILY [facility] Last Admin: 05/29/17 10:32 Dose: 100 mg - Labs Labs: PT 12.9 SECONDS (9.7-12.2) H 05/28/17 20:22 INR 1.2 05/28/17 20:22 APTT 32 SECONDS (21-34) 05/28/17 20:22 - Constitutional Appears: Non-toxic, No Acute Distress, Older Than Stated Age - Head Exam Head Exam: ATRAUMATIC, NORMAL INSPECTION, NORMOCEPHALIC - Eye Exam Eye Exam: EOMI, Normal appearance, PERRL Pupil Exam: PERRL - ENT Exam ENT Exam: Mucous Membranes Moist, Normal Exam - Neck Exam Neck Exam: Normal Inspection - Respiratory Exam Respiratory Exam: Clear to Ausculation Bilateral - Cardiovascular Exam Cardiovascular Exam: RRR, +S1, +S2 - GI/Abdominal Exam GI & Abdominal Exam: Soft, Normal Bowel Sounds. absent: Guarding, Rigid, Tenderness - Rectal Exam Rectal Exam: Deferred - Extremities Exam Extremities Exam: Full ROM, Normal Inspection. absent: Pedal Edema - Back Exam Back Exam: NORMAL INSPECTION - Neurological Exam Neurological Exam: Alert, Awake, Oriented x3 Additional comments: Slow mentation/response to questions - Psychiatric Exam Psychiatric exam: Normal Affect, Normal Mood Additional comments: Poor insight - Skin Skin Exam: Intact, Normal Color, Warm Assessment and Plan - Assessment and Plan (Free Text) Assessment: This is a 61yF with hx of Cirrhoiss, HE, and recurrent ascites with multiple paracentesis presenting s/p fall and abdominal distention and discomfort. 1. Decompensated Cirrhosis from ETOH and HCV-MELD 12 on admission 2. Ascites 3. Hepatic Encephalopathy 4. BEV 5. Anxiety 6. HTN 7. COPD Plan: -Decompensated Cirrhosis-discussed with pt importance of following up at transplant center, has appt next month at [facility] -Acites-s/p US guided paracentesis with 4.1 L peritoneal fluid removed. Peritoneal fluid cell count ANC 11, no SBP. -BEV-Cr from this am pending, continue to hold lasix 80mg and spironolactone 200mg -If Cr still elevated will order renal US, UA and urine electrolytes prior to starting any treatment for HRS -Mild HE at this time, continue rifaximin and lactulose bid to titrate for 2-3 BM daily -Discussed with pt consequence of medication noncompliance and importance of lactulose -CT A/P in February with no liver lesions so no further imaging at this time -No Hx of EGD, will need one outpt for variceal screening -No Hx of colonoscopy, will need cancer screening and also pt has family hx with first degree relative -HCV infection undetected in January 2017 and last drink was last year <Keven Manjarrez - Last Filed: 05/30/17 08:47> Objective - Vital Signs/Intake and Output Vital Signs (last 24 hours): Temp Pulse Resp BP Pulse Ox 97.9 F 80 20 100/60 95 05/30/17 00:00 05/30/17 00:00 05/30/17 00:00 05/30/17 00:00 05/30/17 00:00 Intake and Output: 05/30/17 05/30/17 06:59 18:59 Intake Total 840 Balance 840 - Medications Medications: Current Medications Albuterol (Ventolin Hfa 90 Mcg/Actuation (8 G)) 90 puff IH RTID PRN PRN Reason: Shortness of Breath Furosemide (Lasix) 80 mg PO DAILY [facility] Haloperidol (Haldol) 5 mg PO BID [facility] Last Admin: 05/29/17 18:55 Dose: 5 mg Hydromorphone HCl (Dilaudid) 1 mg IVP Q6H PRN PRN Reason: Pain, severe (8-10) Last Admin: 05/30/17 06:40 Dose: 1 mg Lactulose (Enulose) 20 gm PO BID [facility] Last Admin: 05/29/17 18:00 Dose: Not Given Lorazepam (Ativan) 0.5 mg PO Q6H [facility] Last Admin: 05/30/17 04:57 Dose: 0.5 mg Montelukast Sodium (Singulair) 10 mg PO DAILY [facility] Last Admin: 05/29/17 10:32 Dose: 10 mg Rifaximin (Xifaxan) 550 mg PO BID [facility] Last Admin: 05/29/17 18:55 Dose: 550 mg Fluticasone/Salmeterol (Advair Diskus 100/50) 1 puff IH RQ12 [facility] Spironolactone (Aldactone) 200 mg PO DAILY [facility] Thiamine HCl (Vitamin B1 Tab) 100 mg PO DAILY [facility] Last Admin: 05/29/17 10:32 Dose: 100 mg - Labs Labs: 05/30/17 07:34 05/30/17 07:34 PT 13.6 SECONDS (9.7-12.2) H 05/30/17 07:34 INR 1.2 05/30/17 07:34 APTT 32 SECONDS (21-34) 05/28/17 20:22 Attending/Attestation - Attestation I have personally seen and examined this patient.: Yes I have fully participated in the care of the patient.: Yes I have reviewed all pertinent clinical information, including history, physical exam and plan: Yes Notes (Text): 05/30/17 08:44 61 year old female with h/o Cirrhosis complicated by recurrent ascites and HE admitted with ascites. 1. Cirrhosis 2. Ascites 3. Hepatic encephalopathy Plan: as above -advised medical complicance with therapy for HE including lactulose and rifaxamin -hold diuretics due to renal insufficiency -if renal insufficieny is the same or worse, would recommend eval for HRS -check urine lytes,ua -fluid challenge with 1.5 liters of 5% albumin -monitor creatinine -will follow
[2017-05-30 07:50] LABS: INR 1.2; PROTHROMBIN TIME 13.6 SECONDS (9.7-12.2)
[2017-05-30 07:53] LABS: BASO % 0.9 % (0.0-2.0); EOS # 0.1 K/uL (0.0-0.7); LYMPH # 0.7 K/uL (1.0-4.3); LYMPH % 21.5 % (20.0-40.0); MEAN CELL VOLUME 83.6 fL (81.0-99.0); MEAN CORPUSCULAR HGB CONC 32.3 g/dL (33.0-37.0); MEAN PLATELET VOLUME 9.6 fL (7.2-11.7); MONO # 0.4 K/uL (0.0-0.8); MONO % 10.6 % (0.0-10.0); NEUT # 2.2 K/uL (1.8-7.0); NRBC % 0.1 % (0.0-2.0); RBC 3.35 Mil/uL (3.80-5.20); RED CELL DISTRIBUTION WIDTH 15.5 % (11.5-14.5); WHITE BLOOD COUNT 3.4 K/uL (4.8-10.8)
[2017-05-30 08:06] LABS: ALBUMIN 4.1 g/dL (3.5-5.0)
[2017-05-30 08:09] LABS: ALB/GLOB RATIO 1.2 (1.0-2.1); ALT/SGPT 23 U/L (9-52); AST/SGOT 24 U/L (14-36); BLOOD UREA NITROGEN 24 mg/dL (7-17); GFR AFRICAN-AMERICAN > 60; GFR NON-AFRICAN AMERICAN > 60
[2017-05-30 08:10] LABS: CALCIUM 9.2 mg/dl (8.6-10.4)
[2017-05-30 08:50] VITALS: BP 130/72; PULSE 86; RESP 19; TEMP 97.8
--- NOTE | 2017-05-30 11:27 | CP.PCM.PN ---
Subjective - Date & Time of Evaluation Date of Evaluation: 05/30/17 Time of Evaluation: 11:27 Objective - Vital Signs/Intake and Output Vital Signs (last 24 hours): Temp Pulse Resp BP Pulse Ox 97.8 F 86 19 130/72 95 05/30/17 08:49 05/30/17 08:49 05/30/17 08:49 05/30/17 08:49 05/30/17 08:49 Intake and Output: 05/30/17 05/30/17 06:59 18:59 Intake Total 840 Balance 840 - Medications Medications: Current Medications Albuterol (Ventolin Hfa 90 Mcg/Actuation (8 G)) 90 puff IH RTID PRN PRN Reason: Shortness of Breath Last Admin: 05/30/17 08:20 Dose: 1 puff Furosemide (Lasix) 80 mg PO DAILY [facility] Haloperidol (Haldol) 5 mg PO BID [facility] Last Admin: 05/30/17 09:06 Dose: 5 mg Hydromorphone HCl (Dilaudid) 1 mg IVP Q6H PRN PRN Reason: Pain, severe (8-10) Last Admin: 05/30/17 06:40 Dose: 1 mg Lactulose (Enulose) 20 gm PO BID [facility] Last Admin: 05/30/17 09:05 Dose: 20 gm Lorazepam (Ativan) 0.5 mg PO Q6H [facility] Last Admin: 05/30/17 04:57 Dose: 0.5 mg Montelukast Sodium (Singulair) 10 mg PO DAILY [facility] Last Admin: 05/30/17 09:08 Dose: Not Given Rifaximin (Xifaxan) 550 mg PO BID [facility] Last Admin: 05/30/17 09:06 Dose: 550 mg Fluticasone/Salmeterol (Advair Diskus 100/50) 1 puff IH RQ12 [facility] Spironolactone (Aldactone) 200 mg PO DAILY [facility] Last Admin: 05/30/17 09:07 Dose: 200 mg Thiamine HCl (Vitamin B1 Tab) 100 mg PO DAILY [facility] Last Admin: 05/30/17 09:06 Dose: 100 mg - Labs Labs: 05/30/17 07:34 05/30/17 07:34 PT 13.6 SECONDS (9.7-12.2) H 07/21/17 07:34 INR 1.2 05/30/17 07:34 APTT 32 SECONDS (21-34) 05/28/17 20:22
== END 2017-05-30 14:15 | disposition home or self-care (01) ==
LOC: C.ER 17:45 → UNDOADMIN 22:01 → C.9E 22:01 → C.5T 22:58
PROVIDERS: ADMIT Internal Medicine Nephrology; ATTEND Internal Medicine Nephrology
DX: K70.31 Alcoholic cirrhosis of liver with ascites (principal); Z87.891 Personal history of nicotine dependence; Z91.14 Patient's other noncompliance with medication regimen; I10 Essential (primary) hypertension; F41.9 Anxiety disorder, unspecified; J44.9 Chronic obstructive pulmonary disease, unspecified; N17.9 Acute kidney failure, unspecified; S40.029A Contusion of unspecified upper arm, initial encounter; W19.XXXA Unspecified fall, initial encounter
CPT/HCPCS: 36415; 49083; 80053; 81001; 82042; 82140; 84157; 85025; 85610; 85730; 87070; 89051; 94640; 96374; 96375; 96376; 99285; G0378; J1170; J2270; P9047

== ENCOUNTER 2017-06-15 13:33 | Inpatient (IN) | payer MEDICAID ==
[2017-06-15 13:33] VITALS: BMI 29.2
[2017-06-18 08:37] VITALS: O2SAT 97
[2017-06-18 09:37] VITALS: PULSE 94; RESP 18; TEMP 98.4
[2017-06-18 09:49] VITALS: BP 116/67
== END 2017-06-18 17:00 | disposition home or self-care (01) | DRG 557 ==
LOC: C.ER 13:33 → C.9E 14:45 → C.3T 21:26 → OBSVTOIN 06-17 09:51
PROVIDERS: ADMIT Internal Medicine Nephrology; ATTEND Internal Medicine Nephrology
PROC: 30233R1 Transfusion of Nonautologous Platelets into Peripheral Vein, Percutaneous Approach (ICD-10-PCS; principal; 2017-06-18)
PROC: 0W9G3ZZ Drainage of Peritoneal Cavity, Percutaneous Approach (ICD-10-PCS; 2017-06-18)
DX: K70.31 Alcoholic cirrhosis of liver with ascites (principal); K72.90 Hepatic failure, unspecified without coma; G92 Toxic encephalopathy; D61.818 Other pancytopenia; D68.9 Coagulation defect, unspecified; K42.0 Umbilical hernia with obstruction, without gangrene; E87.6 Hypokalemia; J44.9 Chronic obstructive pulmonary disease, unspecified; F10.10 Alcohol abuse, uncomplicated; J45.909 Unspecified asthma, uncomplicated; I10 Essential (primary) hypertension; F41.9 Anxiety disorder, unspecified; Z80.0 Family history of malignant neoplasm of digestive organs; F17.210 Nicotine dependence, cigarettes, uncomplicated

== ENCOUNTER 2017-08-16 15:48 | Inpatient (IN) | payer MEDICAID ==
[2017-08-16 15:50] VITALS: BMI 29.2
--- NOTE | 2017-08-16 16:05 | C.PDOC ---
History Of Present Illness 62 yr old female presents to the ER stating "I need to be drained again". Patient reports of recurring abdomen ascitis, worsening for the past 1 week. Patient states current symptoms are similar to prior episode. Denies fever, chest pain, SOB, nausea, vomiting, dysuria, incontinence, weakness or numbness. "I NEED TO BE DRAINED AGAIN". RECUR ABD ASCITES WORSENING X 1 WEEK. NO FEVER, NV. CURRENT SX SIM TO PRIOR EXAM MILD DIST NONTOXIC ANICTERIC ABD +DISTENTION W ASCITES, TENSE. NO FOCAL TEND ANICTERIC 1+EDEMA B/L LE REMAINDER NEG Time Seen by Provider: 08/16/17 16:10 History Per: Patient History/Exam Limitations: no limitations Onset/Duration Of Symptoms: Gradual (1 week) Current Symptoms Are (Timing): Still Present Past Medical History Reviewed: Historical Data, Nursing Documentation, Vital Signs Vital Signs: Last Vital Signs Temp 98.4 F 08/16/17 16:15 Pulse 56 L 08/16/17 16:15 Resp 18 08/16/17 16:15 BP 135/75 08/16/17 16:15 Pulse Ox 100 08/16/17 16:15 - Medical History PMH: Anxiety, Asthma, Bronchitis, COPD, HTN - [facility] Procedures DRAINAGE OF PERITONEAL CAVITY, PERCUTANEOUS APPROACH (06/17/17) INDIVIDUAL PSYCHOTHERAPY, COGNITIVE-BEHAVIORAL (11/28/16) INDIVIDUAL PSYCHOTHERAPY, SUPPORTIVE (11/28/16) RESECTION OF SMALL INTESTINE, OPEN APPROACH (02/08/17) SUPPLEMENT ABDOMINAL WALL WITH SYNTH SUB, OPEN APPROACH (02/08/17) SUPPLEMENT L INGUINAL REGION WITH SYNTH SUB, OPEN APPROACH (02/08/17) TRANSFUSE NONAUT PLATELETS IN PERIPH VEIN, PERC (06/17/17) Family History: States: No Known Family Hx - Social History Hx Tobacco Use: No Hx Alcohol Use: Yes Hx Substance Use: No (marijuana) - Immunization History Hx Tetanus Toxoid Vaccination: No Hx Influenza Vaccination: No Hx Pneumococcal Vaccination: No Review Of Systems Except As Marked, All Systems Reviewed And Found Negative. Constitutional: Negative for: Fever Cardiovascular: Negative for: Chest Pain Respiratory: Negative for: Shortness of Breath Gastrointestinal: Positive for: Other ((+) Ascites). Negative for: Nausea, Vomiting Genitourinary: Negative for: Dysuria, Incontinence Neurological: Negative for: Weakness, Numbness Physical Exam - Physical Exam Appears: Non-toxic, In Acute Distress (Mild) Skin: Warm, Dry, No Rash Head: Atraumatic, Normacephalic Oral Mucosa: Moist Chest: Symmetrical, No Tenderness Cardiovascular: Rhythm Regular, No Murmur Respiratory: Normal Breath Sounds, No Rales, No Rhonchi, No Wheezing Gastrointestinal/Abdominal: No Tenderness, Distention, Ascites, Other (No focal tenderness) Extremity: Normal ROM, No Swelling, Other ((+) +1 edema, bilateral LE) Neurological/Psych: Oriented x3, Normal Speech, Normal Motor ED Course And Treatment - Laboratory Results Result Diagrams: 08/16/17 16:23 08/16/17 16:23 ECG: Interpreted By Me ECG Rhythm: Sinus Rhythm Rate From EC - Radiology CXR: Interpreted by Me, Viewed By Me CXR Interpretation: Yes: No Acute Disease. No: Infiltrates Progress - Re-Evaluation Re-evaluation Note: 08/16/17 17:12 D/W DR Vitor HENRY [facility] [place] WILL ADMIT - Data Reviewed Data Reviewed: Lab, EKG, Old records Medical Decision Making Medical Decision Making: PLAN: * CXR * EKG * CBC * CMP * Urinalysis Disposition Counseled Patient/Family Regarding: Studies Performed, Diagnosis - Disposition Disposition: HOSPITALIZED Disposition Time: 17:13 Condition: STABLE - POA Present On Arrival: None - Clinical Impression Clinical Impression: Ascites, Abdominal pain - Scribe Statement The provider has reviewed the documentation as recorded by the Scribe Chanell Troy Provider Attestation: All medical record entries made by the Scribe were at my direction and personally dictated by me. I have reviewed the chart and agree that the record accurately reflects my personal performance of the history, physical exam, medical decision making, and the department course for this patient. I have also personally directed, reviewed, and agree with the discharge instructions and disposition. Decision To Admit - Pt Status Changed To: Hospital Disposition Of: Inpatient - Admit Certification Admit to Inpatient:: After my assessment, the patient will require hospitalization for at least two midnights. This is because of the severity of symptoms shown, intensity of services needed, and/or the medical risk in this patient being treated as an outpatient. - InPatient: Physician Admission Certification:: SEE NOTE - . Bed Request Type: Regular Admitting Physician: Kayli Henry Patient Diagnosis: Ascites, Abdominal pain
[2017-08-16 16:48] LABS: BASO % 0.6 % (0.0-2.0); EOS # 0.1 K/uL (0.0-0.7); EOS % 1.4 % (0.0-4.0); HEMATOCRIT 27.4 % (34.0-47.0); LYMPH # 0.5 K/uL (1.0-4.3); MEAN CORPUSCULAR HEMOGLOBIN 25.7 pg (27.0-31.0); MEAN CORPUSCULAR HGB CONC 32.4 g/dL (33.0-37.0); MEAN PLATELET VOLUME 8.8 fL (7.2-11.7); MONO # 0.4 K/uL (0.0-0.8); MONO % 8.8 % (0.0-10.0); NRBC % 0.1 % (0.0-2.0); RED CELL DISTRIBUTION WIDTH 16.5 % (11.5-14.5); WHITE BLOOD COUNT 4.2 K/uL (4.8-10.8)
[2017-08-16 16:51] LABS: MEAN CELL VOLUME 79.2 fL (81.0-99.0)
[2017-08-16 16:53] LABS: INR 1.3
--- NOTE | 2017-08-16 16:54 | RAD ---
PROCEDURE: CHEST RADIOGRAPH, 1 VIEW Technique: Single view portable semi erect @ 16:22. HISTORY: Pre Op COMPARISON: 06/15/2017. FINDINGS: LUNGS: Clear. PLEURA: No pneumothorax or pleural fluid seen. CARDIOVASCULAR: No radiographic findings to suggest acute or significant cardiovascular disease. OSSEOUS STRUCTURES: No significant abnormalities. VISUALIZED UPPER ABDOMEN: Normal. OTHER FINDINGS: None. IMPRESSION: No active disease. No acute/significant interval changes. Concordant results with the preliminary interpretation rendered by the emergency department physician procedure.
[2017-08-16 17:03] LABS: CHLORIDE 103 mmol/L (98-107); POTASSIUM 3.9 mmol/L (3.6-5.2); SODIUM 134 mmol/L (132-148)
[2017-08-16 17:05] LABS: GFR AFRICAN-AMERICAN > 60
[2017-08-16 17:06] LABS: ALB/GLOB RATIO 0.8 (1.0-2.1); ALKALINE PHOSPHATASE 52 U/L (38-126); ALT/SGPT 21 U/L (9-52); AST/SGOT 36 U/L (14-36); BLOOD UREA NITROGEN 11 mg/dL (7-17); CALCIUM 8.9 mg/dl (8.6-10.4); CARBON DIOXIDE 20 mmol/L (22-30); GLUCOSE,RANDOM 84 mg/dL (65-105); TOTAL PROTEIN 8.4 g/dL (6.3-8.3)
[2017-08-16 17:13] LABS: RBC URINE 22 /hpf (0-3); URINE BACTERIA RARE (<OCC); URINE BILIRUBIN NEGATIVE (NEGATIVE); URINE BLOOD NEGATIVE (NEGATIVE); URINE COLOR Amber (YELLOW); URINE GLUCOSE (UA) NORMAL (Normal); URINE KETONE TRACE mg/dL (NEGATIVE); URINE LEUKOCYTE ESTERASE TRACE Leu/uL (Negative); URINE PROTEIN NEGATIVE (NEGATIVE); WBC URINE 20 /hpf (0-5)
[2017-08-16] MEDS ORDERED: HYDROmorphone 1 mg/ml ISec IVP PRN (19:24)
[2017-08-16 21:10] VITALS: RESP 20
--- NOTE | 2017-08-16 21:56 | CP.PCM.HP ---
Past Patient History - Infectious Disease Hx of Infectious Diseases: None - Past Medical History & Family History Past Medical History?: Yes - Past Social History Smoking Status: Light Smoker < 10 Cigarettes Daily - CARDIAC Hx Hypertension: Yes - PULMONARY Hx Asthma: Yes Hx Bronchitis: Yes Hx Chronic Obstructive Pulmonary Disease (COPD): Yes - NEUROLOGICAL Hx Neurological Disorder: No - HEENT Hx HEENT Problems: No - RENAL Hx Chronic Kidney Disease: No - ENDOCRINE/METABOLIC Hx Endocrine Disorders: No - HEMATOLOGICAL/ONCOLOGICAL Hx Blood Disorders: Yes Hx Hepatitis B: Yes Hx Hepatitis C: Yes - INTEGUMENTARY Hx Dermatological Problems: No - MUSCULOSKELETAL/RHEUMATOLOGICAL Hx Musculoskeletal Disorders: Yes Hx Falls: Yes - GASTROINTESTINAL Hx Gastrointestinal Disorders: Yes Hx Liver Failure: Yes Other/Comment: Ascites,umbilical hernia - GENITOURINARY/GYNECOLOGICAL Hx Genitourinary Disorders: No - PSYCHIATRIC Hx Substance Use: No - SURGICAL HISTORY Hx Surgeries: Yes Hx Herniorrhaphy: Yes (umbilical, left inguinal) - ANESTHESIA Hx Anesthesia: Yes Hx Anesthesia Reactions: No Hx Malignant Hyperthermia: No Meds Allergies/Adverse Reactions: Allergies Allergy/AdvReac Type Severity Reaction Status Date / Time No Known Allergies Allergy Verified 08/16/17 16:06 Physical Exam - Constitutional Appears: Well - Head Exam Head Exam: ATRAUMATIC, NORMAL INSPECTION, NORMOCEPHALIC - Eye Exam Eye Exam: EOMI, Normal appearance, PERRL Pupil Exam: NORMAL ACCOMODATION, PERRL - ENT Exam ENT Exam: Mucous Membranes Moist, Normal Exam - Neck Exam Neck exam: Positive for: Normal Inspection - Respiratory Exam Respiratory Exam: Decreased Breath Sounds - Cardiovascular Exam Cardiovascular Exam: REGULAR RHYTHM, +S1, +S2 - GI/Abdominal Exam GI & Abdominal Exam: Diminished Bowel Sounds, Soft - Rectal Exam Rectal Exam: Deferred Results - Vital Signs Recent Vital Signs: Last Vital Signs Temp 98.2 F 08/16/17 21:10 Pulse 93 H 08/16/17 21:10 Resp 20 08/16/17 21:10 BP 133/73 08/16/17 21:10 Pulse Ox 98 08/16/17 21:10 - Labs Result Diagrams: 08/16/17 16:23 08/16/17 16:23 Labs: Laboratory Results - last 24 hr 08/16/17 08/16/17 08/16/17 16:23 16:23 16:23 WBC 4.2 L RBC 3.46 L Hgb 8.9 L Hct 27.4 L MCV 79.2 L D MCH 25.7 L MCHC 32.4 L RDW 16.5 H Plt Count 48 L MPV 8.8 Neut % (Auto) 78.2 H Lymph % (Auto) 11.0 L [place] % (Auto) 8.8 Eos % (Auto) 1.4 Baso % (Auto) 0.6 Neut # 3.3 Lymph # 0.5 L [place] # 0.4 Eos # 0.1 Baso # 0.0 PT 15.2 H INR 1.3 APTT 36 H Sodium 134 Potassium 3.9 Chloride 103 Carbon Dioxide 20 L Anion Gap 15 BUN 11 Creatinine 0.7 Est GFR ( Amer) > 60 Est GFR (Non-Af Amer) > 60 Random Glucose 84 Calcium 8.9 Total Bilirubin 1.0 AST 36 ALT 21 Alkaline Phosphatase 52 Total Protein 8.4 H Albumin 3.7 Globulin 4.7 H Albumin/Globulin Ratio 0.8 L Urine Color Urine Clarity Urine pH Ur Specific [place] Urine Protein Urine Glucose (UA) Urine Ketones Urine Blood Urine Nitrate Urine Bilirubin Urine Urobilinogen Ur Leukocyte Esterase Urine WBC (Auto) Urine RBC (Auto) Ur Squamous Epith Cells Urine Bacteria Blood Type Antibody Screen Antibody Identification 08/16/17 08/16/17 16:28 17:05 WBC RBC Hgb Hct MCV MCH MCHC RDW Plt Count MPV Neut % (Auto) Lymph % (Auto) [place] % (Auto) Eos % (Auto) Baso % (Auto) Neut # Lymph # [place] # Eos # Baso # PT INR APTT Sodium Potassium Chloride Carbon Dioxide Anion Gap BUN Creatinine Est GFR ( Amer) Est GFR (Non-Af Amer) Random Glucose Calcium Total Bilirubin AST ALT Alkaline Phosphatase Total Protein Albumin Globulin Albumin/Globulin Ratio Urine Color Karen Urine Clarity Hazy Urine pH 5.0 Ur Specific [place] 1.020 Urine Protein Negative Urine Glucose (UA) Normal Urine Ketones Trace Urine Blood Negative Urine Nitrate Negative Urine Bilirubin Negative Urine Urobilinogen 2.0 H Ur Leukocyte Esterase Trace Urine WBC (Auto) 20 H Urine RBC (Auto) 22 H Ur Squamous Epith Cells 43 H Urine Bacteria Rare Blood Type O NEGATIVE Antibody Screen Positive Antibody Identification Negative Panel
[2017-08-16] MEDS: HYDROmorphone 0.5 mg/0.5 ml ISec IVP PRN (22:57)
[2017-08-17] MEDS: HYDROmorphone 0.5 mg/0.5 ml ISec IVP PRN ×4 (04:37→23:58)
--- NOTE | 2017-08-17 07:08 | CP.PCM.CON ---
History of Present Illness - History of Present Illness History of Present Illness: Asked by Dr. Marcano for a GI consultation on this patient. 62 year old female with history of decompensated HCV/ETOH cirrhosis requiring routine monthly paracentesis, COPD, anxiety, HTN who presents to hospital with progressive increase in abdominal girth over the past one week. She follows with Dr. Edwards as outpatient and has planned endoscopy on 08/25. In addition to increased abdominal girth she also endorses generalized abdominal pain and lower extremity discomfort. She denies nausea, vomiting, diarrhea, fever/chills , weight loss, or rectal bleeding. She claims to be compliant with outpatient diuretic and dietary regimen. She typically has one bowel movement every other day despite taking lactulose at home. She denies recent ETOH use, last drink as per patient was in June 2016. Currently she is seen ambulating in [facility] , requesting anxiety and pain medication. She claims to have an appointment at [facility] for liver transplant evaluation later this month. Social history: smokes 1/2 PPD cigarettes, prior ETOH abuse Family history: father (colon cancer, diagnosed age 55) Review of Systems - Review of Systems Review of Systems: - All other comprehensive 12 point review of systems performed, negative - Cardiovascular Cardiovascular: absent: Acrocyanosis, Chest Pain, Chest Pain at Rest, Chest Pain with Activity, Claudication, Diaphoresis, Dyspnea, Dyspnea on Exertion, Edema, Irregular Heart Rhythm, Pain Radiating to Arm/Neck/Jaw, Leg Edema, Leg Ulcers, Lightheadedness, Orthopnea, Palpitations, Paroxysmal Nocturnal Dyspnea, Pedal Edema, Radiating Pain, Rapid Heart Rate, Slow Heart Rate, Syncope, Other - Respiratory Respiratory: absent: Cough, Dyspnea, Hemoptysis, Dyspnea on Exertion, Wheezing, Snoring, Stridor, Pain on Inspiration, Chest Congestion, Excessive Mucous Production, Change in Mucous Color, Pain with Coughing, Other - Gastrointestinal Gastrointestinal: Abdominal Pain - Musculoskeletal Musculoskeletal: Muscle Cramps - Neurological Neurological: absent: Abnormal Gait, Abnormal Hearing, Abnormal Movements, Abnormal Speech, Behavioral Changes, Burning Sensations, Confusion, Convulsions , Disequilibrium, Dizziness, Numbness, Focal Weakness, Frequent Falls, Headaches , Lack of Coordination, Loss of Vision, Memory Loss, Paresthesias, Radicular Pain, Restless Legs, Sensory Deficit, Syncope, Tingling, Tremor, Vertigo, Weakness, Other Visual Disturbances, Other Past Patient History - Infectious Disease Hx of Infectious Diseases: None - Past Medical History & Family History Past Medical History?: Yes - Past Social History Smoking Status: Light Smoker < 10 Cigarettes Daily - CARDIAC Hx Hypertension: Yes - PULMONARY Hx Asthma: Yes Hx Bronchitis: Yes Hx Chronic Obstructive Pulmonary Disease (COPD): Yes - NEUROLOGICAL Hx Neurological Disorder: No - HEENT Hx HEENT Problems: No - RENAL Hx Chronic Kidney Disease: No - ENDOCRINE/METABOLIC Hx Endocrine Disorders: No - HEMATOLOGICAL/ONCOLOGICAL Hx Blood Disorders: Yes Hx Hepatitis B: Yes Hx Hepatitis C: Yes - INTEGUMENTARY Hx Dermatological Problems: No - MUSCULOSKELETAL/RHEUMATOLOGICAL Hx Falls: Yes - GASTROINTESTINAL Hx Gastrointestinal Disorders: Yes Hx Liver Failure: Yes Other/Comment: Ascites,umbilical hernia - GENITOURINARY/GYNECOLOGICAL Hx Genitourinary Disorders: No - PSYCHIATRIC Hx Substance Use: No - SURGICAL HISTORY Hx Surgeries: Yes Hx Herniorrhaphy: Yes (umbilical, left inguinal) - ANESTHESIA Hx Anesthesia: Yes Hx Anesthesia Reactions: No Hx Malignant Hyperthermia: No Meds Allergies/Adverse Reactions: Allergies Allergy/AdvReac Type Severity Reaction Status Date / Time No Known Allergies Allergy Verified 08/16/17 16:06 - Medications Medications: Current Medications Enoxaparin Sodium (Lovenox) 40 mg SC DAILY [facility] Furosemide (Lasix) 40 mg PO DAILY [facility] Hydromorphone HCl (Dilaudid) 1 mg IVP Q6H PRN PRN Reason: Pain, moderate (4-7) Last Admin: 08/17/17 04:37 Dose: 1 mg Lactulose (Enulose) 20 gm PO BID [facility] Multivitamins (Hexavitamin) 1 tab PO DAILY [facility] Pantoprazole Sodium (Protonix Ec Tab) 40 mg PO DAILY [facility] Pneumococcal Polyvalent Vaccine (Pneumovax 23 Vaccine) 0.5 ml IM .ONCE ONE Stop: 08/18/17 10:01 Spironolactone (Aldactone) 100 mg PO DAILY [facility] Thiamine HCl (Vitamin B1 Tab) 100 mg PO DAILY [facility] Physical Exam - Constitutional Appears: Non-toxic, No Acute Distress - Head Exam Head Exam: NORMAL INSPECTION - Eye Exam Eye Exam: EOMI, Normal appearance - ENT Exam ENT Exam: Mucous Membranes Moist - Respiratory Exam Respiratory Exam: Clear to Auscultation Bilateral - Cardiovascular Exam Cardiovascular Exam: REGULAR RHYTHM, +S1, +S2 - GI/Abdominal Exam GI & Abdominal Exam: Distended, Normal Bowel Sounds, Soft Additional comments: +ascites +splenomegaly - Extremities Exam Extremities exam: Positive for: pedal edema Additional comments: trace b/l lower extremity - Neurological Exam Neurological exam: Alert, CN II-XII Intact, Normal Gait, Oriented x3, Reflexes Normal - Psychiatric Exam Psychiatric exam: Anxious, Normal Affect, Normal Mood - Skin Skin Exam: Dry, Intact, Normal Color, Warm Results - Vital Signs Recent Vital Signs: Last Vital Signs Temp 99.6 F 08/16/17 23:24 Pulse 93 H 08/16/17 23:24 Resp 20 08/16/17 23:24 BP 137/79 08/16/17 23:24 Pulse Ox 97 08/16/17 23:24 - Labs Result Diagrams: 08/16/17 16:23 08/16/17 16:23 Labs: Laboratory Results - last 24 hr 08/16/17 08/16/17 08/16/17 16:23 16:23 16:23 WBC 4.2 L RBC 3.46 L Hgb 8.9 L Hct 27.4 L MCV 79.2 L D MCH 25.7 L MCHC 32.4 L RDW 16.5 H Plt Count 48 L MPV 8.8 Neut % (Auto) 78.2 H Lymph % (Auto) 11.0 L [place] % (Auto) 8.8 Eos % (Auto) 1.4 Baso % (Auto) 0.6 Neut # 3.3 Lymph # 0.5 L [place] # 0.4 Eos # 0.1 Baso # 0.0 PT 15.2 H INR 1.3 APTT 36 H Sodium 134 Potassium 3.9 Chloride 103 Carbon Dioxide 20 L Anion Gap 15 BUN 11 Creatinine 0.7 Est GFR ( Amer) > 60 Est GFR (Non-Af Amer) > 60 Random Glucose 84 Calcium 8.9 Total Bilirubin 1.0 AST 36 ALT 21 Alkaline Phosphatase 52 Total Protein 8.4 H Albumin 3.7 Globulin 4.7 H Albumin/Globulin Ratio 0.8 L Urine Color Urine Clarity Urine pH Ur Specific [place] Urine Protein Urine Glucose (UA) Urine Ketones Urine Blood Urine Nitrate Urine Bilirubin Urine Urobilinogen Ur Leukocyte Esterase Urine WBC (Auto) Urine RBC (Auto) Ur Squamous Epith Cells Urine Bacteria Blood Type Antibody Screen Antibody Identification 08/16/17 08/16/17 16:28 17:05 WBC RBC Hgb Hct MCV MCH MCHC RDW Plt Count MPV Neut % (Auto) Lymph % (Auto) [place] % (Auto) Eos % (Auto) Baso % (Auto) Neut # Lymph # [place] # Eos # Baso # PT INR APTT Sodium Potassium Chloride Carbon Dioxide Anion Gap BUN Creatinine Est GFR ( Amer) Est GFR (Non-Af Amer) Random Glucose Calcium Total Bilirubin AST ALT Alkaline Phosphatase Total Protein Albumin Globulin Albumin/Globulin Ratio Urine Color Karen Urine Clarity Hazy Urine pH 5.0 Ur Specific [place] 1.020 Urine Protein Negative Urine Glucose (UA) Normal Urine Ketones Trace Urine Blood Negative Urine Nitrate Negative Urine Bilirubin Negative Urine Urobilinogen 2.0 H Ur Leukocyte Esterase Trace Urine WBC (Auto) 20 H Urine RBC (Auto) 22 H Ur Squamous Epith Cells 43 H Urine Bacteria Rare Blood Type O NEGATIVE Antibody Screen Positive Antibody Identification Negative Panel Assessment & Plan - Assessment and Plan (Free Text) Assessment: Decompensated HCV/ETOH cirrhosis - admission MELD 9 HTN COPD Anxiety Abdominal pain, ascites CT imaging from February 2017 shows no evidence of focal hepatic lesion Plan: - Low sodium diet as tolerated - Continue with lactulose therapy, titrate so patient has 3 bowel movements daily - Obtain diagnostic, therapeutic paracentesis - Obtain AFP - Continue with diuretic therapy, monitor electrolytes - Patient will likely require albumin replacement therapy post paracentesis despite currently normal creatinine, prior renal insufficiency
[2017-08-17] MEDS: Enoxaparin 40 mg Syringe SC SCH (09:46)
[2017-08-17] MEDS: Pantoprazole 40 mg EC Tab PO SCH (09:50)
[2017-08-17] MEDS: Multiple Vitamins Tab PO SCH (09:51)
--- NOTE | 2017-08-17 11:17 | CP.PCM.PN ---
Subjective - Date & Time of Evaluation Date of Evaluation: 08/17/17 Time of Evaluation: 09:00 - Subjective Subjective: clinically same Objective - Vital Signs/Intake and Output Vital Signs (last 24 hours): Temp Pulse Resp BP Pulse Ox 99.6 F 93 H 20 113/71 97 08/16/17 23:24 08/16/17 23:24 08/16/17 23:24 08/17/17 09:51 08/16/17 23:24 Intake and Output: 08/17/17 08/17/17 06:59 18:59 Intake Total 240 Output Total 0 Balance 240 - Medications Medications: Current Medications Enoxaparin Sodium (Lovenox) 40 mg SC DAILY [facility] Last Admin: 08/17/17 09:46 Dose: Not Given Furosemide (Lasix) 40 mg PO DAILY [facility] Last Admin: 08/17/17 09:51 Dose: 40 mg Hydromorphone HCl (Dilaudid) 1 mg IVP Q6H PRN PRN Reason: Pain, moderate (4-7) Last Admin: 08/17/17 10:44 Dose: 1 mg Lactulose (Enulose) 20 gm PO BID [facility] Last Admin: 08/17/17 09:46 Dose: Not Given Multivitamins (Hexavitamin) 1 tab PO DAILY [facility] Last Admin: 08/17/17 09:51 Dose: 1 tab Pantoprazole Sodium (Protonix Ec Tab) 40 mg PO DAILY [facility] Last Admin: 08/17/17 09:50 Dose: 40 mg Pneumococcal Polyvalent Vaccine (Pneumovax 23 Vaccine) 0.5 ml IM .ONCE ONE Stop: 08/18/17 10:01 Spironolactone (Aldactone) 100 mg PO DAILY [facility] Last Admin: 08/17/17 09:47 Dose: Not Given Thiamine HCl (Vitamin B1 Tab) 100 mg PO DAILY [facility] Last Admin: 08/17/17 09:50 Dose: 100 mg - Labs Labs: 08/16/17 16:23 08/16/17 16:23 PT 15.2 SECONDS (9.7-12.2) H 08/16/17 16:23 INR 1.3 08/16/17 16:23 APTT 36 SECONDS (21-34) H 08/16/17 16:23 - Constitutional Appears: Well - Head Exam Head Exam: ATRAUMATIC, NORMAL INSPECTION, NORMOCEPHALIC - Eye Exam Eye Exam: EOMI, Normal appearance, PERRL Pupil Exam: NORMAL ACCOMODATION, PERRL - ENT Exam ENT Exam: Mucous Membranes Moist, Normal Exam - Neck Exam Neck Exam: Full ROM, Normal Inspection. absent: Lymphadenopathy - Respiratory Exam Respiratory Exam: Decreased Breath Sounds - Cardiovascular Exam Cardiovascular Exam: REGULAR RHYTHM, +S1, +S2 - GI/Abdominal Exam GI & Abdominal Exam: Soft, Diminished Bowel Sounds - Rectal Exam Rectal Exam: Deferred
[2017-08-17] MEDS: Albuterol-Ipratrop 3 mg / 0.5 (3 ml) UD INH SCH ×3 (16:25→23:35)
[2017-08-17] MEDS: Fluticasone-Salmeterol 250-50mcg Diskus INH SCH (20:22)
[2017-08-18] MEDS: Albuterol-Ipratrop 3 mg / 0.5 (3 ml) UD INH SCH ×3 (04:12→11:37)
[2017-08-18] MEDS: HYDROmorphone 0.5 mg/0.5 ml ISec IVP PRN (06:01)
[2017-08-18 08:00] VITALS: PULSE 89; TEMP 98.9; O2SAT 97
--- NOTE | 2017-08-18 08:10 | CP.PCM.PN ---
<Marilynn Burdick - Last Filed: 08/18/17 12:17> Subjective - Date & Time of Evaluation Date of Evaluation: 08/18/17 Time of Evaluation: 08:06 - Subjective Subjective: Gastroenterology Fellow/PGY5 Progress Note Patient walking and standing in the room/. States she has back pain. Does not like Dilaudid as feels it makes her nervous. Bowel movement yesterday. A 12- point review of systems negative except for as above. Objective - Vital Signs/Intake and Output Vital Signs (last 24 hours): Temp Pulse Resp BP Pulse Ox 98.9 F 89 20 102/61 97 08/18/17 07:58 08/18/17 07:58 08/18/17 07:58 08/18/17 07:58 08/18/17 07:58 Intake and Output: 08/18/17 08/18/17 06:59 18:59 Intake Total 360 Balance 360 - Medications Medications: Current Medications Albuterol/Ipratropium (Duoneb 3 Mg/0.5 Mg (3 Ml) Ud) 3 ml INH RQ4 [facility] Last Admin: 08/18/17 04:12 Dose: Not Given Enoxaparin Sodium (Lovenox) 40 mg SC DAILY [facility] Last Admin: 08/17/17 09:46 Dose: Not Given Furosemide (Lasix) 40 mg PO DAILY [facility] Last Admin: 08/17/17 09:51 Dose: 40 mg Hydromorphone HCl (Dilaudid) 1 mg IVP Q6H PRN PRN Reason: Pain, moderate (4-7) Last Admin: 08/18/17 06:01 Dose: 1 mg Lactulose (Enulose) 20 gm PO BID [facility] Last Admin: 08/17/17 17:58 Dose: 20 gm Lorazepam (Ativan) 0.5 mg PO BID [facility] Last Admin: 08/17/17 21:39 Dose: 0.5 mg Multivitamins (Hexavitamin) 1 tab PO DAILY [facility] Last Admin: 08/17/17 09:51 Dose: 1 tab Pantoprazole Sodium (Protonix Ec Tab) 40 mg PO DAILY [facility] Last Admin: 08/17/17 09:50 Dose: 40 mg Pneumococcal Polyvalent Vaccine (Pneumovax 23 Vaccine) 0.5 ml IM .ONCE ONE Stop: 08/18/17 10:01 Fluticasone/Salmeterol (Advair Diskus 250/50) 1 puff INH RQ12 [facility] Last Admin: 08/17/17 20:22 Dose: 1 puff Spironolactone (Aldactone) 100 mg PO DAILY [facility] Last Admin: 08/17/17 09:47 Dose: Not Given Thiamine HCl (Vitamin B1 Tab) 100 mg PO DAILY [facility] Last Admin: 08/17/17 09:50 Dose: 100 mg - Labs Labs: 08/16/17 16:23 08/16/17 16:23 PT 15.2 SECONDS (9.7-12.2) H 08/16/17 16:23 INR 1.3 08/16/17 16:23 APTT 36 SECONDS (21-34) H 08/16/17 16:23 - Constitutional Appears: No Acute Distress, Chronically Ill - Head Exam Head Exam: ATRAUMATIC, NORMOCEPHALIC - Eye Exam Eye Exam: EOMI, PERRL Pupil Exam: PERRL. absent: Miosis, Mydriatic - ENT Exam ENT Exam: Mucous Membranes Moist, Normal Oropharynx - Neck Exam Neck Exam: Full ROM, Normal Inspection - Respiratory Exam Respiratory Exam: Clear to Ausculation Bilateral. absent: Rales, Rhonchi, Wheezes - Cardiovascular Exam Cardiovascular Exam: RRR, +S1, +S2. absent: Gallop, Rubs - GI/Abdominal Exam GI & Abdominal Exam: Distended, Firm, Hypoactive Bowel Sounds, Organomegaly. absent: Rigid, Tenderness - Extremities Exam Extremities Exam: Normal Inspection. absent: Pedal Edema - Neurological Exam Neurological Exam: Alert, Awake, Oriented x3 - Psychiatric Exam Psychiatric exam: Normal Affect, Normal Mood - Skin Skin Exam: Dry, Intact, Normal Color, Warm Assessment and Plan - Assessment and Plan (Free Text) Assessment: 62 year old female with history of COPD, Hypertension, Anxiety, back pain on oxycodone, and decompensated HCV/ETOH cirrhosis presenting with abdominal distension. Active treatment of decompensated cirrhosis 2/2 ascites. No prior EGD or colonoscopy. Decompensated HCV/ETOH cirrhosis - admission MELD 9 HTN COPD Anxiety Abdominal pain, ascites CT imaging from February 2017 shows no evidence of focal hepatic lesion Plan: - Low sodium diet as tolerated - Continue with lactulose therapy, titrate so patient has 3 bowel movements daily - Obtain diagnostic, therapeutic paracentesis - Obtain AFP - Continue with diuretic therapy, monitor electrolytes - Patient will likely require albumin replacement therapy post paracentesis despite currently normal creatinine, prior renal insufficiency Plan: >MELD 9 >diagnostic and therapeutic paracentesis today- removed 2 Liters >pending fluid analysis >continue Lactulose BID, titrate to 2-3 BMs/day >low salt diet >sobriety endorsed since June 2016 >outpatient EGD/colonoscopy with Dr. Edwards established for 08/25/17 >established appointment with [facility] for liver transplant evaluation 08/26/17 >will follow clinical course <Deejay Edwards MD - Last Filed: 08/18/17 16:01> Objective - Vital Signs/Intake and Output Vital Signs (last 24 hours): Temp Pulse Resp BP Pulse Ox 98.9 F 89 20 130/71 97 08/18/17 07:58 08/18/17 07:58 08/18/17 07:58 08/18/17 10:31 08/18/17 07:58 Intake and Output: 08/18/17 08/18/17 06:59 18:59 Intake Total 360 Balance 360 - Labs Labs: 08/18/17 08:19 08/18/17 08:19 PT 14.7 SECONDS (9.7-12.2) H 08/18/17 08:22 INR 1.3 08/18/17 08:22 APTT 36 SECONDS (21-34) H 08/16/17 16:23 Attending/Attestation - Attestation I have personally seen and examined this patient.: Yes I have fully participated in the care of the patient.: Yes I have reviewed all pertinent clinical information, including history, physical exam and plan: Yes Notes (Text): 08/18/17 15:59 Patient seen with GI fellow. This is a 62 year old female with history of COPD, Hypertension, Anxiety, back pain on oxycodone, and decompensated HCV/ETOH cirrhosis presenting with worsening ascites admitted for paracentesis. Decompensated HCv cirrhosis, MELD 9. Scheduled EGD/ colonoscopy next week. Low sodium diet as tolerated. Continue with lactulose therapy, titrate so patient has 3 bowel movements daily. Continue with diuretic therapy, monitor electrolytes
[2017-08-18] MEDS: Fluticasone-Salmeterol 250-50mcg Diskus INH SCH (08:18)
[2017-08-18 08:34] LABS: BASO % 1.1 % (0.0-2.0); EOS # 0.1 K/uL (0.0-0.7); EOS % 2.7 % (0.0-4.0); HEMATOCRIT 25.7 % (34.0-47.0); LYMPH # 0.5 K/uL (1.0-4.3); LYMPH % 11.3 % (20.0-40.0); MEAN CELL VOLUME 78.8 fL (81.0-99.0); MEAN CORPUSCULAR HEMOGLOBIN 25.9 pg (27.0-31.0); MEAN CORPUSCULAR HGB CONC 32.9 g/dL (33.0-37.0); MONO # 0.6 K/uL (0.0-0.8); MONO % 11.8 % (0.0-10.0); NRBC % 0.1 % (0.0-2.0); RED CELL DISTRIBUTION WIDTH 16.7 % (11.5-14.5); WHITE BLOOD COUNT 4.7 K/uL (4.8-10.8)
[2017-08-18 08:37] LABS: INR 1.3
[2017-08-18 08:53] LABS: CHLORIDE 100 mmol/L (98-107); SODIUM 134 mmol/L (132-148)
[2017-08-18 08:54] LABS: POTASSIUM 3.8 mmol/L (3.6-5.2)
[2017-08-18 08:56] LABS: ALB/GLOB RATIO 0.9 (1.0-2.1); ALKALINE PHOSPHATASE 51 U/L (38-126); ALT/SGPT 26 U/L (9-52); AST/SGOT 25 U/L (14-36); BILIRUBIN,TOTAL 0.7 mg/dL (0.2-1.3); BLOOD UREA NITROGEN 14 mg/dL (7-17); CARBON DIOXIDE 24 mmol/L (22-30); GFR AFRICAN-AMERICAN > 60; GLUCOSE,RANDOM 112 mg/dL (65-105); TOTAL PROTEIN 7.8 g/dL (6.3-8.3)
[2017-08-18 08:57] LABS: CALCIUM 8.4 mg/dl (8.6-10.4)
[2017-08-18] MEDS ORDERED: Pneumococcal 23-Valent Vaccine IM ONE (10:00)
[2017-08-18] MEDS ORDERED: Influenza Vaccine 60 mcg/0.5 mL SYR (4YR UP) IM ONE (10:00)
--- NOTE | 2017-08-18 10:21 | PCM.SURG1 ---
Surgeon's Initial Post Op Note - Surgeon's Notes Surgeon: Michael Saavedra MD [employer] Machine Operator: NONE Type of Anesthesia: Local Pre-Operative Diagnosis: Ascites Operative Findings: US showed a small amount of ascites Post-Operative Diagnosis: Ascites Operation Performed: US guided paracentesis. Specimen/Specimens Removed: 2 liters of yellow fluid Estimated Blood Loss: EBL {In ML}: 0 Blood Products Given: N/A Drains Used: No Drains Post-Op Condition: Fair Date of Surgery/Procedure: 08/18/17 Time of Surgery/Procedure: 10:10
--- NOTE | 2017-08-18 10:28 | US ---
Date of Procedure: 08/18/2017 PROCEDURE: Ultrasound-guided paracentesis, CPT 22280 Medications: 7 cc 1% Lidocaine HISTORY: Ascites, abdominal pain TECHNIQUE: Following informed consent , the patient was placed supine on the stretcher and the site was marked. A limited abdominal ultrasound was performed that showed a small amount of intra-abdominal fluid. Procedural time out was called and the Pt's abdomen was marked and prepped and draped in the usual sterile fashion. Ultrasound-guided large volume paracentesis performed. A total of 2 liters of straw colored fluid was removed without complication. Fluid specimen was sent for culture, sensitivity, cytology and chemistries. IMPRESSION: Ultrasound-guided paracentesis.
[2017-08-18] MEDS: Multiple Vitamins Tab PO SCH (10:31)
[2017-08-18] MEDS: Pantoprazole 40 mg EC Tab PO SCH (10:31)
[2017-08-18] MEDS: Enoxaparin 40 mg Syringe SC SCH ×2 (10:31→10:33)
[2017-08-18 10:32] VITALS: BP 130/71
[2017-08-18 10:41] LABS: BODY FLUID TYPE PERITONEAL
[2017-08-18 11:23] LABS: BF GROSS APPEARANCE SL CLOUDY (CLEAR)
[2017-08-18 11:46] LABS: BODY FLUID TOTAL COUNT 100 (0-0)
== END 2017-08-18 13:00 | disposition home or self-care (01) | DRG 202 ==
LOC: C.ER 15:48 → C.9E 17:13 → C.3T 19:11
PROVIDERS: ADMIT Internal Medicine Nephrology; ATTEND Internal Medicine Nephrology
PROC: 0W9G3ZZ Drainage of Peritoneal Cavity, Percutaneous Approach (ICD-10-PCS; principal; 2017-08-18)
DX: K70.31 Alcoholic cirrhosis of liver with ascites (principal); I10 Essential (primary) hypertension; B19.20 Unspecified viral hepatitis C without hepatic coma; J44.9 Chronic obstructive pulmonary disease, unspecified; F10.188 Alcohol abuse with other alcohol-induced disorder; F17.210 Nicotine dependence, cigarettes, uncomplicated; F41.9 Anxiety disorder, unspecified; Z80.0 Family history of malignant neoplasm of digestive organs

== ENCOUNTER 2017-12-04 19:56 | Emergency (ER) | payer MEDICAID ==
[2017-12-04 19:56] VITALS: BMI 27.4
[2017-12-04 20:29] VITALS: RESP 18; TEMP 98.3
--- NOTE | 2017-12-04 21:28 | C.PDOC ---
History Of Present Illness Patient presents to the ER with a complaint of worsening abdominal distention. Patient states she is in liver failure and its time to have her abdomen tapped. She is currently speaking in complete sentences, denies fever or chills. Time Seen by Provider: 12/04/17 21:28 Chief Complaint (Nursing): Abdominal Pain History Per: Patient History/Exam Limitations: no limitations Onset/Duration Of Symptoms: Hrs Current Symptoms Are (Timing): Still Present Context: Other Severity: Moderate Pain Scale Rating Of: 4 Location Of Pain/Discomfort: Diffuse Radiation Of Pain To:: None Quality Of Discomfort: Unable To Describe Associated Symptoms: denies: Fever, Chills Exacerbating Factors: None Alleviating Factors: None Recent travel outside of the [place]: No Abnormal Vaginal Bleeding: No Past Medical History Reviewed: Historical Data, Nursing Documentation, Vital Signs Vital Signs: Last Vital Signs Temp 98.3 F 12/04/17 20:25 Pulse 93 H 12/04/17 20:25 Resp 18 12/04/17 20:25 BP 135/73 12/04/17 20:25 Pulse Ox 99 12/04/17 22:06 - Medical History PMH: Anxiety, Asthma, Bronchitis, COPD, HTN - [facility] Procedures DRAINAGE OF PERITONEAL CAVITY, PERCUTANEOUS APPROACH (08/16/17) INDIVIDUAL PSYCHOTHERAPY, COGNITIVE-BEHAVIORAL (11/28/16) INDIVIDUAL PSYCHOTHERAPY, SUPPORTIVE (11/28/16) RESECTION OF SMALL INTESTINE, OPEN APPROACH (02/08/17) SUPPLEMENT ABDOMINAL WALL WITH SYNTH SUB, OPEN APPROACH (02/08/17) SUPPLEMENT L INGUINAL REGION WITH SYNTH SUB, OPEN APPROACH (02/08/17) TRANSFUSE NONAUT PLATELETS IN PERIPH VEIN, PERC (06/17/17) Family History: States: No Known Family Hx - Social History Hx Tobacco Use: No Hx Alcohol Use: No Hx Substance Use: No - Immunization History Hx Tetanus Toxoid Vaccination: No Hx Influenza Vaccination: No Hx Pneumococcal Vaccination: No Review Of Systems Constitutional: Negative for: Fever, Chills Eyes: Negative for: Redness ENT: Negative for: Throat Pain Cardiovascular: Negative for: Chest Pain Respiratory: Negative for: Shortness of Breath Gastrointestinal: Positive for: Other (Distention). Negative for: Nausea, Vomiting, Diarrhea Genitourinary: Negative for: Dysuria Musculoskeletal: Negative for: Back Pain Skin: Negative for: Rash Neurological: Negative for: Weakness Psych: Negative for: Anxiety Physical Exam - Physical Exam Appears: Non-toxic Skin: Warm, Dry Head: Normacephalic Eye(s): bilateral: Normal Inspection Oral Mucosa: Moist Neck: Supple Chest: Symmetrical, No Tenderness Cardiovascular: Rhythm Regular Respiratory: No Rales, No Rhonchi, No Wheezing Gastrointestinal/Abdominal: Soft, No Tenderness, Distention (w/ mild fluid wave) , No Rebound, Ascites Back: No CVA Tenderness Extremity: Pedal Edema (Trace) Extremity: Bilateral: Atraumatic Pulses: Left Dorsalis Pedis: Normal, Right Dorsalis Pedis: Normal Neurological/Psych: Oriented x3 Gait: Steady ED Course And Treatment - Laboratory Results Result Diagrams: 12/04/17 21:51 12/04/17 21:51 O2 Sat by Pulse Oximetry: 99 (Room air) Pulse Ox Interpretation: Normal Progress Note: Blood work and urinalysis ordered. Disposition Discussed With : Kayli Marcano Comment: accepted the pt on his service and took over the care at 10:55 PM Doctor Will See Patient In The: Hospital Counseled Patient/Family Regarding: Studies Performed, Diagnosis - Disposition Referrals: Dayton Rodriguez MD [Primary Care Provider] - Disposition: HOSPITALIZED Disposition Time: 21:28 Condition: FAIR Forms: Video[employer] (Arabic) - Clinical Impression Clinical Impression: Abdominal pain, Liver failure - Scribe Statement The provider has reviewed the documentation as recorded by the Scribe Khanh Chavira All medical record entries made by the Scribe were at my direction and personally dictated by me. I have reviewed the chart and agree that the record accurately reflects my personal performance of the history, physical exam, medical decision making, and the department course for this patient. I have also personally directed, reviewed, and agree with the discharge instructions and disposition. Decision To Admit - Pt Status Changed To: Hospital Disposition Of: Inpatient - Admit Certification Admit to Inpatient:: After my assessment, the patient will require hospitalization for at least two midnights. This is because of the severity of symptoms shown, intensity of services needed, and/or the medical risk in this patient being treated as an outpatient. - InPatient: Physician Admission Certification:: After my assessment, the patient will require hospitalization for at least two midnights. This is because of the severity of symptoms shown, intensity of services needed, and/or the medical risk in this patient being treated as an outpatient. - . Bed Request Type: Regular Admitting Physician: Kayli Marcano Patient Diagnosis: Abdominal pain, Liver failure
[2017-12-04 21:59] LABS: BASO # 0.1 K/uL (0.0-0.2); BASO % 1.6 % (0.0-2.0); EOS # 0.1 K/uL (0.0-0.7); EOS % 1.5 % (0.0-4.0); HEMOGLOBIN 9.8 g/dL (11.0-16.0); LYMPH # 0.9 K/uL (1.0-4.3); LYMPH % 18.9 % (20.0-40.0); MEAN CORPUSCULAR HEMOGLOBIN 24.6 pg (27.0-31.0); MEAN CORPUSCULAR HGB CONC 32.8 g/dL (33.0-37.0); MONO # 0.7 K/uL (0.0-0.8); MONO % 14.6 % (0.0-10.0); NEUT % 63.4 % (50.0-75.0); NRBC % 0.1 % (0.0-2.0); RBC 3.98 Mil/uL (3.80-5.20); RED CELL DISTRIBUTION WIDTH 17.9 % (11.5-14.5); WHITE BLOOD COUNT 4.8 K/uL (4.8-10.8)
[2017-12-04 22:08] LABS: ALB/GLOB RATIO 1.1 (1.0-2.1); ALBUMIN 4.2 g/dL (3.5-5.0)
[2017-12-04 22:09] LABS: SQUAMOUS EPITHIAL 17 /hpf (0-5); URINE BACTERIA RARE (<OCC); URINE BILIRUBIN NEGATIVE (NEGATIVE); URINE BLOOD NEGATIVE (NEGATIVE); URINE CLARITY Hazy (Clear); URINE COLOR Yellow (YELLOW); URINE GLUCOSE (UA) NORMAL (Normal); URINE LEUKOCYTE ESTERASE NEG Leu/uL (Negative); URINE NITRATE NEGATIVE (NEGATIVE); URINE PROTEIN NEGATIVE (NEGATIVE); URINE UROBILINOGEN NORMAL mg/dL (0.2-1.0)
[2017-12-04 22:20] LABS: INR 1.2
[2017-12-05] MEDS ORDERED: Morphine 4 MG/ML VIAL ONE (00:13)
[2017-12-05] MEDS ORDERED: Albuterol HFA 90 mcg/actuation (8 g) IH PRN ×2 (02:34→07:30)
--- NOTE | 2017-12-05 06:48 | CP.PCM.CON ---
<Estrella Hernandez - Last Filed: 12/05/17 11:08> History of Present Illness - History of Present Illness History of Present Illness: GI consult note for Dr Edwards Reason for consult: ascites Patient is a 62 year old female with PMHx of decompensated HCV/ETOH cirrhosis requiring routine paracentesis, COPD, anxiety, HTN presenting with worsening abdominal distention for one week. Patient states last time she got tapped was in August 2017, made an appointment with IR for her monthly paracentesis but has not followed up because she didn't feel the abdominal distention until now. Patient states she gained 9 lb in the last 10 days. Follows up with Dr Edwards and [facility] liver center, last visit to the liver center was November 18 of this year. Patient claims complaint with her diuretics, and takes lactulose two times a day, with bowel movement more than 3 times per day. Patient denies nausea, vomiting, diarrhea, fever/chills, weight loss, or rectal bleeding. Denies abdominal pain. She denies recent ETOH use, last drink as per patient was in June 2016. Denies fever or chills. PMx: as stated abobe PSHx: multiple paracenetesis ( last was 08/18/17), incarcerated hernia repair ( 02/09/17), clonoscopy and EGD 09/08/17 with tubular adenomainternal hemorrhoid, moderate portal htn, gastritis with negative h pylori. Social history: smokes 1/2 PPD cigarettes, prior ETOH abuse Family history: father (colon cancer, diagnosed age 55) Home meds: Lasix, lactulose, spinorolactone, ocy for chronic back pain. Allergy: NKDA Review of Systems - Review of Systems All systems: reviewed and no additional remarkable complaints except Review of Systems: 12 point ROS reviewed, all negative except as per HPI. Past Patient History - Infectious Disease Hx of Infectious Diseases: None - Tetanus Immunizations Tetanus Immunization: Unknown - Past Medical History & Family History Past Medical History?: Yes - Past Social History Smoking Status: Light Smoker < 10 Cigarettes Daily Alcohol: Other (former alcohol abuse.) Drugs: Denies Home Situation {Lives}: Alone - CARDIAC Hx Hypertension: Yes - PULMONARY Hx Asthma: Yes Hx Bronchitis: Yes Hx Chronic Obstructive Pulmonary Disease (COPD): Yes - NEUROLOGICAL Hx Neurological Disorder: No - HEENT Hx HEENT Problems: No - RENAL Hx Chronic Kidney Disease: No - ENDOCRINE/METABOLIC Hx Endocrine Disorders: No - HEMATOLOGICAL/ONCOLOGICAL Hx Blood Disorders: Yes Hx Hepatitis B: Yes Hx Hepatitis C: Yes - INTEGUMENTARY Hx Dermatological Problems: No - MUSCULOSKELETAL/RHEUMATOLOGICAL Hx Musculoskeletal Disorders: Yes Hx Falls: Yes - GASTROINTESTINAL Other/Comment: Ascites,umbilical hernia, cirrhosis of liver,hepatic encelopathy - GENITOURINARY/GYNECOLOGICAL Hx Genitourinary Disorders: No - PSYCHIATRIC Hx Anxiety: Yes Hx Substance Use: No - SURGICAL HISTORY Hx Surgeries: Yes Hx Herniorrhaphy: Yes (umbilical, left inguinal) - ANESTHESIA Hx Anesthesia: Yes Hx Anesthesia Reactions: No Hx Malignant Hyperthermia: No Meds Allergies/Adverse Reactions: Allergies Allergy/AdvReac Type Severity Reaction Status Date / Time No Known Allergies Allergy Verified 12/04/17 20:24 - Medications Medications: Current Medications Albuterol (Ventolin Hfa 90 Mcg/Actuation (8 G)) 90 puff IH TID PRN PRN Reason: Shortness of Breath Alprazolam (Xanax) 1 mg PO DAILY [facility] Enoxaparin Sodium (Lovenox) 40 mg SC DAILY [facility] Furosemide (Lasix) 80 mg PO DAILY [facility] Haloperidol (Haldol) 5 mg PO BID [facility] Home Med (Lactulose [Generlac]) 10 gm PO DAILY [facility] Hydromorphone HCl (Dilaudid) 1 mg IVP Q6 PRN PRN Reason: Pain, severe (8-10) Last Admin: 12/05/17 04:19 Dose: 1 mg Lactulose (Enulose) 20 gm PO BID [facility] Lorazepam (Ativan) 1 mg PO DAILY [facility] Montelukast Sodium (Singulair) 10 mg PO DAILY [facility] Rifaximin (Xifaxan) 550 mg PO BID [facility] Fluticasone/Salmeterol (Advair Diskus 100/50) 1 puff IH Q12 [facility] Spironolactone (Aldactone) 25 mg PO DAILY [facility] Thiamine HCl (Vitamin B1 Tab) 100 mg PO DAILY [facility] Physical Exam - Constitutional Appears: No Acute Distress, Chronically Ill - Head Exam Head Exam: ATRAUMATIC, NORMAL INSPECTION, NORMOCEPHALIC - Eye Exam Eye Exam: Normal appearance, PERRL. absent: Scleral icterus - ENT Exam ENT Exam: Mucous Membranes Dry - Neck Exam Neck exam: Positive for: Normal Inspection - Respiratory Exam Respiratory Exam: Clear to Auscultation Bilateral, NORMAL BREATHING PATTERN. absent: Rales, Rhonchi, Wheezes, Respiratory Distress, Stridor - Cardiovascular Exam Cardiovascular Exam: REGULAR RHYTHM, +S1, +S2 - GI/Abdominal Exam GI & Abdominal Exam: Normal Bowel Sounds, Organomegaly, Soft. absent: Diminished Bowel Sounds, Distended, Firm, Guarding, Rigid, Tenderness Additional comments: Old surgical scar with well healed wound. No fluid wave. - Extremities Exam Extremities exam: Positive for: normal inspection. Negative for: pedal edema - Back Exam Back exam: NORMAL INSPECTION - Neurological Exam Neurological exam: Alert, Oriented x3 - Psychiatric Exam Psychiatric exam: Normal Affect, Normal Mood - Skin Skin Exam: Dry, Intact, Normal Color, Warm Results - Vital Signs Recent Vital Signs: Last Vital Signs Temp 98.3 F 12/04/17 20:25 Pulse 93 H 12/04/17 20:25 Resp 18 12/04/17 20:25 BP 135/73 12/04/17 20:25 Pulse Ox 99 12/04/17 23:04 - Labs Result Diagrams: 12/04/17 21:51 12/04/17 21:51 Labs: Laboratory Results - last 24 hr 12/04/17 12/04/17 12/04/17 21:51 21:51 21:51 WBC 4.8 RBC 3.98 Hgb 9.8 L Hct 29.8 L MCV 75.0 L MCH 24.6 L MCHC 32.8 L RDW 17.9 H Plt Count 52 L MPV 10.0 Neut % (Auto) 63.4 Lymph % (Auto) 18.9 L Mitchell % (Auto) 14.6 H Eos % (Auto) 1.5 Baso % (Auto) 1.6 Neut # 3.0 Lymph # 0.9 L Mitchell # 0.7 Eos # 0.1 Baso # 0.1 PT 14.0 H INR 1.2 APTT 33 Sodium 129 L Potassium 3.8 Chloride 95 L Carbon Dioxide 25 Anion Gap 13 BUN 24 H Creatinine 1.2 Est GFR ( Amer) 55 Est GFR (Non-Af Amer) 46 Random Glucose 113 H Calcium 9.0 Total Bilirubin 0.7 AST 29 ALT 31 Alkaline Phosphatase 54 Ammonia Total Protein 8.2 Albumin 4.2 Globulin 3.9 Albumin/Globulin Ratio 1.1 Lipase 500 H Urine Color Urine Clarity Urine pH Ur Specific Bitely Urine Protein Urine Glucose (UA) Urine Ketones Urine Blood Urine Nitrate Urine Bilirubin Urine Urobilinogen Ur Leukocyte Esterase Urine WBC (Auto) Urine RBC (Auto) Ur Squamous Epith Cells Urine Bacteria 12/04/17 12/04/17 21:51 21:57 WBC RBC Hgb Hct MCV MCH MCHC RDW Plt Count MPV Neut % (Auto) Lymph % (Auto) Mitchell % (Auto) Eos % (Auto) Baso % (Auto) Neut # Lymph # Mitchell # Eos # Baso # PT INR APTT Sodium Potassium Chloride Carbon Dioxide Anion Gap BUN Creatinine Est GFR ( Amer) Est GFR (Non-Af Amer) Random Glucose Calcium Total Bilirubin AST ALT Alkaline Phosphatase Ammonia 15 D Total Protein Albumin Globulin Albumin/Globulin Ratio Lipase Urine Color Yellow Urine Clarity Hazy Urine pH 5.0 Ur Specific Bitely 1.016 Urine Protein Negative Urine Glucose (UA) Normal Urine Ketones Negative Urine Blood Negative Urine Nitrate Negative Urine Bilirubin Negative Urine Urobilinogen Normal Ur Leukocyte Esterase Neg Urine WBC (Auto) 3 Urine RBC (Auto) 1 Ur Squamous Epith Cells 17 H Urine Bacteria Rare Assessment & Plan - Assessment and Plan (Free Text) Assessment: 62 year old female with history of COPD, Hypertension, Anxiety, back pain on oxycodone, and decompensated HCV/ETOH cirrhosis presenting with abdominal distension. Active treatment of decompensated cirrhosis 2/2 ascites. 1- Decompensated HCV/ETOH cirrhosis - admission MELD 10 2- No ascites noted on exam and abdominal u/s 3- HTN 4- COPD 5- Anxiety CT imaging from February 2017 shows no evidence of focal hepatic lesion Plan: - Patient appears stable, speaking in full sentences and is a&ox3 - U/S with no ascitis fluid build up - Patient is hemodynamically stable, and able to tolerate po intake. - f/u with [facility] as scheduled on 01/2017 - Patient can be discharged, to continue with outpatient lactulose, and diuretics. - Follow up with Dr Edwards next month. Patient seen, examined and case discussed with Gi fellow and Dr Edwards. - Date & Time Date: 12/05/17 Time: 07:30 <Deejay Edwards MD - Last Filed: 12/06/17 08:30> Results - Vital Signs Recent Vital Signs: Last Vital Signs Temp 98.3 F 01/25/18 20:25 Pulse 83 12/05/17 10:52 Resp 18 12/05/17 10:52 BP 128/70 12/05/17 10:53 Pulse Ox 100 12/05/17 10:52 - Labs Result Diagrams: 12/04/17 21:51 12/04/17 21:51 Attending/Attestation - Attestation I have personally seen and examined this patient.: Yes I have fully participated in the care of the patient.: Yes I have reviewed all pertinent clinical information: Yes Notes (Text): 12/06/17 08:27 Patient seen with GI fellow and director medical. This is a 62 year old female with history of COPD, Hypertension, Anxiety, back pain on oxycodone, and decompensated HCV/ETOH cirrhosis presenting with abdominal distension in setting of cirrhosis. On physical exam does not have enough fluid for paracentesis. Will continue low dose diuretics and lactulose for HE. CT imaging from February 2017 shows no evidence of focal hepatic lesion. Alert and oriented. Low sodium high protein diet. Will follow in my office in two weeks. Follow up at [facility] as scheduled. Can be discharged
[2017-12-05] MEDS ORDERED: Pantoprazole 40 mg EC Tab PO SCH (10:00)
[2017-12-05] MEDS ORDERED: Enoxaparin 40 mg Syringe SC SCH (10:00)
[2017-12-05] MEDS ORDERED: LACTULOSE 10 GM PO SCH (10:00)
[2017-12-05] MEDS ORDERED: Fluticasone-Salmeterol 100-50mcg Diskus IH SCH (10:00)
[2017-12-05 10:53] VITALS: BP 128/70; PULSE 83; O2SAT 100
[2017-12-05] MEDS ORDERED: oxyCODONE 5 mg Immediate Release Tab PO ONE (11:15)
--- NOTE | 2017-12-05 11:31 | CP.PCM.PN ---
Subjective - Date & Time of Evaluation Date of Evaluation: 12/05/17 Time of Evaluation: 11:31 - Subjective Subjective: PT ANGELA IN ED SHE HAS BEEN ADMITTED AND WAITING FOR A MED-SURG BED. PT SEEN BY GI AND CLEARED FOR D/C. SHE HAS A SCHEDULED APPT AT [facility] FOR THIS JANUARY. SHE ALSO F/U REGULARLY WITH DR. ROSENTHAL IN THE OFFICE. PER Asher HENRY OK TO D/ C HOME TODAY. NO RX FOR NARCOTICS TO BE GIVEN. 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 PT VERBALIZES UNDERSTANDING OF ALL D/C INFORMATION, F/U, AND RX. NO FURTHER ORDERS. Objective - Vital Signs/Intake and Output Vital Signs (last 24 hours): Temp Pulse Resp BP Pulse Ox 98.3 F 83 18 128/70 100 12/04/17 20:25 12/05/17 10:52 12/05/17 10:52 12/05/17 10:53 12/05/17 10:52 - Medications Medications: Current Medications Albuterol (Ventolin Hfa 90 Mcg/Actuation (8 G)) 90 puff IH RTID PRN PRN Reason: Shortness of Breath Alprazolam (Xanax) 1 mg PO DAILY [facility] Last Admin: 12/05/17 10:54 Dose: Not Given Enoxaparin Sodium (Lovenox) 40 mg SC DAILY [facility] Last Admin: 12/05/17 10:54 Dose: Not Given Furosemide (Lasix) 80 mg PO DAILY [facility] Last Admin: 12/05/17 10:53 Dose: 80 mg Lactulose (Enulose) 20 gm PO BID [facility] Last Admin: 12/05/17 10:53 Dose: Not Given Lorazepam (Ativan) 1 mg PO DAILY [facility] Last Admin: 12/05/17 09:40 Dose: 1 mg Montelukast Sodium (Singulair) 10 mg PO HS [facility] Rifaximin (Xifaxan) 550 mg PO BID [facility] Last Admin: 12/05/17 10:54 Dose: 550 mg Fluticasone/Salmeterol (Advair Diskus 100/50) 1 puff IH RQ12 [facility] Spironolactone (Aldactone) 200 mg PO DAILY [facility] Last Admin: 12/05/17 10:52 Dose: 200 mg Thiamine HCl (Vitamin B1 Tab) 100 mg PO DAILY [facility] Last Admin: 12/05/17 10:54 Dose: 100 mg - Labs Labs: 12/04/17 21:51 12/04/17 21:51 PT 14.0 SECONDS (9.7-12.2) H 12/04/17 21:51 INR 1.2 12/04/17 21:51 APTT 33 SECONDS (21-34) 12/04/17 21:51
[2017-12-05] MEDS ORDERED: oxyCODONE 5 mg Immediate Release Tab ONE (11:35)
--- NOTE | 2017-12-05 11:57 | US ---
PROCEDURE: Medications: HISTORY: Abdominal pain, distention, history ascites TECHNIQUE: Limited sonographic evaluation was performed for purposes of paracentesis. IMPRESSION: Ultrasound of the abdomen showed no free fluid.
== END 2017-12-05 11:51 | disposition home or self-care (01) ==
LOC: C.ER 19:56 → SUPCPDRO 19:56 → UNDOADMIN 22:52 → C.9E 22:52 → UNDODISIN 12-05 11:51 → C.9E 12-05 14:52
DX: R10.9 Unspecified abdominal pain (principal); K72.90 Hepatic failure, unspecified without coma; I10 Essential (primary) hypertension; J44.9 Chronic obstructive pulmonary disease, unspecified; F17.210 Nicotine dependence, cigarettes, uncomplicated
CPT/HCPCS: 76705; 80053; 81001; 82140; 83690; 85025; 85610; 85730; 96374; 96375; 99285; J1170; J2270

== ENCOUNTER 2019-01-04 08:48 | Outpatient (CLI) | payer MEDICAID | END 2019-01-04 08:49 | disposition home or self-care (01) | LOC: C.USIC 08:48 | DX: K74.60 Unspecified cirrhosis of liver (principal); R18.8 Other ascites; R16.1 Splenomegaly, not elsewhere classified ==